=== PATIENT | male | born 1985 | race Caucasian/White ===

== ENCOUNTER → 2022-08-27 09:37 | Outpatient (BNVA) | payer MEDICARE, SELFPAY | PROVIDERS: PCP Emergency Medicine; Visit Provider Nurse Practitioner Family | DX: G90.529 Complex regional pain syndrome I of unspecified lower limb (principal); M62.830 Muscle spasm of back; M47.816 Spondylosis without myelopathy or radiculopathy, lumbar region; M79.2 Neuralgia and neuritis, unspecified | CPT/HCPCS: 99202 ==

== ENCOUNTER 2022-09-20 09:56 | Outpatient (REF) | payer MEDICARE, SELFPAY ==
--- NOTE | ~2022-09-20 | MR_ITS ---
EXAMINATION: MR LIMITED INCOMPLETE MR LUMBAR SPINE WITHOUT CONTRAST CLINICAL INFORMATION: Right leg pain. COMPARISON: X-ray dated 05/11/2011. TECHNIQUE: Only a localizer acquisition and a sagittal T2-weighted sequence were obtained. Patient refused further imaging due to anxiety. MR/MR lumbar spine wo con LIMITED FINDINGS AND IMPRESSION: The marrow signal is homogeneous. There is a very mild leftward curvature of the midlumbar spine. The lower thoracic discs are well-hydrated and normal in appearance. The L1-L2, L2-L3, and L3-L4 disc spaces are normal. At the L4-L5 level, there is mild disc degeneration and a generalized disc bulge with a small central disc protrusion and underlying annular tear. No central canal stenosis evident. Facet arthropathy and bulging disc result in [id number] foraminal narrowing at this level. At the L5-S1 level, there is a retrosubluxation and disc degeneration with mild disc space narrowing. Broad-based posterior disc bulge evident with a small central disc protrusion. Bilateral facet arthrosis also evident with [id number] foraminal narrowing, more so on the left side. The distal cord, conus tip, and cauda equina nerve roots appear normal. There are no compression fractures.
== END 2022-09-20 09:57 | disposition home or self-care (01) ==
LOC: HO.MRI 09:56
PROVIDERS: Visit Provider Nurse Practitioner Family
DX: G90.529 Complex regional pain syndrome I of unspecified lower limb (principal); M62.830 Muscle spasm of back; M47.816 Spondylosis without myelopathy or radiculopathy, lumbar region
CPT/HCPCS: 72148

== ENCOUNTER 2023-03-28 11:10 | Outpatient (REF) | payer MEDICARE, SELFPAY ==
--- NOTE | ~2023-03-28 | MR_ITS ---
EXAMINATION: MR LUMBAR SPINE WITHOUT CONTRAST CLINICAL INFORMATION: Lower back pain. Radiculopathy. COMPARISON: Lumbar spine MRI from 09/20/2022. TECHNIQUE: MRI of the lumbar spine was obtained using routine sequences without contrast. FINDINGS: Mild left convex curvature of the lumbar spine. Mild degenerative retrolisthesis of L5 on S1. Otherwise, normal anatomic alignment. Moderate degenerative disc disease at L4-L5 and L5-S1. T2 hyperintense annular fissure at L4-L5. Mild degenerative disc disease at L1-L2 and L2-L3. Associated mixed Modic type discogenic endplate changes including mild Modic type I discogenic edema at L4-L5. No additional suspicious marrow edema. The vertebral body heights are well-maintained. The conus medullaris terminates at the level of L1. The distal spinal cord is normal in appearance. Moderate subcutaneous edema within the soft tissues of the back from L3-S1. No additional significant abnormalities of the paraspinal musculature. Limited evaluation of the intra-abdominal structures without significant abnormalities. The abdominal aorta is of normal contour and caliber. AXIAL SPINAL LEVELS: T12-L1: Normal annular contour. There is no facet joint arthropathy. There is no neural foraminal stenosis. There is no spinal canal stenosis. L1-L2: Normal annular contour. There is no facet joint arthropathy. There is no neural foraminal stenosis. There is no spinal canal stenosis. L2-L3: Normal annular contour. There is no facet joint arthropathy. There is no neural foraminal stenosis. There is no spinal canal stenosis. L3-L4: Shallow diffuse disc bulge. There is mild left and no right facet joint arthropathy. There is no neural foraminal stenosis. There is no spinal canal stenosis. L4-L5: Mild diffuse disc bulge with superimposed shallow central/left subarticular disc protrusion. There is mild bilateral facet joint arthropathy. There is a 0.4 cm T2 hyperintense cyst posterior to the right facet joint. There is moderate right worse than left neural foraminal stenosis. There is no spinal canal stenosis. L5-S1: Mild diffuse disc bulge with posterior osseous ridging. There is mild bilateral facet joint arthropathy. There is moderate bilateral neural foraminal stenosis. There is no spinal canal stenosis. 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 Most notably, there are moderate neural foraminal stenoses at L4-L5 and L5-S1. No overt spinal canal stenosis. Overall, degenerative changes appears similar to exam from 2021.
== END 2023-03-28 11:11 | disposition home or self-care (01) ==
LOC: HO.MRI 11:10
PROVIDERS: PCP Registered Nurse; Visit Provider Registered Nurse
DX: M54.16 Radiculopathy, lumbar region (principal)
CPT/HCPCS: 72148

== ENCOUNTER 2024-01-24 10:13 | Outpatient (REF) | payer MEDICARE, SELFPAY ==
--- NOTE | ~2024-01-24 | XR_ITS ---
EXAMINATION: XR CHEST CLINICAL INFORMATION: Cough. COPD. Patient reports cough for 2 months. COMPARISON: None available. TECHNIQUE: 2 views of the chest were obtained. FINDINGS: There is opacity from airspace disease process and/or atelectasis in the left lower lobe. The left lateral costophrenic sulcus is blunted from a small pleural effusion. Also, a few linear opacities of mild atelectasis are present at the left lateral base. Cardiac silhouette is normal in size. There is a slight convex mediastinal contour in the region of the aortopulmonary window -- possible lymphadenopathy. However, no radiographic evidence of hilar or paratracheal lymphadenopathy. Questionable presence of callus formation at lateral aspect of left sixth and ninth ribs. Recommend attention to these ribs on chest CT evaluation. XR/XR chest 2V IMPRESSION: Left lower lobe opacity from airspace disease, atelectasis and/or possible underlying mass. Small left pleural effusion is present. Further workup is recommended given the history of 2 months of cough. Recommend obtaining chest CT with IV contrast.
== END 2024-01-24 10:14 | disposition home or self-care (01) ==
LOC: HO.HHCX 10:13
PROVIDERS: Visit Provider Nurse Practitioner Family
DX: R93.89 Abnormal findings on diagnostic imaging of other specified body structures (principal); R05.9 Cough, unspecified; J44.9 Chronic obstructive pulmonary disease, unspecified
CPT/HCPCS: 71046

== ENCOUNTER 2024-02-05 08:55 | Emergency (ER) | payer OTHER, MEDICARE, SELFPAY ==
[2024-02-05 09:10] VITALS: BP 137/76; PULSE 89; RESP 18; TEMP 36.6; O2SAT 98; BMI 39.2
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
[2024-02-05 10:11] VITALS: BP 112/78; PULSE 91; RESP 16; TEMP 36.6; O2SAT 98
== END 2024-02-05 10:12 | disposition home or self-care (01) ==
PROVIDERS: Emergency Provider Emergency Medicine; PCP Registered Nurse
DX: S16.1XXA Strain of muscle, fascia and tendon at neck level, initial encounter (principal); V49.60XA Unspecified car occupant injured in collision with unspecified motor vehicles in traffic accident, initial encounter; Y93.9 Activity, unspecified; Y92.410 Unspecified street and highway as the place of occurrence of the external cause; Y99.9 Unspecified external cause status
CPT/HCPCS: 99283; 99284

== ENCOUNTER 2024-03-21 09:27 | Outpatient (REF) | payer MEDICARE, SELFPAY ==
--- NOTE | ~2024-03-21 | CT_ITS ---
EXAMINATION: CT CHEST WITH CONTRAST CLINICAL INFORMATION: Cough. COPD. Patient reports cough for 2 months. COMPARISON: None available. TECHNIQUE: Multidetector volumetric CT imaging of the chest was obtained after the administration of 65 mL of Omnipaque 350 intravenous contrast without immediate adverse reactions. Axial MIP volume rendering provided. Sagittal and coronal reformatted images were obtained. This CT examination was performed using dose optimization techniques as appropriate, variously including the following: *Automated exposure control *Adjustment of mA and/or kV according to patient size (this includes techniques or standardized protocols for targeted exams where dose is matched to indication/reason for exam; i.e. extremities or head) *Use of iterative reconstruction technique DLP: 190 mGy-cm FINDINGS: LUNGS: There is focal dense consolidation at the posterior left lower lobe. This extends to the left inferior hilum where there is a heterogeneous density. This could be due to consolidation versus post obstructive pneumonitis due to a left hilar lung mass/lymphadenopathy at the lower lobe perihilar lung. The bronchus to the posterior left lower lobe posteriorly is compressed and slightly displaced, axial image 100/200 series 6. Bronchoscopy may be helpful for follow-up. MEDIASTINUM: At the AP window there is a lymph node with a short axis diameter measuring 1 cm, borderline enlarged. There are a few subcentimeter right paratracheal lymph nodes. In the subcarina there is a 0.8 cm lymph node. Heart size is normal. There is no pericardial effusion. PLEURA: There is no pleural effusion. No pleural mass or thickening. AXILLA: No lymphadenopathy. UPPER ABDOMEN: Unremarkable OSSEOUS STRUCTURES: No acute osseous abnormality. Old healed fracture of the left lateral sixth, seventh and ninth ribs. Sclerotic focus at the posterior left seventh rib without bone destruction or soft tissue mass. This measures 1 cm. Likely a bone island. CT/CT chest w IV con IMPRESSION: Focal dense consolidation at the posterior left lower lobe extending to the left inferior hilum. This could be due to consolidation versus post obstructive pneumonitis due to a left hilar lung mass/lymphadenopathy. Bronchoscopy may be helpful for follow-up. Fleischner guidelines were followed.
[2024-03-21] MEDS: iohexoL 350 MG/ML 100 ML INFUS..BTL IV (09:59)
== END 2024-03-21 09:28 | disposition home or self-care (01) ==
LOC: HO.CT 09:27
PROVIDERS: PCP Nurse Practitioner Family; Visit Provider Nurse Practitioner Family
DX: R93.89 Abnormal findings on diagnostic imaging of other specified body structures (principal)
CPT/HCPCS: 71260; Q9967

== ENCOUNTER 2024-04-12 13:31 | Outpatient (AMB) | payer MEDICARE, SELFPAY ==
[2024-04-12 13:36] VITALS: PULSE 89; O2SAT 97; BMI 39.1
--- NOTE | 2024-04-12 13:36 | MHC.OFFVIS ---
Vital Signs 04/12/24 13:36 Height 5 ft 8 in Weight 257 lb BMI 39.1 Pulse 89 Pulse Source Pulse Oximeter Pulse Oximetry (%) 97 Oxygen Delivery Method Room Air Intake Visit Reasons: Abnormal CT scan [employer] Required: No Allergies No Known Allergies Allergy (Verified 04/12/24 13:38) HPI Comments Details: The patient is here for pulmonary evaluation. The patient is a 39-year-old gentleman the cough tends to be moderate severity. Typically nonproductive although he feels like he has something to clear and just can not clear. During the workup the patient had a chest x-ray followed by CT scan of the chest. I personally reviewed the CT scan with the patient. Appears to have a masslike consolidation in the left lower lobe area in the infrahilar area as well. Seems to be some mucus plugging of some type question endobronchial lesion the patient denies choking on any particular foods. Denies any weight loss or night sweats. He denies any hemoptysis. the patient also has been trying to quit smoking. He has had a hard time. We talked about performing a bronchoscopy. The patient is agreeable this time. I did describe the procedure and the benefits of the procedure. The patient would like to pursue the procedure soon as possible. [facility] Medical History (Updated 04/12/24 @ 22:05 by Kai Gibbons MD) Tobacco dependence Consolidation of left lower lobe of lung Lung mass Osteoarthritis of ankle COPD, mild Neuropathic pain of right lower extremity Lumbar radiculopathy Complex regional pain syndrome of lower extremity Obstructive sleep apnea Obesity Bipolar disorder Hypothyroidism Nondependent alcohol abuse Severe episode of recurrent major depressive disorder Low back pain Surgical History Joint arthrodesis status Social History Patient Tobacco Use Status: Current everyday Tobacco user Tobacco use type: Cigarette Cigarette Packs Per Day: 1 Substance Use Type: Marijuana Review of Systems Const Denies fever(s) and Denies weight loss Eyes Reports no additional complaints ENT Denies dysphagia Card Denies chest pain and Denies palpitations Resp Reports cough, Denies hemoptysis and Denies wheezing GI Denies dysphagia Musc Reports back pain and Reports myalgias Skin/Breast Denies rash Endo Denies palpitations Zenon/Lymph Denies lymphadenopathy Aller/Immun Denies wheezing Physical Exam Vital Signs: Last Vital Signs Pulse 89 04/12/24 13:36 Pulse Ox 97 04/12/24 13:36 Oxygen Delivery Method Room Air 04/12/24 13:36 BMI result Body Mass Index 39.1 Const General: comfortable HEENT Head: Yes normocephalic Neck Neck: Yes supple Chest Chest palpation & inspection: normal inspection of the chest Resp Effort & Inspection: normal respiratory effort Auscultation: diminished lung sounds on the left Cardio Heart sounds: S1 normal heart sound present and S2 normal heart sound present GI Palpation (GI): Soft to palpation Extrem General: Yes no clubbing, cyanosis or edema Results Reviewed Results Reviewed: [address] [address] [address] Scan Report Signed Patient: Ji Her MR#: [id number] : 1985 Acct:[id number] Age/Sex: 39 / M ADM Date: 03/21/24 Loc: HO.CT Attending Dr: Margie Singh PATIENT ACCOUNT REPRESENTATIVE Ordering Physician: Margie Singh NP Date of Service: 03/21/24 Procedure(s): CT chest w IV con Accession Number(s): [id number] cc: Margie Singh PATIENT ACCOUNT REPRESENTATIVE~ EXAMINATION: CT CHEST WITH CONTRAST CLINICAL INFORMATION: Cough. COPD. Patient reports cough for 2 months. COMPARISON: None available. TECHNIQUE: Multidetector volumetric CT imaging of the chest was obtained after the administration of 65 mL of Omnipaque 350 intravenous contrast without immediate adverse reactions. Axial MIP volume rendering provided. Sagittal and coronal reformatted images were obtained. This CT examination was performed using dose optimization techniques as appropriate, variously including the following: *Automated exposure control *Adjustment of mA and/or kV according to patient size (this includes techniques or standardized protocols for targeted exams where dose is matched to indication/reason for exam; i.e. extremities or head) *Use of iterative reconstruction technique DLP: 190 mGy-cm FINDINGS: LUNGS: There is focal dense consolidation at the posterior left lower lobe. This extends to the left inferior hilum where there is a heterogeneous density. This could be due to consolidation versus post obstructive pneumonitis due to a left hilar lung mass/lymphadenopathy at the lower lobe perihilar lung. The bronchus to the posterior left lower lobe posteriorly is compressed and slightly displaced, axial image 100/200 series 6. Bronchoscopy may be helpful for follow-up. MEDIASTINUM: At the AP window there is a lymph node with a short axis diameter measuring 1 cm, borderline enlarged. There are a few subcentimeter right paratracheal lymph nodes. In the subcarina there is a 0.8 cm lymph node. Heart size is normal. There is no pericardial effusion. PLEURA: There is no pleural effusion. No pleural mass or thickening. AXILLA: No lymphadenopathy. UPPER ABDOMEN: Unremarkable OSSEOUS STRUCTURES: No acute osseous abnormality. Old healed fracture of the left lateral sixth, seventh and ninth ribs. Sclerotic focus at the posterior left seventh rib without bone destruction or soft tissue mass. This measures 1 cm. Likely a bone island. CT/CT chest w IV con IMPRESSION: Focal dense consolidation at the posterior left lower lobe extending to the left inferior hilum. This could be due to consolidation versus post obstructive pneumonitis due to a left hilar lung mass/lymphadenopathy. Bronchoscopy may be helpful for follow-up. Fleischner guidelines were followed. Dictated By: Estuardo Jennings MD Signed By: <Electronically signed by Estuardo Jennings MD in OV> 04/04/24 1504 DD/ 0957 TD/TT: Scanning Coordinator: LEIDA Assessment & Plan Assessment & Plan (1) Lung mass: Code(s): R91.8 - Other nonspecific abnormal finding of lung field Category: Medical (2) Consolidation of left lower lobe of lung: Code(s): J18.1 - Lobar pneumonia, unspecified organism Category: Medical (3) COPD, mild: Code(s): J44.9 - Chronic obstructive pulmonary disease, unspecified Category: Medical (4) Tobacco dependence: Code(s): F17.200 - Nicotine dependence, unspecified, uncomplicated Category: Medical Plan Plan for an urgent bronchoscopy tobacco cessation EUGENE as needed F/U after the bronchoscopy Coding Level of Care Code New Pt Level 5 (74217) Diagnoses Lung mass R91.8 Consolidation of left lower lobe of lung J18.1 COPD, mild J44.9 Tobacco dependence F17.200 Time Spent (min) 60
== END 2024-04-12 14:08 | disposition home or self-care (01) ==
PROVIDERS: PCP Nurse Practitioner Family; Referring Provider Family Medicine; Visit Provider Hospitalist
DX: R91.8 Other nonspecific abnormal finding of lung field (principal); J18.1 Lobar pneumonia, unspecified organism; J44.9 Chronic obstructive pulmonary disease, unspecified; F17.210 Nicotine dependence, cigarettes, uncomplicated
CPT/HCPCS: 99205

== ENCOUNTER → 2024-04-12 13:31 | Outpatient (BNVA) | payer MEDICARE, SELFPAY | PROVIDERS: PCP Nurse Practitioner Family; Referring Provider Family Medicine; Visit Provider Hospitalist | DX: J44.9 Chronic obstructive pulmonary disease, unspecified (principal); J18.1 Lobar pneumonia, unspecified organism; R91.8 Other nonspecific abnormal finding of lung field; F17.210 Nicotine dependence, cigarettes, uncomplicated | CPT/HCPCS: 99202 ==

== ENCOUNTER 2024-04-23 07:27 | Day surgery (SDC) | payer MEDICARE, SELFPAY ==
--- NOTE | 2024-04-19 15:18 | HO.ANESPROP2 ---
Documented by User: Vanna Reddy NP 04/19/24 15:20 HPI - Anesthesia Eval Consult details Narrative: 39yo M for Bronchoscopy Fiberoptic Smoker: 1 ppd PMFSH Active Problems Active Problems: All Active Problems Tobacco dependence (Acute) Consolidation of left lower lobe of lung (Acute) Lung mass (Acute) COPD, mild (Acute) Lumbar spondylosis (Acute) Muscle spasm of back (Acute) Neuropathic pain of right lower extremity (Acute) Lumbar radiculopathy (Acute) Complex regional pain syndrome of lower extremity (Acute) Past Medical History Medical History Tobacco dependence Consolidation of left lower lobe of lung Lung mass Osteoarthritis of ankle COPD, mild Neuropathic pain of right lower extremity Lumbar radiculopathy Complex regional pain syndrome of lower extremity Obstructive sleep apnea Obesity Bipolar disorder Hypothyroidism Nondependent alcohol abuse Severe episode of recurrent major depressive disorder Low back pain Surgical History Surgical History Joint arthrodesis status Social History Social History Patient Tobacco Use Status: Current everyday Tobacco user Tobacco use type: Cigarette Cigarette Packs Per Day: 1 Smoked in Last 30 Days: Yes Patient Interested in Nicotine Replacement: No Substance Use Type: Marijuana Substance Use Frequency: Daily Are you DNR?: No Advance Directives: No Advance Directives Information Provided: Yes Nutrition Risks: No Nutritional Risk Meds Allergies Allergy/AdvReac Type Severity Reaction Status Date / Time No Known Allergies Allergy Verified 04/23/24 08:20 Home Medications ?Medication ?Instructions ?Recorded ?Confirmed ?Last Taken ?Type albuterol sulfate 90 mcg/actuation 0 mcg inhalation 08/27/22 Unknown History aerosol inhaler bupropion HCl 300 mg 24 hr tablet, 300 mg PO DAILY PRN other 08/27/22 04/23/24 Unknown History extended release cholecalciferol (vitamin D3) 50 50 mcg PO DAILY 08/27/22 04/23/24 Unknown History mcg (2,000 unit) tablet levothyroxine 75 mcg tablet 75 mcg PO DAILY 08/27/22 04/23/24 04/23/24 History naloxone 4 mg/actuation nasal 1 spray intranasal DAILY 08/27/22 04/23/24 Unknown History spray (Narcan) nicotine 21 mg/24 hr daily 1 patch topical DAILY 08/27/22 04/23/24 Unknown History transdermal patch oxycodone-acetaminophen 10 mg-325 0 tab PO 08/27/22 04/23/24 History mg tablet sertraline 25 mg tablet 25 mg PO DAILY 08/27/22 04/23/24 Unknown History zolpidem 10 mg tablet 10 mg PO BEDTIME 08/27/22 04/23/24 Unknown History Exam Narrative Narrative: CT chest w IV con 03/2024 IMPRESSION: Focal dense consolidation at the posterior left lower lobe extending to the left inferior hilum. This could be due to consolidation versus post obstructive pneumonitis due to a left hilar lung mass/lymphadenopathy. Bronchoscopy may be helpful for follow-up. Assessment and Plan Assessment Anesthesia Assessment: Chart Reviewed Documented by User: Cristian Paige MD 04/23/24 08:49 [facility] Past Medical History Medical History Tobacco dependence Consolidation of left lower lobe of lung Lung mass Osteoarthritis of ankle COPD, mild Neuropathic pain of right lower extremity Lumbar radiculopathy Complex regional pain syndrome of lower extremity Obstructive sleep apnea Obesity Bipolar disorder Hypothyroidism Nondependent alcohol abuse Severe episode of recurrent major depressive disorder Low back pain Family History Family history of problems with anesthesia: No Surgical History Surgical History Joint arthrodesis status History of Problems with Anesthesia: No Social History Social History Patient Tobacco Use Status: Current everyday Tobacco user Tobacco use type: Cigarette Cigarette Packs Per Day: 1 Smoked in Last 30 Days: Yes Patient Interested in Nicotine Replacement: No Substance Use Type: Marijuana Substance Use Frequency: Daily Are you DNR?: No Advance Directives: No Advance Directives Information Provided: Yes Nutrition Risks: No Nutritional Risk Meds Allergies Allergy/AdvReac Type Severity Reaction Status Date / Time No Known Allergies Allergy Verified 04/23/24 08:20 Home Medications ?Medication ?Instructions ?Recorded ?Confirmed ?Last Taken ?Type albuterol sulfate 90 mcg/actuation 0 mcg inhalation 08/27/22 Unknown History aerosol inhaler bupropion HCl 300 mg 24 hr tablet, 300 mg PO DAILY PRN other 08/27/22 04/23/24 Unknown History extended release cholecalciferol (vitamin D3) 50 50 mcg PO DAILY 08/27/22 04/23/24 Unknown History mcg (2,000 unit) tablet levothyroxine 75 mcg tablet 75 mcg PO DAILY 08/27/22 04/23/24 04/23/24 History naloxone 4 mg/actuation nasal 1 spray intranasal DAILY 08/27/22 04/23/24 Unknown History spray (Narcan) nicotine 21 mg/24 hr daily 1 patch topical DAILY 08/27/22 04/23/24 Unknown History transdermal patch oxycodone-acetaminophen 10 mg-325 0 tab PO 08/27/22 04/23/24 History mg tablet sertraline 25 mg tablet 25 mg PO DAILY 08/27/22 04/23/24 Unknown History zolpidem 10 mg tablet 10 mg PO BEDTIME 08/27/22 04/23/24 Unknown History Exam Airway Mallampati Class: III TM Dist: >3cm Neck ROM: Full Assessment and Plan Assessment Anesthesia Assessment: Anesthesia Plan Discussed Final Anesthetic Review Family History of Problems with Anesthesia: No History of Problems with Anesthesia: No NPO: Yes ASA Class: III Final Preanesthetic Review: No Changes in Pt Med Stat, Meds/Allgs Chart Reviewed, Consent Obtained/Reviewed and Anes Risks/Benef Reviewed Patient Risk: Intermediate Procedure Risk: Intermediate Anesthetic Plan Anesthetic Plan: GA Disposition: Standard PACU
[2024-04-23] MEDS: Lactated Ringers 1,000 ML 100 ML IVCONT (08:16)
[2024-04-23 08:18] VITALS: BMI 39.0
[2024-04-23 08:34] VITALS: BP 113/68; PULSE 94; RESP 18; TEMP 37; O2SAT 94
--- NOTE | 2024-04-23 09:29 | MHC.SHP ---
Pre-Procedural Eval Section A - 24 Hr Update-Section A only Date of Service: 04/23/24 The patient is an INPATIENT: No Changes since office visit: No Cold of Flu in the past 2 weeks, No New Medical Problems, No Changes in Medication and No Patient answered all questions The patient has been examined within 24 hours of the surgical procedure. The History & Physical has been completed within 30 days and I have reviewed it.: Yes Section B - Complete if H&P > 30 days Chief Complaint: Lobar pneumonia, unspecified organism Allergies: Allergies Allergy/AdvReac Type Severity Reaction Status Date / Time No Known Allergies Allergy Verified 04/23/24 08:20 Plan I have reviewed the history and physical and performed a pertinent physical examination on my patient. No changes have occurred unless specified. Time Spent With Patient Time: Total time managing care of this patient today ____ minutes.
[2024-04-23 10:36] VITALS: BP 148/84; PULSE 117; RESP 16; TEMP 36.7; O2SAT 99
[2024-04-23 10:41] VITALS: BP 130/94; PULSE 113; RESP 22; O2SAT 97
[2024-04-23 10:46] VITALS: BP 143/78; PULSE 114; RESP 22; O2SAT 99
[2024-04-23 10:51] VITALS: BP 114/81; PULSE 109; RESP 20; O2SAT 97
[2024-04-23 11:06] VITALS: BP 139/66; PULSE 104; RESP 20; TEMP 36.7; O2SAT 96
--- NOTE | 2024-04-23 11:24 | HO.INF ---
PATIENT WAS SEEN BY DR. BULLOCK PRIOR TO DC.
--- NOTE | 2024-04-23 11:32 | PM.OP ---
Brief Operative Note Date of Service: 04/23/24 Pre-op diagnosis: lung mass Post-op diagnosis: other (lung cancer, post obstructive pneumonia) Procedure: Bronchosopy with biopsies, brushings, washings Implants: Surgeon: Kai Gibbons MD Anesthesia: GETA Was an Black Oxide Coating Equipment Tender used for this Procedure?: No Estimated blood loss (mL): 3 Pathology: other (LLL biopsies, brushings) Condition: stable Disposition: same day
--- NOTE | 2024-04-24 22:35 | OP_ITS ---
DATE OF SERVICE: 04/23/2024 SURGEON: Kai Gibbons MD PREOPERATIVE DIAGNOSIS: Lung mass. POSTOPERATIVE DIAGNOSIS: PROCEDURE PERFORMED: ESTIMATED BLOOD LOSS: COMPLICATIONS: ANESTHESIA: Patient received general endotracheal anesthesia. ASSISTANTS: SPECIMENS: ASA: 2. POSTOPERATIVE DIAGNOSES: Lung cancer and postobstructive pneumonia. PROCEDURES PERFORMED: Bronchoscopy with biopsies, brushings, and washings. PATTERN CHECKER: None. DESCRIPTION OF PROCEDURE: After the patient was intubated, the flexible digital bronchoscope was inserted to the ET tube to the level of the main kendra. The tracheal mucosa appeared normal. After instilling lidocaine, the bronchoscope was navigated through the entire tracheobronchial tree. That was examined up to the subsegmental level. The patient did have endobronchial lesion at the proximal left lower lobe bronchus. The area appeared to be vascular in nature with some neovascularization, purplish hue, and also surrounding, it was evidence of purulent secretions consistent with postobstructive pneumonic process. No other endobronchial lesions noted. Using a cytologic brush, that was introduced into the left lower lobe. Specimens were sent to cytology. The patient did have some bleeding, oozing after the brushing was done. Ice saline was used with good hemostasis. Afterwards using forces, endobronchial biopsies were collected of the left lower lobe mass. Epinephrine was used preemptively to minimize bleeding. Some biopsies were collected and sent to the appropriate location in formalin for Pathology to review. After the biopsies were collected, the patient still had some bleeding. So therefore, another ampule of epinephrine was introduced into the site, and once the patient reached good hemostasis without any evidence of any bleeding, the bronchoscope was the removed. The total endoscopic time approximately 20 minutes. The patient tolerated the procedure well. Vital signs were stable throughout the procedure. INTERPRETATION: 1. Endobronchial biopsies of the left lower lobe sent to pathology. 2. Cytology brush to the left lower lobe. 3. Bilateral washings sent both for microbiology and cytology. No apparent complications. Kai Gibbons MD MR/MODL / [id number]
== END 2024-04-23 11:25 | disposition home or self-care (01) ==
PROVIDERS: PCP Nurse Practitioner Family; Visit Provider Hospitalist
PROC: 0BJ08ZZ Inspection of Tracheobronchial Tree, Via Natural or Artificial Opening Endoscopic (ICD-10-PCS; CPT 31622; principal; 2024-04-23 09:30)
DX: C7A.090 Malignant carcinoid tumor of the bronchus and lung (principal); J44.0 Chronic obstructive pulmonary disease with (acute) lower respiratory infection; J18.8 Other pneumonia, unspecified organism; G47.33 Obstructive sleep apnea (adult) (pediatric); F17.210 Nicotine dependence, cigarettes, uncomplicated
CPT/HCPCS: 31625; 31623; 87071; 87077; 87185; 87205; 88112; 88305; 88341; 88342; 88360; J0171; J1100; J2250; J2405; J2704; J3010

== ENCOUNTER → 2024-04-23 07:27 | Outpatient (BNV) | payer MEDICARE, SELFPAY | PROVIDERS: PCP Nurse Practitioner Family; Visit Provider Hospitalist | DX: C34.32 Malignant neoplasm of lower lobe, left bronchus or lung (principal); J18.1 Lobar pneumonia, unspecified organism | CPT/HCPCS: 31623; 31625 ==

== ENCOUNTER 2024-05-03 09:10 | Outpatient (AMB) | payer MEDICARE, SELFPAY ==
--- NOTE | 2024-05-03 09:12 | MHC.OFFVIS ---
Vital Signs 05/03/24 09:14 Height 5 ft 8 in Weight 257 lb BMI 39.1 Pulse 83 Pulse Source Pulse Oximeter Pulse Oximetry (%) 97 Oxygen Delivery Method Room Air Intake Visit Reasons: S/p bronch Oncology Social Worker Required: No Allergies No Known Allergies Allergy (Verified 05/03/24 09:15) HPI Comments Details: The patient is a 39-year-old gentleman the cough tends to be moderate severity. Typically nonproductive although he feels like he has something to clear and just can not clear. During the workup the patient had a chest x-ray followed by CT scan of the chest. I personally reviewed the CT scan with the patient. Appears to have a masslike consolidation in the left lower lobe area in the infrahilar area as well. Seems to be some mucus plugging of some type question endobronchial lesion the patient denies choking on any particular foods. Denies any weight loss or night sweats. He denies any hemoptysis. the patient also has been trying to quit smoking. He has had a hard time. We talked about performing a bronchoscopy. The patient is agreeable this time. I did describe the procedure and the benefits of the procedure. The patient would like to pursue the procedure soon as possible. 05/03/2024 The patient is here for a follow up bronchsocopy. He did have a mass obstructing his LLL bronchus with pus suggesting a post obstructive pneumonia. Pathology consistent with carcinoid. He completed the Augmentin and starting to cough again. He will have PFTs and awaiting referral with Thoracic surgery. 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, mild Obstructive sleep apnea Tobacco dependence Nondependent alcohol abuse Bipolar disorder Neuropathic pain of right lower extremity Complex regional pain syndrome of lower extremity Osteoarthritis of ankle Lumbar radiculopathy Hypothyroidism Severe episode of recurrent major depressive disorder Low back pain Obesity Surgical History (Updated 04/26/24 @ 14:13 by Anay Shepard PA-C) History of bronchoscopy History of foot surgery History of circumcision Social History Patient Tobacco Use Status: Current everyday Tobacco user Tobacco use type: Cigarette Cigarette Packs Per Day: 1 Substance Use Type: Marijuana Review of Systems Const Denies fever(s) and Denies weight loss Eyes Reports no additional complaints ENT Denies dysphagia Card Denies chest pain and Denies palpitations Resp Reports cough, Denies hemoptysis and Denies wheezing GI Denies dysphagia Musc Reports back pain and Reports myalgias Skin/Breast Denies rash Endo Denies palpitations Zenon/Lymph Denies lymphadenopathy Aller/Immun Denies wheezing Physical Exam Vital Signs: Last Vital Signs Pulse 83 05/03/24 09:14 Pulse Ox 97 05/03/24 09:14 Oxygen Delivery Method Room Air 05/03/24 09:14 BMI result Body Mass Index 39.1 Const General: comfortable HEENT Head: Yes normocephalic Neck Neck: Yes supple Chest Chest palpation & inspection: normal inspection of the chest Resp Effort & Inspection: normal respiratory effort Auscultation: diminished lung sounds on the left Cardio Heart sounds: S1 normal heart sound present and S2 normal heart sound present GI Palpation (GI): Soft to palpation Extrem General: Yes no clubbing, cyanosis or edema Assessment & Plan Assessment & Plan (1) Carcinoid tumor: Onset Date: ~04/2024 Comment: (Carcinoid Tumor of Left Lowe Lobe - dx 04/2024) Code(s): D3A.00 - Benign carcinoid tumor of unspecified site Category: Medical Qualifiers: Carcinoid tumor malignancy status: unspecified whether malignant Carcinoid tumor location: lung Qualified Code(s): D3A.090 - Benign carcinoid tumor of the bronchus and lung (2) Consolidation of left lower lobe of lung: Code(s): J18.1 - Lobar pneumonia, unspecified organism Category: Medical (3) COPD, mild: Code(s): J44.9 - Chronic obstructive pulmonary disease, unspecified Category: Medical (4) Tobacco dependence: Code(s): F17.200 - Nicotine dependence, unspecified, uncomplicated Category: Medical Plan Tobacco cessation: Nicotine patch PFTs start Doxycycline for H influenza Referral to thoracic surgery for resection EUGENE as needed F/U 3-4 months Orders: Orders PFT pulmonary function test 05/04/24 D3A.00 - Benign carcinoid tumor of unspecified site Medications: New doxycycline monohydrate 100 mg PO BID 14 days 28 tabs 0RF nicotine 1 patch transdermal Q24H 28 ea 3RF Coding Level of Care Code Est Pt Level 4 (07249) Diagnoses Carcinoid tumor of lung, unspecified whether malignant D3A.090 Carcinoid tumor malignancy status: unspecified whether malignant Carcinoid tumor location: lung Consolidation of left lower lobe of lung J18.1 COPD, mild J44.9 Tobacco dependence F17.200 Time Spent (min) 17
[2024-05-03 09:14] VITALS: PULSE 83; O2SAT 97; BMI 39.1
== END 2024-05-03 09:40 | disposition home or self-care (01) ==
PROVIDERS: PCP Nurse Practitioner Family; Visit Provider Hospitalist
DX: D3A.090 Benign carcinoid tumor of the bronchus and lung (principal); J18.1 Lobar pneumonia, unspecified organism; J44.9 Chronic obstructive pulmonary disease, unspecified; F17.200 Nicotine dependence, unspecified, uncomplicated
CPT/HCPCS: 99214

== ENCOUNTER → 2024-05-03 09:10 | Outpatient (BNVA) | payer MEDICARE, SELFPAY | PROVIDERS: PCP Nurse Practitioner Family; Visit Provider Hospitalist | DX: D3A.090 Benign carcinoid tumor of the bronchus and lung (principal); J18.1 Lobar pneumonia, unspecified organism; J44.9 Chronic obstructive pulmonary disease, unspecified; F17.210 Nicotine dependence, cigarettes, uncomplicated | CPT/HCPCS: 99212 ==

== ENCOUNTER 2024-05-04 10:51 | Outpatient (REF) | payer OTHER, SELFPAY ==
[2024-05-04 10:04] VITALS: PULSE 86; RESP 16; O2SAT 98
--- NOTE | 2024-05-04 13:31 | PFT_ITS ---
Flows: FEV1: 83 % of predicted at 3.26 L FVC: 86 % of predicted at 4.18 L FEV1/FVC: 78 % Bronchodilator response: Absent Volumes: Total lung capacity: 79 % of predicted at 5.31 L Residual volume: 74 % of predicted at 1.13 L Slow vital capacity: 80 % of predicted at 4.18 L Expiratory reserve volume: 97 % of predicted at 1.38 L Diffusion capacity: Normal Impression: Mild restrictive ventilatory defect with no bronchodilator response. MTDD
== END 2024-05-04 10:52 | disposition home or self-care (01) ==
LOC: HO.RESP 10:51
PROVIDERS: PCP Nurse Practitioner Family; Visit Provider Hospitalist
DX: D3A.00 Benign carcinoid tumor of unspecified site (principal)
CPT/HCPCS: 94010; 94640; 94727; 94729

== ENCOUNTER → 2024-05-04 13:31 | Outpatient (BNV) | payer OTHER, SELFPAY | PROVIDERS: PCP Nurse Practitioner Family; Visit Provider Internal Medicine Pulmonary Disease | DX: R06.02 Shortness of breath (principal) | CPT/HCPCS: 94060; 94727; 94729 ==

== ENCOUNTER 2024-05-09 09:29 | Outpatient (AMB) | payer MEDICARE, SELFPAY ==
--- NOTE | 2024-05-09 09:33 | A.OFFVIS_ITS ---
Vital Signs 05/09/24 09:44 Height 5 ft 8 in Weight 251 lb BMI 38.2 BP 123/71 Blood Pressure Location Rt brachial Position Sitting Pulse 76 Intake Visit Reasons: Lt lower lobe mass Intake Note: Patient referred by Dr. Gibbons for Lt lower lobe mass. Patient referred by Dr. Gibbons for Lt lower lobe mass. Patient c/o: fatigue, Denies SOB. Father passed from lung CA. Reports smoking 2 packs per day. Chest CT: 03-21-2024. Learning Design Specialist Required: No Accompanied by: Bo personal SOFTWARE PROJECT MANAGER Allergies No Known Allergies Allergy (Verified 05/09/24 09:39) HPI Comments Details: Patient presents with his mouthpiece maker for evaluation of recently diagnosed right lower lobe carcinoid tumor. Patient had a chronic cough and pneumonia which on workup including CT scan followed by bronchoscopy demonstrated findings demonstrating a carcinoid tumor obstructing the right lower lobe bronchus. Patient has a very significant smoking history of almost 2 packs per day for 20 years. He is tried smoking cessation with a variety of adjuvants but with limited success.. Patient denies any other new respiratory symptoms. He denies hemoptysis, chest pain, wheezing. Weight, energy, appetite within normal limits Chart was reviewed and patient evaluated. His case was also presented at the weekly multidisciplinary lung cancer screening conference. 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, mild Obstructive sleep apnea Tobacco dependence Nondependent alcohol abuse Bipolar disorder Neuropathic pain of right lower extremity Complex regional pain syndrome of lower extremity Osteoarthritis of ankle Lumbar radiculopathy Hypothyroidism Severe episode of recurrent major depressive disorder Low back pain Obesity Surgical History History of bronchoscopy History of foot surgery History of circumcision Social History Patient Tobacco Use Status: Current everyday Tobacco user Tobacco use type: Cigarette Cigarette Packs Per Day: 2 Substance Use Type: Marijuana Physical Exam Vital Signs: Last Vital Signs Pulse 76 05/09/24 09:44 BP 123/71 05/09/24 09:44 BMI result Body Mass Index 38.2 Neck Other: No cervical, periclavicular, or axillary adenopathy bilaterally Chest Other: Chest breath sounds bilaterally, diminished right base. HS 1 in 2 GI Other: Abdomen corpulent, soft, benign Assessment & Plan Assessment & Plan (1) Carcinoid tumor: Onset Date: ~04/2024 Comment: (Carcinoid Tumor of Left Lowe Lobe - dx 04/2024) Code(s): D3A.00 - Benign carcinoid tumor of unspecified site Category: Surgical Qualifiers: Carcinoid tumor location: lung Carcinoid tumor malignancy status: unspecified whether malignant Qualified Code(s): D3A.090 - Benign carcinoid tumor of the bronchus and lung (2) Lung mass: Code(s): R91.8 - Other nonspecific abnormal finding of lung field Category: Surgical Plan I discussed with the patient at length the therapeutic options which are observation or resection. VATS possible open right lower lobectomy, possible bilobectomy were extensively reviewed based on the operative findings and the ability to obtain clear surgical margins. Risks, benefits, alternatives of procedure which include bleeding, infection, recurrence, numbness, pain, scarring were extensively reviewed with the patient and he wishes to proceed. All questions answered. Arrangements were made for this. Coding Level of Care Code New Pt Level 5 (66233) Diagnoses Carcinoid tumor of lung, unspecified whether malignant D3A.090 Carcinoid tumor location: lung Carcinoid tumor malignancy status: unspecified whether malignant Lung mass R91.8
[2024-05-09 09:44] VITALS: BP 123/71; PULSE 76; BMI 38.2
== END 2024-05-09 09:51 | disposition home or self-care (01) ==
PROVIDERS: PCP Nurse Practitioner Family; Referring Provider Hospitalist; Visit Provider Surgery
DX: D3A.090 Benign carcinoid tumor of the bronchus and lung (principal); R91.8 Other nonspecific abnormal finding of lung field
CPT/HCPCS: 99204

== ENCOUNTER → 2024-05-09 09:29 | Outpatient (BNVA) | payer MEDICARE, SELFPAY | PROVIDERS: PCP Nurse Practitioner Family; Referring Provider Hospitalist; Visit Provider Surgery | DX: D3A.090 Benign carcinoid tumor of the bronchus and lung (principal); R91.8 Other nonspecific abnormal finding of lung field | CPT/HCPCS: 99202 ==

== ENCOUNTER → 2024-05-24 11:21 | Outpatient (BNV) | payer OTHER, SELFPAY | PROVIDERS: Admitting Provider Surgery; PCP Nurse Practitioner Family; Visit Provider Internal Medicine Cardiovascular Disease | DX: R91.8 Other nonspecific abnormal finding of lung field (principal); D3A.090 Benign carcinoid tumor of the bronchus and lung; Z01.810 Encounter for preprocedural cardiovascular examination | CPT/HCPCS: 93010 ==

== ENCOUNTER 2024-05-30 09:25 | Outpatient (AMB) | payer OTHER, SELFPAY ==
--- NOTE | 2024-05-30 09:30 | A.OFFVIS_ITS ---
Intake Visit Reasons: Discuss lung procedure Intake Note: Patient here to discuss lobectomy/ possible bi-lobectomy procedure scheduled tomorrow 05-31-24. Fur Designer Required: No Accompanied by: Self / Same As Patient Allergies No Known Allergies Allergy (Verified 05/30/24 09:30) HPI Comments Details: Patient presents for discussion regarding his surgical procedure for tomorrow. Once again we view that the patient has a carcinoid tumor at the orifice of the left lower lobe bronchus right nerve the split with the upper lobe. The ideal situation would be to perform a left lower lobectomy with clear margins. I discussed with the patient and also bright a diagram for him demonstrating the anatomic situation of the carcinoid tumor. I reviewed the case with Dr. Monterroso pathology, and he understands that we will undergo a frozen section to document surgically clear margin. If this is unable to be obtained, patient may need a complete pneumonectomy. We discussed the risks, benefits, alternatives of this at length and the patient understands and all questions answered. Once again risks, benefits alternatives of procedure were reviewed and included bleeding, infection, recurrence of tumor, numbness, pain, scarring, respiratory issues and the patient wishes to proceed. All questions answered. [facility] Medical History (Updated 05/24/24 @ 10:22 by Emma Art RN) Thyroid disease Arthritis Back pain Foot pain, right Anxiety Depression Emphysema of lung Asthma Tobacco dependence Osteoarthritis of ankle COPD, mild Neuropathic pain of right lower extremity Lumbar radiculopathy Complex regional pain syndrome of lower extremity Obstructive sleep apnea Obesity Bipolar disorder Hypothyroidism Nondependent alcohol abuse Severe episode of recurrent major depressive disorder Low back pain Surgical History (Updated 05/30/24 @ 09:37 by Jordan Davis MD) History of foot surgery History of bronchoscopy History of circumcision Carcinoid tumor (~04/2024) Social History Are you a primary wound care technician to a significant other at home: No Do you presently have visiting nurse or other home services: Yes ([employer]) Patient Tobacco Use Status: Current everyday Tobacco user Tobacco use type: Cigarette Cigarette Packs Per Day: 1 Cigarettes Per Day: 20.0 Substance Use Type: Marijuana Assessment & Plan Assessment & Plan (1) Lung mass: Code(s): R91.8 - Other nonspecific abnormal finding of lung field Category: Surgical (2) Carcinoid tumor determined by biopsy of lung: Code(s): D3A.090 - Benign carcinoid tumor of the bronchus and lung Category: Surgical Plan See above Coding Level of Care Code Est Pt Level 5 (86713) Diagnoses Lung mass R91.8 Carcinoid tumor determined by biopsy of lung D3A.090
== END 2024-05-30 09:36 | disposition home or self-care (01) ==
PROVIDERS: PCP Nurse Practitioner Family; Visit Provider Surgery
DX: R91.8 Other nonspecific abnormal finding of lung field (principal); D3A.090 Benign carcinoid tumor of the bronchus and lung
CPT/HCPCS: 99024

== ENCOUNTER → 2024-05-30 09:25 | Outpatient (BNVA) | payer OTHER, SELFPAY | PROVIDERS: PCP Nurse Practitioner Family; Visit Provider Surgery | DX: D3A.090 Benign carcinoid tumor of the bronchus and lung (principal) | CPT/HCPCS: 99212 ==

== ENCOUNTER 2024-05-31 07:51 | Outpatient (BNV) | payer OTHER, SELFPAY | END 2024-06-01 15:32 | PROVIDERS: Admitting Provider Surgery; PCP Nurse Practitioner Family; Visit Provider Internal Medicine Cardiovascular Disease | DX: R00.0 Tachycardia, unspecified (principal) | CPT/HCPCS: 93010 ==

== ENCOUNTER 2024-05-31 07:51 | Inpatient (IN) | payer OTHER, SELFPAY ==
--- NOTE | 2024-05-24 | ECG_ITS ---
Test Reason : pre op Blood Pressure : / mmHG Vent. Rate : 065 BPM Atrial Rate : 065 BPM P-R Int : 162 ms QRS Dur : 094 ms QT Int : 376 ms P-R-T Axes : 060 064 053 degrees QTc Int : 391 ms Normal sinus rhythm Normal ECG No previous ECGs available Referred By: Vanna Reddy Electronically Signed By:Sam Dickens
[2024-05-24 10:32] VITALS: BP 121/69; PULSE 89; RESP 16; O2SAT 98; BMI 38.8
--- NOTE | 2024-05-24 10:57 | P.CONAN_ITS ---
Documented by User: Vanna Reddy NP 05/30/24 09:16 HPI - Anesthesia Eval Consult details Narrative: 39yo M for Right Thoracoscopy w/Video Assist,possible open,Right lower Lobectomy, possible bi-lobectomy, Bronchoscopy Fiberoptic, 05/31/24 s/p bronch 04/2024 with GA-ETT 8 (Comment: Provue 3, induction on stretcher, small mouth opening, poor global dentition, loose/missing teeth) Pathology = carcinoid No recent illness, cough with pathology No CP with walking. Mild YOUNGBLOOD with stairs Smoker: decreased to 1 ppd from 2 ppd, nicotine vape as well COPD: Stable, rare albuterol use SHEFALI: Does not surgery PMFSH Active Problems Active Problems: All Active Problems Consolidation of left lower lobe of lung (Acute) Lung mass (Acute) Lumbar spondylosis (Acute) Muscle spasm of back (Acute) Carcinoid tumor (Acute ~04/2024) COPD, mild (Acute) Tobacco dependence (Acute) Complex regional pain syndrome of lower extremity (Acute) Neuropathic pain of right lower extremity (Acute) Lumbar radiculopathy (Acute) Past Medical History Medical History Thyroid disease Arthritis Back pain Foot pain, right Anxiety Depression Emphysema of lung Asthma Tobacco dependence Osteoarthritis of ankle COPD, mild Neuropathic pain of right lower extremity Lumbar radiculopathy Complex regional pain syndrome of lower extremity Obstructive sleep apnea Obesity Bipolar disorder Hypothyroidism Nondependent alcohol abuse Severe episode of recurrent major depressive disorder Low back pain Family History Family history of problems with anesthesia: No Surgical History Surgical History History of foot surgery History of bronchoscopy History of circumcision Carcinoid tumor (~04/2024) History of Problems with Anesthesia: No Social History Social History Are you a primary health care facility administrator to a significant other at home: No Do you presently have visiting nurse or other home services: Yes ([employer]) Patient Tobacco Use Status: Current everyday Tobacco user Tobacco use type: Cigarette Cigarette Packs Per Day: 1 Cigarettes Per Day: 20.0 Use of substances other than those prescribed or required for medical reasons: No Substance Use Type: Marijuana Substance Use Frequency: Occasionally Have you been hit, kicked, punched, or otherwise hurt by someone within the past year? If so, by whom?: No Are you DNR?: No Advance Directives: No Advance Directives Information Provided: No Advance Directives on File: No Recently lost weight without trying: No Eating poorly because of decreased appetite: No Nutrition Risks: No Nutritional Risk Poor oral hygiene: Yes (missing teeth on the top) Meds Allergies Allergy/AdvReac Type Severity Reaction Status Date / Time No Known Allergies Allergy Verified 05/30/24 09:30 Home Medications ?Medication ?Instructions ?Recorded ?Confirmed ?Last Taken ?Type albuterol sulfate 90 mcg/actuation 1 puff inhalation QID PRN 08/27/22 05/24/24 Unknown History aerosol inhaler Shortness Of Breath Or Wheezing bupropion HCl 300 mg 24 hr tablet, 300 mg PO DAILY other 08/27/22 05/24/24 05/31/24 05:00 History extended release cholecalciferol (vitamin D3) 50 50 mcg PO DAILY 08/27/22 05/24/24 05/30/24 History mcg (2,000 unit) tablet levothyroxine 75 mcg tablet 75 mcg PO DAILY 08/27/22 05/24/24 05/31/24 05:00 History naloxone 4 mg/actuation nasal 1 spray intranasal DAILY 08/27/22 05/24/24 Unknown History spray (Narcan) oxycodone-acetaminophen 10 mg-325 2 tab PO Q6-8H PRN Pain 08/27/22 05/24/24 05/31/24 05:00 History mg tablet sertraline 25 mg tablet 25 mg PO DAILY 08/27/22 05/24/24 05/31/24 05:00 History zolpidem 10 mg tablet 10 mg PO BEDTIME 08/27/22 05/24/24 05/29/24 History nicotine 21 mg/24 hr daily 1 patch transdermal DAILY 05/31/24 05/31/24 05/31/24 History transdermal patch 0500 Exam Height,Weight and Vital Signs: Height 5 ft 8 in Weight 115.666 kg Last Vital Signs Pulse 89 05/24/24 10:32 Resp 16 05/24/24 10:32 BP 121/69 05/24/24 10:32 Pulse Ox 98 05/24/24 10:32 O2 Del Method Room Air 05/24/24 10:32 Pertinent Lab Results Pertinent Lab Results: Lab Results 05/24/24 05/24/24 Range/Units 11:30 11:33 WBC 8.6 (4.8-10.8) X10*3/uL RBC 5.06 (4.60-5.80) X10*6/uL Hgb 14.3 (14.0-18.0) g/dl Hct 43.3 (42.0-52.0) % MCV 85.6 (80.0-98.0) fL MCH 28.3 (27.0-33.0) pg MCHC 33.0 (31.0-36.0) g/dl RDW 14.6 (11.0-16.0) % Plt Count 229 (160-400) X10*3/uL MPV 11.8 (9.4-12.4) fL Absolute Nucleated RBC 0.000 (0.0-0.012) X10*3/uL Nucleated RBC % (auto) 0.0 (0.0-0.2) /100WBC PT 11.1 (11.1-13.3) SEC INR 0.9 (0.9-1.1) APTT 34.9 (26.0-36.8) SEC Sodium 138 (135-145) mmol/L Potassium 4.2 (3.3-5.1) mmol/L Chloride 108 (96-108) mmol/L Carbon Dioxide 25 (22-29) mmol/L Anion Gap 9 L (12-20) BUN 18 H (9-16) mg/dL Creatinine 1.03 (0.5-1.4) mg/dL Estim Creat Clear Calc 116.5 Estimated GFR > 60 Random Glucose 84 (60-115) mg/dL Calcium 9.8 (8.4-10.2) mg/dL Total Bilirubin 0.3 (0.0-1.0) mg/dL AST 17 (5-37) U/L ALT 26 (0-40) U/L Alkaline Phosphatase 90 (39-117) U/L Total Protein 7.7 (6.5-8.0) g/dL Albumin 4.4 (3.5-5.0) g/dL Blood Type O Positive Antibody Screen NEGATIVE Narrative Narrative: EKG 05/2024 Vent. Rate : 065 BPM Atrial Rate : 065 BPM P-R Int : 162 ms QRS Dur : 094 ms QT Int : 376 ms P-R-T Axes : 060 064 053 degrees QTc Int : 391 ms Normal sinus rhythm Normal ECG No previous ECGs available CT chest w IV con 03/2024 IMPRESSION: Focal dense consolidation at the posterior left lower lobe extending to the left inferior hilum. This could be due to consolidation versus post obstructive pneumonitis due to a left hilar lung mass/lymphadenopathy. Bronchoscopy may be helpful for follow-up. Airway Mallampati Class: III TM Dist: >3cm Neck ROM: Full Loose/Missing/Broken Teeth: Yes (Upper: only 2 teeth remain Lower: Molars missing (pt denies any loose) Heart: RRR Lungs: CTAB (dim upper bilat) Assessment and Plan Assessment Anesthesia Assessment: Anesthesia Plan Discussed, Smoking Cess. Discussed and PAT Visit Final Anesthetic Review Family History of Problems with Anesthesia: No History of Problems with Anesthesia: No Documented by User: Aniya Tate MD 05/31/24 12:18 HPI - Anesthesia Eval Consult details Narrative: 39yo M for Fiberoptic Bronchoscopy, Right Thoracoscopy w/Video Assist, possible open, Left lower Lobectomy, possible bi-lobectomy 05/31/24 s/p bronch 04/2024 with GA-ETT 8 (Comment: Provue 3, induction on stretcher, small mouth opening, poor global dentition, loose/missing teeth) Pathology = carcinoid No recent illness, cough with pathology No CP with walking. Mild YOUNGBLOOD with stairs Smoker: decreased to 1 ppd from 2 ppd, nicotine vape as well COPD: Stable, rare albuterol use SHEFALI: Does not use CPAP. Cannot tolerate 05/31/24: History reviewed with patient morning of surgery. No symptoms to suggest carcinoid syndrome. 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 BMI 38.2 SHEFALI - not using CPAP Hypothyroidism Anxiety/ Depression Past Medical History Medical History Thyroid disease Arthritis Back pain Foot pain, right Anxiety Depression Emphysema of lung Asthma Tobacco dependence Osteoarthritis of ankle COPD, mild Neuropathic pain of right lower extremity Lumbar radiculopathy Complex regional pain syndrome of lower extremity Obstructive sleep apnea Obesity Bipolar disorder Hypothyroidism Nondependent alcohol abuse Severe episode of recurrent major depressive disorder Low back pain Family History Family history of problems with anesthesia: No Surgical History Surgical History History of foot surgery History of bronchoscopy History of circumcision Carcinoid tumor (~04/2024) History of Problems with Anesthesia: No Social History Social History Are you a primary health care facility administrator to a significant other at home: No Do you presently have visiting nurse or other home services: Yes ([employer]) Patient Tobacco Use Status: Current everyday Tobacco user Tobacco use type: Cigarette Cigarette Packs Per Day: 1 Cigarettes Per Day: 20.0 Use of substances other than those prescribed or required for medical reasons: No Substance Use Type: Marijuana Substance Use Frequency: Occasionally Have you been hit, kicked, punched, or otherwise hurt by someone within the past year? If so, by whom?: No Are you DNR?: No Advance Directives: No Advance Directives Information Provided: No Advance Directives on File: No Recently lost weight without trying: No Eating poorly because of decreased appetite: No Nutrition Risks: No Nutritional Risk Poor oral hygiene: Yes (missing teeth on the top) Meds Allergies Allergy/AdvReac Type Severity Reaction Status Date / Time No Known Allergies Allergy Verified 05/30/24 09:30 Home Medications ?Medication ?Instructions ?Recorded ?Confirmed ?Last Taken ?Type albuterol sulfate 90 mcg/actuation 1 puff inhalation QID PRN 08/27/22 05/24/24 Unknown History aerosol inhaler Shortness Of Breath Or Wheezing bupropion HCl 300 mg 24 hr tablet, 300 mg PO DAILY other 08/27/22 05/24/24 05/31/24 05:00 History extended release cholecalciferol (vitamin D3) 50 50 mcg PO DAILY 08/27/22 05/24/24 05/30/24 History mcg (2,000 unit) tablet levothyroxine 75 mcg tablet 75 mcg PO DAILY 08/27/22 05/24/24 05/31/24 05:00 History naloxone 4 mg/actuation nasal 1 spray intranasal DAILY 08/27/22 05/24/24 Unknown History spray (Narcan) oxycodone-acetaminophen 10 mg-325 2 tab PO Q6-8H PRN Pain 08/27/22 05/24/24 05/31/24 05:00 History mg tablet sertraline 25 mg tablet 25 mg PO DAILY 08/27/22 05/24/24 05/31/24 05:00 History zolpidem 10 mg tablet 10 mg PO BEDTIME 08/27/22 05/24/24 05/29/24 History nicotine 21 mg/24 hr daily 1 patch transdermal DAILY 05/31/24 05/31/24 05/31/24 History transdermal patch 0500 Exam Airway Mallampati Class: III TM Dist: >3cm Neck ROM: Full Other: Only 2 teeth in front. States broken teeth Assessment and Plan Assessment Anesthesia Assessment: Anesthesia Plan Discussed and Chart Reviewed Final Anesthetic Review Family History of Problems with Anesthesia: No History of Problems with Anesthesia: No NPO: Yes ASA Class: III Final Preanesthetic Review: No Changes in Pt Med Stat, Meds/Allgs Chart Reviewed, Consent Obtained/Reviewed and Anes Risks/Benef Reviewed Patient Risk: Intermediate Procedure Risk: High Assessment/Block/Sedation in SS: Assess/Block/Sedation-SS Anesthetic Plan Anesthetic Plan: GA Disposition: Standard PACU and Inp. Admit - ICU
[2024-05-24 12:15] LABS: Hematocrit 43.3 % (42.0-52.0); Hemoglobin 14.3 g/dl (14.0-18.0); Mean Corpuscular Hemoglobin 28.3 pg (27.0-33.0); Mean Corpuscular Volume 85.6 fL (80.0-98.0); Mean Platelet Volume 11.8 fL (9.4-12.4); Platelet Count 229 X10*3/uL (160-400); Red Blood Count 5.06 X10*6/uL (4.60-5.80); Red Cell Distribution Width 14.6 % (11.0-16.0); White Blood Count 8.6 X10*3/uL (4.8-10.8)
[2024-05-24 12:24] LABS: INTERNATIONAL NORM RATIO 0.9 (0.9-1.1); Prothrombin Time 11.1 SEC (11.1-13.3)
[2024-05-24 12:27] LABS: Partial Thromboplastin Time 34.9 SEC (26.0-36.8)
[2024-05-24 12:39] LABS: Alanine Aminotransferase 26 U/L (0-40); Albumin Level 4.4 g/dL (3.5-5.0); Alkaline Phosphatase 90 U/L (39-117); Anion Gap 9 (12-20); Aspartate Amino Transferase 17 U/L (5-37); Bilirubin Total 0.3 mg/dL (0.0-1.0); Blood Urea Nitrogen 18 mg/dL (9-16); Calcium 9.8 mg/dL (8.4-10.2); Carbon Dioxide 25 mmol/L (22-29); Chloride 108 mmol/L (96-108); Creatinine Clr Calc Pharmacy 116.5; Estimated Glomerular Filt Rate > 60; Glucose Random 84 mg/dL (60-115); Potassium 4.2 mmol/L (3.3-5.1); Sodium 138 mmol/L (135-145); Total Protein 7.7 g/dL (6.5-8.0)
--- NOTE | 2024-05-30 07:51 | MHC.SHP ---
Pre-Procedural Eval Section A - 24 Hr Update-Section A only Date of Service: 05/31/24 The patient is an INPATIENT: Yes Changes since office visit: No Cold of Flu in the past 2 weeks, No New Medical Problems, No Changes in Medication and No Patient answered all questions The patient has been examined within 24 hours of the surgical procedure. The History & Physical has been completed within 30 days and I have reviewed it.: Yes Section B - Complete if H&P > 30 days Chief Complaint: Benign carcinoid tumor of the bronchus and lung Allergies: Allergies Allergy/AdvReac Type Severity Reaction Status Date / Time No Known Allergies Allergy Verified 05/09/24 09:39 Plan I have reviewed the history and physical and performed a pertinent physical examination on my patient. No changes have occurred unless specified. Time Spent With Patient Time: Total time managing care of this patient today ____ minutes.
[2024-05-31] VITALS (13 sets, daily range): BP systolic 106–153; BP diastolic 64–80; PULSE 75–128; RESP 16–22; TEMP 35.8–37; O2SAT 94–97; BMI 38.2
--- NOTE | ~2024-05-31 | XR_ITS ---
EXAMINATION: XR chest 1V CLINICAL INFORMATION: Reason for Exam s/p left lower lobectomy COMPARISON: None TECHNIQUE: Single portable frontal view. Tubes and lines: Left chest tube remain in place unchanged. Lungs and pleura: Mild diffuse left parahilar interstitial opacification concerning for mild interstitial infiltrates. Exaggerated by expiration view. No pneumothorax. Heart and mediastinum: Heart and mediastinum unchanged.. Bones/soft tissue: Subcutaneous emphysema chest chest wall. XR/XR chest 1V IMPRESSION: * Left chest tube remain in place. No pneumothorax. * Mild left parahilar interstitial opacification concerning for possible mild interstitial infiltrates. * Subcutaneous emphysema.
--- NOTE | ~2024-05-31 | XR_ITS ---
EXAMINATION: XR CHEST CLINICAL INFORMATION: Left chest tube discontinued status post left lower lobectomy, left chest tube removal. COMPARISON: 06/02/2024. TECHNIQUE: Frontal view of the chest was obtained. FINDINGS: There is no gross pneumothorax. Redemonstration of postoperative changes status post left lower lobectomy. Status post interval removal of left medially oriented chest catheter. Similar left etc-zq-nqhar lung airspace opacity and moderate left pleural effusion. Imaged portion of the cardiomediastinal silhouette is stable, although left heart border is obscured by the left basilar consolidation and lafjy-cm-rpnammac left pleural effusion. XR/XR chest 1V IMPRESSION: 1. Redemonstration of postoperative changes status post left lower lobectomy. Status post interval removal of left medially oriented chest catheter. 2. Similar left ffd-ja-swlas lung airspace opacity and moderate left pleural effusion. This study was presented today June 04, 2024 for interpretation. Stat results provided at this time as requested by referring provider.
--- NOTE | ~2024-05-31 | XR_ITS ---
EXAMINATION: XR CHEST CLINICAL INFORMATION: Status post left lower lobectomy COMPARISON: 01/24/2024 TECHNIQUE: Frontal view of the chest was obtained. FINDINGS: Status post left lower lobectomy with left thoracostomy tube in place and soft tissue emphysema along the left chest wall. Linear opacity of atelectasis in the left lower lung. No airspace disease. Trace apical pneumothorax is noted. There is mild linear, hazy opacity of atelectasis at the right lung base. Cardiomediastinal silhouette has normal size and contour. Pulmonary vascular pattern is normal. Skeletal findings include fractures with callus formation at left lateral sixth and seventh ribs. XR/XR chest 1V IMPRESSION: Status post left lower lobectomy with presence of trace left apical pneumothorax and left thoracostomy tube in place. Mild bibasilar atelectasis.
--- NOTE | ~2024-05-31 | XR_ITS ---
EXAMINATION: XR CHEST CLINICAL INFORMATION: Follow-up left lower lobectomy. COMPARISON: Chest radiograph 06/01/2024. TECHNIQUE: Frontal view of the chest was obtained. FINDINGS: Postoperative changes following left lower lobectomy with stable positioning of a left medially oriented chest catheter, unchanged small left pleural effusion and similar airspace opacities overlying the left lower lung field. Clear right lung. No significant pneumothorax. No acute osseous abnormalities. XR/XR chest 1V IMPRESSION: 1. Stable postoperative changes following left lower lobectomy. 2. Stable small left pleural effusion and airspace opacities overlying the left lower lung field.
--- NOTE | 2024-05-31 06:21 | PC.NURSE ---
patient is wearing a nicotine patch right upper deltoid.
[2024-05-31] MEDS: Lactated Ringers 1,000 ML 100 ML IVCONT (06:58)
--- OUTSIDE RECORDS SUMMARY | 2024-05-31 07:54 | XMS_ITS | Continuity of Care Document ---
Author Organization [facility] Address [address] [place] [id number]- Care Team Providers Care Observer Electrical Prospecting Name Role Phone Radha Childress MD Primary Care Physician [facility] [id number] Date(s): 07/06/22 - 08/05/22 [facility] [address] [place] [id number]- Attending Physician: Peter Archibald Admitting Physician: Peter Archibald Referring Physician: Peter Archibald Allergies, Adverse Reactions, Alerts No Known Allergies Medications Advair Diskus 100 mcg-50 mcg inhalation powder 1 puffs, Inhalation, 2 times a day, 0 Refills, Maintenance Start Date: 01/09/13 Status: Ordered Advil 200 mg oral tablet 1 tablet = 200 mg, By Mouth, Every 6 hours, 0 Refills, Maintenance, 12/13/17 9:17:43 Start Date: 12/13/17 Status: Ordered Ambien 5 mg oral tablet 1 tablet = 5 mg, By Mouth, Daily at bedtime, 0 Refills, Maintenance, 11/22/17 7:50:52 Start Date: 11/22/17 Status: Ordered Cannabis (Schedule I Substance) has state certificate, 0 Refills, Maintenance, 04/26/17 9:54:33 Start Date: 04/26/17 Status: Ordered Controlled Substance Agreement Controlled Substance Agreement, See Instructions, # 1 units, Refills 0, Tot. Refills 0, Maintenance, Signed On: 07/28/16 Pharmacy I: [facility] DX: neuropathic pain right lower extremity (G57.91), 07/28/16 9:13:37, Compound Start Date: 07/28/16 Status: Ordered CPAP Machine See Instructions, # 1 each, Maintenance, [facility], 03/23/20 15:27:00 EDT, Supply Start Date: 03/23/20 Status: Ordered diclofenac 3% topical gel 0 Refills, Maintenance, 03/21/18 7:37:10 EDT Start Date: 03/21/18 Status: Ordered Levothyroxine = 75 mcg, By Mouth, Daily, 0 Refills, Maintenance, 02/13/14 15:43:37 Start Date: 02/13/14 Status: Ordered Percocet-10/325 oral tablet 1 to 2 tablet, By Mouth, Every 4 hours, PRN pain;max 8 tabs/day. partial fill allowed on request, #112 tablet, 0 Refills, Maintenance, 06/01/18 8:05:24 EDT, Tablet Start Date: 06/01/18 Status: Ordered ProAir HFA 90 mcg/inh inhalation aerosol with adapter 2 puffs, Inhalation, 4 times a day, PRN Wheezing/Shortness of Breath, 0 Refills, Maintenance Start Date: 01/09/13 Status: Ordered Valium 5 mg oral tablet See Instructions, 1 tab PO 1 hr. prior to procedure. May Repeat x 1 if needed., # 2 tablet, Refills0, Tot. Refills 0, Maintenance, 03/09/21 16:58:00 EDT, Instructions Replace Required Details, [facility], [facility]/pharmacy #[id number], Par... Start Date: 03/09/21 Status: Ordered Wellbutrin XL 300 mg/24 hours oral tablet, extended release 1 tablet = 300 mg, By Mouth, Every 24 hours, 0 Refills, Maintenance, 03/16/16 9:18:28 Start Date: 03/16/16 Status: Ordered zonisamide 100 mg oral capsule See Instructions, 2 capsule by mouth in am, 3 capsule at night, # 140 capsule, 2 Refills, Maintenance, 06/01/18 8:08:28 EDT, please label in mongolian Start Date: 06/01/18 Status: Ordered Problem List Condition Effective Dates Status Health Status Inform ant Adverse effects of medication(Confirmed) 1 Active Chronic bipolar disorder(Confirmed) Active CRPS 1, lower extremity(Confirmed) Active Depression(Confirmed) Active Medication management(Confirmed) 2 Active Limitation of activities due to disability(Confirmed) 3, 4, 5 Active Drug or alcohol risk assessm ent or counseling(Confirmed) 6 Active Pain in right foot(Confirmed) Active History of suicide attempt(Confirmed) Active Use of opiates for therapeut ic purposes(Confirmed) Active Hypothyroidism(Confirmed) Active Low back pain(Confirmed) Active COPD, mild(Confirmed) Active Obesity(Confirmed) Active Obstructive sleep apnea(Confirmed) Active Neuropathic pain of right lo wer extremity(Confirmed) Active 1lamotrigine: negative mood effects 2topiramate ineffective during trial at dose of 500mg/day 3updated Oswestry Disability Index: 68% ( crippled ) on 12/24/16 4Epworth 02/13/2015: 2 5Oswestry Disability Questionnaire 02/13/2015 Score: 64% Crippled S-LanSS Pain Score 02/13/2015: 30 6SOAPP-R 02/13/2015: 24 Social History Social History Type Response Smoking Status Former smoker; Other : Quit three years ago 2011; entered on: 02/13/15 Sex Care Team Personnel Name: Radha Childress MD Address: [address] [place] [address]
--- OUTSIDE RECORDS SUMMARY | 2024-05-31 07:54 | XMS_ITS | Continuity of Care Document ---
Author Organization [facility] Address [address] [place] [address]- Care Team Providers Care Hander In Name Role Phone Radha Childress MD Primary Care Physician [id number] Date(s): 03/11/21 - 04/10/[facility] [address] [place] [id number] Attending Physician: Peter Archibald Admitting Physician: Peter Archibald Referring Physician: trPeter Allergies, Adverse Reactions, Alerts Substance Reaction Severity Status NKA Active Medications Advair Diskus 100 mcg-50 mcg inhalation [...] 0, Maintenance, Signed On: 07/28/16 Pharmacy I: [facility] DX: neuropathic pain right lower extremity [...] Instructions Replace Required Details, [facility], [facility]/pharmacy #[id number], Par... Start Date: 03/09/21 Status: Ordered Wellbutrin [...] Maintenance, 06/01/18 8:08:28 EDT, please label in south sudanese Start Date: 06/01/18 Status: Ordered Problem List [...]
--- OUTSIDE RECORDS SUMMARY | 2024-05-31 07:54 | XMS_ITS | Continuity of Care Document ---
Author Organization [facility] Address [address] [place] [address]- Care Team Providers Care Protocol Manager Name Role Phone Yolanda Petty Primary Care Physician [phone] Encounter [facility] Date(s): 09/25/20 - 10/25/20 [facility] [address] [place] [id number] Attending Physician: Peter Archibald Admitting Physician: AdmtrPeter Referring Physician: Admtr, Ar8 Allergies, Adverse Reactions, Alerts Substance Reaction Severity [...] 0, Maintenance, Signed On: 07/28/16 Pharmacy I: [facility] DX: neuropathic pain right lower extremity (G57.91), 07/28/16 9:13:37, Compound Start Date: 07/28/16 Status: Ordered CPAP Machine See Instructions, # 1 each, Maintenance, [facility], 03/23/20 15:27:00 EDT, Supply Start Date: 03/23/20 Status: Ordered diclofenac 3% topical gel 0 Refills, Maintenance, 03/21/18 7:37:10 EDT Start Date: 03/21/18 Status: Ordered FLUoxetine 20 mg oral tablet 2 tablet = 40 mg, By Mouth, Daily, 0 Refills, Maintenance, 03/16/16 9:18:13 Start Date: 03/16/16 Status: Ordered Levothyroxine = 75 mcg, By Mouth, Daily, 0 Refills, Maintenance, 02/13/14 15:43:37 Start Date: 02/13/14 Status: Ordered Oxycodone See Instructions, 10 mg tabs - taking 2 tabs every 4 hours, 0 Refills, Maintenance, 09/27/19 14:52:30 EST, Partial fill upon patient request Start Date: 09/27/19 Status: Ordered Percocet-10/325 oral tablet 1 to [...] Refills, Maintenance Start Date: 01/09/13 Status: Ordered Spiriva HandiHaler 18 mcg Inhalation Capsule 1 capsule = 18 mcg, Inhalation, Daily, # 90 capsule, 0 Refills, Maintenance, Capsule Start Date: 01/09/13 Status: Ordered Wellbutrin XL 300 mg/24 hours oral tablet, extended release 1 tablet = 300 mg, By Mouth, Every 24 hours, 0 Refills, Maintenance, 03/16/16 9:18:28 Start Date: 03/16/16 Status: Ordered zonisamide 100 mg oral capsule See Instructions, 2 capsule by mouth in am, 3 capsule at night, # 140 capsule, 2 Refills, Maintenance, 06/01/18 8:08:28 EDT, please label in norwegian Start Date: 06/01/18 Status: Ordered Problem List [...]
--- OUTSIDE RECORDS SUMMARY | 2024-05-31 07:54 | XMS_ITS | Continuity of Care Document ---
Author Organization [facility] Address [address] [place] [id number]- Care Team Providers Care Rn Provider Relations Name Role Phone Radha Childress MD Primary Care Physician [phone] [id number] Date(s): 03/04/21 - 04/03/[facility] [address] [place], [place] [address] Allergies, Adverse Reactions, Alerts Substance Reaction Severity [...] 0, Maintenance, Signed On: 07/28/16 Pharmacy I: [facility] DX: neuropathic pain right lower extremity (G57.91), [...] Instructions Replace Required Details, [facility], [facility]/pharmacy #[id number], Par... Start Date: 03/09/21 Status: Ordered [...] Maintenance, 06/01/18 8:08:28 EDT, please label in congolese Start Date: 06/01/18 Status: Ordered Problem List [...]
--- OUTSIDE RECORDS SUMMARY | 2024-05-31 07:55 | XMS_ITS | Continuity of Care Document ---
Author Organization [facility] Address [address] [place] [address]- Care Team Providers Care Brazer Electronic Name Role Phone Yolanda Petty Primary Care Physician Encounter [facility] [place] Date(s): 07/29/20 - 08/28/20 [facility] [address] [place] [address]- [facility] Attending Physician: Peter Archibald Admitting Physician: AdmtrPeter [...] 0, Maintenance, Signed On: 07/28/16 Pharmacy I: [facility] DX: neuropathic pain right lower extremity [...] Maintenance, 06/01/18 8:08:28 EDT, please label in malawian Start Date: 06/01/18 Status: Ordered Problem List [...]
--- OUTSIDE RECORDS SUMMARY | 2024-05-31 07:55 | XMS_ITS | Continuity of Care Document ---
Author Organization [facility] Address [address] [place] [address]- Care Team Providers Care Catering Server Name Role Phone Stnaley ZHONG, Diogenes Pradhan Primary Care Physician [phone] Encounter [facility] [place] Date(s): 12/25/19 - 01/04/[address] [address]- [facility] Attending Physician: AdmPeter hedrick Admitting Physician: Admtr, Ar8 Referring Physician: Admtr, Ar8 Allergies, Adverse Reactions, [...] 0, Maintenance, Signed On: 07/28/16 Pharmacy I: [facility] DX: neuropathic pain right lower extremity (G57.91), 07/28/16 9:13:37, Compound Start Date: 07/28/16 Status: Ordered diclofenac 3% topical gel 0 [...] EDT, Tablet Start Date: 06/01/18 Status: Ordered Percocet-10/325 oral tablet See Instructions, 1-2 tabs po q4hrs max 8 tabs/day. partial fill allowed on request, # 112 tablet, 0 Refills, Maintenance, 06/01/18 8:11:01 EDT Start Date: 06/01/18 Status: Ordered ProAir HFA [...] Maintenance, 06/01/18 8:08:28 EDT, please label in portuguese Start Date: 06/01/18 Status: Ordered Problem List Condition Effective Dates Status Health Status Inform ant Adverse effects of medication(Confirmed) 1 Active Chronic bipolar disorder(Confirmed) Active CRPS 1, lower extremity(Confirmed) Active Medication management(Confirmed) 2 Active Limitation of activities due to disability(Confirmed) 3, 4, 5 Active Drug or alcohol risk assessm ent or counseling(Confirmed) 6 Active Pain in right foot(Confirmed) Active History of suicide attempt(Confirmed) Active Use of opiates for therapeut ic purposes(Confirmed) Active Low back pain(Confirmed) Active Obstructive sleep apnea(Confirmed) Active Neuropathic pain [...]
--- OUTSIDE RECORDS SUMMARY | 2024-05-31 07:55 | XMS_ITS | Continuity of Care Document ---
Author Organization [facility] Address [address] [place] [address]- Care Team Providers Care Internal Controls Manager Name Role Phone Yolanda Petty Primary Care Physician [phone] [place] [facility] [place]/17[place]20 - 03/24/20 [facility] [address] [address]- [facility] Attending Physician: Eloisa Fallon Admitting Physician: Eloisa Fallon Referring Physician: Yolanda Petty Allergies, Adverse Reactions, Alerts Substance Reaction Severity [...] 0, Maintenance, Signed On: 07/28/16 Pharmacy I: [facility] DX: neuropathic pain right lower extremity (G57.91), 07/28/16 9:13:37, Compound Start Date: 9/14/16 Status: Ordered CPAP Machine See Instructions, # [...] Maintenance, 06/01/18 8:08:28 EDT, please label in amharic Start Date: 06/01/18 Status: Ordered Problem List [...]
--- OUTSIDE RECORDS SUMMARY | 2024-05-31 07:55 | XMS_ITS | Continuity of Care Document ---
Author Organization [facility] Address [address] [place] [address]- Care Team Providers Care Filler Machine Operator Name Role Phone Monroe ZHONG, Radha Primary Care Physician Encounter [facility] [place] Date(s): 12/22/20 - 01/28/21 [facility] [address] [place], [place] [address] Attending Physician: Cisco Bustos MD Admitting Physician: Cisco Bustos MD Referring Physician: Radha Childress MD Allergies, Adverse Reactions, Alerts Substance Reaction Severity [...] 0, Maintenance, Signed On: 07/28/16 Pharmacy I: [facility] DX: neuropathic pain right lower extremity [...] Maintenance, Capsule Start Date: 01/09/13 Status: Ordered Valium 5 mg oral tablet 10 mg, 2, tablet, By Mouth, call center rn to Procedure, # 2 tablet, Refills 0, Tot. Refills 0, Maintenance, 01/15/21 10:23:00 EST, Route to Pharmacy Electronically, [facility]/pharmacy #[id number], Partial fill upon patient request if the prescription is for a schedule... Start Date: 01/15/21 Status: Ordered Wellbutrin XL 300 mg/24 hours oral tablet, extended release 1 tablet = 300 mg, By Mouth, Every 24 hours, 0 Refills, Maintenance, 03/16/16 9:18:28 Start Date: 03/16/16 Status: Ordered zonisamide 100 mg oral capsule See Instructions, 2 capsule by mouth in am, 3 capsule at night, # 140 capsule, 2 Refills, Maintenance, 06/01/18 8:08:28 EDT, please label in surinamese Start Date: 06/01/18 Status: Ordered Problem List [...]
--- OUTSIDE RECORDS SUMMARY | 2024-05-31 07:55 | XMS_ITS | Continuity of Care Document ---
Author Organization [facility] Address [address] [place] [address]- Care Team Providers Care Auto Body Builder Apprentice Name Role Phone Radha Childress MD Primary Care Physician [facility] [id number] Date(s): 06/25/22 - 08/05/22 [facility] [address] [place] [address]- Attending Physician: Shadia Costa MD Admitting Physician: Shadia Costa MD Referring Physician: Radha Childress MD Allergies, Adverse Reactions, Alerts No Known Allergies [...] 0, Maintenance, Signed On: 07/28/16 Pharmacy I: [facility] DX: neuropathic pain right lower extremity [...] Instructions Replace Required Details, Routeto Pharmacy Electronically, [facility]/pharmacy #[id number], Par... Start Date: 03/09/21 Status: Ordered Wellbutrin [...] Maintenance, 06/01/18 8:08:28 EDT, please label in nicaraguan Start Date: 06/01/18 Status: Ordered Problem List [...] on: 02/13/15 Sex Care Team Personnel Name: Monroe ZHONG, Radha Address: [address] [place] [address]
--- OUTSIDE RECORDS SUMMARY | 2024-05-31 07:55 | XMS_ITS | Continuity of Care Document ---
Author Organization [facility] Address [address] [place] [address]- Care Team Providers Care Superintendent Fish Hatchery Name Role Phone Yolanda Petty Primary Care Physician Encounter [facility] Date(s): 06/16/20 - 07/16/20 [facility] [address] [place] [address]- [facility] Attending Physician: AdmPeter hedrick Admitting Physician: Admtr, Peter Referring Physician: Admtr, Ar8 Allergies, Adverse Reactions, [...] 0, Maintenance, Signed On: 07/28/16 [facility] DX: neuropathic pain right lower extremity (G57.91), [...] Maintenance, 06/01/18 8:08:28 EDT, please label in icelandic Start Date: 06/01/18 Status: Ordered Problem List [...]
--- NOTE | 2024-05-31 13:30 | W.PM.OPN ---
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 Concern was that lobectomy may not give a clear surgical margins. To further define this, conversion to open procedure was undertaken with tangential stapler excision of the junction of the left upper lobe and lower lobe. Frozen section demonstrated microscopically clear margins of lobectomy specimen. No other gross intrathoracic pathology was demonstrated. Pneumonectomy was not required. Mediastinal lymph node sampling of note 7L, 9L, 10L were sampled. Bronchoscopy was used to assist anesthesia and placement of double-lumen tube and also demonstrated the tumor at the orifice of the left upper lobe. This was again used used prior to bronchial stapling to confirm position. Procedure was performed for curative intent Findings: Patient brought to the operating room, placed on operative table supine position, after an adequate level of double-lumen anesthesia was induced, patient underwent bronchoscopy with findings noted above. Patient was then placed in the right lateral decubitus position where in the left chest was prepped and draped in usual sterile fashion. Commencing thoroscopically, anterior and posterior 6th intercostal space axillary line ports were placed and a 4 cm axillary working port with wound protector were placed with findings as noted above. Thorascopic exploration was initially performed. No other gross intrathoracic pathology demonstrated. The inferior pulmonary ligament was taken down using Bovie and uneventful skeletonization isolation of the left inferior pulmonary vein was performed, encircled with 2-0 silk tie, and uneventfully transect using endoscopic vascular stapler. Next fissures were identified and using SIDNEY staplers used to transect and partially complete the anterior posterior fissures. Next hilum was approached where there was significant cicatrization and scarring which made identification of the pulmonary arterial supply to the upper and lower lobes very difficult. It was then decided to convert to an open procedure which involved extension of the axillary working port posteriorly. Packs and retractors were placed to enhance exposure. Hilum was then explored where the arterial supply to the left lower lobe was identified including basilar and superior segmental branches to the lower lobe which were encircled, skeletonized, and transected using vascular staplers. Fissures were completed using staplers and Bovie. The junction of the left upper lobe and right lower lobe bronchi was identified. Left lower lobe bronchus was skeletonized. A heavy wire stapler was placed as close to the upper lobe bronchus but without compromising it using both visual identification and bronchoscopy. Specimen was transected from TA stapler and a tagging suture placed on bronchial stump. Endoluminal tumor was seen protruding through the lower lobe bronchus. This lower lobe specimen was sent for frozen section , which demonstrated a clear margin. Chest was filled with saline and remaining lung re-expanded with no evidence of leak from the bronchial stump or left upper lobe. Chest cavity was again irrigated and secured hemostasis. Through the anterior working port, 24 Pashto chest tube was placed and directed toward the apex and secured to the skin using 0 silk suture. Chest wound was closed in the following manner; over and over 1. Dexon sutures x 4 were used to reapproximate the ribs. Chest wall musculature was closed inappropriate layers using running 1. Dexon suture respectively. Running subcutaneous 2-0 Vicryl suture followed by running subcuticular 4-0 Vicryl sutures were placed. Steri-Strips and sterile dressings were applied. Port sites were closed using deep followed by dermal interrupted 2-0 and 3-0 Vicryl sutures respectively. Intercostal nerve block using Exparel was uneventfully performed. Chest tube was connected to Pleur-evac and lung re-expanded with no obvious air leak demonstrated. Sponge, needle, and instrument counts reported correct. Patient tolerated the procedure well and emerged from anesthesia stable condition. EBL minimal Postprocedure chest x-ray pending. Pulmonary Resection Hilar Station: 7 L Mediastinal Station #1: Nine L Mediastinal Station #2: 10 L General Surg. - Synoptic Notes Pulmonary Resection Hilar Station: 7 L Mediastinal Station #1: Nine L Mediastinal Station #2: 10 L
--- NOTE | 2024-05-31 14:14 | PC.NURSE ---
Xray contacted for post op CXR
--- NOTE | 2024-05-31 15:46 | P.CONHOSP_ITS ---
History of Present Illness Data of Consult Service Date: 05/31/24 Requesting physician: Abbey Casillas Primary Care Provider: Margie Singh NP [facility] Reason for consult: medical management 39 year old male with 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 The patient just arrived to med/tele from [facility] after ungoing LL lobectomy. Attempted VATS but underwent open left lower lobectomy with bronchoscopy and intercostal nerve block without complication. Currently has chest tube with pleur-evac in place. He is drowsy but reports no complaints except dry mouth. He reports 7/10 in the middle back which he states is his baseline at home which he typically manages with muscle relaxers. No fevers chills, abd pain, n/v, dizziness, lightheadedness, sob, chest pain. He remains on 3L supplemental O2 post operatively and is not oxygen dependent at home. Vitals are otherwise stable. Family is also at bedside during exam. At this time, there does not appear to be any acute medical issues. Review of Systems 2 Review of Systems: Yes all other systems are reviewed and are negative [facility] Medical History Thyroid disease Arthritis Back pain Foot pain, right Anxiety Depression Emphysema of lung Asthma Tobacco dependence Osteoarthritis of ankle COPD, mild Neuropathic pain of right lower extremity Lumbar radiculopathy Complex regional pain syndrome of lower extremity Obstructive sleep apnea Obesity Bipolar disorder Hypothyroidism Nondependent alcohol abuse Severe episode of recurrent major depressive disorder Low back pain Surgical History History of foot surgery History of bronchoscopy History of circumcision Carcinoid tumor (~04/2024) Social History Are you a primary spiritual care coordinator to a significant other at home: No Do you presently have visiting nurse or other home services: Yes ([employer]) Patient Tobacco Use Status: Current everyday Tobacco user Tobacco use type: Cigarette Cigarette Packs Per Day: 1 Cigarettes Per Day: 20.0 Use of substances other than those prescribed or required for medical reasons: No Substance Use Type: Marijuana Substance Use Frequency: Occasionally Have you been hit, kicked, punched, or otherwise hurt by someone within the past year? If so, by whom?: No Are you DNR?: No Advance Directives: No Advance Directives Information Provided: No Advance Directives on File: No Recently lost weight without trying: No Eating poorly because of decreased appetite: No Nutrition Risks: No Nutritional Risk Poor oral hygiene: Yes (missing teeth on the top) Meds Allergies Allergy/AdvReac Type Severity Reaction Status Date / Time No Known Allergies Allergy Verified 05/30/24 09:30 Active Medications: Current Medications Albuterol Sulfate (Albuterol Sulfate (0.083%) 2.5 Mg/3 Ml Vial.Neb) 2.5 mg INHALE ONCE PRN PRN Reason: Shortness of Breath/Wheezing Fentanyl (Fentanyl Citrate/Pf 100 Mcg/2 Ml Vial) 25 mcg IVPUSH Q5M PRN PRN Reason: Pain, Moderate(Pain Scale 4-6) Stop: 05/31/24 18:20 Haloperidol Lactate (Haloperidol Lactate 5 Mg/Ml Vial) 1 mg IVPUSH ONCE PRN PRN Reason: intractable nausea Stop: 05/31/24 18:20 Hydromorphone HCl (Hydromorphone Hcl 0.5 Mg/0.5 Ml Syringe) 0.25 mg IVPUSH Q5M PRN PRN Reason: Pain, Severe (Pain Scale 7-10) Stop: 05/31/24 18:20 Lactated Ringer's (Lr) 1,000 mls @ 100 mls/hr IVCONT .Q10H [facility] Last Admin: 05/31/24 06:58 Dose: 100 mls/hr Ketorolac Tromethamine (Ketorolac Tromethamine 30 Mg/Ml Vial) 30 mg IVPUSH Q6H [facility] Home Medications ?Medication ?Instructions ?Recorded ?Confirmed ?Last Taken ?Type albuterol sulfate 90 mcg/actuation 1 puff inhalation QID PRN 08/27/22 05/24/24 Unknown History aerosol inhaler Shortness Of Breath Or Wheezing bupropion HCl 300 mg 24 hr tablet, 300 mg PO DAILY other 08/27/22 05/24/24 05/31/24 05:00 History extended release cholecalciferol (vitamin D3) 50 50 mcg PO DAILY 08/27/22 05/24/24 05/30/24 History mcg (2,000 unit) tablet levothyroxine 75 mcg tablet 75 mcg PO DAILY 08/27/22 05/24/24 05/31/24 05:00 History naloxone 4 mg/actuation nasal 1 spray intranasal DAILY 08/27/22 05/24/24 Unknown History spray (Narcan) oxycodone-acetaminophen 10 mg-325 2 tab PO Q6-8H PRN Pain 08/27/22 05/24/24 05/31/24 05:00 History mg tablet sertraline 25 mg tablet 25 mg PO DAILY 08/27/22 05/24/24 05/31/24 05:00 History zolpidem 10 mg tablet 10 mg PO BEDTIME 08/27/22 05/24/24 05/29/24 History nicotine 21 mg/24 hr daily 1 patch transdermal DAILY 05/31/24 05/31/24 05/31/24 History transdermal patch 0500 varenicline 1 mg tablet 1 mg DAILY 05/31/24 Unknown History Physical Exam 2 Vital Signs and Narrative: Vital Signs: Last Vital Signs Temp 97.2 F 05/31/24 14:10 Pulse 75 05/31/24 15:25 Resp 20 05/31/24 15:25 BP 118/67 05/31/24 15:25 Pulse Ox 95 05/31/24 15:25 O2 Del Method Nasal Cannula wit h Capnography 05/31/24 15:25 O2 Flow Rate 3 05/31/24 15:25 BMI result Body Mass Index 38.2 Constitutional - Awake and Alert, No apparent distress Eyes - PERRLA, EOMI Cardiovascular - S1S2, RRR, No edema Respiratory - Normal lung expansion, Normal respiratory effort, No respiratory distress, CTA bilaterally Chest- postoperative bandages in place lateral and posterior left chest with chest tube in place connected to pleur-evac Gastrointestinal - NT / ND; +BS; No rebound or guarding Extremities - no calf tenderness bilaterally, no swelling Skin - Warm/Dry Neurological - Alert & oriented x3 Results Labs 05/24/24 11:33 05/24/24 11:33 Labs: Laboratory Results - last 24 hr 05/24/24 11:30 Blood Type O Positive Antibody Screen NEGATIVE Crossmatch See Detail Assessment and Plan (1) 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 #Carcinoid tumor s/p open left lower lobectomy -plan per thoracic surgery -pain management per surgery #COPD -no exacebation -wean O2 as tolearted per protocol -albuterol prn #CRPS -hold oxycodone, on dilaudid drip per surgery #Hypothyroidism -continue levothyroxine #Cigarette smoking -patch for nrt, cessation counseling #Severe (class II) obesity -weight loss efforts Thank you for this consult. Will continue following.
[2024-05-31] MEDS: Acetaminophen 1,000 MG/100 ML PIGGYBACK 400 MG IV ×2 (16:46→23:00)
--- NOTE | 2024-05-31 17:57 | PHA.MEDREC ---
Pharmacy Consult ? Medication Reconciliation Pharmacy has completed the medication reconciliation. Spoke to patient to confirm med list. Patient states he is no longer taking Albuterol Sulfate 90 mcg 1 puff qid prn.
[2024-05-31] MEDS: HYDROmorphone HCl 0.5 MG/0.5 ML SYRINGE IVPUSH (19:49)
[2024-05-31] MEDS: HYDROmorphone HCl/NS 10 MG/50 ML PIGGYBACK IV (20:29)
[2024-05-31] MEDS: Zolpidem Tartrate 5 MG TABLET 10 MG PO (20:43)
[2024-05-31] MEDS: Benzonatate 100 MG CAPSULE 200 MG PO (22:42)
[2024-05-31] MEDS: Cyclobenzaprine HCl 5 MG TABLET PO (22:43)
[2024-06-01] VITALS: BP 133/80; PULSE 129; RESP 20; TEMP 36.9; O2SAT 96
--- NOTE | 2024-06-01 | ECG_ITS ---
Test Reason : tacycardia Blood Pressure : / mmHG Vent. Rate : 126 BPM Atrial Rate : 126 BPM P-R Int : 148 ms QRS Dur : 092 ms QT Int : 302 ms P-R-T Axes : 056 063 019 degrees QTc Int : 437 ms Sinus tachycardia Otherwise normal ECG When compared with ECG of 24-MAY-2024 11:21, Vent. rate has increased BY 61 BPM Nonspecific T wave abnormality now evident in Inferior leads Referred By: Sandhya Kim Electronically Signed By:ANIRUDH RUELAS MD
[2024-06-01] MEDS: Acetaminophen 1,000 MG/100 ML PIGGYBACK 400 MG IV ×4 (05:00→22:21)
[2024-06-01] MEDS: Levothyroxine Sodium 75 MCG TABLET PO (06:38)
[2024-06-01 07:12] LABS: Basophils Percent Auto 0.1 % (0-2); Hemoglobin 12.9 g/dl (14.0-18.0); Imm Gran Abs Auto 0.06 X10*3/uL (0.00-0.03); Imm Gran Pct Auto 0.5 % (0.0-0.4); Lymphocytes Absolute Auto 1.8 X10*3/uL (1.2-4.9); Lymphocytes Percent Auto 14.6 % (20-40); MANUAL DIFF FLAG SCAN; Mean Corpuscular HGB Conc 33.9 g/dl (31.0-36.0); Mean Corpuscular Hemoglobin 29.2 pg (27.0-33.0); Mean Platelet Volume 12.1 fL (9.4-12.4); Monocytes Absolute Auto 1.7 X10*3/uL (0.1-1.2); Monocytes Percent Auto 13.5 % (2-11); Neutrophils Percent Auto 71.3 % (45-73); Platelet Count 222 X10*3/uL (160-400); Red Blood Count 4.42 X10*6/uL (4.60-5.80); Red Cell Distribution Width 14.6 % (11.0-16.0); SCAN SMEAR FLAG 1; White Blood Count 12.6 X10*3/uL (4.8-10.8)
[2024-06-01 07:41] LABS: Anion Gap 15 (12-20); Blood Urea Nitrogen 16 mg/dL (9-16); Calcium 9.1 mg/dL (8.4-10.2); Carbon Dioxide 20 mmol/L (22-29); Chloride 104 mmol/L (96-108); Creatinine Clr Calc Pharmacy 132.3; Estimated Glomerular Filt Rate > 60; Glucose Fasting 123 mg/dL (60-99); Sodium 135 mmol/L (135-145)
--- NOTE | 2024-06-01 07:42 | PM.PNGS ---
Subjective Subjective Date of Service: 06/01/24 <Rob Salas - Last Filed: 06/01/24 08:03> 06/01/24 <Abbey Casillas PA-C - Last Filed: 06/01/24 08:26> 06/01/24 <Jordan Davis MD - Last Filed: 06/01/24 09:55> Interval history: There were no acute overnight events. Patient has been having relief of pain with LOCAL DRIVER, receiving 0.3mg hydromorphone q10 and ice packs. He states his pain is a 6/10 when using the button. Has been eating solids through the night. Patient has not experienced any nausea or vomiting. Has not yet passed flatus or had a BM. Patient has not been OOB. Catheter in place with collection of some light yellow urine, nurses report changing bag. Has used IS twice, reaching a volume of ~500mL. Dressing is dry and intact, dressing was removed and steri-strips underneath with some bloody discharge. Appropriate post-op incisional tenderness. <Rob Salas - Last Filed: 06/01/24 08:03> Physical Exam Vital Signs: Vital Signs: Last Vital Signs Temp 98.5 F 06/01/24 00:00 Pulse 129 H 06/01/24 00:00 Resp 20 06/01/24 00:00 BP 133/80 06/01/24 00:00 Pulse Ox 96 06/01/24 00:00 O2 Del Method Nasal Cannula 06/01/24 00:00 O2 Flow Rate 2 06/01/24 00:00 BMI result Body Mass Index 38.2 <Rob Salas - Last Filed: 06/01/24 08:03> Const: General: tired appearing <Rob Salas - Last Filed: 06/01/24 08:03> Nutritional Appearance: obese <Rob Salas - Last Filed: 06/01/24 08:03> Orientation/consciousness: patient oriented x3 <Rob Zapata Last Filed: 06/01/24 08:03> Chest: Other: left thoracotomy incisions clean chest tube dressing intact pleurvac with serosanguineous drainage, no air leak on exam <Abbey Casillas PA-C - Last Filed: 06/01/24 08:26> Resp: Effort & Inspection: able to speak in complete sentences, Actively coughing and labored <Rob Maritza Zapata Last Filed: 06/01/24 08:03> Effort & Inspection: normal respiratory effort <Abbey Casillas PA-C - Last Filed: 06/01/24 08:26> Cardio: Rate: regular rate <Rob Maritza Last Filed: 06/01/24 08:03> Rhythm: regular rhythm <Rob Maritza Last Filed: 06/01/24 08:03> Heart sounds: S1 normal heart sound present, S2 normal heart sound present, no gallops, no murmurs and no rubs <Frankjosep Maritza Last Filed: 06/01/24 08:03> Skin: Other: Dressing is dry and intact, dressing was removed and steri-strips underneath with some bloody discharge. Appropriate post-op incisional tenderness. <Rob Maritza Last Filed: 06/01/24 08:03> Lesions: lesion noted <Rob Maritza Last Filed: 06/01/24 08:03> Neuro: General: patient oriented x3 <Josephjennifer Maritza Last Filed: 06/01/24 08:03> Objective Data Active Medications Albuterol Sulfate (Albuterol Sulfate 90 Mcg 8 Gm Inhaler) 1 puff INHALE QID PRN PRN Reason: Shortness Of Breath Or Wheezing Benzonatate (Benzonatate 100 Mg Capsule) 200 mg PO TID PRN PRN Reason: Cough Last Admin: 05/31/24 22:42 Dose: 200 mg Documented By: INESSA Bupropion HCl (Bupropion Hcl Xl 300 Mg Tab.Er.24h) 300 mg PO DAILY [facility] Calcium Carbonate (Calcium Carbonate 750 Mg Tab.Chew) 750 mg PO Q4H PRN PRN Reason: heartburn Cyclobenzaprine HCl (Cyclobenzaprine Hcl 5 Mg Tablet) 5 mg PO TID PRN PRN Reason: muscle spasm Last Admin: 05/31/24 22:43 Dose: 5 mg Documented By: INESSA Hydromorphone HCl (Dilaudid) 10 mg in 50 mls @ 0 mls/hr IV .Q0M [facility]; Protocol Last Infusion: 05/31/24 20:30 Dose: 0.3 mg/hr, 1.5 mls/hr Documented By: INESSA Acetaminophen (Ofirmev) 1,000 mg in 100 mls @ 400 mls/hr IV Q6H [facility] Last Infusion: 06/01/24 05:15 Dose: Infused Documented By: INESSA Levothyroxine Sodium (Levothyroxine Sodium 75 Mcg Tablet) 75 mcg PO DAILY@0600 [facility] Last Admin: 06/01/24 06:38 Dose: 75 mcg Documented By: INESSA Naloxone HCl (Naloxone Hcl 0.4 Mg/Ml Vial) 0.2 mg IVPUSH Q2M PRN PRN Reason: Excessive sedation or RR < 8 Nicotine (Nicotine 21 Mg Patch.Td24) 21 mg TRANSDERMA DAILY [facility] Ondansetron HCl (Ondansetron Hcl 4 Mg/2 Ml Vial) 4 mg IVPUSH Q6H PRN PRN Reason: Nausea and Vomiting Sertraline HCl (Sertraline Hcl 25 Mg Tablet) 25 mg PO DAILY [facility] Vitamin D (Cholecalciferol (Vitamin D3) 25 Mcg Tablet) 50 mcg PO DAILY [facility] Zolpidem Tartrate (Zolpidem Tartrate 5 Mg Tablet) 10 mg PO BEDTIME [facility] Last Admin: 05/31/24 20:43 Dose: 10 mg Documented By: INESSA <Rob Salas - Last Filed: 06/01/24 08:03> Labs CBC & Chem 7: 06/01/24 06:07 06/01/24 06:07 <Rob Salas - Last Filed: 06/01/24 08:03> Labs: Laboratory Results - last 24 hr 05/24/24 06/01/24 11:30 06:07 Anion Gap 15 Estim Creat Clear Calc 132.3 Estimated GFR > 60 Fasting Glucose 123 H Calcium 9.1 D Crossmatch See Detail <Rob Salas - Last Filed: 06/01/24 08:03> Procedures Date of Service Date of Service: 06/01/24 <Rob Salas - Last Filed: 06/01/24 08:03> 06/01/24 <Abbey Casillas PA-C - Last Filed: 06/01/24 08:26> 06/01/24 <Jordan Davis MD - Last Filed: 06/01/24 09:55> Progress Note: A&P Assessment and plan (1) 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 Pulse elevated. H/H stable. On 3L supplemental O2 post operatively, no SOB and cannula removed on visit. Dressing removed this morning and now only steri-strips with some bloody discharge. Encouraged IS usage and OOB/ambulation. Keep chest tube in place and monitor output. <Rob Salas - Last Filed: 06/01/24 08:03> POD1 s/p open left inferior lobectomy. Pulse elevated. H/H stable. On 3L supplemental O2 post operatively, no SOB and cannula removed on visit. Dressing removed this morning and now only steri-strips with some bloody discharge. Encouraged IS usage and OOB/ambulation. Keep chest tube in place and monitor output. Agree with above assessment and plan. Patient is POD #1 s/p vats converted open left lower lobectomy, mediastinal lymph node sampling, bronchoscopy, intercostal nerve block. Doing fairly well post op. VS- Tachycardic. Thoracotomy incision clean. Chest tube in place with serosanguineous output no air leak. AM labs reviewed. CXR report given via tigerconnect - left chest tube in place, small pneumothorax and atelectasis. Pain control will be difficult in view of chronic opioid use. Increased dilaudid LOCAL DRIVER bolus. Cont ofirmev. Discussed the importance of getting out of bed and using incentive spirometer in recovery. Repeat CXR in am, if PNA resolved and no air leak, possible removal in AM. Patient comfortable with plan. Hospitalists following. Tachycardia ?secondary to pain. <Abbey Casillas PA-C - Last Filed: 06/01/24 08:26> Time Spent With Patient Time: Total time managing care of this patient today ____ minutes. <Rob Salas - Last Filed: 06/01/24 08:03> Quality Stroke Does the patient have a stroke diagnosis?: No <BHAVANI Edwards Last Filed: 06/01/24 08:26> VTE Prior VTE?: No <BHAVANI Edwards Last Filed: 06/01/24 08:26> VTE Risk Level:: Surgical - high <Abbey Casillas PA-C - Last Filed: 06/01/24 08:26> VTE Device Contraindication: N/A - Device Ordered <Abbey Casillas PA-C - Last Filed: 06/01/24 08:26> VTE Drug Contraindication: N/A - Med Ordered <Abbey Casillas PA-C - Last Filed: 06/01/24 08:26>
[2024-06-01 08:00] VITALS: BP 134/75; PULSE 123; RESP 16; TEMP 36.2; O2SAT 95
[2024-06-01 08:05] LABS: SLIDE REVIEW VERIFIED
[2024-06-01] MEDS: buPROPion HCl XL 300 MG TAB.ER.24H PO (08:30)
[2024-06-01] MEDS: Cholecalciferol (Vitamin D3) 25 MCG TABLET 50 MCG PO (08:30)
[2024-06-01] MEDS: Nicotine 21 MG PATCH.TD24 TRANSDERMA (08:30)
[2024-06-01] MEDS: Sertraline HCL 25 MG TABLET PO (08:30)
[2024-06-01] MEDS: HYDROmorphone HCl/NS 10 MG/50 ML PIGGYBACK 1.5 MG IV (08:44)
--- NOTE | 2024-06-01 09:20 | MHC.CM.PN ---
IMM 06/01 Pt lives at home with his partner/POLITICAL AIDE who will transport him home at discharge. Pt states he has 36 POLITICAL AIDE/hrs per week. Pt uses a cane and a walker. Pt educated on a HCP, would like to complete one when his partner is here. PCP: Margie MORALES
[2024-06-01 10:41] VITALS: BP 114/70; PULSE 140; RESP 20; TEMP 36.1; O2SAT 96
--- NOTE | 2024-06-01 10:48 | HO.POSTANES ---
Post Anesthesia Evaluation Post Anesthesia Evaluation Date of Service: 06/01/24 Vital Signs: Vital Signs Temp Pulse Resp BP Pulse Ox O2 Del Method O2 Flow Rate 06/01/24 10:41 97.0 F 140 H 20 114/70 96 Room Air 06/01/24 00:00 98.5 F 129 H 20 133/80 96 Nasal Cannula 2 Anesthesia: General Endotracheal-GETA Mental Status: Awake Nausea/Vomiting: None Hydration: Adequate Anesthesia-Related Issues: No Anes. Related Issues Comments: Patient is having pain after surgery - on an IV [employer] TE[employer]ER with moderate effectiveness. Care per primary team. Anesthesia team to follow-up as necessary.
[2024-06-01] MEDS: Cyclobenzaprine HCl 5 MG TABLET PO (11:00)
[2024-06-01] MEDS: hydrOXYzine HCL 25 MG TABLET PO ×2 (11:30→16:15)
[2024-06-01 12:33] LABS: TSH reflex Free T4 0.83 uIU/mL (0.32-4.0)
[2024-06-01] MEDS: Benzonatate 100 MG CAPSULE 200 MG PO (14:07)
--- NOTE | 2024-06-01 14:17 | P.PNIM_ITS ---
Subjective Subjective Date of Service: 06/01/24 Interval History: Seen and examined this morning Follow-up for medical consultation reporting discomfort at incision site/chest tube site Review of Systems Review of Systems: Yes all other systems are reviewed and are negative Constitutional Constitutional: Denies chills and Denies fever(s) Cardiovascular Cardiovascular: Denies chest pain and Denies dyspnea Respiratory Respiratory: Denies dyspnea Gastrointestinal Gastrointestinal: Denies abdominal pain Physical Exam 2 Vital Signs: Vital Signs: Last Vital Signs Temp 97.0 F 06/01/24 10:41 Pulse 140 H 06/01/24 10:41 Resp 20 06/01/24 10:41 BP 114/70 06/01/24 10:41 Pulse Ox 96 06/01/24 10:41 O2 Del Method Room Air 06/01/24 10:41 O2 Flow Rate 2 06/01/24 00:00 BMI result Body Mass Index 38.2 Const: General: alert and awake Nutritional Appearance: obese O rientation/consciousness: patient oriented x3 Chest: Other: left chest tube/incision with dry dressings Resp: Effort & Inspection: normal respiratory effort, able to speak in complete sentences, no respiratory distress and no use of accessory muscles Cardio: Rate: tachycardic GI: Inspection: No distended Palpation (GI): Soft to palpation and nontender Neuro: General: patient oriented x3, moves all extremities and CN's II-XI intact bilaterally Objective Data Active Medications Albuterol Sulfate (Albuterol Sulfate 90 Mcg 8 Gm Inhaler) 1 puff INHALE QID PRN PRN Reason: Shortness Of Breath Or Wheezing Benzonatate (Benzonatate 100 Mg Capsule) 200 mg PO TID PRN PRN Reason: Cough Last Admin: 06/01/24 14:07 Dose: 200 mg Documented By: SP Bupropion HCl (Bupropion Hcl Xl 300 Mg Tab.Er.24h) 300 mg PO DAILY [facility] Last Admin: 06/01/24 08:30 Dose: 300 mg Documented By: SP Calcium Carbonate (Calcium Carbonate 750 Mg Tab.Chew) 750 mg PO Q4H PRN PRN Reason: heartburn Cyclobenzaprine HCl (Cyclobenzaprine Hcl 5 Mg Tablet) 5 mg PO TID PRN PRN Reason: muscle spasm Last Admin: 06/01/24 11:00 Dose: 5 mg Documented By: SP Hydroxyzine HCl (Hydroxyzine Hcl 25 Mg Tablet) 25 mg PO Q6H PRN PRN Reason: anxiety Last Admin: 06/01/24 11:30 Dose: 25 mg Documented By: SP Hydromorphone HCl (Dilaudid) 10 mg in 50 mls @ 0 mls/hr IV .Q0M [facility]; Protocol Last Admin: 06/01/24 08:44 Dose: 0.3 mg/hr, 1.5 mls/hr Documented By: SP Acetaminophen (Ofirmev) 1,000 mg in 100 mls @ 400 mls/hr IV Q6H [facility] Last Infusion: 06/01/24 11:18 Dose: Infused Documented By: SP Levothyroxine Sodium (Levothyroxine Sodium 75 Mcg Tablet) 75 mcg PO DAILY@0600 [facility] Last Admin: 06/01/24 06:38 Dose: 75 mcg Documented By: INESSA Naloxone HCl (Naloxone Hcl 0.4 Mg/Ml Vial) 0.2 mg IVPUSH Q2M PRN PRN Reason: Excessive sedation or RR < 8 Nicotine (Nicotine 21 Mg Patch.Td24) 21 mg TRANSDERMA DAILY [facility] Last Admin: 06/01/24 08:30 Dose: 21 mg Documented By: SP Ondansetron HCl (Ondansetron Hcl 4 Mg/2 Ml Vial) 4 mg IVPUSH Q6H PRN PRN Reason: Nausea and Vomiting Sertraline HCl (Sertraline Hcl 25 Mg Tablet) 25 mg PO DAILY [facility] Last Admin: 06/01/24 08:30 Dose: 25 mg Documented By: SP Vitamin D (Cholecalciferol (Vitamin D3) 25 Mcg Tablet) 50 mcg PO DAILY [facility] Last Admin: 06/01/24 08:30 Dose: 50 mcg Documented By: SP Zolpidem Tartrate (Zolpidem Tartrate 5 Mg Tablet) 10 mg PO BEDTIME [facility] Last Admin: 05/31/24 20:43 Dose: 10 mg Documented By: INESSA Labs 06/01/24 06:07 06/01/24 06:07 Labs: Laboratory Results - last 24 hr 06/01/24 06:07 MCV 86.0 MCH 29.2 MCHC 33.9 RDW 14.6 Plt Count 222 MPV 12.1 Immature Gran % (Auto) 0.5 H Neut % (Auto) 71.3 Lymph % (Auto) 14.6 L [place] % (Auto) 13.5 H Eos % (Auto) 0.0 Baso % (Auto) 0.1 Lymph # (Auto) 1.8 [place] # (Auto) 1.7 H Eos # (Auto) 0.0 Baso # (Auto) 0.0 Abs Immat Gran (auto) 0.06 H Absolute Neuts (auto) 9.0 H Absolute Nucleated RBC 0.000 Nucleated RBC % (auto) 0.0 Smear Tech's Comments VERIFIED Anion Gap 15 Estim Creat Clear Calc 132.3 Estimated GFR > 60 Fasting Glucose 123 H Calcium 9.1 D TSH 0.83 Assessment and Plan (1) Lung mass: Status: Acute (2) Sinus tachycardia: Status: Acute Plan 39 year old male with 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 #Carcinoid tumor POD#1 s/p open left lower lobectomy chest tube in place -plan per thoracic surgery -pain management per surgery We will add bowel regimen due to high-dose narcotics. Monitor for constipation # sinus tachycardia Possibly due to uncontrolled pain - on chronic narcotics, dose of Dilaudid drip increased by surgical team TSH within normal limits, H/H with slight drop but not significant change, afebrile less likely PE as no hypoxia and started directly following procedure EKG to confirm sinus will start IVF follow closely #COPD -no exacebation -wean O2 as tolearted per protocol -albuterol prn #CRPS -hold oxycodone, on dilaudid drip per surgery #Hypothyroidism -continue levothyroxine #Cigarette smoking -patch for nrt, cessation counseling #Severe (class II) obesity -weight loss efforts #mood Continue home Zoloft, bupropion Thank you for this consult. Will continue following. Quality Stroke Does the patient have a stroke diagnosis?: No VTE Prior VTE?: No VTE Risk Level:: Surgical - high VTE Device Contraindication: N/A - Device Ordered VTE Drug Contraindication: N/A - Med Ordered
[2024-06-01] MEDS: Lactated Ringers 1,000 ML 100 ML IVCONT (15:18)
[2024-06-01 19:54] VITALS: BP 127/85; PULSE 133; RESP 18; TEMP 36.8; O2SAT 94
[2024-06-01] MEDS: Docusate Sodium 100 MG CAPSULE PO (20:54)
[2024-06-01] MEDS: Zolpidem Tartrate 5 MG TABLET 10 MG PO (20:54)
[2024-06-01 22:24] VITALS: BP 139/85; PULSE 113; RESP 18; O2SAT 95
[2024-06-01] MEDS: HYDROmorphone HCl/NS 10 MG/50 ML PIGGYBACK 2 MG IV (22:24)
[2024-06-02] VITALS (10 sets, daily range): BP systolic 121–147; BP diastolic 75–80; PULSE 101–142; RESP 16–20; TEMP 35.2–36.8; O2SAT 95–98
[2024-06-02] MEDS: Acetaminophen 1,000 MG/100 ML PIGGYBACK 400 MG IV ×4 (04:08→22:00)
[2024-06-02] MEDS: Levothyroxine Sodium 75 MCG TABLET PO (05:39)
[2024-06-02] MEDS: Sennosides 8.6 MG TABLET PO (08:25)
[2024-06-02] MEDS: Docusate Sodium 100 MG CAPSULE PO ×2 (08:25→21:08)
[2024-06-02] MEDS: Cholecalciferol (Vitamin D3) 25 MCG TABLET 50 MCG PO (08:25)
[2024-06-02] MEDS: buPROPion HCl XL 300 MG TAB.ER.24H PO (08:25)
[2024-06-02] MEDS: Nicotine 21 MG PATCH.TD24 TRANSDERMA (08:25)
[2024-06-02] MEDS: Sertraline HCL 25 MG TABLET PO (08:25)
[2024-06-02] MEDS: hydrOXYzine HCL 25 MG TABLET PO (08:28)
--- NOTE | 2024-06-02 09:04 | P.PNGS_ITS ---
Subjective Subjective Date of Service: 06/02/24 Interval history: Asking about chest tube removal. Reports being reasonably comfortable with MASH FILTER CLOTH CHANGER but did have increased pain when getting back into bed yesterday. Physical Exam 2 Vital Signs: Vital Signs: Last Vital Signs Temp 98.2 F 06/02/24 08:00 Pulse 109 H 06/02/24 08:00 Resp 20 06/02/24 08:00 BP 138/77 06/02/24 08:00 Pulse Ox 98 06/02/24 08:00 O2 Del Method Room Air 06/02/24 08:00 O2 Flow Rate 2 06/01/24 00:00 BMI result Body Mass Index 38.2 Const: General: tired appearing Nutritional Appearance: obese O rientation/consciousness: patient oriented x3 Chest: Other: Left chest wounds are clean, dry, and intact Chest tube with serosanguineous discharge and no air leak. Resp: Effort & Inspection: normal respiratory effort, able to speak in complete sentences and Actively coughing Cardio: Rate: regular rate Rhythm: regular rhythm Heart sounds: S1 normal heart sound present, S2 normal heart sound present, no gallops, no murmurs and no rubs Skin: Other: Warm and dry Lesions: lesion noted Neuro: General: patient oriented x3 Objective Data Active Medications Albuterol Sulfate (Albuterol Sulfate 90 Mcg 8 Gm Inhaler) 1 puff INHALE QID PRN PRN Reason: Shortness Of Breath Or Wheezing Benzonatate (Benzonatate 100 Mg Capsule) 200 mg PO TID PRN PRN Reason: Cough Last Admin: 06/01/24 14:07 Dose: 200 mg Documented By: SP Bupropion HCl (Bupropion Hcl Xl 300 Mg Tab.Er.24h) 300 mg PO DAILY [facility] Last Admin: 06/02/24 08:25 Dose: 300 mg Documented By: VERNON Calcium Carbonate (Calcium Carbonate 750 Mg Tab.Chew) 750 mg PO Q4H PRN PRN Reason: heartburn Cyclobenzaprine HCl (Cyclobenzaprine Hcl 5 Mg Tablet) 5 mg PO TID PRN PRN Reason: muscle spasm Last Admin: 06/01/24 11:00 Dose: 5 mg Documented By: SP Docusate Sodium (Docusate Sodium 100 Mg Capsule) 100 mg PO BID [facility] Last Admin: 06/02/24 08:25 Dose: 100 mg Documented By: VERNON Hydroxyzine HCl (Hydroxyzine Hcl 25 Mg Tablet) 25 mg PO Q6H PRN PRN Reason: anxiety Last Admin: 06/02/24 08:28 Dose: 25 mg Documented By: VERNON Hydromorphone HCl (Dilaudid) 10 mg in 50 mls @ 0 mls/hr IV .Q0M [facility]; Protocol Last Admin: 06/01/24 22:24 Dose: 0.4 mg/hr, 2 mls/hr Documented By: TISHA Acetaminophen (Ofirmev) 1,000 mg in 100 mls @ 400 mls/hr IV Q6H [facility] Last Infusion: 06/02/24 04:23 Dose: Infused Documented By: TISHA Levothyroxine Sodium (Levothyroxine Sodium 75 Mcg Tablet) 75 mcg PO DAILY@0600 [facility] Last Admin: 06/02/24 05:39 Dose: 75 mcg Documented By: TISHA Naloxone HCl (Naloxone Hcl 0.4 Mg/Ml Vial) 0.2 mg IVPUSH Q2M PRN PRN Reason: Excessive sedation or RR < 8 Nicotine (Nicotine 21 Mg Patch.Td24) 21 mg TRANSDERMA DAILY [facility] Last Admin: 06/02/24 08:25 Dose: 21 mg Documented By: VERNON Ondansetron HCl (Ondansetron Hcl 4 Mg/2 Ml Vial) 4 mg IVPUSH Q6H PRN PRN Reason: Nausea and Vomiting Polyethylene Glycol (Polyethylene Glycol 3350 17 Gm Powd.Pack) 17 gm PO DAILY PRN PRN Reason: constipation Senna (Sennosides 8.6 Mg Tablet) 8.6 mg PO DAILY [facility] Last Admin: 06/02/24 08:25 Dose: 8.6 mg Documented By: VERNON Sertraline HCl (Sertraline Hcl 25 Mg Tablet) 25 mg PO DAILY [facility] Last Admin: 06/02/24 08:25 Dose: 25 mg Documented By: VERNON Vitamin D (Cholecalciferol (Vitamin D3) 25 Mcg Tablet) 50 mcg PO DAILY [facility] Last Admin: 06/02/24 08:25 Dose: 50 mcg Documented By: VERNON Zolpidem Tartrate (Zolpidem Tartrate 5 Mg Tablet) 10 mg PO BEDTIME [facility] Last Admin: 06/01/24 20:54 Dose: 10 mg Documented By: TISHA Labs 06/01/24 06:07 06/01/24 06:07 Labs: Laboratory Results - last 24 hr 06/01/24 06:07 TSH 0.83 Procedures Date of Service Date of Service: 06/02/24 Progress Note: A&P Assessment and plan (1) 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 Pulse remains elevated. H/H stable. Breathing comfortably without shortness of breath. Incision clean, dry and intact. Chest tube with serosanguineous discharge and no air leak. Continue out of bed, incentive spirometry, MASH FILTER CLOTH CHANGER and Ofirmev. Chest xray: XR/XR chest 1V IMPRESSION: 1. Stable postoperative changes following left lower lobectomy. 2. Stable small left pleural effusion and airspace opacities overlying the left lower lung field. Hospitalists following. Time Spent With Patient Time: Total time managing care of this patient today ____ minutes. Quality Stroke Does the patient have a stroke diagnosis?: No VTE Prior VTE?: No VTE Risk Level:: Surgical - high VTE Device Contraindication: N/A - Device Ordered VTE Drug Contraindication: N/A - Med Ordered
[2024-06-02] MEDS: HYDROmorphone HCl/NS 10 MG/50 ML PIGGYBACK 2 MG IV ×2 (10:39→22:53)
--- NOTE | 2024-06-02 11:33 | P.PNIM_ITS ---
Subjective Subjective Date of Service: 06/02/24 Interval History: Seen and examined this morning Follow-up for medical consultation reporting discomfort at incision site/chest tube site Review of Systems Review of Systems: Yes all other systems are reviewed and are negative Constitutional Constitutional: Denies chills and Denies fever(s) Cardiovascular Cardiovascular: Denies chest pain and Denies dyspnea Respiratory Respiratory: Denies dyspnea Gastrointestinal Gastrointestinal: Denies abdominal pain Physical Exam 2 Vital Signs: Vital Signs: Last Vital Signs Temp 98.2 F 06/02/24 08:00 Pulse 109 H 06/02/24 08:00 Resp 20 06/02/24 08:00 BP 138/77 06/02/24 08:00 Pulse Ox 98 06/02/24 08:00 O2 Del Method Room Air 06/02/24 08:00 O2 Flow Rate 2 06/01/24 00:00 BMI result Body Mass Index 38.2 Appearing in no acute distress lung sounds are clear to auscultation heart regular rate rhythm, clear S1, S2 positive bowel sounds, abdomen is soft, nontender neuro patient is alert x3, no focal deficits Chest tube left side Objective Data Active Medications Albuterol Sulfate (Albuterol Sulfate 90 Mcg 8 Gm Inhaler) 1 puff INHALE QID PRN PRN Reason: Shortness Of Breath Or Wheezing Benzonatate (Benzonatate 100 Mg Capsule) 200 mg PO TID PRN PRN Reason: Cough Last Admin: 06/01/24 14:07 Dose: 200 mg Documented By: SP Bupropion HCl (Bupropion Hcl Xl 300 Mg Tab.Er.24h) 300 mg PO DAILY [facility] Last Admin: 06/02/24 08:25 Dose: 300 mg Documented By: VERNON Calcium Carbonate (Calcium Carbonate 750 Mg Tab.Chew) 750 mg PO Q4H PRN PRN Reason: heartburn Cyclobenzaprine HCl (Cyclobenzaprine Hcl 5 Mg Tablet) 5 mg PO TID PRN PRN Reason: muscle spasm Last Admin: 06/01/24 11:00 Dose: 5 mg Documented By: SP Docusate Sodium (Docusate Sodium 100 Mg Capsule) 100 mg PO BID [facility] Last Admin: 06/02/24 08:25 Dose: 100 mg Documented By: VERNON Hydroxyzine HCl (Hydroxyzine Hcl 25 Mg Tablet) 25 mg PO Q6H PRN PRN Reason: anxiety Last Admin: 06/02/24 08:28 Dose: 25 mg Documented By: VERNON Hydromorphone HCl (Dilaudid) 10 mg in 50 mls @ 0 mls/hr IV .Q0M [facility]; Protocol Last Admin: 06/02/24 10:39 Dose: 0.4 mg/hr, 2 mls/hr Documented By: VERNON Acetaminophen (Ofirmev) 1,000 mg in 100 mls @ 400 mls/hr IV Q6H [facility] Last Infusion: 06/02/24 10:55 Dose: Infused Documented By: VERNON Levothyroxine Sodium (Levothyroxine Sodium 75 Mcg Tablet) 75 mcg PO DAILY@0600 [facility] Last Admin: 06/02/24 05:39 Dose: 75 mcg Documented By: TISHA Naloxone HCl (Naloxone Hcl 0.4 Mg/Ml Vial) 0.2 mg IVPUSH Q2M PRN PRN Reason: Excessive sedation or RR < 8 Nicotine (Nicotine 21 Mg Patch.Td24) 21 mg TRANSDERMA DAILY [facility] Last Admin: 06/02/24 08:25 Dose: 21 mg Documented By: VERNON Ondansetron HCl (Ondansetron Hcl 4 Mg/2 Ml Vial) 4 mg IVPUSH Q6H PRN PRN Reason: Nausea and Vomiting Polyethylene Glycol (Polyethylene Glycol 3350 17 Gm Powd.Pack) 17 gm PO DAILY PRN PRN Reason: constipation Senna (Sennosides 8.6 Mg Tablet) 8.6 mg PO DAILY [facility] Last Admin: 06/02/24 08:25 Dose: 8.6 mg Documented By: VERNON Sertraline HCl (Sertraline Hcl 25 Mg Tablet) 25 mg PO DAILY [facility] Last Admin: 06/02/24 08:25 Dose: 25 mg Documented By: VERNON Vitamin D (Cholecalciferol (Vitamin D3) 25 Mcg Tablet) 50 mcg PO DAILY [facility] Last Admin: 06/02/24 08:25 Dose: 50 mcg Documented By: VERNON Zolpidem Tartrate (Zolpidem Tartrate 5 Mg Tablet) 10 mg PO BEDTIME [facility] Last Admin: 06/01/24 20:54 Dose: 10 mg Documented By: TISHA Labs 06/01/24 06:07 06/01/24 06:07 Labs: Laboratory Results - last 24 hr 06/01/24 06:07 TSH 0.83 Assessment and Plan (1) Lung mass: Status: Acute (2) Sinus tachycardia: Status: Acute Plan 39 year old male with 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 Carcinoid tumor POD#2 s/p open left lower lobectomy chest tube in place plan per thoracic surgery pain management per surgery We will add bowel regimen due to high-dose narcotics. Monitor for constipation sinus tachycardia Possibly due to uncontrolled pain - on chronic narcotics, dose of Dilaudid drip increased by surgical team TSH within normal limits, H/H with slight drop but not significant change, afebrile less likely PE as no hypoxia and started directly following procedure IVF follow closely COPD no exacebation wean O2 as tolearted per protocol albuterol prn CRPS hold oxycodone, on dilaudid drip per surgery Hypothyroidis continue levothyroxine Cigarette smoking patch for nrt, cessation counseling Severe (class II) obesity weight loss efforts mood Continue home Zoloft, bupropion Thank you for this consult. Will continue following. Quality Stroke Does the patient have a stroke diagnosis?: No VTE Prior VTE?: No VTE Risk Level:: Surgical - high VTE Device Contraindication: N/A - Device Ordered VTE Drug Contraindication: N/A - Med Ordered
[2024-06-02] MEDS: 0.9 % Sodium Chloride 1,000 ML 125 ML IVCONT (12:04)
[2024-06-02] MEDS: Zolpidem Tartrate 5 MG TABLET 10 MG PO (21:07)
[2024-06-03] VITALS (9 sets, daily range): BP systolic 115–132; BP diastolic 57–88; PULSE 98–113; RESP 17–20; TEMP 36.1–36.8; O2SAT 97–100
[2024-06-03] MEDS: hydrOXYzine HCL 25 MG TABLET PO (02:12)
[2024-06-03] MEDS: Acetaminophen 1,000 MG/100 ML PIGGYBACK 400 MG IV ×4 (03:35→21:39)
[2024-06-03] MEDS: Levothyroxine Sodium 75 MCG TABLET PO (05:33)
--- NOTE | 2024-06-03 07:38 | PC.NURSE ---
0230 pt O2 sat mid 80's on RA @0130. pt sleeping, difficulty arousing to name, responded to light touch. delayed response initially. O2 2L via NC applied at this time, pt does have history of SHEFALI with non compliance. O2 sats mid to high 90's.
--- NOTE | 2024-06-03 07:44 | PM.PNGS ---
Subjective Subjective Date of Service: 06/03/24 Interval history: Patient resting comfortably with no new complaints, tolerating WILL CALL CLERK. Physical Exam Vital Signs: Vital Signs: Last Vital Signs Temp 97.5 F 06/03/24 03:47 Pulse 104 H 06/03/24 03:47 Resp 18 06/03/24 03:47 BP 132/75 06/03/24 03:47 Pulse Ox 98 06/03/24 03:47 O2 Del Method Room Air 06/03/24 03:47 O2 Flow Rate 1 06/03/24 02:17 BMI result Body Mass Index 38.2 Const: General: comfortable Nutritional Appearance: obese Orientation/consciousness: patient oriented x3 Chest: Other: Left chest wounds are clean, dry, and intact Chest tube with serosanguineous discharge and no air leak. Resp: Effort & Inspection: normal respiratory effort, able to speak in complete sentences and no cough Cardio: Rate: regular rate Rhythm: regular rhythm Heart sounds: S1 normal heart sound present, S2 normal heart sound present, no gallops, no murmurs and no rubs Skin: Other: Warm and dry Lesions: lesion noted Neuro: General: patient oriented x3 Objective Data Active Medications Albuterol Sulfate (Albuterol Sulfate 90 Mcg 8 Gm Inhaler) 1 puff INHALE QID PRN PRN Reason: Shortness Of Breath Or Wheezing Benzonatate (Benzonatate 100 Mg Capsule) 200 mg PO TID PRN PRN Reason: Cough Last Admin: 06/01/24 14:07 Dose: 200 mg Documented By: SP Bupropion HCl (Bupropion Hcl Xl 300 Mg Tab.Er.24h) 300 mg PO DAILY [facility] Last Admin: 06/02/24 08:25 Dose: 300 mg Documented By: VERNON Calcium Carbonate (Calcium Carbonate 750 Mg Tab.Chew) 750 mg PO Q4H PRN PRN Reason: heartburn Cyclobenzaprine HCl (Cyclobenzaprine Hcl 5 Mg Tablet) 5 mg PO TID PRN PRN Reason: muscle spasm Last Admin: 06/01/24 11:00 Dose: 5 mg Documented By: SP Docusate Sodium (Docusate Sodium 100 Mg Capsule) 100 mg PO BID [facility] Last Admin: 06/02/24 21:08 Dose: 100 mg Documented By: TISHA Hydroxyzine HCl (Hydroxyzine Hcl 25 Mg Tablet) 25 mg PO Q6H PRN PRN Reason: anxiety Last Admin: 06/03/24 02:12 Dose: 25 mg Documented By: TISHA Hydromorphone HCl (Dilaudid) 10 mg in 50 mls @ 0 mls/hr IV .Q0M [facility]; Protocol Last Admin: 06/02/24 22:53 Dose: 0.4 mg/hr, 2 mls/hr Documented By: TISHA Acetaminophen (Ofirmev) 1,000 mg in 100 mls @ 400 mls/hr IV Q6H [facility] Last Infusion: 06/03/24 03:50 Dose: Infused Documented By: TISHA Levothyroxine Sodium (Levothyroxine Sodium 75 Mcg Tablet) 75 mcg PO DAILY@0600 [facility] Last Admin: 06/03/24 05:33 Dose: 75 mcg Documented By: TISHA Naloxone HCl (Naloxone Hcl 0.4 Mg/Ml Vial) 0.2 mg IVPUSH Q2M PRN PRN Reason: Excessive sedation or RR < 8 Nicotine (Nicotine 21 Mg Patch.Td24) 21 mg TRANSDERMA DAILY [facility] Last Admin: 06/02/24 08:25 Dose: 21 mg Documented By: VERNON Ondansetron HCl (Ondansetron Hcl 4 Mg/2 Ml Vial) 4 mg IVPUSH Q6H PRN PRN Reason: Nausea and Vomiting Polyethylene Glycol (Polyethylene Glycol 3350 17 Gm Powd.Pack) 17 gm PO DAILY PRN PRN Reason: constipation Senna (Sennosides 8.6 Mg Tablet) 8.6 mg PO DAILY [facility] Last Admin: 06/02/24 08:25 Dose: 8.6 mg Documented By: VERNON Sertraline HCl (Sertraline Hcl 25 Mg Tablet) 25 mg PO DAILY [facility] Last Admin: 06/02/24 08:25 Dose: 25 mg Documented By: VERNON Vitamin D (Cholecalciferol (Vitamin D3) 25 Mcg Tablet) 50 mcg PO DAILY [facility] Last Admin: 06/02/24 08:25 Dose: 50 mcg Documented By: VERNON Zolpidem Tartrate (Zolpidem Tartrate 5 Mg Tablet) 10 mg PO BEDTIME [facility] Last Admin: 06/02/24 21:07 Dose: 10 mg Documented By: TISHA Labs 06/01/24 06:07 06/01/24 06:07 Procedures Date of Service Date of Service: 06/03/24 Progress Note: A&P Assessment and plan (1) 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 Pulse remains elevated. H/H stable. Breathing comfortably without shortness of breath. Incision clean, dry and intact. Chest tube with serosanguineous discharge and no air leak. Continue out of bed, incentive spirometry, WILL CALL CLERK and Ofirmev. Hospitalists following. Time Spent With Patient Time: Total time managing care of this patient today ____ minutes. Quality Stroke Does the patient have a stroke diagnosis?: No VTE Prior VTE?: No VTE Risk Level:: Surgical - high VTE Device Contraindication: N/A - Device Ordered VTE Drug Contraindication: N/A - Med Ordered
[2024-06-03 08:23] LABS: Hematocrit 33.9 % (42.0-52.0); Mean Corpuscular HGB Conc 32.4 g/dl (31.0-36.0); Mean Corpuscular Volume 86.3 fL (80.0-98.0); Mean Platelet Volume 11.7 fL (9.4-12.4); Platelet Count 197 X10*3/uL (160-400); Red Blood Count 3.93 X10*6/uL (4.60-5.80); Red Cell Distribution Width 14.4 % (11.0-16.0); White Blood Count 9.4 X10*3/uL (4.8-10.8)
[2024-06-03 08:46] LABS: Anion Gap 12 (12-20); Blood Urea Nitrogen 12 mg/dL (9-16); Calcium 9.3 mg/dL (8.4-10.2); Carbon Dioxide 23 mmol/L (22-29); Chloride 105 mmol/L (96-108); Creatinine Clr Calc Pharmacy 156.7; Estimated Glomerular Filt Rate > 60; Glucose Random 97 mg/dL (60-115); Potassium 3.6 mmol/L (3.3-5.1); Sodium 136 mmol/L (135-145)
[2024-06-03] MEDS: Cholecalciferol (Vitamin D3) 25 MCG TABLET 50 MCG PO (09:14)
[2024-06-03] MEDS: Docusate Sodium 100 MG CAPSULE PO ×2 (09:14→21:22)
[2024-06-03] MEDS: Sennosides 8.6 MG TABLET PO (09:14)
[2024-06-03] MEDS: Sertraline HCL 25 MG TABLET PO (09:14)
[2024-06-03] MEDS: buPROPion HCl XL 300 MG TAB.ER.24H PO (09:14)
[2024-06-03] MEDS: Nicotine 21 MG PATCH.TD24 TRANSDERMA (09:14)
--- NOTE | 2024-06-03 10:52 | P.PNIM_ITS ---
Subjective Subjective Date of Service: 06/03/24 Interval History: Seen and examined this morning Follow-up for medical consultation reporting discomfort at incision site/chest tube site Review of Systems Review of Systems: Yes all other systems are reviewed and are negative Constitutional Constitutional: Denies chills and Denies fever(s) Cardiovascular Cardiovascular: Denies chest pain and Denies dyspnea Respiratory Respiratory: Denies dyspnea Gastrointestinal Gastrointestinal: Denies abdominal pain Physical Exam 2 Vital Signs: Vital Signs: Last Vital Signs Temp 97.0 F 06/03/24 10:46 Pulse 107 H 06/03/24 10:46 Resp 20 06/03/24 10:46 BP 130/83 06/03/24 10:46 Pulse Ox 99 06/03/24 10:46 O2 Del Method Nasal Cannula 06/03/24 10:46 O2 Flow Rate 2 06/03/24 10:46 BMI result Body Mass Index 38.2 Appearing in no acute distress lung sounds are clear to auscultation, CT left chest heart regular rate rhythm, clear S1, S2 positive bowel sounds, abdomen is soft, nontender neuro patient is alert x3, no focal deficits Objective Data Active Medications Albuterol Sulfate (Albuterol Sulfate 90 Mcg 8 Gm Inhaler) 1 puff INHALE QID PRN PRN Reason: Shortness Of Breath Or Wheezing Benzonatate (Benzonatate 100 Mg Capsule) 200 mg PO TID PRN PRN Reason: Cough Last Admin: 06/01/24 14:07 Dose: 200 mg Documented By: SP Bupropion HCl (Bupropion Hcl Xl 300 Mg Tab.Er.24h) 300 mg PO DAILY [facility] Last Admin: 06/03/24 09:14 Dose: 300 mg Documented By: VERNON Calcium Carbonate (Calcium Carbonate 750 Mg Tab.Chew) 750 mg PO Q4H PRN PRN Reason: heartburn Cyclobenzaprine HCl (Cyclobenzaprine Hcl 5 Mg Tablet) 5 mg PO TID PRN PRN Reason: muscle spasm Last Admin: 06/01/24 11:00 Dose: 5 mg Documented By: SP Docusate Sodium (Docusate Sodium 100 Mg Capsule) 100 mg PO BID [facility] Last Admin: 06/03/24 09:14 Dose: 100 mg Documented By: VERNON Hydroxyzine HCl (Hydroxyzine Hcl 25 Mg Tablet) 25 mg PO Q6H PRN PRN Reason: anxiety Last Admin: 06/03/24 02:12 Dose: 25 mg Documented By: TISHA Hydromorphone HCl (Dilaudid) 10 mg in 50 mls @ 0 mls/hr IV .Q0M [facility]; Protocol Last Admin: 06/02/24 22:53 Dose: 0.4 mg/hr, 2 mls/hr Documented By: TISHA Acetaminophen (Ofirmev) 1,000 mg in 100 mls @ 400 mls/hr IV Q6H [facility] Last Infusion: 06/03/24 09:52 Dose: Infused Documented By: VERNON Levothyroxine Sodium (Levothyroxine Sodium 75 Mcg Tablet) 75 mcg PO DAILY@0600 [facility] Last Admin: 06/03/24 05:33 Dose: 75 mcg Documented By: TISHA Naloxone HCl (Naloxone Hcl 0.4 Mg/Ml Vial) 0.2 mg IVPUSH Q2M PRN PRN Reason: Excessive sedation or RR < 8 Nicotine (Nicotine 21 Mg Patch.Td24) 21 mg TRANSDERMA DAILY [facility] Last Admin: 06/03/24 09:14 Dose: 21 mg Documented By: VERNON Ondansetron HCl (Ondansetron Hcl 4 Mg/2 Ml Vial) 4 mg IVPUSH Q6H PRN PRN Reason: Nausea and Vomiting Polyethylene Glycol (Polyethylene Glycol 3350 17 Gm Powd.Pack) 17 gm PO DAILY PRN PRN Reason: constipation Senna (Sennosides 8.6 Mg Tablet) 8.6 mg PO DAILY [facility] Last Admin: 06/03/24 09:14 Dose: 8.6 mg Documented By: VERNON Sertraline HCl (Sertraline Hcl 25 Mg Tablet) 25 mg PO DAILY [facility] Last Admin: 06/03/24 09:14 Dose: 25 mg Documented By: VERNON Vitamin D (Cholecalciferol (Vitamin D3) 25 Mcg Tablet) 50 mcg PO DAILY [facility] Last Admin: 06/03/24 09:14 Dose: 50 mcg Documented By: VERNON Zolpidem Tartrate (Zolpidem Tartrate 5 Mg Tablet) 10 mg PO BEDTIME [facility] Last Admin: 06/02/24 21:07 Dose: 10 mg Documented By: TISHA Labs 06/03/24 07:58 06/03/24 07:58 Labs: Laboratory Results - last 24 hr 06/03/24 07:58 MCV 86.3 MCH 28.0 MCHC 32.4 RDW 14.4 Plt Count 197 MPV 11.7 Absolute Nucleated RBC 0.000 Nucleated RBC % (auto) 0.0 Anion Gap 12 Estim Creat Clear Calc 156.7 Estimated GFR > 60 Random Glucose 97 Calcium 9.3 Assessment and Plan (1) Lung mass: Status: Acute (2) Sinus tachycardia: Status: Acute Plan 39 year old male with 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 Carcinoid tumor POD#2 s/p open left lower lobectomy chest tube in place plan per thoracic surgery pain management per surgery We will add bowel regimen due to high-dose narcotics. Monitor for constipation sinus tachycardia Possibly due to uncontrolled pain - on chronic narcotics, dose of Dilaudid drip increased by surgical team TSH within normal limits, H/H with slight drop but not significant change, afebrile less likely PE as no hypoxia and started directly following procedure IVF follow closely COPD no exacebation wean O2 as tolearted per protocol albuterol prn CRPS hold oxycodone, on dilaudid drip per surgery Hypothyroidis continue levothyroxine Cigarette smoking patch for nrt, cessation counseling Severe (class II) obesity weight loss efforts mood Continue home Zoloft, bupropion Thank you for this consult. We will sign off. Consult hospitalist team for further assistance if needed Quality Stroke Does the patient have a stroke diagnosis?: No VTE Prior VTE?: No VTE Risk Level:: Surgical - high VTE Device Contraindication: N/A - Device Ordered VTE Drug Contraindication: N/A - Med Ordered
[2024-06-03] MEDS: HYDROmorphone HCl/NS 10 MG/50 ML PIGGYBACK 2 MG IV (15:15)
[2024-06-03] MEDS: Zolpidem Tartrate 5 MG TABLET 10 MG PO (21:22)
--- NOTE | 2024-06-04 | ECG_ITS ---
Test Reason : DELISLJ Blood Pressure : / mmHG Vent. Rate : 118 BPM Atrial Rate : 118 BPM P-R Int : 158 ms QRS Dur : 090 ms QT Int : 312 ms P-R-T Axes : 048 049 019 degrees QTc Int : 437 ms Sinus tachycardia Otherwise normal ECG When compared with ECG of 01-JUN-2024 15:32, No significant change was found Referred By: Anay Taylor Electronically Signed By:RENE DAVIES
[2024-06-04] MEDS: hydrOXYzine HCL 25 MG TABLET PO ×2 (02:04→10:34)
[2024-06-04 02:09] VITALS: BP 129/74; PULSE 104
[2024-06-04 02:35] VITALS: PULSE 96; O2SAT 99
[2024-06-04 03:08] VITALS: PULSE 96; RESP 16; TEMP 37; O2SAT 99
[2024-06-04] MEDS: Acetaminophen 1,000 MG/100 ML PIGGYBACK 400 MG IV ×2 (04:52→09:17)
[2024-06-04] MEDS: Levothyroxine Sodium 75 MCG TABLET PO (04:52)
--- NOTE | 2024-06-04 06:48 | P.PNGS_ITS ---
Subjective Subjective Date of Service: 06/04/24 <Rob Salas - Last Filed: 06/04/24 07:39> 06/05/24 <Abbey Casillas PA-C - Last Filed: 06/05/24 09:52> 06/05/24 <Jordan Davis MD - Last Filed: 06/05/24 15:17> Interval history: Overnight nurse reports desats and admin of 2L nasal cannula, no other overnight events. Pain is currently well-controlled and maintained at 6/10 with HOUSEKEEPING STAFF and Ofirmev. Patient reports less pain around incision with most of the pain localized to around the chest tube. Chest tube with ~50mL of serosanguinous fluid collection in last 24 hours, and none reported over the last 12 hours. IS reaching ~1500mL on observation, patient reports reaching 1750mL. Has been OOB to chair w/o dizziness, but movement is limited by tubing. No reported nausea. He has passed gas, no BM. Mccann still in place, urine is hermilo in color, about 100mL in bag. <Rob Salas - Last Filed: 06/04/24 07:39> Physical Exam 2 Vital Signs: Vital Signs: Last Vital Signs Temp 98.6 F 06/04/24 03:08 Pulse 96 06/04/24 03:08 Resp 16 06/04/24 03:08 BP 129/74 06/04/24 02:09 Pulse Ox 99 06/04/24 03:08 O2 Del Method Nasal Cannula 06/04/24 03:08 O2 Flow Rate 2 06/04/24 03:08 BMI result Body Mass Index 38.2 <Rob Salas - Last Filed: 06/04/24 07:39> Const: General: cooperative, healthy appearing and comfortable < Rob Salas - Last Filed: 06/04/24 07:39> Nutritional Appearance: obese <Rob Salas - Last Filed: 06/04/24 07:39> Orientation/consciousness: patient oriented x3 <Rob Salas - Last Filed: 06/04/24 07:39> Chest: Other: left thoracotomy incisions covered by steri-strips w/ some dry blood. chest tube dressing intact, area surrounding tube tender to palpation. pleurvac with serosanguineous drainage, no air leak on exam. <Rob Salas - Last Filed: 06/04/24 07:39> Resp: Effort & Inspection: normal respiratory effort and able to speak in complete sentences <josep Salas Last Filed: 06/04/24 07:39> Cardio: Heart sounds: S1 normal heart sound present, S2 normal heart sound present, no gallops, no murmurs and no rubs <josep Salas Last Filed: 06/04/24 07:39> Neuro: General: patient oriented x3 <josep Salas Last Filed: 06/04/24 07:39> Objective Data Active Medications Albuterol Sulfate (Albuterol Sulfate 90 Mcg 8 Gm Inhaler) 1 puff INHALE QID PRN PRN Reason: Shortness Of Breath Or Wheezing Benzonatate (Benzonatate 100 Mg Capsule) 200 mg PO TID PRN PRN Reason: Cough Last Admin: 06/01/24 14:07 Dose: 200 mg Documented By: SP Bupropion HCl (Bupropion Hcl Xl 300 Mg Tab.Er.24h) 300 mg PO DAILY [facility] Last Admin: 06/03/24 09:14 Dose: 300 mg Documented By: VERNON Calcium Carbonate (Calcium Carbonate 750 Mg Tab.Chew) 750 mg PO Q4H PRN PRN Reason: heartburn Cyclobenzaprine HCl (Cyclobenzaprine Hcl 5 Mg Tablet) 5 mg PO TID PRN PRN Reason: muscle spasm Last Admin: 06/01/24 11:00 Dose: 5 mg Documented By: SP Docusate Sodium (Docusate Sodium 100 Mg Capsule) 100 mg PO BID [facility] Last Admin: 06/03/24 21:22 Dose: 100 mg Documented By: TISHA Hydroxyzine HCl (Hydroxyzine Hcl 25 Mg Tablet) 25 mg PO Q6H PRN PRN Reason: anxiety Last Admin: 06/04/24 02:04 Dose: 25 mg Documented By: TISHA Hydromorphone HCl (Dilaudid) 10 mg in 50 mls @ 0 mls/hr IV .Q0M [facility]; Protocol Last Admin: 06/03/24 15:15 Dose: 0.4 mg/hr, 2 mls/hr Documented By: VERNON Acetaminophen (Ofirmev) 1,000 mg in 100 mls @ 400 mls/hr IV Q6H [facility] Last Admin: 06/04/24 04:52 Dose: 400 mls/hr Documented By: TISHA Levothyroxine Sodium (Levothyroxine Sodium 75 Mcg Tablet) 75 mcg PO DAILY@0600 [facility] Last Admin: 06/04/24 04:52 Dose: 75 mcg Documented By: TISHA Naloxone HCl (Naloxone Hcl 0.4 Mg/Ml Vial) 0.2 mg IVPUSH Q2M PRN PRN Reason: Excessive sedation or RR < 8 Nicotine (Nicotine 21 Mg Patch.Td24) 21 mg TRANSDERMA DAILY [facility] Last Admin: 06/03/24 09:14 Dose: 21 mg Documented By: VERNON Ondansetron HCl (Ondansetron Hcl 4 Mg/2 Ml Vial) 4 mg IVPUSH Q6H PRN PRN Reason: Nausea and Vomiting Polyethylene Glycol (Polyethylene Glycol 3350 17 Gm Powd.Pack) 17 gm PO DAILY PRN PRN Reason: constipation Senna (Sennosides 8.6 Mg Tablet) 8.6 mg PO DAILY [facility] Last Admin: 06/03/24 09:14 Dose: 8.6 mg Documented By: VERNON Sertraline HCl (Sertraline Hcl 25 Mg Tablet) 25 mg PO DAILY [facility] Last Admin: 06/03/24 09:14 Dose: 25 mg Documented By: VERNON Vitamin D (Cholecalciferol (Vitamin D3) 25 Mcg Tablet) 50 mcg PO DAILY [facility] Last Admin: 06/03/24 09:14 Dose: 50 mcg Documented By: VERNON Zolpidem Tartrate (Zolpidem Tartrate 5 Mg Tablet) 10 mg PO BEDTIME [facility] Last Admin: 06/03/24 21:22 Dose: 10 mg Documented By: TISHA <Rob Salas - Last Filed: 06/04/24 07:39> Labs CBC & Chem 7: 06/03/24 07:58 06/03/24 07:58 <Rob Salas - Last Filed: 06/04/24 07:39> Labs: Laboratory Results - last 24 hr 06/03/24 07:58 MCV 86.3 MCH 28.0 MCHC 32.4 RDW 14.4 Plt Count 197 MPV 11.7 Absolute Nucleated RBC 0.000 Nucleated RBC % (auto) 0.0 Anion Gap 12 Estim Creat Clear Calc 156.7 Estimated GFR > 60 Random Glucose 97 Calcium 9.3 <Rob Salas - Last Filed: 06/04/24 07:39> Procedures Date of Service Date of Service: 06/04/24 <Rob Salas - Last Filed: 06/04/24 07:39> 06/05/24 <Abbey Casillas PA-C - Last Filed: 06/05/24 09:52> 06/05/24 <Jordan Davis MD - Last Filed: 06/05/24 15:17> Progress Note: A&P Assessment and plan (1) Status post lobectomy of lung: Status: Acute <Rob Salas - Last Filed: 06/04/24 07:39> (2) 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 Overnight desats. possibly related to hx of sleep apnea. H/H slight decline since 06/01, continue to monitor. VSS, pulse no longer elevated. Breathing comfortably without shortness of breath. Chest tube with serosanguineous discharge and no air leak, no significant drainage in past 24 hours. Removed chest tube. Nurses to remove mccann. Pain is well managed, continue HOUSEKEEPING STAFF and Ofirmev for now, will switch back to prescribed oral pain meds on discharge. Incisions clean, dry and intact. Continue out of bed, incentive spirometry. Chest x-ray later today, and possible discharge. < Rob Salas - Last Filed: 06/04/24 07:39> Time Spent With Patient Time: Total time managing care of this patient today ____ minutes. <Rob Salas - Last Filed: 06/04/24 07:39> Quality Stroke Does the patient have a stroke diagnosis?: No <Rob Salas - Last Filed: 06/04/24 07:39> VTE Prior VTE?: No <Rob Salas - Last Filed: 06/04/24 07:39> VTE Risk Level:: Surgical - high <Rob Salas - Last Filed: 06/04/24 07:39> VTE Device Contraindication: N/A - Device Ordered <Rob Salas - Last Filed: 06/04/24 07:39> VTE Drug Contraindication: N/A - Med Ordered <Rob Salas - Last Filed: 06/04/24 07:39>
[2024-06-04 07:46] VITALS: BP 119/73; PULSE 94; RESP 20; TEMP 36.1; O2SAT 98
--- NOTE | 2024-06-04 08:45 | PM.PNTS ---
Subjective Subjective Date of Service: 06/04/24 Interval history: Aside from incisional pain which is improving, patient was doing well. No respiratory issues. Tolerating diet. Chest tube output minimal, serosanguineous. No air leak. Physical Exam Vital Signs: Vital Signs: Last Vital Signs Temp 96.9 F 06/04/24 07:46 Pulse 94 06/04/24 07:46 Resp 20 06/04/24 07:46 BP 119/73 06/04/24 07:46 Pulse Ox 98 06/04/24 07:46 O2 Del Method Room Air 06/04/24 07:46 O2 Flow Rate 2 06/04/24 03:08 BMI result Body Mass Index 38.2 Chest: Other: Incision clean dry and intact. Chest tube uneventfully removed with occlusive dressing placed. Well tolerated. Procedures Date of Service Date of Service: 06/04/24 Progress Note: A&P Assessment and plan (1) Status post lobectomy of lung: Status: Acute Plan Post chest tube removal chest x-ray, conversion oral analgesics. Considered DC home soon if continued improvement. Time Spent With Patient Time: Total time managing care of this patient today ____ minutes. Quality Stroke Does the patient have a stroke diagnosis?: No VTE Prior VTE?: No VTE Risk Level:: Surgical - high VTE Device Contraindication: N/A - Device Ordered VTE Drug Contraindication: N/A - Med Ordered
[2024-06-04] MEDS: Sertraline HCL 25 MG TABLET PO (09:06)
[2024-06-04] MEDS: Cholecalciferol (Vitamin D3) 25 MCG TABLET 50 MCG PO (09:06)
[2024-06-04] MEDS: Docusate Sodium 100 MG CAPSULE PO (09:06)
[2024-06-04] MEDS: buPROPion HCl XL 300 MG TAB.ER.24H PO (09:06)
[2024-06-04] MEDS: Sennosides 8.6 MG TABLET PO (09:06)
--- NOTE | 2024-06-04 11:26 | PM.DS ---
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 Once again we view that the patient has a carcinoid tumor at the orifice of the left lower lobe bronchus right nerve the split with the upper lobe. The ideal situation would be to perform a left lower lobectomy with clear margins. I discussed with the patient and also bright a diagram for him demonstrating the anatomic situation of the carcinoid tumor. I reviewed the case with Dr. Monterroso pathology, and he understands that we will undergo a frozen section to document surgically clear margin. If this is unable to be obtained, patient may need a complete pneumonectomy. We discussed the risks, benefits, alternatives of this at length and the patient understands and all questions answered. Once again risks, benefits alternatives of procedure were reviewed and included bleeding, infection, recurrence of tumor, numbness, pain, scarring, respiratory issues and the patient wishes to proceed. All questions answered. HOSPITAL COURSE: On 05/31/24, vats converted open left lower lobectomy, mediastinal lymph node sampling, bronchoscopy, intercostal nerve block was performed by Dr. Davis without complication. The patient tolerated the procedure well and was admitted to the medical telemetry floor for observation. Hospitalist consult was obtained for his medical comorbidities. He had an uncomplicated but slow recovery course. He was started on dilaudid WASTE PAPER HAMMERMILL OPERATOR post operatively given the thoractomy and his chronic opioid use. This had to be adjusted for post op pain control. His chest tube had serosanguineous output and had small pneumothorax on day 1 but this resolved following. He was tachycardic post op and hospitalists felt this was sinus and secondary to uncontrolled pain. This improved. His labs remained stable. He was ambulated and his activity increased. Incentive spirometer use was encouraged. His mccann was removed. His lung remained up with minimal chest tube output and his chest tube was removed uneventfully on POD #4. His WASTE PAPER HAMMERMILL OPERATOR was discontinued. On the day of discharge, his incisions were clean and he had good pain control on oral analgesics. His respiratory status was stable. He was discharged to home on 06/04/24 in stable condition. He is to follow up in the office in 1 week. He was discharged to home with VNA services for chest tube site dressing changes every other day with xeroform, 4x4 and tape. Status at Discharge Functional status at discharge: independent ambulation Overall status at discharge: patient is progressing back to baseline Time Attestation Discharge Coordination Time (in mins): 45 Quality: Safe Use of Opioids Does Pt have an Active Cancer Diagnosis on the Problem List?: Yes Opioid Measure Date for [facility] Report: 05/06/24 Opioid Measure Time for [facility] Report: 12:20 Quality: Stroke Does the patient have a stroke diagnosis?: No Physical Exam Vital Signs: Vital Signs: Last Vital Signs Temp 97.9 F 06/04/24 11:28 Pulse 104 H 06/04/24 11:28 Resp 20 06/04/24 11:28 BP 121/73 06/04/24 11:28 Pulse Ox 96 06/04/24 11:28 O2 Del Method Room Air 06/04/24 11:28 O2 Flow Rate 2 06/04/24 03:08 BMI result Body Mass Index 38.2 Const: General: comfortable, no acute distress and alert Orientation/consciousness: patient oriented x3 Chest: Other: left thoracotomy incision clean appearing, steris intact, chest tube site dressing in place and dry Resp: Effort & Inspection: normal respiratory effort Skin: General skin exam: no rashes or lesions noted Neuro: General: patient oriented x3 and moves all extremities DS: Data Data Completed and Pending Pending studies at discharge: Pending at discharge 05/31/24 11:53 Surgical [PTH] Stat Discharge Plan Discharge Anticipated Discharge Date/Time: 06/05/24 11:27 Patient Disposition: Home Health Service Discharge Diagnosis: Carcinoid tumor left lower lobe lung Referrals: [facility] [Outside] - 1 Week Margie Singh NP [Primary Care Provider] - 1 Week Jordan Davis MD [Physician] - 1 Week Discharge Medications: New oxycodone 10 mg tablet 10 mg PO Q6H PRN (Reason: pain) Qty: 40 0RF Rx Instructions: Partial Fill upon patient request. Continued cyclobenzaprine 5 mg tablet 5 mg PO TID PRN (Reason: muscle spasm) Qty: 14 0RF nicotine 21 mg/24 hr patch 24 hour 1 patch transdermal DAILY ibuprofen 200 mg Tablet 600 mg PO Q6H PRN (Reason: Pain) oxycodone-acetaminophen 10-325 mg tablet 2 tab PO Q6-8H PRN (Reason: Pain) zolpidem 10 mg tablet 10 mg PO BEDTIME bupropion HCl 300 mg tablet extended release 24 hr 300 mg PO DAILY sertraline 25 mg tablet 25 mg PO DAILY cholecalciferol (vitamin D3) 50 mcg (2,000 unit) tablet 50 mcg PO DAILY levothyroxine 75 mcg tablet 75 mcg PO DAILY@0600 naloxone [Narcan] 4 mg/actuation spray,non-aerosol 1 spray intranasal DAILY PRN (Reason: Opioid Overdose) Discharge Orders: Discharge Order (Routine); Ordered 06/04/24 Ordered By: Abbey Casillas Diet: Advance to usual diet Activity on Discharge: No heavy lifting Stand Alone Forms: Patient Portal Discharge page Print Language: American Activity Restrictions/Additional Instructions: Ice to wound 20 minutes several times today and tomorrow. May shower. Leave Steri-Strips intact. No strenuous activities. Change chest tube site dressing every other day with xeroform and 4x4 followed by tape. Care Plan Goals: Convalescence Health Concerns: No new issues Plan of Treatment: Returned to baseline Assessment: Stable Discharge Date/Time: 06/04/24 15:19
[2024-06-04 11:28] VITALS: BP 121/73; PULSE 104; RESP 20; TEMP 36.6; O2SAT 96
[2024-06-04] MEDS: oxyCODONE HCl Immed Release 5 MG TABLET 10 MG PO (11:49)
--- NOTE | 2024-06-04 12:53 | PC.NURSE ---
Paz removed at 0930 without any difficulties, pt due to void at 1530. Pt voided 400mls at 1120am.
--- NOTE | 2024-06-04 14:48 | W.MHC.F2F ---
Service Date Service Date: 06/04/24 Encounter Date of encounter: 06/04/24 Reasons for Services Signs and symptoms assessed: thoractomy pain, chest tube output, chest tube removal Reason for intermediate: wound care Homebound: Leaving the home is medically contraindicated at this time without the asist of a device and/or another person due th the listed conditions above and below. Reason homebound: weakness related to hospital stay and unable to drive Homebound supporting statement: Mr. Her is s/p thoractomy, left lower lobectomy. His chest tube was removed 06/04/24. He will need VNA for dressing changes to chest tube site with xeroform and 4x4 with tape. Certification: Based on the above findings, I certify that this patient is confined to the home and needs intermittent intermediate care, physical therapy and/or speech therapy, or continues to need occupational therapy. The patient is under my care, and I have initiated the establishment of the plan of care. The patient will be followed by a physician who will periodically review the plan of care. Time Spent With Patient Time: Total time managing care of this patient today ____ minutes.
--- NOTE | 2024-06-04 15:27 | MHC.CM.PN ---
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 Pt discharged prior to second IMM being given.
== END 2024-06-04 15:19 | disposition home health service (06) | DRG 164 ==
LOC: HO.SSSA 07:52 → HO.IMC 14:27
PROVIDERS: Nurse Practitioner; Nurse Practitioner Acute Care; Physician Assistant Medical; Physician Assistant Surgical; Admitting Provider Surgery; PCP Nurse Practitioner Family; Visit Provider Surgery
PROC: 0BTJ0ZZ Resection of Left Lower Lung Lobe, Open Approach (ICD-10-PCS; principal; 2024-05-31 07:30)
PROC: 0BJ08ZZ Inspection of Tracheobronchial Tree, Via Natural or Artificial Opening Endoscopic (ICD-10-PCS; CPT 31622; 2024-05-31 07:30)
DX: D3A.090 Benign carcinoid tumor of the bronchus and lung (principal); G90.521 Complex regional pain syndrome I of right lower limb; F31.9 Bipolar disorder, unspecified; E03.9 Hypothyroidism, unspecified; J43.9 Emphysema, unspecified; R00.0 Tachycardia, unspecified; E66.01 Morbid (severe) obesity due to excess calories; Z68.38 Body mass index [BMI] 38.0-38.9, adult; Z87.891 Personal history of nicotine dependence; Z79.891 Long term (current) use of opiate analgesic; Z79.899 Other long term (current) drug therapy
CPT/HCPCS: 36415; 71045; 80048; 80053; 84443; 85025; 85027; 85610; 85730; 86850; 86900; 86901; 86923; 88305; 88309; 88313; 88331; 88332; 93005; A7041; C9290; J0131; J0690; J1100; J1170; J1596; J1720; J2250; J2305; J2354; J2371; J2405; J2704; J2795; J3010; J7120

== ENCOUNTER 2024-05-31 07:51 | Outpatient (BNV) | payer OTHER, SELFPAY | END 2024-06-04 | PROVIDERS: Admitting Provider Surgery; PCP Nurse Practitioner Family; Visit Provider Internal Medicine | DX: R00.0 Tachycardia, unspecified (principal) | CPT/HCPCS: 93010 ==

== ENCOUNTER → 2024-05-31 07:51 | Outpatient (BNV) | payer OTHER, SELFPAY | PROVIDERS: Admitting Provider Surgery; PCP Nurse Practitioner Family; Visit Provider Surgery | DX: C7A.090 Malignant carcinoid tumor of the bronchus and lung (principal) | CPT/HCPCS: 99024; G0180 ==

== ENCOUNTER → 2024-05-31 07:51 | Outpatient (BNV) | payer OTHER, SELFPAY | PROVIDERS: Admitting Provider Surgery; PCP Nurse Practitioner Family; Visit Provider Physician Assistant | DX: R91.8 Other nonspecific abnormal finding of lung field (principal); R00.0 Tachycardia, unspecified | CPT/HCPCS: 99222; 99232 ==

== ENCOUNTER → 2024-05-31 07:51 | Outpatient (BNV) | payer OTHER, SELFPAY | PROVIDERS: Admitting Provider Surgery; PCP Nurse Practitioner Family; Visit Provider Surgery | DX: Z90.2 Acquired absence of lung [part of] (principal) | CPT/HCPCS: 32480; 32674; 99024 ==

== ENCOUNTER 2024-06-11 10:41 | Outpatient (AMB) | payer MEDICARE, SELFPAY ==
--- NOTE | 2024-06-11 10:50 | A.OFFVIS_ITS ---
Vital Signs 06/11/24 10:56 Height 5 ft 8 in Weight 253 lb 15.56 oz BMI 38.6 BP 120/72 Blood Pressure Location Lt brachial Position Sitting Intake Visit Reasons: S/P VATS, pos.RLL lobectomy, pos. bilat. lobectomy Intake Note: Patient is seen in office for post op assessment post vats converted open left lower lobectomy, mediastinal lymph node sampling, bronchoscopy, intercostal nerve block. 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 He has no respiratory issues or complaints. All things considered, he has incisional discomfort is not to extreme. He has tolerating a diet. Having regular bowel habits. Pathology was reviewed. REPLACED BY [facility] Medical History Thyroid disease Arthritis Back pain Foot pain, right Anxiety Depression Emphysema of lung Asthma Tobacco dependence Osteoarthritis of ankle COPD, mild Neuropathic pain of right lower extremity Lumbar radiculopathy Complex regional pain syndrome of lower extremity Obstructive sleep apnea Obesity Bipolar disorder Hypothyroidism Nondependent alcohol abuse Severe episode of recurrent major depressive disorder Low back pain Surgical History History of foot surgery History of bronchoscopy History of circumcision Carcinoid tumor (~04/2024) Social History Household Members: Spouse Housing: Apartment Are you a primary acute care certified nursing assistant to a significant other at home: No Do you presently have visiting nurse or other home services: Yes Patient Tobacco Use Status: Former Tobacco user Tobacco use type: Cigarette Cigarette Packs Per Day: 1 Cigarettes Per Day: 20.0 Substance Use Type: Marijuana service: No Physical Exam Vital Signs: Last Vital Signs BP 120/72 06/11/24 10:56 BMI result Body Mass Index 38.6 Chest Other: Chest breath sounds bilaterally. Incisions all clean dry and intact healing very well Assessment & Plan Assessment & Plan (1) Status post lobectomy of lung: Code(s): Z90.2 - Acquired absence of lung [part of] Category: Medical Plan Patient has been given local instructions including avoiding strenuous activities axillary weeks time, ambulate as much as tolerated, use his incentive spirometry and will see me in few weeks time for follow-up or p.r.n.. All questions answered. Coding Level of Care Code Global (35358) Diagnoses Status post lobectomy of lung Z90.2
[2024-06-11 10:56] VITALS: BP 120/72; BMI 38.6
== END 2024-06-11 11:06 | disposition home or self-care (01) ==
PROVIDERS: PCP Nurse Practitioner Family; Visit Provider Surgery
DX: Z90.2 Acquired absence of lung [part of] (principal)
CPT/HCPCS: 99024

== ENCOUNTER → 2024-06-11 10:41 | Outpatient (BNVA) | payer MEDICARE, SELFPAY | PROVIDERS: PCP Nurse Practitioner Family; Visit Provider Surgery | DX: Z90.2 Acquired absence of lung [part of] (principal) | CPT/HCPCS: 99212 ==

== ENCOUNTER 2024-06-25 11:26 | Outpatient (AMB) | payer MEDICARE, SELFPAY ==
--- NOTE | 2024-06-25 11:28 | A.OFFVIS_ITS ---
Vital Signs 06/25/24 11:35 Height 5 ft 8 in Weight 253 lb 15.56 oz BMI 38.6 BP 132/71 Blood Pressure Location Lt brachial Position Sitting Pulse 96 Pulse Oximetry (%) 98 Intake Visit Reasons: check incision/pain Intake Note: Patient is seen in office for wound check, post left lung lobectomy on 05/31/24. Pt c/o: admits to pain in the left chest, worse when laying down or sleeping, pain comes and goes Higher Education Administrator Required: No Accompanied by: Family/Other Allergies No Known Allergies Allergy (Verified 06/25/24 11:35) HPI Comments Details: Patient presents with family for follow-up. He is doing relatively well. Incisional discomfort is slowly but steadily improving. He states that when he is lying in bed he becomes short of breath a bit. [facility] Medical History Thyroid disease Arthritis Back pain Foot pain, right Anxiety Depression Emphysema of lung Asthma Tobacco dependence Osteoarthritis of ankle COPD, mild Neuropathic pain of right lower extremity Lumbar radiculopathy Complex regional pain syndrome of lower extremity Obstructive sleep apnea Obesity Bipolar disorder Hypothyroidism Nondependent alcohol abuse Severe episode of recurrent major depressive disorder Low back pain Surgical History History of foot surgery History of bronchoscopy History of circumcision Carcinoid tumor (~04/2024) Social History Household Members: Spouse Housing: Apartment Are you a primary direct support professional caregiver to a significant other at home: No Do you presently have visiting nurse or other home services: Yes Patient Tobacco Use Status: Former Tobacco user Tobacco use type: Cigarette Cigarette Packs Per Day: 1 Cigarettes Per Day: 20.0 Substance Use Type: Marijuana service: No Physical Exam Vital Signs: Last Vital Signs Pulse 96 06/25/24 11:35 BP 132/71 06/25/24 11:35 Pulse Ox 98 06/25/24 11:35 BMI result Body Mass Index 38.6 Chest Other: Excellent breath sounds bilaterally. Clear. Incisions all healing well. Assessment & Plan Assessment & Plan (1) Status post lobectomy of lung: Code(s): Z90.2 - Acquired absence of lung [part of] Category: Surgical Plan: Current plan is to arrange for six-month surveillance CT scan follow-up. Patient has not seen his pulmonology and since preoperatively and we will arrange for follow-up with him with Dr. Gibbons. All questions answered. Patient will see me as noted above or p.r.n.. (2) History of malignant carcinoid tumor of bronchus: Code(s): Z85.110 - Personal history of malignant carcinoid tumor of bronchus and lung Category: Surgical Plan: See above Orders: Orders CT lung screen follow up 6 Months Z85.110 - Personal history of malignant carc inoid tumor of bronchus and lung, Z90.2 - Acquired absence of lung [part of] Coding Level of Care Code Global (58910) Diagnoses Status post lobectomy of lung Z90.2 History of malignant carcinoid tumor of bronchus Z85.110
[2024-06-25 11:35] VITALS: BP 132/71; PULSE 96; O2SAT 98; BMI 38.6
== END 2024-06-25 11:38 | disposition home or self-care (01) ==
PROVIDERS: PCP Nurse Practitioner Family; Visit Provider Surgery
DX: Z90.2 Acquired absence of lung [part of] (principal); Z85.110 Personal history of malignant carcinoid tumor of bronchus and lung
CPT/HCPCS: 99024

== ENCOUNTER → 2024-06-25 11:26 | Outpatient (BNVA) | payer MEDICARE, SELFPAY | PROVIDERS: PCP Nurse Practitioner Family; Visit Provider Surgery | DX: Z08 Encounter for follow-up examination after completed treatment for malignant neoplasm (principal); Z90.2 Acquired absence of lung [part of]; Z85.110 Personal history of malignant carcinoid tumor of bronchus and lung | CPT/HCPCS: 99212 ==

== ENCOUNTER → 2024-07-23 09:30 | Outpatient (BNVA) | payer MEDICARE, SELFPAY | PROVIDERS: PCP Nurse Practitioner Family; Visit Provider Surgery ==

== ENCOUNTER 2024-07-24 10:37 | Outpatient (AMB) | payer MEDICARE, SELFPAY ==
--- NOTE | 2024-07-24 10:39 | MHC.OFFVIS ---
Intake Visit Reasons: 6 wks sp b/l lobectomy Intake Note: Patient follow up for sp b/l lobectomy. Grouter Helper Required: No Accompanied by: Self / Same As Patient Allergies No Known Allergies Allergy (Verified 07/24/24 10:39) Medication List - Last Reconciled 07/24/24 by Jordan Davis MD bupropion HCl XL 300 mg PO DAILY cholecalciferol (vitamin D3) 50 mcg PO DAILY cyclobenzaprine 5 mg PO TID PRN ibuprofen 600 mg PO Q6H PRN levothyroxine 75 mcg PO DAILY@0600 naloxone 4 mg/actuation (Narcan) 1 spray intranasal DAILY PRN nicotine 1 patch transdermal DAILY oxycodone 10 mg PO Q6H PRN oxycodone-acetaminophen 10-325 mg 2 tabs PO Q6-8H PRN sertraline 25 mg PO DAILY zolpidem 10 mg PO BEDTIME HPI Comments Details: Patient presents for follow-up. He is doing quite well. He has no incisional discomfort. He has no respiratory issues. He has returned to his baseline he states. Unfortunately, patient has recommenced smoking despite being strongly encouraged to discontinue this. [facility] Medical History Thyroid disease Arthritis Back pain Foot pain, right Anxiety Depression Emphysema of lung Asthma Tobacco dependence Osteoarthritis of ankle COPD, mild Neuropathic pain of right lower extremity Lumbar radiculopathy Complex regional pain syndrome of lower extremity Obstructive sleep apnea Obesity Bipolar disorder Hypothyroidism Nondependent alcohol abuse Severe episode of recurrent major depressive disorder Low back pain Surgical History History of foot surgery History of bronchoscopy History of circumcision Carcinoid tumor (~04/2024) Social History Household Members: Spouse Housing: Apartment Are you a primary career services director to a significant other at home: No Do you presently have visiting nurse or other home services: Yes Patient Tobacco Use Status: Former Tobacco user Tobacco use type: Cigarette Cigarette Packs Per Day: 1 Cigarettes Per Day: 20.0 Substance Use Type: Marijuana service: No Physical Exam Chest Other: Excellent breath sounds bilaterally. Incisions clean dry and intact healing well GI Other: Abdomen Ruffin, soft, benign Assessment & Plan Assessment & Plan (1) History of malignant carcinoid tumor of bronchus: Code(s): Z85.110 - Personal history of malignant carcinoid tumor of bronchus and lung Category: Surgical Plan: Plan is to see the patient's six-month time status post CT scan chest surveillance. He once again has been encouraged to discontinue smoking. All questions answered. Patient will see me as noted above or p.r.n.. Orders: Orders CT lung screen follow up 6 Months Z85.110 - Personal history of malignant carcinoid tumor of bronchus and lung Coding Level of Care Code Global (77865) Diagnoses History of malignant carcinoid tumor of bronchus Z85.110
== END 2024-07-24 10:43 | disposition home or self-care (01) ==
PROVIDERS: PCP Nurse Practitioner Family; Visit Provider Surgery
DX: Z85.110 Personal history of malignant carcinoid tumor of bronchus and lung (principal)
CPT/HCPCS: 99024

== ENCOUNTER → 2024-07-24 10:37 | Outpatient (BNVA) | payer MEDICARE, SELFPAY | PROVIDERS: PCP Nurse Practitioner Family; Visit Provider Surgery | DX: Z85.110 Personal history of malignant carcinoid tumor of bronchus and lung (principal) | CPT/HCPCS: 99212 ==

== ENCOUNTER 2024-08-06 08:54 | Outpatient (AMB) | payer OTHER, SELFPAY ==
[2024-08-06 08:59] VITALS: BP 118/70; PULSE 85; O2SAT 98; BMI 40.2
--- NOTE | 2024-08-06 08:59 | A.OFFVIS_ITS ---
Vital Signs 08/06/24 08:59 Height 5 ft 8 in Weight 264 lb 8.875 oz BMI 40.2 BP 118/70 Blood Pressure Location Rt brachial Position Sitting Pulse 85 Pulse Source Pulse Oximeter Pulse Oximetry (%) 98 Oxygen Delivery Method Room Air Intake Visit Reasons: Lung CA Electrical Instrument Technician Required: No Allergies No Known Allergies Allergy (Verified 08/06/24 09:02) HPI Comments Details: The patient is a 39-year-old gentleman the cough tends to be moderate severity. Typically nonproductive although he feels like he has something to clear and just can not clear. During the workup the patient had a chest x-ray followed by CT scan of the chest. I personally reviewed the CT scan with the patient. Appears to have a masslike consolidation in the left lower lobe area in the infrahilar area as well. Seems to be some mucus plugging of some type question endobronchial lesion the patient denies choking on any particular foods. Denies any weight loss or night sweats. He denies any hemoptysis. the patient also has been trying to quit smoking. He has had a hard time. We talked about performing a bronchoscopy. The patient is agreeable this time. I did describe the procedure and the benefits of the procedure. The patient would like to pursue the procedure soon as possible. 05/03/2024 The patient is here for a follow up bronchsocopy. He did have a mass obstructing his LLL bronchus with pus suggesting a post obstructive pneumonia. Pathology consistent with carcinoid. He completed the Augmentin and starting to cough again. He will have PFTs and awaiting referral with Thoracic surgery. 08/06/2024 the patient is here for a pulmonary follow-up visit. The patient is status post a left lower lobe lobectomy for his cancer. He was able to avoid a full pneumonectomy which is reassuring. He did need an open procedure her. There is still painful and numb. He understands that will be the like this for a long time maybe years. He can try [id number] medications for it. In the meantime the patient went back to smoking. We did talk about the importance of him quitting. He had a reaction to the patch. I will send him the echo read gum at this time. We did look at the pathology after his surgery. 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 Two of the lymph nodes were negative and the borders were also negative. However, due to the concerning nature in aggressive nature of atypical carcinoid I believe that a referral to Oncology be important in order to monitor for any metastatic disease. [facility] Medical History Thyroid disease Arthritis Back pain Foot pain, right Anxiety Depression Emphysema of lung Asthma Tobacco dependence Osteoarthritis of ankle COPD, mild Neuropathic pain of right lower extremity Lumbar radiculopathy Complex regional pain syndrome of lower extremity Obstructive sleep apnea Obesity Bipolar disorder Hypothyroidism Nondependent alcohol abuse Severe episode of recurrent major depressive disorder Low back pain Surgical History History of foot surgery History of bronchoscopy History of circumcision Carcinoid tumor (~04/2024) Social History Household Members: Spouse Housing: Apartment Are you a primary care program director to a significant other at home: No Do you presently have visiting nurse or other home services: Yes Patient Tobacco Use Status: Former Tobacco user Tobacco use type: Cigarette Cigarette Packs Per Day: 1 Cigarettes Per Day: 20.0 Substance Use Type: Marijuana service: No Review of Systems Const Denies fever(s) and Denies weight loss Eyes Reports no additional complaints ENT Denies dysphagia Card Denies palpitations Resp Reports cough, Denies hemoptysis and Denies wheezing GI Denies dysphagia Musc Reports back pain, Reports myalgias and Reports numbness Skin/Breast Denies rash Neuro Reports numbness, Reports radicular pain and Reports paresthesias Endo Denies palpitations Zenon/Lymph Denies lymphadenopathy Aller/Immun Denies wheezing Physical Exam Vital Signs: Last Vital Signs Pulse 85 08/06/24 08:59 BP 118/70 08/06/24 08:59 Pulse Ox 98 08/06/24 08:59 Oxygen Delivery Method Room Air 08/06/24 08:59 BMI result Body Mass Index 40.2 Const General: comfortable HEENT Head: Yes normocephalic Neck Neck: Yes supple Chest Chest palpation & inspection: normal inspection of the chest Resp Effort & Inspection: normal respiratory effort Auscultation: diminished lung sounds on the left Cardio Heart sounds: S1 normal heart sound present and S2 normal heart sound present GI Palpation (GI): Soft to palpation Extrem General: Yes no clubbing, cyanosis or edema Assessment & Plan Assessment & Plan (1) Atypical carcinoid lung tumor: Code(s): 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 Category: Medical (2) Consolidation of left lower lobe of lung: Code(s): J18.1 - Lobar pneumonia, unspecified organism Category: Medical (3) COPD, mild: Code(s): J44.9 - Chronic obstructive pulmonary disease, unspecified Category: Medical (4) Tobacco dependence: Code(s): F17.200 - Nicotine dependence, unspecified, uncomplicated Category: Medical Plan Tobacco cessation: Nicorette gum EUGENE as needed serial CT chest as per Thoracic surgery referral to Oncology re: Atypical Carconoid F/U 6 months Orders: Referrals Hematology & Oncology Referral 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 Medications: New nicotine (polacrilex) (Nicorette) 4 mg buccal Q2H 30 days 100 ea 2RF Coding Level of Care Code Est Pt Level 4 (22354) Diagnoses Atypical carcinoid lung tumor C7A.090 Consolidation of left lower lobe of lung J18.1 COPD, mild J44.9 Tobacco dependence F17.200 Time Spent (min) 17
== END 2024-08-06 09:18 | disposition home or self-care (01) ==
PROVIDERS: PCP Nurse Practitioner Family; Visit Provider Hospitalist
DX: C7A.090 Malignant carcinoid tumor of the bronchus and lung (principal); J18.1 Lobar pneumonia, unspecified organism; J44.9 Chronic obstructive pulmonary disease, unspecified; F17.200 Nicotine dependence, unspecified, uncomplicated
CPT/HCPCS: 99214

== ENCOUNTER → 2024-08-06 08:54 | Outpatient (BNVA) | payer OTHER, SELFPAY | PROVIDERS: PCP Nurse Practitioner Family; Visit Provider Hospitalist | DX: C7A.090 Malignant carcinoid tumor of the bronchus and lung (principal); J18.1 Lobar pneumonia, unspecified organism; J44.9 Chronic obstructive pulmonary disease, unspecified; F17.210 Nicotine dependence, cigarettes, uncomplicated; Z90.2 Acquired absence of lung [part of] | CPT/HCPCS: 99212 ==

== ENCOUNTER → 2024-08-17 09:46 | Outpatient (BNV) | payer OTHER, SELFPAY | PROVIDERS: Referring Provider Hospitalist; Visit Provider Internal Medicine Medical Oncology | DX: C7A.090 Malignant carcinoid tumor of the bronchus and lung (principal) | CPT/HCPCS: 99204 ==

== ENCOUNTER 2024-09-22 10:33 | Outpatient (REF) | payer OTHER, SELFPAY | END 2024-09-22 10:34 | disposition home or self-care (01) | LOC: HO.MRI 10:33 | PROVIDERS: PCP Registered Nurse; Visit Provider Registered Nurse | DX: Z13.89 Encounter for screening for other disorder (principal) ==

== ENCOUNTER 2024-10-15 12:34 | Outpatient (REF) | payer OTHER, SELFPAY ==
--- NOTE | ~2024-10-15 | MR_ITS ---
EXAMINATION: MR FOOT WITHOUT CONTRAST, RIGHT CLINICAL INFORMATION: Chronic right foot and ankle pain. Pain and swelling. Surgery for club foot. COMPARISON: None. TECHNIQUE: Multisequence MR imaging of the right foot was obtained without contrast on a high-field strength scanner. FINDINGS: BONE: No metatarsal stress reaction or fracture. No evidence of acute osseous injury. Partially visualized diffuse full-thickness articular cartilage loss with subchondral cystic change, marrow edema, and marginal osteophytes at the middle and lateral cuneonavicular joints. Within the base of the second metatarsal, there is a heterogeneously low T1 and high T2 signal focus measuring up to 1.5 cm in greatest dimension with areas of internal normal marrow signal. No cortical erosion or expansion. No edema. Findings are consistent with an enchondroma. No concerning lytic or blastic osseous lesion. MUSCLES/TENDONS: The visualized flexor and extensor tendons are intact. No transverse tendon tear or tendon retraction. LIGAMENTS: Intact Lisfranc ligament. The plantar plates are intact. SOFT TISSUES: No soft tissue mass. No forefoot neuroma. Trace fluid interposed between the third and fourth metatarsal heads consistent with minimal adventitial bursitis. MR/MR foot RT wo con IMPRESSION: 1. Severe osteoarthritis at the middle and lateral cuneiform navicular joints. 2. Minimal adventitial bursitis interposed between the third and fourth metatarsal heads. 3. No metatarsal stress reaction or fracture. 4. Enchondroma within the base of the second metatarsal. No concerning lytic or blastic osseous lesion. Electronically signed by: Chandana Reynolds MD 10/25/2024 02:57 [facility]
== END 2024-10-15 12:35 | disposition home or self-care (01) ==
LOC: HO.MRI 12:34
PROVIDERS: PCP Registered Nurse; Visit Provider Registered Nurse
DX: M79.2 Neuralgia and neuritis, unspecified (principal); M79.671 Pain in right foot
CPT/HCPCS: 73718

== ENCOUNTER 2024-10-22 15:17 | Outpatient (AMB) | payer OTHER, SELFPAY ==
[2024-10-22 15:24] VITALS: BP 110/78; PULSE 90; O2SAT 97; BMI 39.7
--- NOTE | 2024-10-22 15:24 | MHC.OFFVIS ---
Vital Signs 10/22/24 15:24 Height 5 ft 8 in Weight 261 lb 3.964 oz BMI 39.7 BP 110/78 Pulse 90 Pulse Source Doppler Pulse Oximetry (%) 97 Oxygen Delivery Method Room Air Intake Visit Reasons: Lung CA/Cough Allergies No Known Allergies Allergy (Verified 10/22/24 15:32) HPI Comments Details: The patient is a 39-year-old gentleman the cough tends to be moderate severity. Typically nonproductive although he feels like he has something to clear and just can not clear. During the workup the patient had a chest x-ray followed by CT scan of the chest. I personally reviewed the CT scan with the patient. Appears to have a masslike consolidation in the left lower lobe area in the infrahilar area as well. Seems to be some mucus plugging of some type question endobronchial lesion the patient denies choking on any particular foods. Denies any weight loss or night sweats. He denies any hemoptysis. the patient also has been trying to quit smoking. He has had a hard time. We talked about performing a bronchoscopy. The patient is agreeable this time. I did describe the procedure and the benefits of the procedure. The patient would like to pursue the procedure soon as possible. 05/03/2024 The patient is here for a follow up bronchsocopy. He did have a mass obstructing his LLL bronchus with pus suggesting a post obstructive pneumonia. Pathology consistent with carcinoid. He completed the Augmentin and starting to cough again. He will have PFTs and awaiting referral with Thoracic surgery. 08/06/2024 the patient is here for a pulmonary follow-up visit. The patient is status post a left lower lobe lobectomy for his cancer. He was able to avoid a full pneumonectomy which is reassuring. He did need an open procedure her. There is still painful and numb. He understands that will be the like this for a long time maybe years. He can try glda-yjo-zrzybgo medications for it. In the meantime the patient went back to smoking. We did talk about the importance of him quitting. He had a reaction to the patch. I will send him the echo read gum at this time. We did look at the pathology after his surgery. 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 Two of the lymph nodes were negative and the borders were also negative. However, due to the concerning nature in aggressive nature of atypical carcinoid I believe that a referral to Oncology be important in order to monitor for any metastatic disease. 10/22/2024 the patient is here for a pulmonary follow-up visit. Overall he is doing okay. Although he started developing worsening cough with chest tightness and wheezing. He does have a rescue inhaler that he uses once in a while. The patient has had positive contacts were sick contacts. Therefore will go ahead and treat him for bronchitis. In the meantime concerned about his carcinoid history. His respiratory exam is reassuring. He can always undergo a chest x-ray. I did order 1 for him. In the meantime will plan to do a repeat CT scan in 5-6 months. The patient is still smoking. She needs to quit smoking. Although he does enjoy smoking. He is willing to try Chantix. Prior to starting the Chantix he will let his partner no to monitor him for any depressive symptoms. If the patient is not better after the medications provided he will call for further recommendations. 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 Low back pain Surgical History (Updated 08/17/24 @ 10:43 by Merritt Mccoy MD) History of foot surgery History of bronchoscopy History of circumcision Carcinoid tumor (~04/2024) Family History (Updated 08/17/24 @ 10:11 by Pelon De La Rosa) Father Lung cancer Mother Ovarian cancer Social History (Updated 08/17/24 @ 09:55 by Pelon De La Rosa) Household Members: Spouse Housing: Apartment Are you a primary pet care assistant to a significant other at home: No Do you presently have visiting nurse or other home services: Yes Patient Tobacco Use Status: Former Tobacco user Tobacco use type: Cigarette Cigarette Packs Per Day: 1 Substance Use Type: Marijuana service: No Current occupational status: disabled Review of Systems Const Denies fever(s) and Denies weight loss Eyes Reports no additional complaints ENT Denies dysphagia Card Denies palpitations Resp Reports chest congestion, Reports cough, Denies hemoptysis and Reports wheezing GI Denies dysphagia Musc Reports back pain, Reports myalgias and Reports numbness Skin/Breast Denies rash Neuro Reports numbness, Reports radicular pain and Reports paresthesias Endo Denies palpitations Zenon/Lymph Denies lymphadenopathy Aller/Immun Reports wheezing Physical Exam Vital Signs: Last Vital Signs Pulse 90 10/22/24 15:24 BP 110/78 10/22/24 15:24 Pulse Ox 97 10/22/24 15:24 Oxygen Delivery Method Room Air 10/22/24 15:24 BMI result Body Mass Index 39.7 Const General: comfortable HEENT Head: Yes normocephalic Neck Neck: Yes supple Chest Chest palpation & inspection: normal inspection of the chest Resp Effort & Inspection: normal respiratory effort Auscultation: wheezes and diminished lung sounds on the left Cardio Heart sounds: S1 normal heart sound present and S2 normal heart sound present GI Palpation (GI): Soft to palpation Extrem General: Yes no clubbing, cyanosis or edema Assessment & Plan Assessment & Plan (1) Atypical carcinoid lung tumor: Code(s): 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 Category: Medical (2) Consolidation of left lower lobe of lung: Code(s): J18.1 - Lobar pneumonia, unspecified organism Category: Medical (3) Tobacco dependence: Code(s): F17.200 - Nicotine dependence, unspecified, uncomplicated Category: Medical (4) COPD (chronic obstructive pulmonary disease): Code(s): J44.9 - Chronic obstructive pulmonary disease, unspecified Category: Medical Qualifiers: COPD type: COPD with acute exacerbation Qualified Code(s): J44.1 - Chronic obstructive pulmonary disease with (acute) exacerbation Plan Tobacco cessation: chantix EUGENE as needed serial CT chest Spring 2024 start Zpack start Medrol start Wixela CXR if no better F/U 6 months Orders: Orders CT chest wo IV con 03/19/25 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 XR chest 2V Today 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 Medications: New fluticasone propion-salmeterol 250-50 mcg/dose (Wixela Inhub) 1 inh inhalation Q12H 60 ea 11RF 30 days methylprednisolone (Medrol (Kenji)) PO PER PKG DIR 21 ea 0RF 6 days albuterol sulfate 90 mcg/actuation 2 inhalations inhalation Q6H PRN 18 grams 12RF shortness of breath or wheezing 30 days J44.9 - Chronic obstructive pulmonary disease, unspecified varenicline (Chantix Starting Month Box) PO PER PKG DIR 42 ea 0RF azithromycin 500 mg PO DAILY 5 tabs 0RF 5 days Coding Level of Care Code Est Pt Level 4 (14782) Diagnoses Atypical carcinoid lung tumor C7A.090 Consolidation of left lower lobe of lung J18.1 Tobacco dependence F17.200 Chronic obstructive pulmonary disease with acute exacerbation J44.1 COPD type: COPD with acute exacerbation Time Spent (min) 17
== END 2024-10-22 15:53 | disposition home or self-care (01) ==
PROVIDERS: PCP Registered Nurse; Visit Provider Hospitalist
DX: C7A.090 Malignant carcinoid tumor of the bronchus and lung (principal); J18.1 Lobar pneumonia, unspecified organism; F17.200 Nicotine dependence, unspecified, uncomplicated; J44.1 Chronic obstructive pulmonary disease with (acute) exacerbation
CPT/HCPCS: 99214

== ENCOUNTER → 2024-10-22 15:17 | Outpatient (BNVA) | payer OTHER, SELFPAY | PROVIDERS: PCP Registered Nurse; Visit Provider Hospitalist | DX: C7A.090 Malignant carcinoid tumor of the bronchus and lung (principal); J18.1 Lobar pneumonia, unspecified organism; J44.1 Chronic obstructive pulmonary disease with (acute) exacerbation; F17.210 Nicotine dependence, cigarettes, uncomplicated | CPT/HCPCS: 99212 ==

== ENCOUNTER 2024-10-25 16:37 | Outpatient (REF) | payer OTHER, SELFPAY | END 2024-10-25 16:38 | disposition home or self-care (01) | LOC: HO.MRI 16:37 | PROVIDERS: PCP Registered Nurse; Visit Provider Registered Nurse | DX: M79.2 Neuralgia and neuritis, unspecified (principal); M79.671 Pain in right foot | CPT/HCPCS: 73721 ==

== ENCOUNTER 2025-01-15 10:19 | Outpatient (REF) | payer OTHER, SELFPAY ==
--- NOTE | ~2025-01-15 | CT_ITS ---
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 CT chest without contrast Comparison: 03/21/2024 Findings: Probable left lower lobe linear scar. Posterior left base pleural thickening. Previous left lower lobe consolidation has resolved. No significant parenchymal abnormalities identified. Indeterminate mediastinal nodes are unchanged. No new adenopathy is identified. No significant mediastinal adenopathy. No significant free pleural fluid. Old left rib fracture deformities. No significant focal bony abnormalities. Impression: Probable chronic findings in left lower lobe No acute processes This document has been electronically signed by: Mikhail Thibodeaux MD on 01/15/2025 18:37:15
--- OUTSIDE RECORDS SUMMARY | 2025-01-15 12:29 | XMS_ITS | Encounter Summary ---
Author Organization [employer] Address [address] [facility] 7t [place] [address] Care Team Providers Care Cork Compounder Name Role Phone Margie Singh [facility] Primary Care Provider [phone] [facility] Primary Care Provider [phone] Reason for Visit * Reason Comments Med Refill Encounter Details Date Type Department Care Team ([facility] st Contact Info) Description 01/25/2024 Refill [facility] MEDICINE [address] [place] [address] Margie Singh FNP [address] [place] [address] Social History Tobacco Use Types Packs/Day Years Used Date Smoking Tobacco: Every Day Cigarettes Passive Smoke Exposure: Current Smokeless Tobacco: Never Depression Answer Date Recorded Patient Health Questionnaire-9 Score 10 12/22/2023 Patient Health Questionnaire-9 Score 10 12/22/2023 Last PHQ-9: Questionnaire Data Not on file 0 12/22/2023 Housing Stability Answer Date Recorded What is your housing situation today? I have carina bruce 09/04/[address] you li ve. Do you have problems with any of the following? None of the above 09/04/2023 Food Insecurity Answer Date Recorded Within the past 12 months, y ou worried that your food would run out before you got money to buy more: Never True 09/04/2023 Within the past 12 months,th e food you bought just didn't last and you didn't have enough money to get more: Never True Transportation Answer Date Recorded In the past 12 months, has l ack of transportation kept you from medical appts, meetings, work or from getting things needed for daily living? No 09/04/2023 Utilities Answer Date Recorded In the past 12 months, has t he electric, gas, oil or water company threatened to shut off services in your home? No 09/04/2023 Depression Answer Date Recorded Patient Health Questionnaire-2 Score 3 12/22/2023 Sex and Gender Information Value Date Recorded Sex Assigned at Male 09/13/2022 10:15 AM EDT Legal Sex Male 10:15 AM EDT Gender Identity Male 09/13/2022 10:15 AM EDT Sexual Orientation Straight 09/13/2022 10 :15 AM EDT documented as of this encounter Plan of Treatment Upcoming Encounters Date Type Department Care Team (Late st Contact Info) Description 01/25/2025 2:00 PM EDT Office Visit [facility] MEDICINE [address] [place] [phone] [address] F[address] [place] [address] 01/30/2025 10:30 AM EDT Clinical Support [address] [address] Eloisa Santiago, VANESA documented as of this encounter Visit Diagnoses Not on filedocumented in this encounter Additional Health Concerns Assessment Noted Time PHQ-9 Depression Total Score: 10 024 2:27 PM EST documented as of this encounter Care Teams Cork Compounder Relationship Specialty Start Date End Date Margie Singh FNP [address] [place] [address] PCP - General Family Medicine 07/04/23 07/16/[address] [place] [address] PCP - General Family Medicine 07/17/24 documented as of this encounter
--- OUTSIDE RECORDS SUMMARY | 2025-01-15 12:29 | XMS_ITS | Encounter Summary ---
Author Organization [employer] Address [address] [facility] 7t [place] [address] Care Team Providers Care Hogshead Hooper Name Role Phone Margie Singh [facility] Primary Care Provider [phone] Michael [facility] Primary Care Provider [phone] Reason for Referral * Consultation (Urgent) - Closed Specialty Diagnoses / Procedures Referred By Contac t Referred To Contact Pulmonary Disease Diagnoses Abnormal chest CT Alexandria Workman MD [address] [place] [address] Phone: tel: fax: [facility] Referral ID Status Reason Start Date Expiration Date V isits Requested Visits Authorized [id number] Closed Specialty Services Required 04/10/2024 04/10/2025 1 1 Encounter Details Date Type Department Care Team (Late st Contact Info) Description 04/10/2024 Orders Only [facility] MEDICINE [address] [place], [place] [phone] Alexandria Workman MD [address] [place] [address] (Primary Dx) Social History Tobacco Use Types Packs/Day Years [...] Description 01/25/2025 2:00 PM EDT Office Visit [facility] MEDICINE [address] [place] [phone] [address] 01/30/2025 10:30 AM EDT Clinical Support [facility] MEDICINE [address] [place] [phone] Eloisa Santiago RN Scheduled Referrals Name Type Priority Associated Diagnoses Order Schedule Referral to Pulmonology Outpatient Referral Urgent Abnormal chest CT Expected: 04/10/2024 (Approximate), Expires: 04/10/2025 documented as of this encounter Visit Diagnoses Diagnosis Abnormal chest CT- Primary Nonspecific (abnormal) findings on radiological and other examination of other intrathoracic organs documented in this encounter Additional Health Concerns Assessment Noted Time PHQ-9 Depression Total Score: 10 024 2:27 PM EST documented as of this encounter Care Teams Hogshead Hooper Relationship Specialty Start Date End Date Margie Singh FNP [address] [place] [address] PCP - General Family Medicine 07/04/23 07/16/24 Emma Rodriguez FNP [address] [place] [address] PCP - General Family Medicine 07/17/24 documented as of this encounter
--- OUTSIDE RECORDS SUMMARY | 2025-01-15 12:29 | XMS_ITS | Encounter Summary ---
Author Organization [employer] Address [address] [facility] 7t [place] [address] Care Team Providers Care Dance Entertainer Name Role Phone [facility] Primary Care Provider [phone] Reason for Visit * Reason Onset Date Comments Med Refill 01/02/2025 Encounter Details Date Type Department Care Team (Late st Contact Info) Description 01/02/2025 Refill [facility] MEDICINE [address] [place], [place] [phone] [facility] [address] [place] [address] Complex regional pain syndrome type 1 of right lower extremity Social History Tobacco Use Types Packs/Day Years Used Date Smoking Tobacco: Every Day Cigarettes Passive Smoke Exposure: Current Smokeless Tobacco: Never Alcohol Use Standard Drinks/Week Comments Never 0 (1 standard drink = 0.6 oz pur e alcohol) Alcohol Answer Date Recorded Frequency of Alcohol Consumption Not on file 07/30/2024 Average Number of Drinks Not on file 024 Frequency of Binge Drinking Not on file 07/15 Score 0 07/30/2024 Depression Answer Date Recorded Patient Health Questionnaire-9 Score 16 07/30/2024 Patient Health Questionnaire-9 Score 16 07/30/2024 Last PHQ-9: Questionnaire Data Not on file 0 07/30/2024 Housing Stability Answer Date Recorded What is your housing situation today? I have carina bruce 07/30/[address] you li ve. Do you have problems with any of the following? None of the above 07/30/2024 Food Insecurity Answer Date Recorded Within the past 12 months, y ou worried that your food would run out before you got money to buy more: Never True 07/30/2024 Within the past 12 months,th e food you bought just didn't last and you didn't have enough money to get more: Never True Transportation Answer Date Recorded In the past 12 months, has l ack of transportation kept you from medical appts, meetings, work or from getting things needed for daily living? No 07/30/2024 Utilities Answer Date Recorded In the past 12 months, has t he electric, gas, oil or water company threatened to shut off services in your home? No 07/30/2024 Depression Answer Date Recorded Patient Health Questionnaire-2 Score 5 07/30/2024 Internet Access Answer Date Recorded Internet Access Q1 No 07/30/2024 Internet Access Q2 I do not want or need it 07/15 Sex and Gender Information Value Date Recorded Sex Assigned at Male 09/13/2022 10:15 AM EDT Legal Sex Male 10:15 AM EDT Gender Identity Male 09/13/2022 10:15 AM EDT Sexual Orientation Straight 09/13/2022 10 :15 AM EDT documented as of this encounter Miscellaneous Notes * Telephone Encounter - Rocio Victor MA - 01/03/2025 10:04 AM EST Pt scheduled with pcp on 01/11 @2pm, pt agreed. * Telephone Encounter - Shu Hale - 01/02/2025 8:02 AM EST TC from pt requesting medication refill. Medications needing refill : oxyCODONE-acetaminophen (Percocet) 10-325 MG tablet To be sent to: [facility]/pharmacy #[id number] [facility] [phone] [facility] documented in this encounter Plan of Treatment Upcoming Encounters Date Type Department Care Team ([facility] st Contact Info) Description 01/25/2025 2:00 PM EDT Office Visit [facility] MEDICINE [address] [place] [address] Emma Rodriguez FNP [address] [place] [address] 01/30/2025 10:30 AM EDT Clinical Support [facility] MEDICINE [address] [place] [address] Eloisa Santiago RN documented as of this encounter Visit Diagnoses Diagnosis Complex regional pain syndrome type 1 of right lower extremity documented in this encounter Additional Health Concerns Assessment Noted Time PHQ-9 Depression Total Score: 16 024 11:48 AM EDT documented as of this encounter Care Teams Dance Entertainer Relationship Specialty Start Date End Date Emma Rodriguez FNP [address] [place] [address] PCP - General Family Medicine 07/17/24 documented as of this encounter
--- OUTSIDE RECORDS SUMMARY | 2025-01-15 12:29 | XMS_ITS | Encounter Summary ---
Author Organization [employer] Address [address] [facility] 7t [place] [address] Care Team Providers Care Roofing Machine Operator Name Role Phone Margie Singh [facility] Primary Care Provider [phone] [facility] Primary Care Provider [phone] Reason for Visit * Reason Comments Med Change Request Encounter Details Date Type Department Care Team ([facility] Contact Info) Description 12/11/2023 Refill [facility] MEDICINE [address] [place] [address] Margie Singh FNP [address] [place] [address] Social History Tobacco Use Types Packs/Day Years Used Date Smoking Tobacco: Every Day Cigarettes Passive Smoke Exposure: Current Smokeless Tobacco: Never Depression Answer Date Recorded Patient Health Questionnaire-9 Score 17 11/16/2023 Patient Health Questionnaire-9 Score 17 11/16/2023 Last PHQ-9: Questionnaire Data Not on file 0 11/16/2023 Housing Stability Answer Date Recorded What is [...] Date Recorded Patient Health Questionnaire-2 Score 5 11/16/2023 Sex and Gender Information Value Date Recorded Sex Assigned at Male 09/13/2022 10:15 AM EDT Legal Sex Male 10:15 AM EDT Gender Identity Male 09/13/2022 10:15 AM EDT Sexual Orientation Straight 09/13/2022 10 :15 AM EDT documented as of this encounter Plan of Treatment Upcoming Encounters Date Type Department Care Team (Late st Contact Info) Description 01/25/2025 2:00 PM EDT Office Visit [facility] MEDICINE [address] [place] [address] MichaelEmma hassan [address] [address] 01/30/2025 10:30 AM EDT Clinical Support [address] [address] Eloisa Santiago, VANESA documented as of this encounter Visit Diagnoses Not on filedocumented in this encounter Additional Health Concerns Assessment Noted Time PHQ-9 Depression Total Score: 17 024 3:47 PM EST documented as of this encounter Care Teams Roofing Machine Operator Relationship Specialty Start Date End Date Margie Singh FNP [address] [place] [address] PCP - General Family Medicine 07/04/23 07/16/24 [place] F[place] [address] [place] [address] PCP - General Family Medicine 07/17/24 documented as of this encounter
--- OUTSIDE RECORDS SUMMARY | 2025-01-15 12:29 | XMS_ITS | Encounter Summary ---
Author Organization [email or web address] Address [address] [facility] 7t [place] [address] Care Team Providers Care Auto Former Machine Operator Name Role Phone [facility] Primary Care Provider [phone] Reason for Visit * Reason Onset Date Comments No Show 01/11/2025 Encounter Details Date Type Department Care Team ([facility] st Contact Info) Description 01/11/2025 Telephone [facility] MEDICINE [address] [place], [place] [phone] [facility] [address] [place], [place] [phone] No Show Social History Tobacco Use Types Packs/Day Years [...] encounter Miscellaneous Notes * Telephone Encounter - Martina Schneider - 01/11/2025 3:01 PM EST Pt no showed to appt on 01/11/25 documented in this encounter Plan of Treatment Upcoming Encounters Date Type Department Care Team (Late st Contact Info) Description 01/25/2025 2:00 PM EDT Office Visit [address] [address] Emma Rodriguez [address] [address] 01/30/2025 10:30 AM EDT Clinical Support [address] [address] Eloisa Santiago RN documented as of this encounter Visit Diagnoses Not on filedocumented in this encounter Additional Health Concerns Assessment Noted Time PHQ-9 Depression Total Score: 16 024 11:48 AM EDT documented as of this encounter Care Teams Auto Former Machine Operator Relationship Specialty Start Date End Date Emma Rodriguez FNP [address] [place] [address] PCP - General Family Medicine 07/17/24 documented as of this encounter
--- OUTSIDE RECORDS SUMMARY | 2025-01-15 12:29 | XMS_ITS | Encounter Summary ---
Author Organization [employer] Address [address] [facility] 7t [place] [address] Care Team Providers Care Extension Work Instructor Name Role Phone [facility] Primary Care Provider [phone] Encounter Details Date Type Department Care Team ([facility] st Contact Info) Description 08/09/2024 Telephone [facility] MEDICINE [address] [place], [place] [phone] [facility] [address] [place], [place] [phone] Social History Tobacco Use Types Packs/Day Years [...] encounter Miscellaneous Notes * Telephone Encounter - Linda Tucker - 08/09/2024 1:26 PM EDT Tc from Tayla with [facility] calling to inform they received referral for occupational therapy but instead should be physical therapy due to pt DX . Any question please contact phone #[phone] documented in this encounter Plan of Treatment Upcoming Encounters Date Type Department Care Team (Late st Contact Info) Description 01/25/2025 2:00 PM EDT Office Visit [facility] MEDICINE [address] [place] [address] OthelloEmma FNP [address] [place] [address] 01/30/2025 10:30 AM EDT Clinical Support [address] [address] Eloisa Santiago RN documented as of this encounter Visit Diagnoses Not on filedocumented in this encounter Additional Health Concerns Assessment Noted Time PHQ-9 Depression Total Score: 16 024 11:48 AM EDT documented as of this encounter Care Teams Extension Work Instructor Relationship Specialty Start Date End Date Michael LUIS ALFREDO Carter [address] [place] [address] PCP - General Family Medicine 07/17/24 documented as of this encounter
--- OUTSIDE RECORDS SUMMARY | 2025-01-15 12:29 | XMS_ITS | Encounter Summary ---
Author Organization [employer] Address [address] [facility] [address] [place] [address] Care Team Providers Care Aquaculture Farmer Name Role Phone [place] [facility] Primary Care Provider [phone] Reason for Visit * Reason Onset Date Comments Med Refill 01/02/2025 Encounter Details Date Type Department Care Team (Late st Contact Info) Description 01/02/2025 Refill [facility] [address], [place] [phone] [facility] [address] [place] [address] Insomnia, unspecified type Social History Tobacco Use Types Packs/Day Years [...] encounter Miscellaneous Notes * Telephone Encounter - Shu Hale - 01/02/2025 8:04 AM EST TC from pt requesting medication refill. Medications needing refill : zolpidem (Ambien) 10 MG tablet To be sent to: [facility]/pharmacy #[id number] [facility] [phone] [place] [address] documented in this encounter Plan of Treatment Upcoming Encounters Date Type Department Care Team (Late st Contact Info) Description 01/25/2025 2:00 PM EDT Office Visit [facility] [address] [place] [phone] Emma Rodriguez FNP [address] [place] [address] 01/30/2025 10:30 AM EDT Clinical Support [address] [address] Eloisa Santiago RN documented as of this encounter Visit Diagnoses Diagnosis Insomnia, unspecified type documented in this encounter Additional Health Concerns Assessment Noted Time PHQ-9 Depression Total Score: 16 024 11:48 AM EDT documented as of this encounter Care Teams Aquaculture Farmer Relationship Specialty Start Date End Date Emma Rodriguez FNP [address] [place] [id number] PCP - General Family Medicine 07/17/24 documented as of this encounter
--- OUTSIDE RECORDS SUMMARY | 2025-01-15 12:29 | XMS_ITS | Clinical Summary ---
Author Organization [employer] Address [address] [facility] [address] [place] [address] Care Team Providers Care Marketing Business Analyst Name Role Phone Emma Rodriguez [facility] Primary Care Provider [phone] Allergies No known active allergies Medications * This document contains information received from the source organization and may not represent a complete record from that organization. nicotine (Nicoderm, Step 1) 21 MG/24HR patchIndicatio ns:Cigarette smoker apply 1 patch by transdermal route every day and remove at bedtime 30 patch 3 12/01/19 23 Active albuterol (Ventolin HFA) 108 (90 Base) MCG/ACT inhalerIndicat ions:Mild chronic obstructive pulmonary disease (CMS/HCC) INHALE 2 PUFFS BY MOUTH EVERY FOUR HOURS NEEDED. 18 g 1 05/03/20 23 Active docusate sodium (Colace) 100 MG capsule TAKE 1 CAPSULE BY MOUTH TWICE A DAY 180 capsule 06/07/20 23 Active QUEtiapine (SEROquel) 200 MG tabletIndicati ons:Depressed mood TAKE 1 TABLET BY MOUTH EVERYDAY AT BEDTIME 90 tablet 1 08/10/20 23 Active acetaminophen (Tylenol 8 Hour) 650 MG ER tablet Take 650 mg by mouth. Pt reports taking 2 pills 2-4 times daily when he doesn't use Ibuprofen. Do not crush, chew, or split. Active naloxone (Narcan) 4 mg/0.1 mL nasal spray Administer 1 spray (4 mg) into affected nostril(s) if needed for opioid reversal. 2 each 1 08/15/20 23 Active levothyroxine (Synthroid, Levoxyl) 75 MCG tablet TAKE 1 TABLET BY MOUTH EVERY DAY IN THE MORNING 90 tablet 1 08/19/20 23 Active gabapentin (Neurontin) 300 MG capsule Take 300 mg by mouth in the morning and 300 mg at noon and 300 mg in the evening. 10/05/20 22 Active buPROPion XL (Wellbutrin XL) 300 MG 24 hr tablet TAKE 1 TABLET BY MOUTH EVERY DAY IN THE MORNING 90 tablet 3 12/02/19 24 Active doxycycline (Adoxa) 100 MG tablet TAKE 1 CAPSULE ORALLY 2 TIMES A DAY FOR 14 DAYS 05/06/20 24 Active naloxone (Narcan) 4 mg/0.1 mL nasal sprayIndicatio ns:Lumbar back pain Administer 1 spray (4 mg) into affected nostril(s) if needed for opioid reversal. May repeat every 2-3 minutes if needed, alternating nostrils, until medical assistance becomes available. 2 each 3 05/21/20 24 025 Active zonisamide (Zonegran) 100 MG capsule TAKE 2 CAPSULE BY ORAL ROUTE EVERY MORNING AND 3 CAP EVERY EVENING 12 HOURS APART FOR PAIN MANAGEMENT 150 capsule 1 07/03/20 24 Active sertraline (Zoloft) 25 MG tablet TAKE 1 TABLET BY MOUTH EVERY DAY 90 tablet 07/03/20 24 Active amoxicillin-cl avulanate (Augmentin) 875-125 MG tablet Take 1 tablet by mouth 2 times daily. 04/23/20 24 Active oxyCODONE (Roxicodone) 10 MG immediate release tablet 06/01/20 24 Active ibuprofen 600 MG tablet Take 1 tablet by mouth every 6 (six) hours if needed. 02/05/20 24 Active varenicline (Chantix) 1 MG tablet TAKE 1 TABLET (1 MG) BY MOUTH 2 TIMES DAILY. 180 tablet 09/19/20 24 Active cyclobenzaprin e (Flexeril) 10 MG tablet TAKE 1 TABLET (10 MG) BY MOUTH 3 TIMES DAILY FOR 10 DAYS. 30 tablet 09/19/20 24 Active zolpidem (Ambien) 10 MG tabletIndicati ons:Insomnia, unspecified type TAKE 1 TABLET BY MOUTH EVERYDAY AT BEDTIME 30 tablet 01/02/20 25 Active oxyCODONE-acet aminophen (Percocet) 10-325 MG tabletIndicati ons:Complex regional pain syndrome type 1 of right lower extremity Take 2 tablets by mouth every 6 (six) hours if needed for severe pain for up to 15 days. Do not start before January 18, 2025. 120 tablet 01/19/20 25 025 Active zolpidem (Ambien) 10 MG tabletIndicati ons:Insomnia, unspecified type TAKE 1 TABLET BY MOUTH EVERYDAY AT BEDTIME 30 tablet 11/28/19 25 025 Discontinued(R eorder (will not trigger notification to Pharmacy)) oxyCODONE-acet aminophen (Percocet) 10-325 MG tabletIndicati ons:Complex regional pain syndrome type 1 of right lower extremity Take 2 tablets by mouth every 6 (six) hours if needed for severe pain for up to 15 days. Do not start before December 03, 2024. 120 tablet 12/03/19 25 025 Discontinued(R eorder (will not trigger notification to Pharmacy)) oxyCODONE-acet aminophen (Percocet) 10-325 MG tabletIndicati ons:Complex regional pain syndrome type 1 of right lower extremity Take 2 tablets by mouth every 6 (six) hours if needed for severe pain for up to 15 days. 120 tablet 12/17/19 25 025 Discontinued(R eorder (will not trigger notification to Pharmacy)) oxyCODONE-acet aminophen (Percocet) 10-325 MG tabletIndicati ons:Complex regional pain syndrome type 1 of right lower extremity Take 2 tablets by mouth every 6 (six) hours if needed for severe pain for up to 15 days. 120 tablet 01/02/20 25 025 Discontinued(R eorder (will not trigger notification to Pharmacy)) Active Problems Problem Noted Date Diagnosed Date Moderate anxiety 12/22/2023 Cigarette smoker 12/22/2023 Insomnia 03/30/2023 Assessment & Plan (03/30/2023 1:22 PM EDT): Patient complains of inability to fall asleep even taking the ambien. Once he does fall asleep he says he cant stay asleep very long. I am starting him on Seroquel which will hopefully help his insomnia. If so I will taper him off of Ambien. If not I will increase the Seroquel dose. If I cannot control his insomnia with the Seroquel I will possibly change his wellbutrin over to 12 hr instead of 24 hr. Depressed mood 02/18/2023 Assessment & Plan (03/30/2023 1:22 PM EDT): If I cannot control his insomnia with the Seroquel I will possibly change his wellbutrin over to 12 hr instead of 24 hr. Assessment & Plan (02/18/2023 4:26 PM EDT): Gautamies SI/HI Ji says he feels down sometimes. I asked him if her would like to come back and see me in a month or so because we didn't have the time to deal with that today. He agreed. F/up: one month for depressed mood. Allergic contact dermatitis 06/27/2018 Assessment & Plan (02/18/2023 4:25 PM EDT): He states that he breaks out in these rashes in the same areas (groin, back of wrist and axillary) for two weeks approximately every 2 months. We discussed allergic contact dermatitis and changing items (soap, detergent ect) to try and figure out if it is something in his daily life. He and his MEDIA MARKETING COORDINATOR reported that they have not tried that. I instructed them to remove/add one item at a time. Lumbar radiculopathy 06/27/2018 Assessment & Plan (02/18/2023 4:29 PM EDT): He reported that this visit was primarily to obtain a new Lumbar MRI and request medication to help him with his anxiety during the MRI. I gave him two 1 mg ativan, I instructed him to take one a day or two before hand as a trial dose and to take the other dose 30 to 60 minute prior to the MRI. I instructed him not to drive when taking ativan. He is aware that someone with have to drive him. His MEDIA MARKETING COORDINATOR is also aware. Mild chronic obstructive pulmonary disease 06/27 Peripheral neuropathic pain 06/27/2018 Reflex sympathetic dystrophy of lower extremity 09/08/2015 Obstructive sleep apnea syndrome 07/28/2015 Subclinical hypothyroidism 08/01/2013 Obesity 05/30/2013 Alcohol use disorder in remission 10/19/2012 Moderate episode of recurrent major depressive d isorder 10/19/2012 Assessment & Plan (12/22/2023 2:57 PM EST): PROGRESS NOTE: ID: Ji is a 38 y.o. straight-identified cis-male with previous documented hx of Depression and Bipolar Disorder services including OP Psychotherapy psychopharmacology who presents for Anxiety and Depression. Reported after foot surgery on 2010 he has been experiencing a lot of chronic and nerve pain. Lives alone, has MEDIA MARKETING COORDINATOR that support him and listen to him and also mother provide support. Hx of single SI attempt more than 10 years ago,Hx of alcohol use, sober since 2010. During IBH Consult Ji presenting with depressed mood, loss of interests/pleasure , changes in sleep difficulty falling asleep and difficulty staying asleep , psychomotor agitation, trouble concentrating and excessive worry/anxiety, difficulty controlling worry, restless/keyed up/On edge, easily fatigued, difficulty concentrating/Mind going blank , irritability, muscle tension, and sleep disturbance difficulty falling asleep and difficulty staying asleep ; for a period of 18+ mo, for all symptoms in the context of nerve pain and chronic pain after foot surgery on 2010, patient reported pain as his bigger stressor. PLAN: New/Additional Services needed Off-site services for Behavioral Health Integration Plan External OP therapy referral and OP psychiatry Referral Patient Self Plan Patient to utilize skills provided in intervention and Patient to reach out to [facility] team as needed Bipolar disorder 05/18/2012 Assessment & Plan (03/30/2023 1:15 PM EDT): Due to patient bipolar disorder I instructed Ji to start taking his sertraline every other day for two weeks and then to discontinue the medication all together. We will start him on Seroquel 200 mg at night for two days. Then 200 mg at night and 100 mg in the morning for two days. Then 200 mg BID. He will then follow up in one month and we will titrate as needed. Lumbar back pain 05/18/2012 Encounters Date Type Department Care Team Description 01/14/2025 Refill [facility] [address] [place] [address] Ona, [place], CLINICAL TEAM LEAD Complex regional pain syndrome type 1 of right lower extremity 01/11/2025 Telephone [facility] MED[facility]INE [address] [place] [address] Emma Rodriguez, CLINICAL TEAM LEAD No Show 01/02/2025 Refill [facility] MED[facility]INE [address] [place] [address] Emma Rodriguez, CLINICAL TEAM LEAD Insomnia, unspecified type 01/02/2025 Refill [facility] [address] [place] [address] Emma Rodriguez, CLINICAL TEAM LEAD Complex regional pain syndrome type 1 of right lower extremity 12/17/2024 Refill [facility] MED[facility]INE [address] [place], [place] [address] Emma Rodriguez, CLINICAL TEAM LEAD Complex regional pain syndrome type 1 of right lower extremity 11/28/2024 Telephone [facility] MED[facility]INE [address] [place] [address] Emma Rodriguez, CLINICAL TEAM LEAD Nurse Triage 11/28/2024 Refill [facility] [address] [place] [address] Emma Rodriguez, CLINICAL TEAM LEAD Insomnia, unspecified type 11/28/2024 Refill [facility] MED[facility]INE [address] [place] [address] Emma Rodriguez, CLINICAL TEAM LEAD Complex regional pain syndrome type 1 of right lower extremity 11/15/2024 Refill [facility] [address] [place] [address] Emma Rodriguez, CLINICAL TEAM LEAD Complex regional pain syndrome type 1 of right lower extremity 11/06/2024 10:00 AM EST Clinical Support [facility] [address] [place] [address] Eloisa Santiago RN Pain, foot, chronic, right (Primary Dx) 11/06/2024 Telephone [facility] [address] [place] [address] Eloisa Santiago RN BPI Scoring 11/06/2024 Travel 11/06/2024 Telephone [facility] MED[facility]INE [address] [place] [address] Eloisa Santiago RN Recommend MANUFACTURING RECRUITER Tier 2 10/30/2024 Refill [facility] [address] [place] [address] Emma Rodriguez, CLINICAL TEAM LEAD Insomnia, unspecified type 10/30/2024 Refill [facility] [address] [place] [address] Emma Rodriguez, CLINICAL TEAM LEAD Complex regional pain syndrome type 1 of right lower extremity 10/19/2024 Refill [facility] [address] [place] [address] Emma Rodriguez, CLINICAL TEAM LEAD Complex regional pain syndrome type 1 of right lower extremity from Last 3 Months Immunizations Name Administration Dates Next Due Influenza injectable quadriv alent IIV4 with preservative 07/28/2015 Influenza injectable quadrivalent preservative f ree 10/31/2018 Influenza, IIV3, injectable 09/07/2011 Influenza, Split (incl. purified surface antigen ) 08/01/2013,08/04/2012 Moderna Covid-19 Vaccine 12+ 04/04/2021,03/07/20 Moderna Covid-19 Vaccine 6+ Bivalent 12/22/2022 Pneumococcal Polysaccharide PPSV23 09/07/2011 Tdap 09/07/2011 Social History Tobacco Use Types Packs/Day Years Used Date Smoking Tobacco: Every Day Cigarettes Passive Smoke Exposure: Current Smokeless Tobacco: Never Tobacco Cessation:Ready to Q uit: Not Asked; Counseling Given: Not Answered Alcohol Use Standard Drinks/Week Comments Never 0 [...] Orientation Straight 09/13/2022 10 :15 AM EDT Last Filed Vital Signs Vital Sign Reading Time Taken Comments Blood Pressure 116/78 07/30/2024 11:46 AM EDT Pulse 91 07/30/2024 11:46 AM EDT Temperature 36.4 ??C (97.5 ??F) 07/30/2024 11:46 AM E DT Respiratory Rate 16 07/30/2024 11:46 AM EDT Oxygen Saturation 97% 01/24/2024 9:25 AM EDT Inhaled Oxygen Concentration - - Weight 122 kg (269 lb) 07/30/2024 11:46 AM EDT Height 172.7 cm (5' 8 ) 07/30/2024 11:46 AM EDT Body Mass Index 40.9 07/30/2024 11:46 AM EDT Plan of Treatment Upcoming Encounters Date Type Department Care Team (Late st Contact Info) Description 01/25/2025 2:00 PM EDT Office Visit [facility] MEDICINE [address] [place] [phone] Emma Rodriguez FNP [address] [place] [address] 01/30/2025 10:30 AM EDT Clinical Support [facility] MED[facility]INE [address] [place] [phone] Eloisa Santiago, VANESA Health Maintenance Due Date Last Done Comments Family Planning (PISQ) 1998 Hepatitis A Vaccines (1 of 2 - Risk 2-dose series) 2002 Hepatitis B Vaccines (1 of 3 - 19+ 3-dose series) 2002 Pneumococcal Vaccine: Pediatrics (0 to 5 Years) and At-Risk Patients (6 to 49) Years) (2 of 2 - PCV) 09/07/2012 09/07/2011 DTaP/Tdap/Td Vaccines (2 - Td or Tdap) 09/07/2021 09/07/2011 COVID-19 Vaccine ( - season) 2024 12/22/2022, 04/04/2021, 03/07/2021 Influenza Vaccine (#1) 2024 8, 07/28/2015, 08/01/2013, Additional history exists Depression Monitoring (PHQ-9) 01/27/2025 07/30/2024, 07/30/2024 Alcohol/Substance Use Screening 07/30/2025 07/30/2024 Depression Screening 07/30/2025 07/30/2024, 07/30/20 24 SDOH Screening 07/30/2025 07/30/2024 Tobacco Screening 08/15/2025 08/15/2024, 03/07/2024 Lipid Panel 07/20/2027 07/20/2022 Zoster Vaccines (1 of 2) 2033 RSV Patients and Patients Aged 60 years or older (1 - 1-dose 75+ series) 2058 HIV Screening Completed 01/10/2020 Hepatitis C Screening Completed 01/10/2020 HIB Vaccines Aged Out No longer eligi ble based on patient's age to complete this topic HPV Vaccines Aged Out No longer eligi ble based on patient's age to complete this topic IPV Vaccines Aged Out No longer eligi ble based on patient's age to complete this topic Meningococcal Vaccine Aged Out No evangelista marycarmen eligible based on patient's age to complete this topic RSV under 20 months Aged Out No longe r eligible based on patient's age to complete this topic Rotavirus Vaccines Aged Out No longer eligible based on patient's age to complete this topic Procedures Procedure Name Priority Date/Time Associated Diagnosis Comments POCT NATALIA-14 URINE DRUG SCREEN Routine 11/06/2024 10:09 AM EST Pain, foot, chronic, right MR ANKLE WO CONTRAST RIGHT Routine 10/25/2024 5:00 PM EST Peripheral neuropathic pain Pain, foot, chronic, right Right club foot LIPID PANEL, STANDARD Routine 07/20/2022 10:20 AM EDT [facility] HISTORICAL HEPATITIS C ANTIBODY RFLX Routine 01/10/2020 11:40 AM EST [facility] HISTORICAL HIV AB/AG Routine 01/10/2020 11:40 AM EST from Last 3 Months or Most Recently Relevant to Health Maintenance Results * POCT NATALIA-14 Urine Drug Screen (11/06/2024 10:09 AM EST) Oxycodone Screen, Urine Positive Urine Urine specimen obtained by clean catch procedure / Unknown 11/06/2024 10:09 AM EST Eloisa Soria, VANESA - 11/06/2024 10:09 AM EST UTOX cup Lot#[id number] Exp. 08/08/26 Internal Pass Control [facility] CLINICAL TEAM LEAD POINT OF CARE TEST ENTER/EDIT ORDERABLES Final Result * Mr Ankle w/o Contrast Right (10/25/2024 5:00 PM EST) Anatomical Region Laterality Modality Lower Extremities, Ankle Right Magneti c Resonance 10/25/2024 5:00 PM EST Narrative 10/30/2024 4:15 PM EST ? [facility] ?[address] ?[place] [address] ? Magnetic Resonance Report ? Signed ? Patient: Her,Ji ?MR#: [id number] ?? 005 ? : 1985 ?Acct:[id number] ? Age/Sex: 39 / M ?ADM Date: 12/12/24 ? Loc: HO.MRI ? Attending Dr: Emma LOBATO ? Ordering Physician: Emma Rodriguez ?? Date of Service: 10/25/24 ?? Procedure(s): MR ankle RT wo con ?? Accession Number(s): [id number] ? cc: Emma Rodriguez ? EXAMINATION: ?? MR ANKLE WITHOUT CONTRAST, RIGHT ? CLINICAL INFORMATION: ?? Nerve pain. No fall, no injury. Loss of function. ? COMPARISON: ?? MRI of the right foot 10/15/2024. ? TECHNIQUE: ?? MRI of the ankle was performed using routine sequences on a high-field ?? scanner. ? FINDINGS: ?? Subcutaneous soft tissues: Mild generalized edema. ? Muscles/tendons: Findings compatible with postsurgical changes ?? posteriorly likely involving at least the flexor pollicis longus tendon ?? and possibly the flexor digitorum longus. The tendons are not well ?? visualized and attenuated. There is atrophy and fatty infiltration of ?? the respective muscles. The Achilles tendon appears intact. ?? Plantar fascia: Intact. ? Neurovascular structures/tarsal tunnel: Intact. ? Ligaments: Unremarkable. ? Osseous structures: Postsurgical changes related to old arthrodesis ?? involving the subtalar joint and talonavicular joint and calcaneocuboid ?? joint. The hardware is noted extending from the calcaneus into the ?? cuboid. Both tracts extend between the calcaneus and talus and between ?? the talus and navicular compatible with hardware removal related to the ?? arthrodesis surgery. ? Talocrural joint: There is cartilage heterogeneity and nonuniform up to ?? high-grade cartilage loss along the medial aspect of the joint ?? indicative of mild-moderate osteoarthritis. There is associated ?? subchondral cystic change. ? Talonavicular joint: There is subchondral cystic change and edema ?? indicative of moderate osteoarthritis. ? MR/MR ankle RT wo con ?? IMPRESSION: ?? 1. Postsurgical changes related to old arthrodesis involving the ?? subtalar joint, talonavicular joint and calcaneal cuboid joint. ? 2. Mild-moderate osteoarthritis of the talocrural joint. ? 3. Moderate osteoarthritis of the talonavicular joint. ? 4. Mild generalized edema in the subcutaneous soft tissues. ? 5. Probable postsurgical changes involving the flexor hallucis longus ?? and flexor digitorum longus tendons and possibly the Achilles. ? Electronically signed by: ??Toby Love MD ??10/30/2024 04:12 PM ?? EST RP ? Dictated By: ?Toby Love MD ? Signed By: ?<Electronically signed by Toby Love MD in OV> ?10/30/24 1612 ? DD/ 1700 ? TD/TT: 10/25/24 1738 ? Clinical Care Manager: CYNTHIA ? Procedure Note Donotuseinterpreter, Image - 10/30/2024 [place] [id number] Magnetic Resonance Report Signed Patient: Jacqueline Her#: [id number] 005 : 1985Acct:[id number] Age/Sex: 39 / MADM Date: 10/25/24 Loc: HO.MRI Attending Dr: Emma LOBATO Ordering Physician: Emma Rodriguez Date of Service: 10/25/24 Procedure(s): MR ankle RT wo con Accession Number(s): [id number] cc: Emma Rodriguez EXAMINATION: MR ANKLE WITHOUT CONTRAST, RIGHT CLINICAL INFORMATION: Nerve pain. No fall, no injury. Loss of function. COMPARISON: MRI of the right foot 10/15/2024. TECHNIQUE: MRI of the ankle was performed using routine sequences on a high-field scanner. FINDINGS: Subcutaneous soft tissues: Mild generalized edema. Muscles/tendons: Findings compatible with postsurgical changes posteriorly likely involving at least the flexor pollicis longus tendon and possibly the flexor digitorum longus. The tendons are not well visualized and attenuated. There is atrophy and fatty infiltration of the respective muscles. The Achilles tendon appears intact. Plantar fascia: Intact. Neurovascular structures/tarsal tunnel: Intact. Ligaments: Unremarkable. Osseous structures: Postsurgical changes related to old arthrodesis involving the subtalar joint and talonavicular joint and calcaneocuboid joint. The hardware is noted extending from the calcaneus into the cuboid. Both tracts extend between the calcaneus and talus and between the talus and navicular compatible with hardware removal related to the arthrodesis surgery. Talocrural joint: There is cartilage heterogeneity and nonuniform up to high-grade cartilage loss along the medial aspect of the joint indicative of mild-moderate osteoarthritis. There is associated subchondral cystic change. Talonavicular joint: There is subchondral cystic change and edema indicative of moderate osteoarthritis. MR/MR ankle RT wo con IMPRESSION: 1. Postsurgical changes related to old arthrodesis involving the subtalar joint, talonavicular joint and calcaneal cuboid joint. 2. Mild-moderate osteoarthritis of the talocrural joint. 3. Moderate osteoarthritis of the talonavicular joint. 4. Mild generalized edema in the subcutaneous soft tissues. 5. Probable postsurgical changes involving the flexor hallucis longus and flexor digitorum longus tendons and possibly the Achilles. Electronically signed by: Toby Love MD 10/30/2024 04:12 PM EST Dictated By: Toby Love MD Signed By: <Electronically signed by Toby Love MD inOV> 10/30/24 1612 DD/ 1700 TD/TT: 10/25/24 1738 Clinical Care Manager: CYNTHIA [facility] IMG MRI PROCEDURES Final Resu lt * (ABNORMAL) LIPID PANEL, STANDARD (07/20/2022 10:20 AM EDT) Chol/HDLC Ratio 5.2(H) <5.0 (calc) [facility] Cholesterol, Total 197 <200 mg/dL [facility] HDL Cholesterol 38(L) > OR = 40 mg/dL [facility] LDL Cholesterol 123(H) mg/dL (calc) [facility] Comment: Reference range: <100 ?? Desirable range <100 mg/dL for primary prevention; ?? <70 mg/dL for patients with CHD or diabetic patients ?? with > or = 2 CHD risk factors. ?? LDL-C is now calculated using the Baljinder ?? calculation, which is a validated novel method providing ?? better accuracy than the Friedewald equation in the ?? estimation of LDL-C. ?? Sunny PRIETO et al. CHAD. 2013;310(19): 9122-2676 ?? (http://education.[employer]fleet.[employer]/faq/NVL328) Non-HDL Cholesterol 159(H) <130 mg/dL (calc) [facility] Comment: For patients with diabetes plus 1 major ASCVD risk ?? factor, treating to a non-HDL-C goal of <100 mg/dL ?? (LDL-C of <70 mg/dL) is considered a therapeutic ?? option. Triglycerides 254(H) <150 mg/dL [facility] Comment: ?? If a non-fasting specimen was collected, consider repeat triglyceride testing on a fasting specimen if clinically indicated. ?? Brenda et al. J. of Clin. Lipidol. 2015;9:129-169. ?? 07/20/2022 10:2 0 AM EDT Radha Childress MD LAB BLOOD ORDERABLES Final R esult Performing Organization Address [facility] Phone Number [facility] [address] * HEPATITIS C ANTIBODY RFLX (01/10/2020 11:40 AM EST) HEPATITIS C ANTIBODY NONREACTIVE NONREACTIVE [facility] Comment: Antibodies to HCV not detected; does not exclude early acute HCV infection. 01/10/2020 11:4 0 AM EST Yolanda Rodgers CLINICAL TEAM LEAD HISTORICAL/NON ORDERABLE LABS Final Result Performing Organization Address [facility] [address] * HIV AB/AG (01/10/2020 11:40 AM EST) HIV AG/AB NONREACTIVE [facility] Comment: HIV-1 p24 Ag and/or HIV-1/HIV-2 Ab not detected. ?? A test result that is nonreactive does not exclude the possibility of exposure to or infection with HIV-1 and/or HIV-2. Nonreactive results in this assay for individuals with prior exposure to HIV-1 and/or HIV-2 may be due to antigen and antibody levels that are below the limit of detection of this assay. ?? The [employer] HIV Ag/Ab Combo assay result and supplemental assay results should be interpreted in conjunction with the patient's clinical presentation, history and other laboratory results. ??If the results are inconsistent with clinical evidence, additional testing is suggested to confirm the result. 01/10/2020 11:4 0 AM EST Yolanda REYP HISTORICAL/NON ORDERABLE LABS Final Result [facility] [address] [place] [address], from Last 3 Months or Most Recently Relevant to Health Maintenance Insurance [facility] * Guarantor: Ji eH[employer] Account Type Relation to Patient Date of Phone Billing Address Dental Self Care Teams Marketing Business Analyst Relationship Specialty Start Date End Date Emma Rodriguez FNP [address] [place] [address] PCP - General Family Medicine 07/17/24
--- OUTSIDE RECORDS SUMMARY | 2025-01-15 12:29 | XMS_ITS | Encounter Summary ---
Author Organization [employer] Address 75 [facility] 7t [place] [address] Care Team Providers Care Belt Conveyor Drier Name Role Phone Margie Singh [facility] Primary Care Provider [phone] [facility] Primary Care Provider [phone] Reason for Referral * Consultation (STAT) - Canceled Specialty Diagnoses / Procedures Referred By Josephine garsia Referred To Contact Thoracic Surgery Diagnoses Abnormal chest CT Alexandria Workman MD [address] [place] [address] Phone: tel: fax: [facility] Pulmonary [address] 1st Floor [place], [place] Phone: tel: fax: Referral ID Status Reason Start Date Expiration Date Visits Requested Visits Authorized [id number] Canceled Specialty Services Required 04/06/2024 04/06/2025 1 1 Encounter Details Date Type Department Care Team (Late st Contact Info) Description 04/06/2024 Orders Only [facility] [address] [place] [address] Alexandria Workman MD [address] [place], [place] [phone] Abnormal chest CT (Primary Dx) Social History [...] Description 01/25/2025 2:00 PM EDT Office Visit [facility] [address] [place] [address] [address] 01/30/2025 10:30 AM EDT Clinical Support [facility] [address] [place] [address] Eloisa Santiago, RN Scheduled Referrals Name Type Priority Associated Diagnoses Order Schedule Referral to Cardiothoracic Surgery Outpatient Referral STAT Abnormal chest CT Expected: 04/06/2024 (Approximate), Expires: 04/06/2025 documented as of this encounter Visit Diagnoses Diagnosis Abnormal chest CT- Primary Nonspecific (abnormal) findings on radiological and other examination of other intrathoracic organs documented in this encounter Additional Health Concerns Assessment Noted Time PHQ-9 Depression Total Score: 10 024 2:27 PM EST documented as of this encounter Care Teams Belt Conveyor Drier Relationship Specialty Start Date End Date Margie Singh FNP [address] [place] [address] PCP - General Family Medicine 07/04/23 07/16/24 OthelloEmma hassan FNP [address] [place] [address] PCP - General Family Medicine 07/17/24 documented as of this encounter
--- OUTSIDE RECORDS SUMMARY | 2025-01-15 12:29 | XMS_ITS | Encounter Summary ---
Author Organization [employer] Address 75 [facility] 7t [place] [address] Care Team Providers Care Glue Mounter Operator Name Role Phone Emma Rodriguez [facility] Primary Care Provider [phone] Reason for Visit * Reason Comments Med Refill Encounter Details Date Type Department Care Team ([facility] st Contact Info) Description 07/19/2024 Refill [facility] [address] [place], [place] [phone] Margie Singh FNP [address] [place], [place] [phone] Social History Tobacco Use Types Packs/Day Years [...] Description 01/25/2025 2:00 PM EDT Office Visit [address] [address] Emma Rodriguez FNP [address] [place] [address] 01/30/2025 10:30 AM EDT Clinical Support [address] [address] Eloisa Santiago, VANESA documented as of this encounter Visit Diagnoses Not on filedocumented in this encounter Additional Health Concerns Assessment Noted Time PHQ-9 Depression Total Score: 10 024 2:27 PM EST documented as of this encounter Care Teams Glue Mounter Operator Relationship Specialty Start Date End Date Emma Rodriguez FNP [address] [place] [address] PCP - General Family Medicine 07/17/24 documented as of this encounter
--- OUTSIDE RECORDS SUMMARY | 2025-01-15 12:29 | XMS_ITS | Encounter Summary ---
Author Organization [employer] Address 75 [facility] 7t [place] [address] Care Team Providers Care Manager Clinical Pharmacy Name Role Phone Margie Singh [facility] Primary Care Provider [phone] Rochelle ParkEmma [facility] Primary Care Provider [phone] Encounter Details Date Type Department Care Team (Late st Contact Info) Description 08/15/2023 Orders Only [address] [address] Margie Singh FNP [address] [place] [address] Social History Tobacco Use Types Packs/Day Years Used Date Smoking Tobacco: Every Day Cigarettes Passive Smoke Exposure: Current Smokeless Tobacco: Never Depression Answer Date Recorded Patient Health Questionnaire-9 Score 13 03/30/2023 Depression Answer Date Recorded Patient Health Questionnaire-2 Score 4 03/30/2023 Sex and Gender Information Value Date Recorded Sex Assigned at Male 09/13/2022 10:15 AM EDT Legal Sex Male 10:15 AM EDT Gender Identity Male 09/13/2022 10:15 AM EDT Sexual Orientation Straight 09/13/2022 10 :15 AM EDT documented as of this encounter Plan of Treatment Upcoming Encounters Date Type Department Care Team (Late st Contact Info) Description 01/25/2025 2:00 PM EDT Office Visit [address] [address] [place] Emma [address] [address] 01/30/2025 10:30 AM EDT Clinical Support [address] [place] [address] Eloisa Santiago, RN documented as of this encounter Visit Diagnoses Not on filedocumented in this encounter Additional Health Concerns Assessment Noted Time PHQ-9 Depression Total Score: 13 023 11:05 AM EDT documented as of this encounter Care Teams Manager Clinical Pharmacy Relationship Specialty Start Date End Date Margie Singh FNP [address] [place] [address] PCP - General Family Medicine 07/04/23 07/16/24 Emma Rodriguez FNP [address] [place] [address] PCP - General Family Medicine 07/17/24 documented as of this encounter
--- OUTSIDE RECORDS SUMMARY | 2025-01-15 12:29 | XMS_ITS | Encounter Summary ---
Author Organization [employer] Address 75 [facility] 7t [place] [address] Care Team Providers Care Insulation Mechanic Name Role Phone Radha Childress MD Primary Care Provider Estuardo Greenwood AGNP Primary Care Provider Margie Dominguez STEAM SHOVEL OILER Primary Care Provider [phone] [facility] Primary Care Provider [phone] Encounter Details Date Type Department Care Team (Latest Contact Info) Description 12/30/2020 Abstract [facility] Dental, Provider, DDS Social History Tobacco Use Types Packs/Day Years Used Date Smoking Tobacco: Never Assessed Sex and Gender Information Value Date Recorded Sex Assigned at Male 09/13/2022 10:15 AM EDT Legal Sex Male 10:15 AM EDT Gender Identity Male 09/13/2022 10:15 AM EDT Sexual Orientation Straight 09/13/2022 10 :15 AM EDT documented as of this encounter Plan of Treatment Upcoming Encounters Date Type Department Care Team ( st Contact Info) Description 01/25/2025 2:00 PM EDT Office Visit [address] [address] 01/30/2025 10:30 AM EDT Clinical Support [address] [address] Eloisa Santiago RN documented as of this encounter Visit Diagnoses Not on filedocumented in this encounter Care Teams Insulation Mechanic Relationship Specialty Start Date End Date Radha Childress MD PCP - General Family Medicine 11/04/20 10/04/22 Estuardo Damon AGNP PCP - General Family Medicine 10/05/22 07/03/23 Margie Singh FNP 230 [place] [address] PCP - General Family Medicine 07/04/23 07/16/24 Emma Rodriguez FNP 230 [place] [address] PCP - General Family Medicine 07/17/24 documented as of this encounter
--- OUTSIDE RECORDS SUMMARY | 2025-01-15 12:29 | XMS_ITS | Encounter Summary ---
Author Organization [employer] Address 75 [facility] 7t [place] [address] Care Team Providers Care Dice Manager Name Role Phone Michael [place] BACK END DEVELOPER Primary Care Provider [phone] Reason for Referral * Consultation (Routine) - Closed Specialty Diagnoses / Procedures Referred By Josephine garsia Referred To Contact Physical Therapy Diagnoses Complex regional pain syndrome type 1 of right lower extremity Khadra Fernandes MD [address] [place] [address] Phone: tel: fax: [facility]. PT/OT/Speech [address] [place] [phone] Phone: tel: fax: Referral ID Status Reason Start Date Expiration Date V isits Requested Visits Authorized [id number] Closed Specialty Services Required 08/15/2024 08/15/2025 1 1 Encounter Details Date Type Department Care Team (Late st Contact Info) Description 08/15/2024 Orders Only [facility] [address] [place], [place] [phone] Khadra Fernandes MD [address] [place], [place] [phone] Complex regional pain syndrome type 1 of right lower extremity (Primary Dx); Complex regional pain syndrome type 1 of lower extremity, unspecified laterality Social History Tobacco Use Types Packs/Day Years [...] Description 01/25/2025 2:00 PM EDT Office Visit [facility] [address] [place] [address] [facility] [address] [place] [address] 01/30/2025 10:30 AM EDT Clinical Support [facility] [address] Eloisa Santiago, VANESA Scheduled Referrals Name Type Priority Associated Diagnoses Orde r Schedule Referral to Physical Therapy Outpatient Referral Routine Complex regional pain syndrome type 1 of right lower extremity Expected: 08/15/2024 (Approximate), Expires: 08/15/2025 documented as of this encounter Visit Diagnoses Diagnosis Complex regional pain syndrome type 1 of right lower extremity- Primary Complex regional pain syndrome type 1 of lower extremity, unspecified laterality documented in this encounter Additional Health Concerns Assessment Noted Time PHQ-9 Depression Total Score: 16 024 11:48 AM EDT documented as of this encounter Care Teams Dice Manager Relationship Specialty Start Date End Date Emma [place] [address] PCP - General Family Medicine 07/17/24 documented as of this encounter
--- OUTSIDE RECORDS SUMMARY | 2025-01-15 12:29 | XMS_ITS | Encounter Summary ---
Author Organization [email or web address] Address 75 [facility] 7t [place] [address] Care Team Providers Care Dentist Private Practice Name Role Phone Estuardo Damon AGNPablo Primary Care Provider Unavail Margie Huitron REGISTERED PHARMACY TECHNICIAN Primary Care Provider [phone] [place] REGISTERED PHARMACY TECHNICIAN Primary Care Provider [phone] Reason for Visit * Reason Onset Date Comments Med Refill 04/08/2023 Encounter Details Date Type Department Care Team (Late st Contact Info) Description 04/08/2023 Refill [facility] 230 [place] [address] Estuardo Damon AGNP Complex regional pain syndrome type 1 of [...] Orientation Straight 09/13/2022 10 :15 AM EDT COVID-19 Exposure Response Date Recorded In the last 10 days, have yo u been in contact with someone who was confirmed or suspected to have Coronavirus/COVID-19? No / Unsure 03/29/2023 9:49 AM EDT documented as of this encounter Miscellaneous Notes * Telephone Encounter - Eloisa Santiago RN - 04/08/2023 10:26 AM EDT TC to [facility], spoke with Lisa, percocet Rx unable to be filled d/t insufficient stock. Pharmacy tocancel Rx. Per pt request Rx be sent to [facility], will forward to PCP. * Telephone Encounter - Octavio Cota - 04/08/2023 8:37 AM EDT Tc from pt requesting for medication oxyCODONE-acetaminophen (Percocet) 10-325 MG tablet to be sentto [facility] at [address] [place] [address]. Please contact pt at [phone] documented in this encounter Plan of Treatment Upcoming Encounters Date Type Department Care Team (Late st Contact Info) Description 01/25/2025 2:00 PM EDT Office Visit [address] [address] Emma Rodriguez FNP [address] [place] [address] 01/30/2025 10:30 AM EDT Clinical Support [address] [address] Eloisa Santiago, VANESA documented as of this encounter Visit Diagnoses Diagnosis Complex regional pain syndrome type 1 of right lower extremity documented in this encounter Additional Health Concerns Assessment Noted Time PHQ-9 Depression Total Score: 13 023 11:05 AM EDT documented as of this encounter Care Teams Dentist Private Practice Relationship Specialty Start Date End Date Estuardo Damon AGNP PCP - General Family Medicine 10/05/22 07/03/23 Margie Singh FNP [address] [place] [address] PCP - General Family Medicine 07/04/23 07/16/24 Emma Rodriguez FNP [address] [place] [address] PCP - General Family Medicine 07/17/24 documented as of this encounter
--- OUTSIDE RECORDS SUMMARY | 2025-01-15 12:29 | XMS_ITS | Encounter Summary ---
Author Organization [employer] Address 75 [facility] 7t [place] [address] Care Team Providers Care Medical Accounting Clerk Name Role Phone Margie Singh [facility] Primary Care Provider [phone] [facility] Primary Care Provider Reason for Visit * Reason Onset Date Comments Appointment Request 06/21/2024 Encounter Details Date Type Department Care Team ([facility] st Contact Info) Description 06/21/2024 Telephone [facility] 230 [place], [place] [phone] Margie Singh FNP [address] [place] [address] Appointment Request Social History Tobacco Use Types Packs/Day Years [...] encounter Miscellaneous Notes * Telephone Encounter - Alba Figueroa RN - 06/21/2024 4:27 PM EDT FYI T/C to pt. For below message, and explain that in last office notes, surgeon office advised to givethem call if any questions or concerns after surgery. Pt. Verbally agreed and understood to give call to surgeon office. * Telephone Encounter - Hung Mendoza - 06/21/2024 3:48 PM EDT Tc from patients HAND POLISHER requesting appt for patient states the patient under went a surgical procedureon the chest and is still experiencing pain poem writer did ask if the patient had a follow up with surgeon HAND POLISHER stated yes and next appt is not until July documented in this encounter Plan of Treatment Upcoming Encounters Date Type Department Care Team (Late st Contact Info) Description 01/25/2025 2:00 PM EDT Office Visit [facility] [address] [place] [address] Emma Rodriguez FNP [address] [place] [address] 01/30/2025 10:30 AM EDT Clinical Support [facility] [address] [place] [address] Pamela, Eloisa, RN documented as of this encounter Visit Diagnoses Not on filedocumented in this encounter Additional Health Concerns Assessment Noted Time PHQ-9 Depression Total Score: 10 024 2:27 PM EST documented as of this encounter Care Teams Medical Accounting Clerk Relationship Specialty Start Date End Date Margie Singh FNP [address] [place] [address] PCP - General Family Medicine 07/04/23 07/16/24 HollywoodEmma hassan FNP [address] [place] [address] PCP - General Family Medicine 07/17/24 documented as of this encounter
--- OUTSIDE RECORDS SUMMARY | 2025-01-15 12:29 | XMS_ITS | Encounter Summary ---
Author Organization [employer] Address 75 [facility] 7t [place] [address] Care Team Providers Care Elementary Summer School Teacher Name Role Phone [facility] Primary Care Provider [phone] Reason for Visit * Reason Onset Date Comments Med Refill 01/14/2025 Encounter Details Date Type Department Care Team (Late st Contact Info) Description 01/14/2025 Refill [facility] 230 [place], [place] [phone] [facility] 230 [place] [address] Complex regional pain syndrome type 1 of [...] encounter Miscellaneous Notes * Telephone Encounter - Abram Galvez - 01/14/2025 9:59 AM EST TC from pt requesting medication refill. Medications needing refill : oxyCODONE-acetaminophen (Percocet) 10-325 MG tablet To be sent to: [facility]/pharmacy #[id number] [place] [phone] [place] [address] documented in this encounter Plan of Treatment Upcoming Encounters Date Type Department Care Team (Late st Contact Info) Description 01/25/2025 2:00 PM EDT Office Visit [facility] [address] [place] [address] Emma Rodriguez FNP [address] [place] [address] 01/30/2025 10:30 AM EDT Clinical Support [facility] [address] [place] [address] Eloisa Santiago RN documented as of this encounter Visit Diagnoses Diagnosis Complex regional pain syndrome type 1 of right lower extremity documented in this encounter Additional Health Concerns Assessment Noted Time PHQ-9 Depression Total Score: 16 024 11:48 AM EDT documented as of this encounter Care Teams Elementary [employer] Teacher Relationship Specialty Start Date End Date Emma Rodriguez FNP [address] [place] [address] PCP - General Family Medicine 07/17/24 documented as of this encounter
--- OUTSIDE RECORDS SUMMARY | 2025-01-15 12:29 | XMS_ITS | Encounter Summary ---
Author Organization [employer] Address 75 [facility] 7t [place] [address] Care Team Providers Care Cafeteria Counter Attendant Name Role Phone Margie Singh [facility] Primary Care Provider [phone] [facility] Primary Care Provider [phone] Reason for Visit * Reason Onset Date Comments Med Refill 07/08/2023 Encounter Details Date Type Department Care Team (Late st Contact Info) Description 07/08/2023 Telephone [facility] [address] [place], [place] [phone] Margie Singh FNP [address] [place] [address] Med Refill Social History Tobacco Use Types Packs/Day Years [...] encounter Miscellaneous Notes * Telephone Encounter - Tram Huston - 07/08/2023 9:17 AM EDT Tc from patient requesting a med refill on medication oxycodone 10 mg. Please send to [facility]/pharmacy #[id number] - [place], [place] - [address] P[address] Singh documented in this encounter Plan of Treatment Upcoming Encounters Date Type Department Care Team (Late st Contact Info) Description 01/25/2025 2:00 PM EDT Office Visit [address] [address] Emma Rodriguez FNP [address] [place] [address] 01/30/2025 10:30 AM EDT Clinical Support [address] [address] Eloisa Santiago RN documented as of this encounter Visit Diagnoses Not on filedocumented in this encounter Additional Health Concerns Assessment Noted Time PHQ-9 Depression Total Score: 13 023 11:05 AM EDT documented as of this encounter Care Teams Cafeteria Counter Attendant Relationship Specialty Start Date End Date Margie Singh FNP [address] [place] [address] PCP - General Family Medicine 07/04/23 07/16/24 Emma Rodriguez FNP [address] [place] [address] PCP - General Family Medicine 07/17/24 documented as of this encounter
--- OUTSIDE RECORDS SUMMARY | 2025-01-15 12:29 | XMS_ITS | Encounter Summary ---
Author Organization [employer] Address 75 [facility] 7t [place] [address] Care Team Providers Care Umbrella Tipper Name Role Phone Estuardo Damon Primary Care Provider Margie Dominguez RN CORRECTIONAL Primary Care Provider [phone] MichaelEmma hassan RN CORRECTIONAL Primary Care Provider [phone] Reason for Visit * Reason Onset Date Comments Med Refill 05/13/2023 Encounter Details Date Type Department Care Team (Late st Contact Info) Description 05/13/2023 Telephone [facility]ICINE [address] [place] [address] Estuardo Damon AGNP Med Refill Social History Tobacco Use Types [...] suspected to have Coronavirus/COVID-19? No / Unsure 05/04/2023 10:53 AM EDT documented as of this encounter Miscellaneous Notes * Telephone Encounter - Siria Jack - 05/13/2023 9:42 AM EDT Tc from pt requesting a call in regards to oxyCODONE-acetaminophen (Percocet) 10-325 MG tablet thatwas sent to [facility] pharmacy. Please contact pt at [phone] documented in this encounter Plan of Treatment Upcoming Encounters Date Type Department Care Team (Late st Contact Info) Description 01/25/2025 2:00 PM EDT Office Visit [address] [address] Emma Rodriguez FNP [address] [place] [address] 01/30/2025 10:30 AM EDT Clinical Support [address] [address] Eloisa Santiago RN documented as of this encounter Visit Diagnoses Not on filedocumented in this encounter Additional Health Concerns Assessment Noted Time PHQ-9 Depression Total Score: 13 023 11:05 AM EDT documented as of this encounter Care Teams Umbrella Tipper Relationship Specialty Start Date End Date Estuardo Damon AGNP PCP - General Family Medicine 10/05/22 07/03/23 Margie Singh FNP [address] [place] [address] PCP - General Family Medicine 07/04/23 07/16/24 Emma Rodriguez FNP [address] [place] [address] PCP - General Family Medicine 07/17/24 documented as of this encounter
--- OUTSIDE RECORDS SUMMARY | 2025-01-15 12:29 | XMS_ITS | Encounter Summary ---
Author Organization [employer] Address 75 [facility] 7t [place] [address] Care Team Providers Care Build Automation Engineer Name Role Phone Estuardo Damon AGNPablo Primary Care Provider Unavail Margie Huitron HAND II TUBE BENDER Primary Care Provider [phone] [place]parkEmma HAND II TUBE BENDER Primary Care Provider [phone] Reason for Visit * Reason Onset Date Comments Med Refill 02/18/2023 Encounter Details Date Type Department Care Team (Late st Contact Info) Description 02/18/2023 Refill [facility] [address] [place] [address] Estuardo Damon AGNP Complex regional pain syndrome type 1 of right lower extremity Social History Tobacco Use Types Packs/Day Years Used Date Smoking Tobacco: Every Day Cigarettes Passive Smoke Exposure: Current Smokeless Tobacco: Never Sex and Gender Information Value Date Recorded [...] suspected to have Coronavirus/COVID-19? No / Unsure 02/18/2023 3:15 PM EDT documented as of this encounter Miscellaneous Notes * Telephone Encounter - Octavio Cota - 02/22/2023 9:37 AM EDT Tc from pt requesting a call back regarding medication oxycodone 5 mg Please contact pt at [phone] * Telephone Encounter - LUIS ALFREDO Clayton - 2023 7:47 PM EDT Patient is not due for refill at this time PCP final decision if he wants to fill [facility] checked, last fill 02/08/23 #120 for 30 days. Not due until 02/07/23 * Telephone Encounter - Eloisa Santiago RN - 2023 9:51 AM EDT Already forwarded to covering Provider this morning. Awaiting response. * Telephone Encounter - Tram Huston - 2023 9:03 AM EDT Patient is re calling in regards to message below (oxycodone 10 mg). * Telephone Encounter - Eloisa Santiago RN - 02/18/2023 9:44 AM EDT His last Rx for Oxycodone was sent #120 for 30 days, so wouldbnt be due forr refill until 03/10/23. Looking at his Oxycodone Hx, he was getting #120 for 15 days. I dont see any documentation stating reason for the change in his duration from 15 to 30. ASSISTANT PROPERTY MANAGER note to you on 02/02/23 said this: He attends the pain management clinic in [place]. He states that on 02/14/23 he's supposed to have a'pump placed in his back.' Pt also stated he was unable to complete an MRI recently d/t anxiety. Ptcurrently prescribed Percocet 10mg/325mg 2 tablets Q6hr PRN. Pt has 50 pills at this time, 79 at least expected. When asked about the pill count discrepancy, pt stated that sometimes he wakes up in the middle of the night and will take 2 more Percocet. Reviewed pts Percocet order with him. Explained that he must take the medication as prescribed or speak with his provider for advice. Explained topatient that he cant get early refills. Pt stated he understood. He's scheduled to see you 02/09/23. He cancelled his appt with you 02/09/23. * Telephone Encounter - Linda Tucker - 02/18/2023 8:35 AM EDT Tc from pt requesting med refill for medicating oxyCODONE-acetaminophen (Percocet) 10-325 MG tablet documented in this encounter Plan of Treatment Upcoming Encounters Date Type Department Care Team (Late st Contact Info) Description 01/25/2025 2:00 PM EDT Office Visit [address] [address] Emma Rodriguez FNP [address] [place] [address] 01/30/2025 10:30 AM EDT Clinical Support [address] [address] Eloisa Santiago RN documented as of this encounter Visit Diagnoses Diagnosis Complex regional pain syndrome type 1 of right lower extremity documented in this encounter Additional Health Concerns Assessment Noted Time PHQ-9 Depression Total Score: 11 023 3:30 PM EDT documented as of this encounter Care Teams Build Automation Engineer Relationship Specialty Start Date End Date Estuardo Damon AGNP PCP - General Family Medicine 10/05/22 07/03/23 Margie Singh FNP [address] [place] [address] PCP - General Family Medicine 07/04/23 07/16/24 Emma Rodriguez FNP [address] [place] [address] PCP - General Family Medicine 07/17/24 documented as of this encounter
--- OUTSIDE RECORDS SUMMARY | 2025-01-15 12:29 | XMS_ITS | Encounter Summary ---
Author Organization [employer] Address 75 [facility] 7t [place] [address] Care Team Providers Care Senior Court Office Assistant Name Role Phone Margie Singh [facility] Primary Care Provider [phone] [facility] Primary Care Provider [phone] Reason for Visit * Reason Comments Med Refill Encounter Details Date Type Department Care Team ([facility] st Contact Info) Description 02/02/2024 Refill [facility] [address] [place], [place] [phone] Margie Singh FNP [address] [place] [address] Social History Tobacco Use Types Packs/Day Years [...] Description 01/25/2025 2:00 PM EDT Office Visit [address] [address] [place] hassan [address] [address] 01/30/2025 10:30 AM EDT Clinical Support [address] [address] Eloisa Santiago RN documented as of this encounter Visit Diagnoses Not on filedocumented in this encounter Additional Health Concerns Assessment Noted Time PHQ-9 Depression Total Score: 10 024 2:27 PM EST documented as of this encounter Care Teams Senior Court Office Assistant Relationship Specialty Start Date End Date Margie Singh FNP [address] [place] [address] PCP - General Family Medicine 07/04/23 07/16/24 [place] FNP [address] [place] [address] PCP - General Family Medicine 07/17/24 documented as of this encounter
--- OUTSIDE RECORDS SUMMARY | 2025-01-15 12:29 | XMS_ITS | Encounter Summary ---
Author Organization [employer] Address 75 [facility] 7t [place] [address] Care Team Providers Care Recycling Worker Name Role Phone Margie Singh [facility] Primary Care Provider [phone] [facility] Primary Care Provider [phone] Reason for Visit * Reason Comments Med Refill Encounter Details Date Type Department Care Team ([facility] st Contact Info) Description 07/03/2024 Refill [facility] [address] [place], [place] [phone] Margie Singh FNP [address] [place] [address] Social History Tobacco Use Types Packs/Day Years [...] Description 01/25/2025 2:00 PM EDT Office Visit [address] [address] [place] hassan [address] [address] 01/30/2025 10:30 AM EDT Clinical Support [address] [address] Eloisa Santiago RN documented as of this encounter Visit Diagnoses Not on filedocumented in this encounter Additional Health Concerns Assessment Noted Time PHQ-9 Depression Total Score: 10 024 2:27 PM EST documented as of this encounter Care Teams Recycling Worker Relationship Specialty Start Date End Date Margie Singh FNP [address] [place] [address] PCP - General Family Medicine 07/04/23 07/16/24 [place] FNP [address] [place] [address] PCP - General Family Medicine 07/17/24 documented as of this encounter
--- OUTSIDE RECORDS SUMMARY | 2025-01-15 12:29 | XMS_ITS | Encounter Summary ---
Author Organization [employer] Address 75 [facility] 7t [place] [address] Care Team Providers Care Wood Tool Maker Name Role Phone Margie Singh [facility] Primary Care Provider [phone] [facility] Primary Care Provider [phone] Reason for Visit * Reason Onset Date Comments Call Back Request 01/30/2024 Encounter Details Date Type Department Care Team ([facility] st Contact Info) Description 01/30/2024 Telephone [facility] [address] [place], [place] [phone] Margie Singh FNP [address] [place] [address] Call Back Request Social History Tobacco Use Types Packs/Day [...] Telephone Encounter - Alba Figueroa RN - 01/30/2024 1:52 PM EDT T/C to pt. To inform that [facility] still waiting for his insurance for approval. Pt. Verbally greed and understood. * Telephone Encounter - Hung Mendoza - 01/30/2024 8:07 AM EDT Tc from patient calling to request a call back in regards to a MRI of the chest would like to know what are the steps moving forward documented in this encounter Plan of Treatment Upcoming Encounters Date Type Department Care Team (Late st Contact Info) Description 01/25/2025 2:00 PM EDT Office Visit [facility] [address] [place] [address] [place], SCRAP METAL COLLECTOR [address] [place] [address] 01/30/2025 10:30 AM EDT Clinical Support [facility] [address] [place] [address] Eloisa Santiago RN documented as of this encounter Visit Diagnoses Not on filedocumented in this encounter Additional Health Concerns Assessment Noted Time PHQ-9 Depression Total Score: 10 024 2:27 PM EST documented as of this encounter Care Teams Wood Tool Maker Relationship Specialty Start Date End Date Margie Singh FNP [address] [place] [address] PCP - General Family Medicine 07/04/23 07/16/24 Emma Rodriguez FNP 230 [place] [address] PCP - General Family Medicine 07/17/24 documented as of this encounter
--- OUTSIDE RECORDS SUMMARY | 2025-01-15 12:29 | XMS_ITS | Encounter Summary ---
Author Organization [employer] Address 75 [facility] 7t [place] [address] Care Team Providers Care Shoe Coverer Name Role Phone [facility] Primary Care Provider [phone] Reason for Visit * Reason Onset Date Comments Med Refill 12/17/2024 Encounter Details Date Type Department Care Team (Late st Contact Info) Description 12/17/2024 Refill [facility] [address] [place], [place] [phone] [facility] [address] [place] [address] Complex regional pain syndrome type 1 of [...] encounter Miscellaneous Notes * Telephone Encounter - Freddie Christy - 12/17/2024 8:01 AM EST TC from pt requesting medication refill. Medications needing refill : oxyCODONE-acetaminophen (Percocet) 10-325 MG tablet To be sent to: [facility]/pharmacy #[id number] [place], [place] [id number] [place] [address] documented in this encounter Plan of Treatment Upcoming Encounters Date Type Department Care Team (Late st Contact Info) Description 01/25/2025 2:00 PM EDT Office Visit [facility] [address] [place] [address] Emma Rodriguez FNP [address] [place] [address] 01/30/2025 10:30 AM EDT Clinical Support [facility] [address] [place] [address] Eloisa Santiago RN documented as of this encounter Visit Diagnoses Diagnosis Complex regional pain syndrome type 1 of right lower extremity documented in this encounter Additional Health Concerns Assessment Noted Time PHQ-9 Depression Total Score: 16 024 11:48 AM EDT documented as of this encounter Care Teams Shoe Coverer Relationship Specialty Start Date End Date Emma Rodriguez FNP [address] [place] [address] PCP - General Family Medicine 07/17/24 documented as of this encounter
--- OUTSIDE RECORDS SUMMARY | 2025-01-15 12:29 | XMS_ITS | Encounter Summary ---
Author Organization [employer] Address 75 [facility] 7t [place] [address] Care Team Providers Care Computer Systems Technology Instructor Name Role Phone Estuardo Damon AGNPablo Primary Care Provider Unavail Margie Huitron RESPIRATORY CLINICIAN Primary Care Provider [phone] [place]ittenEmma RESPIRATORY CLINICIAN Primary Care Provider [phone] Reason for Visit * Reason Onset Date Comments Medication 05/12/2023 Encounter Details Date Type Department Care Team (Late st Contact Info) Description 05/12/2023 Telephone [facility] [address] [place] [address] Estuardo Damon AGNP Medication Social History Tobacco Use Types Packs/Day Years [...] Miscellaneous Notes * Telephone Encounter - Tram Rowlandnez - 05/12/2023 9:26 AM EDT Tc from patient calling in regards to medication oxyCODONE-acetaminophen (Percocet) 10-325 MG tablet. States medication is on back order and no other [facility] has it. Member Of [employer] called [facility] pharmacy andthey do have medication in stock. documented in this encounter Plan of Treatment Upcoming Encounters Date Type Department Care Team (Late st Contact Info) Description 01/25/2025 2:00 PM EDT Office Visit [address] [address] Emma Rodriguez FNP [address] [place] [address] 01/30/2025 10:30 AM EDT Clinical Support [address] [phone] Eloisa Santiago RN documented as of this encounter Visit Diagnoses Not on filedocumented in this encounter Additional Health Concerns Assessment Noted Time PHQ-9 Depression Total Score: 13 023 11:05 AM EDT documented as of this encounter Care Teams Computer Systems Technology Instructor Relationship Specialty Start Date End Date Estuardo Damon AGNP PCP - General Family Medicine 10/05/22 07/03/23 Margie Singh FNP [address] [place] [address] PCP - General Family Medicine 07/04/23 07/16/24 Emma Rodriguez FNP [address] [place] [address] PCP - General Family Medicine 07/17/24 documented as of this encounter
--- OUTSIDE RECORDS SUMMARY | 2025-01-15 12:29 | XMS_ITS | Encounter Summary ---
Author Organization [employer] Address 75 [facility] 7t [place] [address] Care Team Providers Care Log Grader Name Role Phone Margie Singh [facility] Primary Care Provider [phone] [facility] Primary Care Provider [phone] Reason for Visit * Reason Comments Med Refill Encounter Details Date Type Department Care Team ([facility] st Contact Info) Description 03/14/2024 Refill [facility] [address] [place], [place] [phone] Margie Singh FNP [address] [place] [address] Social History Tobacco Use Types Packs/Day Years [...] 01/25/2025 2:00 PM EDT Office Visit [address] [address] [place] hassan [address] [address] 01/30/2025 10:30 AM EDT Clinical Support [address] [address] Eloisa Santiago RN documented as of this encounter Visit Diagnoses Not on filedocumented in this encounter Additional Health Concerns Assessment Noted Time PHQ-9 Depression Total Score: 10 024 2:27 PM EST documented as of this encounter Care Teams Log Grader Relationship Specialty Start Date End Date Margie Singh FNP [address] [place] [address] PCP - General Family Medicine 07/04/23 07/16/24 [place]nealEmma FNP [address] [place] [address] PCP - General Family Medicine 07/17/24 documented as of this encounter
--- OUTSIDE RECORDS SUMMARY | 2025-01-15 12:29 | XMS_ITS | Encounter Summary ---
Author Organization [employer] Address 75 [facility] 7t [place] [address] Care Team Providers Care Archivist Nonprofit Foundation Name Role Phone Estuardo Damon Primary Care Provider Unavail Margie Huitron Primary Care Provider [phone] Emma Rodriguez Primary Care Provider [phone] Reason for Visit * Reason Comments Med Refill Encounter Details Date Type Department Care Team (Late st Contact Info) Description 04/26/2023 Refill [facility] [address] [place], [place] [phone] Estuardo Damon AGNP Depressed mood Social History Tobacco Use Types Packs/Day Years [...] Encounters Date Type Department Care Team (Late Contact Info) Description 01/25/2025 2:00 PM EDT Office Visit [facility] [address] [place], [place] [phone] Emma Rodriguez FNP [address] [place] [address] 01/30/2025 10:30 AM EDT Clinical Support [facility] [address] [place] [address] Eloisa Santiago, RN documented as of this encounter Visit Diagnoses Diagnosis Depressed mood documented in this encounter Additional Health Concerns Assessment Noted Time PHQ-9 Depression Total Score: 13 023 11:05 AM EDT documented as of this encounter Care Teams Archivist Nonprofit Foundation Relationship Specialty Start Date End Date Estuardo Damon AGNP PCP - General Family Medicine 10/05/22 07/03/23 Margie Singh FNP [address] [place] [address] PCP - General Family Medicine 07/04/23 07/16/24 [place] hassan FNP 230 [place] [address] PCP - General Family Medicine 07/17/24 documented as of this encounter
--- OUTSIDE RECORDS SUMMARY | 2025-01-15 12:29 | XMS_ITS | Encounter Summary ---
Author Organization [employer] Address 75 [facility] 7t [place] [address] Care Team Providers Care Lining Caser Name Role Phone Margie Singh [facility] Primary Care Provider [phone] [place] [facility] Primary Care Provider [phone] Reason for Visit * Reason Comments Med Refill Encounter Details Date Type Department Care Team (Late st Contact Info) Description 08/18/2023 Refill [facility] [address] [place] [address] Estuardo Damon AGNP Social History Tobacco Use Types Packs/Day Years [...] Description 01/25/2025 2:00 PM EDT Office Visit [facility] [address] [place] [address] [place] [facility] [address] [place] [address] 01/30/2025 10:30 AM EDT Clinical Support [facility] [address] [place] [address] Eloisa Santiago RN documented as of this encounter Visit Diagnoses Not on filedocumented in this encounter Additional Health Concerns Assessment Noted Time PHQ-9 Depression Total Score: 13 023 11:05 AM EDT documented as of this encounter Care Teams Lining Caser Relationship Specialty Start Date End Date Margie Singh FNP 230 [place] [address] PCP - General Family Medicine 07/04/23 07/16/24 Emma Rodriguez FNP [address] [place] [address] PCP - General Family Medicine 07/17/24 documented as of this encounter
--- OUTSIDE RECORDS SUMMARY | 2025-01-15 12:29 | XMS_ITS | Encounter Summary ---
Author Organization [employer] Address 75 [facility] 7t [place] [address] Care Team Providers Care Tower Helper Name Role Phone Margie Singh [facility] Primary Care Provider [phone] [facility] Primary Care Provider [phone] Reason for Visit * Reason Comments Med Refill Encounter Details Date Type Department Care Team ([facility] st Contact Info) Description 01/28/2024 Refill [facility] 230 [place], [place] [phone] Margie Singh FNP [address] [place] [address] Social History Tobacco Use Types Packs/Day Years [...] Description 01/25/2025 2:00 PM EDT Office Visit [address] [address] [place] hassan [address] [address] 01/30/2025 10:30 AM EDT Clinical Support [address] [address] Eloisa Santiago RN documented as of this encounter Visit Diagnoses Not on filedocumented in this encounter Additional Health Concerns Assessment Noted Time PHQ-9 Depression Total Score: 10 024 2:27 PM EST documented as of this encounter Care Teams Tower Helper Relationship Specialty Start Date End Date Margie Singh FNP [address] [place] [address] PCP - General Family Medicine 07/04/23 07/16/24 [place] FNP [address] [place] [address] PCP - General Family Medicine 07/17/24 documented as of this encounter
== END 2025-01-15 10:20 | disposition home or self-care (01) ==
LOC: HO.CT 10:19
PROVIDERS: PCP Registered Nurse; Visit Provider Surgery
DX: Z85.110 Personal history of malignant carcinoid tumor of bronchus and lung (principal); Z90.2 Acquired absence of lung [part of]
CPT/HCPCS: 71250

== ENCOUNTER → 2025-01-15 10:21 | Outpatient (BNV) | payer OTHER, SELFPAY | PROVIDERS: PCP Registered Nurse; Visit Provider Radiology Diagnostic Radiology | DX: Z85.110 Personal history of malignant carcinoid tumor of bronchus and lung (principal) | CPT/HCPCS: 71250 ==

== ENCOUNTER 2025-01-21 11:07 | Outpatient (AMB) | payer OTHER, SELFPAY ==
--- NOTE | 2025-01-21 11:15 | MHC.OFFVIS ---
Intake Visit Reasons: Discuss CT Chest Intake Note: Patient here to discuss Chest Ct dated 01-15-2025. Outreach And Education Social Worker Required: No Accompanied by: Self / Same As Patient Allergies No Known Allergies Allergy (Verified 01/21/25 11:15) HPI Comments Details: Patient was status post left lower lobectomy for carcinoid tumor. He has no new respiratory issues or complaints. He has recommenced his smoking which was very disappointing. CT scan follow-up surveillance was within normal limits. 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 Low back pain Surgical History History of foot surgery History of bronchoscopy History of circumcision Carcinoid tumor (~04/2024) Family History Father Lung cancer Mother Ovarian cancer Social History Household Members: Spouse Housing: Apartment Are you a primary farm or ranch animal caretaker to a significant other at home: No Do you presently have visiting nurse or other home services: Yes Patient Tobacco Use Status: Former Tobacco user Tobacco use type: Cigarette Cigarette Packs Per Day: 1 Substance Use Type: Marijuana service: No Current occupational status: disabled Physical Exam Chest Other: Incisions clean dry and intact, all well healed. Good breath sounds bilaterally. Assessment & Plan Assessment & Plan (1) History of malignant carcinoid tumor of bronchus: Code(s): Z85.110 - Personal history of malignant carcinoid tumor of bronchus and lung Category: Surgical Plan Current plan is to see the patient 1 year's time with follow-up surveillance CT scan or p.r.n.. All questions answered. Patient has once again been strongly encouraged/urged to discontinue smoking. He will contact his video network engineer regarding this. Coding Level of Care Code Est Pt Level 4 (12952) Diagnoses History of malignant carcinoid tumor of bronchus Z85.110
--- OUTSIDE RECORDS SUMMARY | 2025-01-21 12:38 | XMS_ITS | Clinical Summary ---
Author Organization [employer] Address [address] [facility] 7t [place] [address] Care Team Providers Care Plow Holder Name Role Phone Emma Rodriguez [facility] Primary Care Provider [phone] Allergies No known active allergies Medications * [...] Assessment & Plan (02/18/2023 4:26 PM EDT): Denies SI/HI Ji says he feels down sometimes. [...] in his daily life. He and his SUPERIOR COURT JUSTICE reported that they have not tried that. [...] someone with have to drive him. His SUPERIOR COURT JUSTICE is also aware. Mild chronic obstructive pulmonary [...] chronic and nerve pain. Lives alone, has SUPERIOR COURT JUSTICE that support him and listen to him [...] intervention and Patient to reach out to [facility] team as needed Bipolar disorder 05/18/2012 Assessment [...] Encounters Date Type Department Care Team Description 01/15/2025 Orders Only [facility] External Provider, [facility] 01/14/2025 Refill [facility] [address] [place], [place] [phone] [place] FNP Complex regional pain syndrome type 1 of right lower extremity 01/11/2025 Telephone [facility] [address], [place] [phone] Emma Rodriguez FNP No Show 01/02/2025 Refill [facility] [address], [place] [phone] Emma Rodriguez FNP Insomnia, unspecified type 01/02/2025 Refill [facility] [address] [place] [address] Emma Rodriguez, DATA SCIENCE AND IOT MANAGER Complex regional pain syndrome type 1 of right lower extremity 12/17/2024 Refill [facility] [address] [place] [address] Emma Rodriguez, DATA SCIENCE AND IOT MANAGER Complex regional pain syndrome type 1 of right lower extremity 11/28/2024 Telephone [facility] [address] [place] [address] Emma Rodriguez, DATA SCIENCE AND IOT MANAGER Nurse Triage 11/28/2024 Refill [facility] [address] [place] [address] Emma Rodriguez, DATA SCIENCE AND IOT MANAGER Insomnia, unspecified type 11/28/2024 Refill [facility] [address] [place] [address] Emma Rodriguez, DATA SCIENCE AND IOT MANAGER Complex regional pain syndrome type 1 of right lower extremity 11/15/2024 Refill [facility] [address] [place] [address] Emma Rodriguez, DATA SCIENCE AND IOT MANAGER Complex regional pain syndrome type 1 of right lower extremity 11/06/2024 10:00 AM EST Clinical Support [facility] [address] [place] [address] Eloisa Santiago RN Pain, foot, chronic, right (Primary Dx) 11/06/2024 Telephone [facility] [address] [place] [address] Eloisa Santiago RN BPI Scoring 11/06/2024 Travel 11/06/2024 Telephone [facility] [address] [place] [address] Eloisa Santiago RN Recommend RN DOCUMENT IMPROVEMENT SPECIALIST Tier 2 10/30/2024 Refill [facility] [address] [place] [address] Emma Rodriguez, DATA SCIENCE AND IOT MANAGER Insomnia, unspecified type 10/30/2024 Refill [facility] [address] [place] [address] Emma Rodriguez, DATA SCIENCE AND IOT MANAGER Complex regional pain syndrome type 1 of right lower extremity from Last 3 Months Immunizations Name Administration Dates Next Due Influenza injectable quadriv alent IIV4 with preservative 07/28/2015 Influenza injectable quadrivalent preservative f ree 10/31/2018 Influenza, IIV3, injectable 09/07/2011 Influenza, Split (incl. purified surface antigen ) 08/01/2013,08/04/2012 Moderna Covid-19 Vaccine 12+ 04/04/2021,03/07/20 21 Moderna Covid-19 Vaccine 6+ Bivalent 12/22/2022 Pneumococcal [...] Description 01/25/2025 2:00 PM EDT Office Visit [facility] [address] [place] [address] [place] FNP [address] [place] [address] 01/30/2025 10:30 AM EDT Clinical Support [facility] [address] [place] [address] Eloisa Santiago, RN Health Maintenance Due Date Last Done Comments [...] or Tdap) 09/07/2021 09/07/2011 COVID-19 Vaccine ( season) 2024 12/22/2022, 04/04/2021, 03/07/2021 Influenza Vaccine (#1) 2024 8, 07/28/2015, 08/01/2013, Additional history exists Depression Monitoring (PHQ-9) 01/27/2025 07/30/2024, 07/30/2024 Alcohol/Substance Use Screening 07/30/2025 07/30/2024 Depression Screening 07/30/2025 07/30/2024, 07/30/20 SDOH Screening 07/30/2025 07/30/2024 Tobacco Screening 08/15/2025 [...] Procedure Name Priority Date/Time Associated Diagnosis Comments CT CHEST WO CONTRAST Routine 01/15/2025 6:37 PM EST POCT NATALIA-14 URINE DRUG SCREEN Routine 11/06/2024 10:09 AM EST Pain, foot, chronic, right MR ANKLE WO CONTRAST RIGHT Routine 10/25/2024 5:00 PM EST Peripheral neuropathic pain Pain, foot, chronic, right Right club foot LIPID PANEL, STANDARD Routine 07/20/2022 10:20 AM EDT [employer] HISTORICAL HEPATITIS C ANTIBODY RFLX Routine 01/10/2020 11:40 AM EST [employer]HE[facility] HISTORICAL HIV AB/AG Routine 01/10/2020 11:40 AM EST from Last 3 Months or Most Recently Relevant to Health Maintenance Results * CT Chest w/o Contrast (01/15/2025 6:37 PM EST) Anatomical Region Laterality Modality Body, Chest Computed Tomogra phy 01/15/2025 6:37 PM EST Narrative 01/15/2025 6:38 PM EST ? [facility] ?[address] ?[place] [address] ? CT Scan Report ? Signed ? Patient: Her,Ji ?MR#: [id number] ?? 005 ? : 1985 ?Acct:[id number] ? Age/Sex: 39 / M ?ADM Date: 01/15/25 ? Loc: HO.CT ? Attending Dr: Jordan Davis MD ? Ordering Physician: Jordan Davis MD ?? Date of Service: 01/15/25 ?? Procedure(s): CT chest wo IV con ?? Accession Number(s): [id number] ? cc: Jordan Davis MD; Emma Rodriguez DATA SCIENCE AND IOT MANAGER ? Report Number: ?? [id number]: Total DLP = ??388.00 mGy-cm ? 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 ? CT chest without contrast ? Comparison: 03/21/2024 ? Findings: ? Probable left lower lobe linear scar. ?? Posterior left base pleural thickening. ?? Previous left lower lobe consolidation has resolved. ?? No significant parenchymal abnormalities identified. ?? Indeterminate mediastinal nodes are unchanged. ?? No new adenopathy is identified. ?? No significant mediastinal adenopathy. ?? No significant free pleural fluid. ?? Old left rib fracture deformities. ?? No significant focal bony abnormalities. ? Impression: ? Probable chronic findings in left lower lobe ? No acute processes ? This document has been electronically signed by: Mikhail Thibodeaux MD on ?? 01/15/2025 18:37:15 ? Dictated By: ?Mikhail Thibodeaux MD ? Signed By: ?<Electronically signed by Mikhail Thibodeaux MD in OV> ? 01/15/25 1838 ? DD/ 36 ? TD/TT: 01/15/251836 ? Healthcare Management Consultant: ? Procedure Note Josias, Image - 01/15/[address] [address] [address] Scan Report Signed Patient: Jacqueline Her#: [id number] 005 : 1985Acct:[id number] Age/Sex: 39 / MADM Date: 01/15/25 Loc: HO.CT Attending Dr: Jordan Davis MD Ordering Physician: Jordan Davis MD Date of Service: 01/15/25 Procedure(s): CT chest wo IV con Accession Number(s): [id number] cc: Jordan Davis MD; [facility] Report Number: [id number]: Total DLP = 388.00 mGy-cm 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 CT chest without contrast Comparison: 03/21/2024 Findings: Probable left lower lobe linear scar. Posterior left base pleural thickening. Previous left lower lobe consolidation has resolved. No significant parenchymal abnormalities identified. Indeterminate mediastinal nodes are unchanged. No new adenopathy is identified. No significant mediastinal adenopathy. No significant free pleural fluid. Old left rib fracture deformities. No significant focal bony abnormalities. Impression: Probable chronic findings in left lower lobe No acute processes This document has been electronically signed by: Mikhail Thibodeaux MD on 01/15/2025 18:37:15 Dictated By: Mikhail Thibodeaux MD Signed By: <Electronically signed by Mikhail Thibodeaux MD in OV> 01/15/251837 DD/ 36 TD/TT: 01/15/251836 Healthcare Management Consultant: [facility] External Provider IMG CT PROCEDURES Final Result * POCT NATALIA-14 Urine Drug Screen (11/06/2024 10:09 AM EST) Oxycodone Screen, Urine Positive Urine Urine specimen obtained by clean catch procedure / Unknown 11/06/2024 10:09 AM EST Narrative Eloisa Santiago RN - 11/06/2024 10:09 AM EST UTOX cup Lot#[id number] Exp. 08/08/26 Internal Pass Control [facility] DATA SCIENCE AND IOT MANAGER POINT OF CARE TEST ENTER/EDIT ORDERABLES Final Result * Mr Ankle w/o Contrast Right (10/25/2024 5:00 PM EST) Anatomical Region Laterality Modality Lower Extremities, Ankle Right Magneti c Resonance 10/25/2024 5:00 PM EST Narrative 10/30/2024 4:15 PM EST ? [facility] ?[address] ?[place] [address] ? Magnetic Resonance Report ? Signed ? Patient: Her,Ji ?MR#: [id number] ?? 005 ? : 1985 ?Acct:[id number] ? Age/Sex: 39 / M ?ADM Date: 10/25/24 ? Loc: HO.MRI ? Attending Dr: Emma Rodriguez DATA SCIENCE AND IOT MANAGER ? Ordering Physician: Emma Rodriguez ?? Date of Service: 10/25/24 ?? Procedure(s): MR ankle RT wo con ?? Accession Number(s): [id number] ? cc: Emma Rodriguez DATA SCIENCE AND IOT MANAGER ? EXAMINATION: ?? MR ANKLE WITHOUT CONTRAST, [...] DD/ 1700 ? TD/TT: 10/25/24 1738 ? Healthcare Management Consultant: WG ? Procedure Note Nydia Ferrara - 10/30/[address] [address] Magnetic Resonance Report Signed Patient: Jacqueline Her#: [id number] 005 : 1985Acct:[id number] Age/Sex: 39 / MADM Date: 10/25/24 Loc: HO.MRI Attending Dr: Emma Rodriguez DATA SCIENCE AND IOT MANAGER Ordering Physician: Emma Rodriguez Date of Service: 10/25/24 Procedure(s): MR ankle RT wo con Accession Number(s): [id number] cc: [facility] EXAMINATION: MR ANKLE WITHOUT CONTRAST, RIGHT CLINICAL [...] by: Toby Love MD 10/30/2024 04:12 PM [facility] Dictated By: Toby Love MD Signed By: <Electronically signed by Toby Love MD inOV> 10/30/24 1612 DD/ 1700 TD/TT: 10/25/24 1738 Healthcare Management Consultant: [facility] DATA SCIENCE AND IOT MANAGER IMG MRI PROCEDURES Final Resu lt * [...] ?? Sunny PRIETO et al. CHAD. 2013;310(19): 1900-5883 ?? ([email or web address]) Non-HDL Cholesterol 159(H) <130 mg/dL (calc) [facility] Comment: For patients with diabetes plus 1 major ASCVD risk ?? factor, treating to a non-HDL-C goal of <100 mg/dL ?? (LDL-C of <70 mg/dL) is considered a therapeutic ?? option. Triglycerides 254(H) <150 mg/dL [facility] Comment: ?? If a non-fasting specimen was collected, consider repeat triglyceride testing on a fasting specimen if clinically indicated. ?? Brenda et al. J. of Clin. Lipidol. 2015;9:129-169. ?? 07/20/2022 10:2 0 AM EDT Radha Childress MD LAB BLOOD ORDERABLES Final R esult [facility] [address] * HEPATITIS C ANTIBODY RFLX (01/10/2020 11:40 AM EST) HEPATITIS C ANTIBODY [facility] Comment: Antibodies to HCV not detected; does not exclude early acute HCV infection. 01/10/2020 11:4 0 AM EST Yolanda REYP HISTORICAL/NON ORDERABLE LABS Final Result Performing Organization Address [facility] Phone Number [facility] [address] * HIV AB/AG (01/10/2020 11:40 AM [...] detection of this assay. ?? The [employer] HIV Ag/Ab Combo assay result and supplemental assay results should be interpreted in conjunction with the patient's clinical presentation, history and other laboratory results. ??If the results are inconsistent with clinical evidence, additional testing is suggested to confirm the result. 01/10/2020 11:4 0 AM EST Yolanda REYP HISTORICAL/NON ORDERABLE LABS Final Result Performing Organization Address [facility] Phone Number [facility] [address] from Last 3 Months or Most Recently Relevant to Health Maintenance Insurance [facility] * Guarantor: Ji Her Account Type Relation to Patient Date of Phone Billing Address Dental Self Care Teams Plow Holder Relationship Specialty Start Date End Date Emma Rodriguez FNP [address] [place] [address] PCP - General Family Medicine 07/17/24
--- OUTSIDE RECORDS SUMMARY | 2025-01-21 12:38 | XMS_ITS | Encounter Summary ---
Author Organization [employer] Address [address] [facility] 7t h Floor [address] Care Team Providers Care Prospecting Driller Helper Name Role Phone Margie Singh [facility] Primary Care Provider [phone] [facility] Primary Care Provider [phone] Reason for Visit * Reason Onset Date Comments Med Refill 07/08/2023 Encounter Details Date Type Department Care Team (Late st Contact Info) Description 07/08/2023 Telephone [facility] [address] [place], [place] [phone] Margie Singh FNP [address] [place] [address] Med Refill Social History Tobacco Use Types [...] medication oxycodone 10 mg. [address] send to [facility]/pharmacy #[id number] - [place], [place] - [address] PCP Dr[address] Singh documented in this encounter Plan of Treatment Upcoming Encounters Date Type Department Care Team (Late st Contact Info) Description 01/25/2025 2:00 PM EDT Office Visit [address] [address] Emma Rodriguez FNP [address] [place] [address] 01/30/2025 10:30 AM EDT Clinical Support [address] [address] Eloisa Santiago RN documented as of this encounter Visit Diagnoses Not on filedocumented in this encounter Additional Health Concerns Assessment Noted Time PHQ-9 Depression Total Score: 13 023 11:05 AM EDT documented as of this encounter Care Teams Prospecting Driller Helper Relationship Specialty Start Date End Date Margie Singh FNP [address] [place] [address] PCP - General Family Medicine 07/04/23 07/16/24 Emma Rodriguez FNP [address] [place] [address] PCP - General Family Medicine 07/17/24 documented as of this encounter
--- OUTSIDE RECORDS SUMMARY | 2025-01-21 12:38 | XMS_ITS | Encounter Summary ---
Author Organization [employer] Address [address] [facility] 7t [place] [address] Care Team Providers Care Specialty Department Supervisor Name Role Phone Margie Singh [facility] Primary Care Provider [phone] [facility] Primary Care Provider [phone] Reason for Visit * Reason Comments Med Change Request Encounter Details Date Type Department Care Team ([facility] Contact Info) Description 12/11/2023 Refill [facility] [address] [place] [address] Margie Singh FNP [address] [place] [address] Social History Tobacco Use Types Packs/Day Years [...] Description 01/25/2025 2:00 PM EDT Office Visit [facility] [address] [place] [address] MichaelEmma hassan [address] [address] 01/30/2025 10:30 AM EDT Clinical Support [address] [address] Eloisa Santiago, AVNESA documented as of this encounter Visit Diagnoses Not on filedocumented in this encounter Additional Health Concerns Assessment Noted Time PHQ-9 Depression Total Score: 17 024 3:47 PM EST documented as of this encounter Care Teams Specialty Department Supervisor Relationship Specialty Start Date End Date Margie Singh FNP [address] [place] [address] PCP - General Family Medicine 07/04/23 07/16/24 [place]Emma FNP [address] [place] [address] PCP - General Family Medicine 07/17/24 documented as of this encounter
--- OUTSIDE RECORDS SUMMARY | 2025-01-21 12:38 | XMS_ITS | Encounter Summary ---
Author Organization [employer] Address [address] [facility] 7t [place] [address] Care Team Providers Care Family Independence Case Manager Name Role Phone Estuardo Damon Primary Care Provider Margie Dominguez FULFILLMENT REPRESENTATIVE Primary Care Provider [phone] MichaelEmma hassan FULFILLMENT REPRESENTATIVE Primary Care Provider [phone] Reason for Visit * Reason Onset Date Comments Med Refill 05/13/2023 Encounter Details Date Type Department Care Team (Late st Contact Info) Description 05/13/2023 Telephone [facility] [address] [place] [address] Estuardo Damon AGNP Med Refill Social History [...] encounter Miscellaneous Notes * Telephone Encounter - Siira Jack - 05/13/2023 9:42 AM EDT Tc from pt requesting a call in regards to oxyCODONE-acetaminophen (Percocet) 10-325 MG tablet thatwas sent to [facility] pharmacy. Please contact pt at [phone] documented in this encounter Plan of Treatment Upcoming Encounters Date Type Department Care Team (Late st Contact Info) Description 01/25/2025 2:00 PM EDT Office Visit [address] [address] Emma Rodriguez FNP [address] [place] [address] 01/30/2025 10:30 AM EDT Clinical Support [address] [address] Eloisa Santiago RN documented as of this encounter Visit Diagnoses Not on filedocumented in this encounter Additional Health Concerns Assessment Noted Time PHQ-9 Depression Total Score: 13 023 11:05 AM EDT documented as of this encounter Care Teams Family Independence Case Manager Relationship Specialty Start Date End Date Estuardo Damon AGNP PCP - General Family Medicine 10/05/22 07/03/23 Margie Singh FNP [address] [place] [address] PCP - General Family Medicine 07/04/23 07/16/24 Emma Rodriguez FNP [address] [place] [address] PCP - General Family Medicine 07/17/24 documented as of this encounter
--- OUTSIDE RECORDS SUMMARY | 2025-01-21 12:38 | XMS_ITS | Encounter Summary ---
Author Organization [employer] Address 75 [facility] 7t [place] [address] Care Team Providers Care Fresh Food Manager Name Role Phone Margie Singh [facility] Primary Care Provider [phone] [place] [facility] Primary Care Provider [phone] Encounter Details Date Type Department Care Team (Late st Contact Info) Description 08/15/2023 Orders Only [address] [address] Margie Singh FNP [address] [place] [address] Social History Tobacco Use Types Packs/Day Years [...] Description 01/25/2025 2:00 PM EDT Office Visit [address] [address] [place] Emma [address] [address] 01/30/2025 10:30 AM EDT Clinical Support [address] [place] [address] Eloisa Santiago, RN documented as of this encounter Visit Diagnoses Not on filedocumented in this encounter Additional Health Concerns Assessment Noted Time PHQ-9 Depression Total Score: 13 023 11:05 AM EDT documented as of this encounter Care Teams Fresh Food Manager Relationship Specialty Start Date End Date Margie Singh FNP [address] [place] [address] PCP - General Family Medicine 07/04/23 07/16/24 Emma Rodriguez FNP [address] [place] [address] PCP - General Family Medicine 07/17/24 documented as of this encounter
--- OUTSIDE RECORDS SUMMARY | 2025-01-21 12:38 | XMS_ITS | Encounter Summary ---
Author Organization [employer] Address 75 [facility] 7t [place] [address] Care Team Providers Care Pipe Or Steam Fitter Furnace Installer Name Role Phone Estuardo Damon AGNPablo Primary Care Provider Unavail Margie Huitron GEOPHYSICAL PROSPECTING SURVEYOR Primary Care Provider [phone] RangerEmma GEOPHYSICAL PROSPECTING SURVEYOR Primary Care Provider [phone] Reason for Visit * Reason Onset Date Comments Medication 05/12/2023 Encounter Details Date Type Department Care Team (Late st Contact Info) Description 05/12/2023 Telephone [facility] [address] [place] [address] Estuardo Damon AGNP Medication Social History Tobacco [...] order and no other [facility] has it. Department Chairperson called [facility] pharmacy andthey do have medication in stock. documented in this encounter Plan of Treatment Upcoming Encounters Date Type Department Care Team (Late st Contact Info) Description 01/25/2025 2:00 PM EDT Office Visit [address] [address] Emma Rodriguez FNP [address] [place] [address] 01/30/2025 10:30 AM EDT Clinical Support [address] [phone] Eloisa Santiago RN documented as of this encounter Visit Diagnoses Not on filedocumented in this encounter Additional Health Concerns Assessment Noted Time PHQ-9 Depression Total Score: 13 023 11:05 AM EDT documented as of this encounter Care Teams Pipe Or Steam Fitter Furnace Installer Relationship Specialty Start Date End Date Estuardo Damon AGNP PCP - General Family Medicine 10/05/22 07/03/23 Margie Singh FNP [address] [place] [address] PCP - General Family Medicine 07/04/23 07/16/24 Emma Rodriguez FNP [address] [place] [address] PCP - General Family Medicine 07/17/24 documented as of this encounter
--- OUTSIDE RECORDS SUMMARY | 2025-01-21 12:38 | XMS_ITS | Encounter Summary ---
Author Organization [employer] Address 75 [facility] 7t [place] [address] Care Team Providers Care Water Main Pipe Layer Name Role Phone Emma Rodriguez [facility] Primary Care Provider [phone] Reason for Visit * Reason Comments Med Refill Encounter Details Date Type Department Care Team ([facility] st Contact Info) Description 07/19/[address] [facility] [address] [place], [place] [phone] Margie Singh FNP [address] [place], [place] [phone] Social History Tobacco Use Types Packs/Day Years [...] Description 01/25/2025 2:00 PM EDT Office Visit [address] [address] Emma Rodriguez FNP [address] [place] [address] 01/30/2025 10:30 AM EDT Clinical Support [address] [address] Eloisa Santiago, VANESA documented as of this encounter Visit Diagnoses Not on filedocumented in this encounter Additional Health Concerns Assessment Noted Time PHQ-9 Depression Total Score: 10 024 2:27 PM EST documented as of this encounter Care Teams Water Main Pipe Layer Relationship Specialty Start Date End Date Emma Rodriguez FNP [address] [place] [address] PCP - General Family Medicine 07/17/24 documented as of this encounter
--- OUTSIDE RECORDS SUMMARY | 2025-01-21 12:38 | XMS_ITS | Encounter Summary ---
Author Organization [employer] Address 75 [facility] 7t [place] [address] Care Team Providers Care Floral Manager Name Role Phone Margie Singh [facility] Primary Care Provider [phone] [facility] Primary Care Provider [phone] Reason for Visit * Reason Comments Med Refill Encounter Details Date Type Department Care Team ([facility] st Contact Info) Description 01/25/2024 Refill [facility] [address] [place] [address] Margie Singh FNP [address] [place] [address] Social History Tobacco Use Types Packs/Day Years [...] 2:00 PM EDT Office Visit [facility] [address] [place] [address] MichaelEmma hassan FNP [address] [place] [address] 01/30/2025 10:30 AM EDT Clinical Support [address] [address] Eloisa Santiago, VANESA documented as of this encounter Visit Diagnoses Not on filedocumented in this encounter Additional Health Concerns Assessment Noted Time PHQ-9 Depression Total Score: 10 024 2:27 PM EST documented as of this encounter Care Teams Floral Manager Relationship Specialty Start Date End Date Margie Singh FNP [address] [place] [address] PCP - General Family Medicine 07/04/23 07/16/24 OjaiEmma FNP [address] [place] [address] PCP - General Family Medicine 07/17/24 documented as of this encounter
--- OUTSIDE RECORDS SUMMARY | 2025-01-21 12:38 | XMS_ITS | Encounter Summary ---
Author Organization [employer] Address 75 [facility] 7t [place] [address] Care Team Providers Care Web Designer Name Role Phone Radha Childress MD Primary Care Provider Estuardo Greenwood AGNP Primary Care Provider Margie Dominguez CULINARY WORKER Primary Care Provider [phone] [facility] Primary Care Provider [phone] Encounter Details Date Type Department Care Team [...] Description 01/25/2025 2:00 PM EDT Office Visit [address] [address] 01/30/2025 10:30 AM EDT Clinical Support [address] [address] Eloisa Santiago RN documented as of this encounter Visit Diagnoses Not on filedocumented in this encounter Care Teams Web Designer Relationship Specialty Start Date End Date Radha Childress MD PCP - General Family Medicine 11/04/20 10/04/22 Estuardo Damon AGNP PCP - General Family Medicine 10/05/22 07/03/23 Margie Singh FNP 230 [place] [address] PCP - General Family Medicine 07/04/23 07/16/24 Emma Rodriguez FNP [address] [place] [address] PCP - General Family Medicine 07/17/24 documented as of this encounter
--- OUTSIDE RECORDS SUMMARY | 2025-01-21 12:38 | XMS_ITS | Encounter Summary ---
Author Organization [employer] Address 75 [facility] 7t [place] [address] Care Team Providers Care Hydraulic Miner Name Role Phone Margie Singh [facility] Primary Care Provider [phone] [facility] Primary Care Provider [phone] Reason for Visit * Reason Comments Med Refill Encounter Details Date Type Department Care Team ([facility] st Contact Info) Description 07/03/2024 Refill [facility] 230 [place], [place] [phone] Margie Singh FNP 230 [place] [address] Social History Tobacco Use Types Packs/Day Years [...] 01/25/2025 2:00 PM EDT Office Visit [address] [address] [address]ma [address] [address] 01/30/2025 10:30 AM EDT Clinical Support [address] [address] Eloisa Santiago RN documented as of this encounter Visit Diagnoses Not on filedocumented in this encounter Additional Health Concerns Assessment Noted Time PHQ-9 Depression Total Score: 10 024 2:27 PM EST documented as of this encounter Care Teams Hydraulic Miner Relationship Specialty Start Date End Date Margie Singh FNP [address] [place] [address] PCP - General Family Medicine 07/04/23 07/16/24 YoakumEmma FNP [address] [place] [address] PCP - General Family Medicine 07/17/24 documented as of this encounter
--- OUTSIDE RECORDS SUMMARY | 2025-01-21 12:38 | XMS_ITS | Encounter Summary ---
Author Organization [employer] Address 75 [facility] 7t [place] [address] Care Team Providers Care Undergraduate Internship Name Role Phone Margie Singh [facility] Primary Care Provider [phone] [facility] Primary Care Provider [phone] Reason for Visit * Reason Comments Med Refill Encounter Details Date Type Department Care Team ([facility] st Contact Info) Description 03/14/2024 Refill [facility] [address] [place], [place] [phone] Margie Singh FNP [address] [place] [address] Social History Tobacco Use Types Packs/Day Years [...] 01/25/2025 2:00 PM EDT Office Visit [address] [address] MichaelEmma hassan [address] [address] 01/30/2025 10:30 AM EDT Clinical Support [address] [address] Eloisa Santiago RN documented as of this encounter Visit Diagnoses Not on filedocumented in this encounter Additional Health Concerns Assessment Noted Time PHQ-9 Depression Total Score: 10 024 2:27 PM EST documented as of this encounter Care Teams Undergraduate Internship Relationship Specialty Start Date End Date Margie Singh FNP [address] [place] [address] PCP - General Family Medicine 07/04/23 07/16/24 RangerEmma FNP [address] [place] [address] PCP - General Family Medicine 07/17/24 documented as of this encounter
--- OUTSIDE RECORDS SUMMARY | 2025-01-21 12:38 | XMS_ITS | Encounter Summary ---
Author Organization [employer] Address 75 [facility] 7t [place] [address] Care Team Providers Care Refrigerator Mover Name Role Phone Emma Rodriguez REGISTERED NURSE Primary Care Provider [phone] Encounter Details Date Type Department Care Team (Late st Contact Info) Description 01/15/2025 Orders Only [facility] External Provider, [facility] Social History Tobacco Use Types Packs/Day Years [...] Description 01/25/2025 2:00 PM EDT Office Visit [facility] [address] [place] [address] Emma Rodriguez FNP 230 [place] [address] 01/30/2025 10:30 AM EDT Clinical Support [address] [address] Eloisa Santiago RN documented as of this encounter Procedures Procedure Name Priority Date/Time Associated Diagnosis Comments CT CHEST WO CONTRAST Routine 01/15/2025 6:37 PM EST documented in this encounter Results * CT Chest w/o Contrast (01/15/2025 6:37 PM EST) Anatomical Region Laterality Modality Body, Chest Computed Tomogra phy 01/15/2025 6:37 PM EST Narrative 01/15/2025 6:38 PM EST ? [facility] ?[address] ?[place] [address] ? CT Scan Report ? Signed ? Patient: Her,Ji ?MR#: [id number] ?? 005 ? : 1985 ?Acct:[id number] ? Age/Sex: 39 / M ?ADM Date: 03/04/25 ? Loc: HO.CT ? Attending Dr: Jordan Davis MD ? Ordering Physician: Jordan Davis MD ?? Date of Service: 01/15/25 ?? Procedure(s): CT chest wo IV con ?? Accession Number(s): [id number] ? cc: Jordan Davis MD; Emma Rodriguez REGISTERED NURSE ? Report Number: ?? [id number]: Total DLP = ??388.00 mGy-cm ? CLINICAL [...] in OV> ? 01/15/25 1838 ? DD/ 183 ? TD/TT: 01/15/251836 ? Enhanced Environmental Operator: ? Procedure Note Josias, Nydia - 01/15/[address] [place] [address] [address] Scan Report Signed Patient: Jacqueline Her#: [id number] 005 : 1985Acct:[id number] Age/Sex: 39 / MADM Date: 01/15/25 Loc: HO.CT Attending Dr: Jordan Davis MD Ordering Physician: Jordan Davis MD Date of Service: 01/15/25 Procedure(s): CT chest wo IV con Accession Number(s): [id number] cc: Jordan Davis MD; UplandEmma REGISTERED NURSE Report Number: [id number]: Total DLP = 388.00 mGy-cm CLINICAL HISTORY: [...] in OV> 01/15/251837 DD/ 36 TD/TT: 01/15/251836 Enhanced Environmental Operator: [facility] External Provider IMG CT PROCEDURES Final Result documented in this encounter Visit Diagnoses Not on filedocumented in this encounter Additional Health Concerns Assessment Noted Time PHQ-9 Depression Total Score: 16 024 11:48 AM EDT documented as of this encounter Care Teams Refrigerator Mover Relationship Specialty Start Date End Date Emma Rodriguez FNP [address] [place] [address] PCP - General Family Medicine 07/17/24 documented as of this encounter
--- OUTSIDE RECORDS SUMMARY | 2025-01-21 12:38 | XMS_ITS | Encounter Summary ---
Author Organization [employer] Address 75 [facility] 7t [place] [address] Care Team Providers Care Professional Volleyball Player Name Role Phone Margie Singh [facility] Primary Care Provider [phone] [facility] Primary Care Provider [phone] Reason for Visit * Reason Comments Med Refill Encounter Details Date Type Department Care Team (Late st Contact Info) Description 08/18/2023 Refill [facility] [address] [place] [address] Estuardo Damon AGNP Social History Tobacco Use [...] 2:00 PM EDT Office Visit [facility] [address] [place] [address] [place] [facility] 230 [place] [address] 01/30/2025 10:30 AM EDT Clinical Support [facility] [address] [place] [address] Eloisa Santiago RN documented as of this encounter Visit Diagnoses Not on filedocumented in this encounter Additional Health Concerns Assessment Noted Time PHQ-9 Depression Total Score: 13 023 11:05 AM EDT documented as of this encounter Care Teams Professional Volleyball Player Relationship Specialty Start Date End Date Margie Singh FNP 230 [place] [address] PCP - General Family Medicine 07/04/23 07/16/24 Emma Rodriguez FNP 230 [place] [address] PCP - General Family Medicine 07/17/24 documented as of this encounter
--- OUTSIDE RECORDS SUMMARY | 2025-01-21 12:39 | XMS_ITS | Encounter Summary ---
Author Organization [employer] Address 75 [facility] 7t [place] [address] Care Team Providers Care Auto Claims Adjuster Name Role Phone Margie Singh [facility] Primary Care Provider [phone] Emma Rodriguez [facility] Primary Care Provider [phone] Reason for Referral * Consultation (Urgent) - Closed Specialty Diagnoses / Procedures Referred By Contac t Referred To Contact Pulmonary Disease Diagnoses Abnormal chest CT Alexandria Workman MD 230 [place] [address] Phone: tel: fax: [facility] Referral ID Status Reason Start Date Expiration Date V isits Requested Visits Authorized [id number] Closed Specialty Services Required 04/10/2024 04/10/2025 1 1 Encounter Details Date Type Department Care Team (Late st Contact Info) Description 04/10/2024 Orders Only [facility] 230 [place], [place] [phone] Alexandria Workman MD 230 [place] [address] (Primary Dx) Social History [...] Description 01/25/2025 2:00 PM EDT Office Visit [facility] [address] [place] [address] [address] 01/30/2025 10:30 AM EDT Clinical Support [facility] [address] [place] [address] Eloisa Santiago RN Scheduled Referrals Name Type [...] as of this encounter Care Teams Auto Claims Adjuster Relationship Specialty Start Date End Date Margie Singh FNP [address] [place] [address] PCP - General Family Medicine 07/04/23 07/16/24 Emma Rodriguez FNP [address] [place] [address] PCP - General Family Medicine 07/17/24 documented as of this encounter
--- OUTSIDE RECORDS SUMMARY | 2025-01-21 12:39 | XMS_ITS | Encounter Summary ---
Author Organization [employer] Address 75 [facility] 7t [place] [address] Care Team Providers Care Compugraph Operator Name Role Phone Margie Singh [facility] Primary Care Provider [phone] [facility] Primary Care Provider [phone] Reason for Visit * Reason Comments Med Refill Encounter Details Date Type Department Care Team ([facility] st Contact Info) Description 01/28/2024 Refill [facility] 230 [place], [place] [phone] Margie Singh FNP [address] [place] [address] Social History Tobacco Use Types Packs/Day Years [...] Description 01/25/2025 2:00 PM EDT Office Visit [address] [address] MichaelEmma hassan [address] [address] 01/30/2025 10:30 AM EDT Clinical Support [address] [address] Eloisa Santiago RN documented as of this encounter Visit Diagnoses Not on filedocumented in this encounter Additional Health Concerns Assessment Noted Time PHQ-9 Depression Total Score: 10 024 2:27 PM EST documented as of this encounter Care Teams Compugraph Operator Relationship Specialty Start Date End Date Margie Singh FNP [address] [place] [address] PCP - General Family Medicine 07/04/23 07/16/24 DecloEmma FNP [address] [place] [address] PCP - General Family Medicine 07/17/24 documented as of this encounter
--- OUTSIDE RECORDS SUMMARY | 2025-01-21 12:39 | XMS_ITS | Encounter Summary ---
Author Organization [employer] Address 75 [facility] 7t [place] [address] Care Team Providers Care Director Database Name Role Phone Margie Singh [facility] Primary Care Provider [phone] [facility] Primary Care Provider [phone] Reason for Visit * Reason Onset Date Comments Appointment Request 06/21/2024 Encounter Details Date Type Department Care Team ([facility] st Contact Info) Description 06/21/2024 Telephone [facility] 230 [place], [place] [phone] Margie Singh FNP [address] [place] [address] Appointment Request Social History Tobacco Use Types [...] surgeon office. * Telephone Encounter - Hung Mendzoa - 06/21/2024 3:48 PM EDT Tc from patients PEDORTHIST requesting appt for patient states the patient under went a surgical procedureon the chest and is still experiencing pain selling underwriter did ask if the patient had a follow up with surgeon PEDORTHIST stated yes and next appt is not until July documented in this encounter Plan of Treatment Upcoming Encounters Date Type Department Care Team (Late st Contact Info) Description 01/25/2025 2:00 PM EDT Office Visit [facility] [address] [place] [address] Emma Rodriguez FNP 230 [place] [address] 01/30/2025 10:30 AM EDT Clinical Support [facility] [address] [place] [address] Pamela, Eloisa, RN documented as of this encounter Visit Diagnoses Not on filedocumented in this encounter Additional Health Concerns Assessment Noted Time PHQ-9 Depression Total Score: 10 024 2:27 PM EST documented as of this encounter Care Teams Director Database Relationship Specialty Start Date End Date Margie Singh FNP [address] [place] [address] PCP - General Family Medicine 07/04/23 07/16/24 SpringfieldEmma hassan FNP 230 [place] [address] PCP - General Family Medicine 07/17/24 documented as of this encounter
--- OUTSIDE RECORDS SUMMARY | 2025-01-21 12:39 | XMS_ITS | Encounter Summary ---
Author Organization [employer] Address 75 [facility] 7t [place] [address] Care Team Providers Care Wool Spotter Name Role Phone Michael Aberdeen TRUST ADVISOR Primary Care Provider [phone] Reason for Referral * Consultation (Routine) - Closed Specialty Diagnoses / Procedures Referred By Josephine garsia Referred To Contact Physical Therapy Diagnoses Complex regional pain syndrome type 1 of right lower extremity Khadra Fernandes MD [address] [place] [address] Phone: tel: fax: [facility] PT/OT/Speech [address] [place] [phone] Phone: tel: fax: Referral ID Status Reason Start Date Expiration Date V isits Requested Visits Authorized [id number] Closed Specialty Services Required 08/15/2024 08/15/2025 1 1 Encounter Details Date Type Department Care Team (Late st Contact Info) Description 08/15/2024 Orders Only [facility] 230 [place], [place] [phone] Khadra Fernandes MD 230 [place], [place] [phone] Complex regional pain syndrome type 1 of [...] 01/25/2025 2:00 PM EDT Office Visit [facility] 230 [place] [address] [facility] 230 [place] [address] 01/30/2025 10:30 AM EDT Clinical Support [facility] [place] [address] Eloisa Santiago, VANESA Scheduled Referrals Name Type [...] documented as of this encounter Care Teams Wool Spotter Relationship Specialty Start Date End Date Emma [place] [address] PCP - General Family Medicine 07/17/24 documented as of this encounter
--- OUTSIDE RECORDS SUMMARY | 2025-01-21 12:39 | XMS_ITS | Encounter Summary ---
Author Organization [employer] Address 75 [facility] 7t [place] [address] Care Team Providers Care Cutter Gas Name Role Phone Estuardo Damon AGNPablo Primary Care Provider Unavail Margie Huitron GIS SPECIALIST Primary Care Provider [phone] SavannahEmma GIS SPECIALIST Primary Care Provider [phone] Reason for Visit * Reason Onset Date Comments Med Refill 02/18/2023 Encounter Details Date Type Department Care Team (Late st Contact Info) Description 02/18/2023 Refill [facility] 230 [place] [address] Estuardo Damon AGNP Complex regional pain syndrome [...] oxycodone 5 mg Please contact pt at [phone] * Telephone Encounter - LUIS ALFREDO Clayton [...] in his duration from 15 to 30. NUCLEAR MEDICAL TECHNOLOGIST note to you on 02/02/23 said this: He attends the pain management clinic in [place]. He states that on 02/14/23 he's supposed [...] Description 01/25/2025 2:00 PM EDT Office Visit [address] [address] Emma Rodriguez FNP [address] [place] [address] 01/30/2025 10:30 AM EDT Clinical Support [address] [address] Eloisa Santiago RN documented as of this encounter Visit Diagnoses Diagnosis Complex regional pain syndrome type 1 of right lower extremity documented in this encounter Additional Health Concerns Assessment Noted Time PHQ-9 Depression Total Score: 11 023 3:30 PM EDT documented as of this encounter Care Teams Cutter Gas Relationship Specialty Start Date End Date Estuardo Damon AGNP PCP - General Family Medicine 10/05/22 07/03/23 Margie Singh FNP [address] [place] [address] PCP - General Family Medicine 07/04/23 07/16/24 Emma Rodriguez FNP [address] [place] [address] PCP - General Family Medicine 07/17/24 documented as of this encounter
--- OUTSIDE RECORDS SUMMARY | 2025-01-21 12:39 | XMS_ITS | Encounter Summary ---
Author Organization [employer] Address 75 [facility] 7t [place] [address] Care Team Providers Care Shoemaking Finisher Name Role Phone Margie Singh [facility] Primary Care Provider [phone] Emma Rodriguez [facility] Primary Care Provider [phone] Reason for Referral * Consultation (STAT) - Canceled Specialty Diagnoses / Procedures Referred By Josephine garsia Referred To Contact Thoracic Surgery Diagnoses Abnormal chest CT Alexandria Workman MD 230 [place] [address] Phone: tel: fax: [facility] Pulmonary [address] Floor [place], [place] Phone: tel: fax: Referral ID Status Reason Start Date Expiration Date Visits Requested Visits Authorized [id number] Canceled Specialty Services Required 04/06/2024 04/06/2025 1 1 Encounter Details Date Type Department Care Team (Late st Contact Info) Description 04/06/2024 Orders Only [facility]INE 230 [place] [address] Alexandria Workman MD [address] [place], [place] [phone] Abnormal chest CT (Primary Dx) Social History [...] Description 01/25/2025 2:00 PM EDT Office Visit [facility] [address] [place] [address] Granite QuarryEmma [address] [address] 01/30/2025 10:30 AM EDT Clinical Support [facility]INE [address] [place] [address] Eloisa Santiago, RN Scheduled Referrals Name Type [...] documented as of this encounter Care Teams Shoemaking Finisher Relationship Specialty Start Date End Date Margie Singh FNP [address] [place] [address] PCP - General Family Medicine 07/04/23 07/16/24 Granite QuarryEmma hassan FNP [address] [place] [address] PCP - General Family Medicine 07/17/24 documented as of this encounter
--- OUTSIDE RECORDS SUMMARY | 2025-01-21 12:39 | XMS_ITS | Encounter Summary ---
Author Organization [employer] Address 75 [facility] 7t [place] [address] Care Team Providers Care It Security Consultant Name Role Phone [place] [facility] Primary Care Provider [phone] Reason for Visit * Reason Onset Date Comments Med Refill 01/02/2025 Encounter Details Date Type Department Care Team (Late st Contact Info) Description 01/02/2025 Refill [facility] [address] [place], [place] [phone] [facility] 230 [place] [address] Insomnia, unspecified type Social History Tobacco Use [...] MG tablet To be sent to: [facility]/pharmacy #[id number] [facility] [phone] [place] [address] documented in this encounter Plan of Treatment Upcoming Encounters Date Type Department Care Team (Late st Contact Info) Description 01/25/2025 2:00 PM EDT Office Visit [facility] [address] [place] [address] Emma Rodriguez FNP [address] [place] [address] 01/30/2025 10:30 AM EDT Clinical Support [address] [address] Eloisa Santiago RN documented as of this encounter Visit Diagnoses Diagnosis Insomnia, unspecified type documented in this encounter Additional Health Concerns Assessment Noted Time PHQ-9 Depression Total Score: 16 024 11:48 AM EDT documented as of this encounter Care Teams It Security Consultant Relationship Specialty Start Date End Date Emma Rodriguez FNP [address] [place] [address] PCP - General Family Medicine 07/17/24 documented as of this encounter
--- OUTSIDE RECORDS SUMMARY | 2025-01-21 12:39 | XMS_ITS | Encounter Summary ---
Author Organization [employer] Address 75 [facility] 7t [place] [address] Care Team Providers Care Manager Pipeline Name Role Phone Estuardo Damon Primary Care Provider Unavail Margie Huitron Primary Care Provider [phone] Emma Rodriguez Primary Care Provider [phone] Reason for Visit * Reason Comments Med Refill Encounter Details Date Type Department Care Team (Late st Contact Info) Description 04/26/2023 Refill [facility] 230 [place], [place] [phone] Estuardo Damon AGNP Depressed mood Social History [...] Description 01/25/2025 2:00 PM EDT Office Visit [facility] 230 [place], [place] [phone] Emma Rodriguez FNP [address] [place] [address] 01/30/2025 10:30 AM EDT Clinical Support [facility] [address] [place] [address] Eloisa Santiago, RN documented as of this encounter Visit Diagnoses Diagnosis Depressed mood documented in this encounter Additional Health Concerns Assessment Noted Time PHQ-9 Depression Total Score: 13 023 11:05 AM EDT documented as of this encounter Care Teams Manager Pipeline Relationship Specialty Start Date End Date Estuardo Damon AGNP PCP - General Family Medicine 10/05/22 07/03/23 Margie Singh FNP 230 [place] [address] PCP - General Family Medicine 07/04/23 07/16/24 CulebraEmma hassan FNP [address] [place] [address] PCP - General Family Medicine 07/17/24 documented as of this encounter
--- OUTSIDE RECORDS SUMMARY | 2025-01-21 12:39 | XMS_ITS | Encounter Summary ---
Author Organization [employer] Address 75 [facility] 7t [place] [address] Care Team Providers Care Director Pharmaceutical Name Role Phone [place] [facility] Primary Care Provider [phone] Reason for Visit * Reason Onset Date Comments No Show 01/11/2025 Encounter Details Date Type Department Care Team ([facility] st Contact Info) Description 01/11/[address] [facility] MED[facility]INE 230 [place], [place] [phone] [facility] 230 [place], [place] [phone] No Show Social History Tobacco Use Types [...] 01/25/2025 2:00 PM EDT Office Visit [address] [address] Emma Rodriguez [address] [address] 01/30/2025 10:30 AM EDT Clinical Support [address] [address] Eloisa Santiago RN documented as of this encounter Visit Diagnoses Not on filedocumented in this encounter Additional Health Concerns Assessment Noted Time PHQ-9 Depression Total Score: 16 024 11:48 AM EDT documented as of this encounter Care Teams Director Pharmaceutical Relationship Specialty Start Date End Date Emma Rodriguez FNP [address] [place] [address] PCP - General Family Medicine 07/17/24 documented as of this encounter
--- OUTSIDE RECORDS SUMMARY | 2025-01-21 12:39 | XMS_ITS | Encounter Summary ---
Author Organization [employer] Address 75 [facility] 7t [place] [address] Care Team Providers Care Manager Regional Sales Name Role Phone [facility] Primary Care Provider [phone] Reason for Visit * Reason Onset Date Comments Med Refill 01/02/2025 Encounter Details Date Type Department Care Team (Late st Contact Info) Description 01/02/[address] [facility] [address] [place], [place] [phone] [facility] [address] [place] [address] Complex regional pain syndrome type 1 of [...] 10-325 MG tablet To be sent to: [facility]/pharmacy #[id number] [facility] [phone] [facility] documented in this encounter Plan of Treatment Upcoming Encounters Date Type Department Care Team ([facility] st Contact Info) Description 01/25/2025 2:00 PM EDT Office Visit [facility] [address] [place] [address] Emma Rodriguez FNP [address] [place] [address] 01/30/2025 10:30 AM EDT Clinical Support [facility] [address] [place] [address] Eloisa Santiago RN documented as of this encounter Visit Diagnoses Diagnosis Complex regional pain syndrome type 1 of right lower extremity documented in this encounter Additional Health Concerns Assessment Noted Time PHQ-9 Depression Total Score: 16 024 11:48 AM EDT documented as of this encounter Care Teams Manager Regional Sales Relationship Specialty Start Date End Date Emma Rodriguez FNP [address] [place] [address] PCP - General Family Medicine 07/17/24 documented as of this encounter
--- OUTSIDE RECORDS SUMMARY | 2025-01-21 12:39 | XMS_ITS | Encounter Summary ---
Author Organization [employer] Address 75 [facility] 7t [place] [address] Care Team Providers Care Assistant Fitness Manager Name Role Phone Margie Singh [facility] Primary Care Provider [phone] [facility] Primary Care Provider [phone] Reason for Visit * Reason Onset Date Comments Call Back Request 01/30/2024 Encounter Details Date Type Department Care Team ([facility] st Contact Info) Description 01/30/2024 Telephone [facility] [address] [place], [place] [phone] Margie Singh FNP [address] [place] [address] Call Back Request Social History Tobacco Use [...] EDT T/C to pt. To inform that [facility] still waiting for his insurance for [...] Description 01/25/2025 2:00 PM EDT Office Visit [facility] [address] [place] [address] Burnt RanchEmma, TOOL MACHINIST [address] [place] [address] 01/30/2025 10:30 AM EDT Clinical Support [facility] [address] [place] [address] Eloisa Santiago RN documented as of this encounter Visit Diagnoses Not on filedocumented in this encounter Additional Health Concerns Assessment Noted Time PHQ-9 Depression Total Score: 10 024 2:27 PM EST documented as of this encounter Care Teams Assistant Fitness Manager Relationship Specialty Start Date End Date Margie Singh FNP [address] [place] [address] PCP - General Family Medicine 07/04/23 07/16/24 Emma Rodriguez FNP [address] [place] [address] PCP - General Family Medicine 07/17/24 documented as of this encounter
--- OUTSIDE RECORDS SUMMARY | 2025-01-21 12:39 | XMS_ITS | Encounter Summary ---
Author Organization [employer] Address 75 [facility] 7t [place] [address] Care Team Providers Care Healthcare Prof Name Role Phone Margie Singh [facility] Primary Care Provider [phone] [facility] Primary Care Provider [phone] Reason for Visit * Reason Comments Med Refill Encounter Details Date Type Department Care Team ([facility] st Contact Info) Description 02/02/2024 Refill [facility] [address] [place], [place] [phone] Margie Singh FNP [address] [place] [address] Social History Tobacco Use Types Packs/Day Years [...] Description 01/25/2025 2:00 PM EDT Office Visit [address] [address] MichaelEmma hassan [address] [address] 01/30/2025 10:30 AM EDT Clinical Support [address] [address] Eloisa Santiago RN documented as of this encounter Visit Diagnoses Not on filedocumented in this encounter Additional Health Concerns Assessment Noted Time PHQ-9 Depression Total Score: 10 024 2:27 PM EST documented as of this encounter Care Teams Healthcare Prof Relationship Specialty Start Date End Date Margie Singh FNP [address] [place] [address] PCP - General Family Medicine 07/04/23 07/16/24 [place] FNP [address] [place] [address] PCP - General Family Medicine 07/17/24 documented as of this encounter
--- OUTSIDE RECORDS SUMMARY | 2025-01-21 12:39 | XMS_ITS | Encounter Summary ---
Author Organization [employer] Address 75 [facility] 7t [place] [address] Care Team Providers Care Content Curator Name Role Phone [place] [facility] Primary Care Provider [phone] Encounter Details Date Type Department Care Team ([facility] st Contact Info) Description 08/09/2024 Telephone [facility] 230 [place], [place] [phone] Monroe [facility] 230 [place], [place] [phone] Social History Tobacco Use Types Packs/Day Years [...] 1:26 PM EDT Tc from Tayla with [facility] calling to inform they received referral for occupational therapy but instead should be physical therapy due to pt DX . Any question please contact phone #[phone] documented in this encounter Plan of Treatment Upcoming Encounters Date Type Department Care Team (Late st Contact Info) Description 01/25/2025 2:00 PM EDT Office Visit [facility] [address] [place] [address] MonroeEmma FNP [address] [place] [address] 01/30/2025 10:30 AM EDT Clinical Support [address] [address] Eloisa Santiago RN documented as of this encounter Visit Diagnoses Not on filedocumented in this encounter Additional Health Concerns Assessment Noted Time PHQ-9 Depression Total Score: 16 024 11:48 AM EDT documented as of this encounter Care Teams Content Curator Relationship Specialty Start Date End Date Monroe LUIS ALFREDO Carter [address] [place] [address] PCP - General Family Medicine 07/17/24 documented as of this encounter
--- OUTSIDE RECORDS SUMMARY | 2025-01-21 12:39 | XMS_ITS | Encounter Summary ---
Author Organization [employer] Address 75 [facility] 7t [place] [address] Care Team Providers Care Supervisor Color Paste Mixing Name Role Phone [facility] Primary Care Provider [phone] Reason for Visit * Reason Onset Date Comments Med Refill 01/14/2025 Encounter Details Date Type Department Care Team (Late st Contact Info) Description 01/14/2025 Refill [facility] 230 [place], [place] [phone] [facility] 230 [place] [address] Complex regional pain syndrome type 1 of [...] 10-325 MG tablet To be sent to: [facility]/pharmacy #[id number] [place] [phone] [place] [address] documented in this encounter Plan of Treatment Upcoming Encounters Date Type Department Care Team (Late st Contact Info) Description 01/25/2025 2:00 PM EDT Office Visit [facility] [address] [place] [address] Emma Rodriguez FNP 230 [place] [address] 01/30/2025 10:30 AM EDT Clinical Support [facility] [address] [place] [address] Eloisa Santiago RN documented as of this encounter Visit Diagnoses Diagnosis Complex regional pain syndrome type 1 of right lower extremity documented in this encounter Additional Health Concerns Assessment Noted Time PHQ-9 Depression Total Score: 16 024 11:48 AM EDT documented as of this encounter Care Teams Supervisor Color Paste Mixing Relationship Specialty Start Date End Date Emma Rodriguez FNP [address] [place] [address] PCP - General Family Medicine 07/17/24 documented as of this encounter
--- OUTSIDE RECORDS SUMMARY | 2025-01-21 12:39 | XMS_ITS | Encounter Summary ---
Author Organization [employer] Address 75 [facility] 7t [place] [address] Care Team Providers Care Supervisor Cloth Winding Name Role Phone Estuardo Damon AGNPablo Primary Care Provider Unavail Margie Huitron [facility] Primary Care Provider [phone] [place] [facility] Primary Care Provider [phone] Reason for Visit * Reason Onset Date Comments Med Refill 04/08/2023 Encounter Details Date Type Department Care Team (Late st Contact Info) Description 04/08/2023 Refill [facility] [address] [place] [address] Estuardo Damon AGNP Complex regional pain syndrome [...] MG tablet to be sentto Rosalino at [address] [place] [address]. Please contact pt at [phone] documented in this encounter Plan of Treatment Upcoming Encounters Date Type Department Care Team (Late st Contact Info) Description 01/25/2025 2:00 PM EDT Office Visit [address] [address] Emma Rodriguez FNP [address] [place] [address] 01/30/2025 10:30 AM EDT Clinical Support [address] [address] Eloisa Santiago, VANESA documented as of this encounter Visit Diagnoses Diagnosis Complex regional pain syndrome type 1 of right lower extremity documented in this encounter Additional Health Concerns Assessment Noted Time PHQ-9 Depression Total Score: 13 023 11:05 AM EDT documented as of this encounter Care Teams Supervisor Cloth Winding Relationship Specialty Start Date End Date Estuardo Damon AGNP PCP - General Family Medicine 10/05/22 07/03/23 Margie Singh FNP [address] [place] [address] PCP - General Family Medicine 07/04/23 07/16/24 Emma Rodriguez FNP [address] [place] [address] PCP - General Family Medicine 07/17/24 documented as of this encounter
== END 2025-01-21 11:23 | disposition home or self-care (01) ==
PROVIDERS: PCP Registered Nurse; Visit Provider Surgery
DX: Z85.110 Personal history of malignant carcinoid tumor of bronchus and lung (principal)
CPT/HCPCS: 99214

== ENCOUNTER → 2025-01-21 11:07 | Outpatient (BNVA) | payer OTHER, SELFPAY | PROVIDERS: PCP Registered Nurse; Visit Provider Surgery | DX: Z85.110 Personal history of malignant carcinoid tumor of bronchus and lung (principal) | CPT/HCPCS: 99212 ==

== ENCOUNTER 2025-01-28 12:14 | Outpatient (REF) | payer OTHER, SELFPAY ==
[2025-01-28 14:02] LABS: Alanine Aminotransferase 34 U/L (0-40); Albumin Level 4.3 g/dL (3.5-5.0); Alkaline Phosphatase 83 U/L (39-117); Anion Gap 10 (12-20); Aspartate Amino Transferase 20 U/L (5-37); Bilirubin Total 0.2 mg/dL (0.0-1.0); Blood Urea Nitrogen 17 mg/dL (9-16); Calcium 9.5 mg/dL (8.4-10.2); Carbon Dioxide 24 mmol/L (22-29); Chloride 109 mmol/L (96-108); Cholesterol 171 mg/dL (<200); Estimated Glomerular Filt Rate > 60; Glucose Random 101 mg/dL (60-115); HDL Cholesterol 32 mg/dL (>40); LDL Cholesterol Calculated 70 mg/dL (<100); Potassium 4.2 mmol/L (3.3-5.1); Sodium 139 mmol/L (135-145); Total Protein 7.9 g/dL (6.5-8.0); Triglycerides 345 mg/dL (<150)
[2025-01-28 14:11] LABS: HBc Num1 0.17 S/CO (0.00-0.79); HBsAGNum1 0.26 S/CO (0.00-0.99); HIV AB/AG Nonreactive (Nonreactive); HIV Num 1 0.06 S/CO (0.00-0.99); Hepatitis A Antibody IgM 0.17 Index (0-0.79); Hepatitis B Core Antibody Nonreactive (Nonreactive); Hepatitis B Surface Antigen Negative (Negative); ~HepC Num1 0.16 S/CO (0.00-0.79); ~Hepatitis A Antibody IgM Nonreactive (Nonreactive); ~Hepatitis B Surface Antibody NONREACTIVE (Nonreactive); ~Hepatitis C Antibody Nonreactive (Nonreactive)
[2025-01-28 14:17] LABS: Syphilis Screen Reactive (Nonreactive)
[2025-01-28 15:09] LABS: CT PCR NOT DETECTED (Not Detect.); NG PCR NOT DETECTED (Not Detect.)
[2025-02-01 13:12] LABS: RPR Quantitative Non-Reactive (Nonreactive); T.Pallidum Particle Agg Test Reactive (Nonreactive)
== END 2025-01-28 12:15 | disposition home or self-care (01) ==
LOC: HO.HHCL 12:14
PROVIDERS: Visit Provider Registered Nurse
DX: E03.9 Hypothyroidism, unspecified (principal); Z11.3 Encounter for screening for infections with a predominantly sexual mode of transmission
CPT/HCPCS: 36415; 80053; 80061; 84443; 86592; 86704; 86706; 86709; 86780; 86803; 87340; 87389; 87491; 87591

== ENCOUNTER 2025-05-01 10:24 | Outpatient (AMB) | payer OTHER, SELFPAY ==
[2025-05-01 10:37] VITALS: BP 120/74; PULSE 99; O2SAT 98; BMI 38.2
--- NOTE | 2025-05-01 10:37 | MHC.OFFVIS ---
Vital Signs 05/01/25 10:37 Height 5 ft 8 in Weight 251 lb 5.231 oz BMI 38.2 BP 120/74 Blood Pressure Location Lt brachial Position Sitting Pulse 99 Pulse Source Pulse Oximeter Pulse Oximetry (%) 98 Oxygen Delivery Method Room Air Intake Visit Reasons: Hx Lung CA/Cough Prescription Benefit Specialist Required: No Accompanied by: Self / Same As Patient Allergies No Known Allergies Allergy (Verified 05/01/25 10:41) HPI Comments Details: The patient is a 40-year-old gentleman the cough tends to be moderate severity. Typically nonproductive although he feels like he has something to clear and just can not clear. During the workup the patient had a chest x-ray followed by CT scan of the chest. I personally reviewed the CT scan with the patient. Appears to have a masslike consolidation in the left lower lobe area in the infrahilar area as well. Seems to be some mucus plugging of some type question endobronchial lesion the patient denies choking on any particular foods. Denies any weight loss or night sweats. He denies any hemoptysis. the patient also has been trying to quit smoking. He has had a hard time. We talked about performing a bronchoscopy. The patient is agreeable this time. I did describe the procedure and the benefits of the procedure. The patient would like to pursue the procedure soon as possible. 05/03/2024 The patient is here for a follow up bronchsocopy. He did have a mass obstructing his LLL bronchus with pus suggesting a post obstructive pneumonia. Pathology consistent with carcinoid. He completed the Augmentin and starting to cough again. He will have PFTs and awaiting referral with Thoracic surgery. 08/06/2024 the patient is here for a pulmonary follow-up visit. The patient is status post a left lower lobe lobectomy for his cancer. He was able to avoid a full pneumonectomy which is reassuring. He did need an open procedure her. There is still painful and numb. He understands that will be the like this for a long time maybe years. He can try [id number] medications for it. In the meantime the patient went back to smoking. We did talk about the importance of him quitting. He had a reaction to the patch. I will send him the echo read gum at this time. We did look at the pathology after his surgery. 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 Two of the lymph nodes were negative and the borders were also negative. However, due to the concerning nature in aggressive nature of atypical carcinoid I believe that a referral to Oncology be important in order to monitor for any metastatic disease. 10/22/2024 the patient is here for a pulmonary follow-up visit. Overall he is doing okay. Although he started developing worsening cough with chest tightness and wheezing. He does have a rescue inhaler that he uses once in a while. The patient has had positive contacts were sick contacts. Therefore will go ahead and treat him for bronchitis. In the meantime concerned about his carcinoid history. His respiratory exam is reassuring. He can always undergo a chest x-ray. I did order 1 for him. In the meantime will plan to do a repeat CT scan in 5-6 months. The patient is still smoking. She needs to quit smoking. Although he does enjoy smoking. He is willing to try Chantix. Prior to starting the Chantix he will let his partner no to monitor him for any depressive symptoms. If the patient is not better after the medications provided he will call for further recommendations. 05/01/2025 the patient is here for a pulmonary follow-up visit. Overall the patient has been doing well. His last CT scan was back in January of 2025 which I personally reviewed. His has postoperative changes. No evidence of any recurrence. Indeed he had atypical carcinoid which is more concerning. He does have some atelectasis and still some discomfort the site of the surgery. He is still smoking. His CAT scan also personally by me demonstrates some areas of ground-glass opacity suggesting some pneumonitis. Will go ahead and plan to repeat the CAT scan around September 2025. If continues to be stable then will make it a year. The patient has been using his inhalers with good effect. He is still has wheezing on examination. Explained to him that he is likely has interstitial lung disease due to the smoking. He needs to quit. He had been on Chantix although he stopped it. He is considering going back on it. He is not ready to quit at this time. 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 Low back pain Surgical History History of foot surgery History of bronchoscopy History of circumcision Carcinoid tumor (~04/2024) Family History Father Lung cancer Mother Ovarian cancer Social History (Updated 05/01/25 @ 10:43 by Vanita Coffey CMA) Household Members: Spouse Housing: Apartment Are you a primary career coordinator to a significant other at home: No Do you presently have visiting nurse or other home services: Yes Patient Tobacco Use Status: Current everyday Tobacco user Tobacco use type: Cigarette Cigarette Packs Per Day: 1 Substance Use Type: Marijuana service: No Current occupational status: disabled Review of Systems Const Denies fever(s) and Denies weight loss Eyes Reports no additional complaints ENT Denies dysphagia Card Denies palpitations Resp Reports chest congestion, Reports cough, Denies hemoptysis and Reports wheezing GI Denies dysphagia Musc Reports back pain, Reports myalgias and Reports numbness Skin/Breast Denies rash Neuro Reports numbness, Reports radicular pain and Reports paresthesias Endo Denies palpitations Zenon/Lymph Denies lymphadenopathy Aller/Immun Reports wheezing Physical Exam Vital Signs: Last Vital Signs Pulse 99 05/01/25 10:37 BP 120/74 05/01/25 10:37 Pulse Ox 98 05/01/25 10:37 Oxygen Delivery Method Room Air 05/01/25 10:37 BMI result Body Mass Index 38.2 Const General: comfortable HEENT Head: Yes normocephalic Neck Neck: Yes supple Chest Chest palpation & inspection: normal inspection of the chest Resp Effort & Inspection: normal respiratory effort Auscultation: wheezes and diminished lung sounds on the left Cardio Heart sounds: S1 normal heart sound present and S2 normal heart sound present GI Palpation (GI): Soft to palpation Extrem General: Yes no clubbing, cyanosis or edema Assessment & Plan Assessment & Plan (1) Atypical carcinoid lung tumor: Code(s): 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 Category: Medical (2) Tobacco dependence: Code(s): F17.200 - Nicotine dependence, unspecified, uncomplicated Category: Medical (3) COPD (chronic obstructive pulmonary disease): Code(s): J44.9 - Chronic obstructive pulmonary disease, unspecified Category: Medical Qualifiers: COPD type: COPD with acute exacerbation Qualified Code(s): J44.1 - Chronic obstructive pulmonary disease with (acute) exacerbation (4) Pneumonitis: Code(s): J98.4 - Other disorders of lung Category: Medical Plan EUGENE as needed serial CT chest September 2025 Wixela BID needs to quit smoking F/U 6 months Orders: Orders CT chest wo IV con 10/14/25 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, J98.4 - Other disorders of lung Coding Level of Care Code Est Pt Level 4 (50813) Complex EM visit Add On G2211 Diagnoses Atypical carcinoid lung tumor C7A.090 Tobacco dependence F17.200 Chronic obstructive pulmonary disease with acute exacerbation J44.1 COPD type: COPD with acute exacerbation Pneumonitis J98.4 Time Spent (min) 17
--- OUTSIDE RECORDS SUMMARY | 2025-05-01 11:48 | XMS_ITS | Encounter Summary ---
Author Organization [employer] Address 75 [facility] 7t [place] [address] Care Team Providers Care Purchase Order Checker Name Role Phone Margie Singh [facility] Primary Care Provider [phone] [facility] Primary Care Provider [phone] Reason for Visit * Reason Onset Date Comments Med Refill 07/08/2023 Encounter Details Date Type Department Care Team (Late st Contact Info) Description 07/08/2023 Telephone [facility]ICINE [address] [place], [place] [phone] Margie Singh FNP [address] [place] [address] Med Refill Social History Tobacco Use Types [...] medication oxycodone 10 mg. Please send to [facility]/pharmacy #[id number] - [place], [place] - [address] PCP [address] Singh documented in this encounter Plan of Treatment Upcoming Encounters Date Type Department Care Team (Late st Contact Info) Description 05/08/2025 10:00 AM EDT Clinical Support [address] [address] Eloisa Santiago, RN 06/10/2025 1:00 PM EDT Office Visit [address] [address] Emma Rodriguez FNP [address] [place] [address] documented as of this encounter Visit Diagnoses Not on filedocumented in this encounter Additional Health Concerns Assessment Noted Time PHQ-9 Depression Total Score: 13 023 11:05 AM EDT documented as of this encounter Care Teams Purchase Order Checker Relationship Specialty Start Date End Date Margie Singh FNP [address] [place] [address] PCP - General Family Medicine 07/04/23 07/16/24 Emma Rodriguez FNP [address] [place] [address] PCP - General Family Medicine 07/17/24 documented as of this encounter
== END 2025-05-01 10:56 | disposition home or self-care (01) ==
LOC: HO.HPS 10:25
PROVIDERS: PCP Registered Nurse; Visit Provider Hospitalist
DX: C7A.090 Malignant carcinoid tumor of the bronchus and lung (principal); F17.200 Nicotine dependence, unspecified, uncomplicated; J44.1 Chronic obstructive pulmonary disease with (acute) exacerbation; J98.4 Other disorders of lung
CPT/HCPCS: 99213; G2211

== ENCOUNTER → 2025-05-01 10:24 | Outpatient (BNVA) | payer OTHER, SELFPAY | PROVIDERS: PCP Registered Nurse; Visit Provider Hospitalist | DX: C7A.090 Malignant carcinoid tumor of the bronchus and lung (principal); J44.1 Chronic obstructive pulmonary disease with (acute) exacerbation; F17.200 Nicotine dependence, unspecified, uncomplicated | CPT/HCPCS: 99212 ==

== ENCOUNTER 2025-06-03 10:55 | Outpatient (AMB) | payer OTHER, SELFPAY ==
--- NOTE | 2025-06-03 11:24 | MHC.OFFVIS ---
Vital Signs 06/03/25 11:28 Height 5 ft 8 in Weight 241 lb 8 oz BMI 36.7 BP 124/75 Blood Pressure Location Lt brachial Position Sitting Pulse 84 Pulse Source Pulse Oximeter Pulse Oximetry (%) 99 Oxygen Delivery Method Room Air Intake Visit Reasons: Right Club Foot Pain SARAVANAN 08/27/22 Intake Note: Pain today 05/23 Centrifugal Extractor Operator Required: No Accompanied by: Self / Same As Patient Allergies No Known Allergies Allergy (Verified 06/03/25 11:29) HPI Comments Details: The patient is a 40-year-old male presenting with chronic pain and neuropathic pain in the right foot and ankle. The pain has been persistent since a previous right ankle surgery, with no recent fall or injury reported. The patient experiences severe arthritis in the joints, specifically the talocrural and talonavicular joints, with mild to moderate osteoarthritis noted. Pain interferes with daily activities, sleep, mood and mobility, requiring assistance for driving. 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 Clay in 2011 and painful hardware removal and talar exostectomy by Dr. Robledo in 2017. He has been in chronic pain since his right ankle and foot surgeries at rest and with activities. He has completed physical therapy, bracing, diagnostic injections, and failed trial spinal cord stimulator in the past through [facility]. He is currently taking oxycontin through his PCP office and was considering possible amputation of his right lower extremity. [facility] neuromodulation with potential peripheral nerve stimulation. The patient reports significant allodynia around the right ankle, with swelling, skin changes, hairloss, stiffness, decreased ROM, squeezing sensations and trophic changes observed. Previous interventions at [facility] included a nerve block, which provided temporary relief for 2 hours, and the patient is considering a [employer] spinal cord stimulator for long-term management for right lower extremity CRPS related pain. Denies any recent cough, cold, infection, fever or any other significant changes in medical history since last office visit. PRIOR 08/27/22: Patient is a pleasant 37 years old male who presents today with right foot and ankle pain related to congenital clubfoot deformity for which he underwent multiple subsequent surgeries and developed CRPS of RLE. Patient is accompanied by his TRANSMISSION AND PROTECTION ENGINEER Bo. He also reports axial back pain that radiates to his right lower extremity laterally with associated numbness and tingling in his right foot. Pain is described as constant throbbing, stabbing, sharp, tingling, sore, hurting, aching, tight, squeezing and cold. He reports swelling of the right foot with associated deformity, decreased ROM, stiffness, hyperalgesia, tingling, cold sensations throughout his right foot and ankle. Patient reports color changes of his right foot during the winter season. Pain is constant throughout day and night and is not dependent on activity in his right foot. He is wearing a larger size than his usual foot size due to accommodate for swelling. Patient reports he usually wears sandals at home as wearing shoes on his right foot provokes his pain. Back pain is worsened with walking or prolonged sitting. Pain affects his daily functioning, activities, mood, sleep and quality of life. Patient denies any fever, weight changes, bowel or bladder incontinence or saddle anesthesia. Ambulates with antalgic gait, limping on the left side with the assistance of cane. Patient has been followed by Dr. Clay at [facility] who was considering amputation but previous provider who retired at [facility] was apprehensive that amputation will not change nerve pain and outcomes. Patient reports his foot surgeries involved fusion and partial hardware removal in 2016. He notes that remaining hardware was attempted to be removed but unsuccessful due to screws losing its rolled materials worker. Patient?s prior medications included duloxetine, gabapentin, and oxycodone-acetaminophen 10-325 2 tabs Q6H prn. Patient reports he used to take oxycodone every 4 hours and that provided him with better pain relief. He is also taking Zonisamide 200 mg every am and 300 mg every pm for pain. Patient reports therapeutic injections, failed SCS trial and compound topical have also been tried but provided no pain relief for him. Patient reports his depression has been getting worse due to low quality of life due to pain. He would like to explore interventional procedures, including ITDD pump trial and implant. Patient reports he used to see psychiatrist Dr. De La Cruz who is no longer seeing him. Patient is in the process of establishing care with a new mental health therapist. He has been having labile mood, low energy and increased frustration due to daily chronic pain. Denies SI/HI or hallucinations. Patient reports if interventional procedures will not alleviate his pain, he will proceed with amputation. [facility] Medical History (Updated 06/03/25 @ 15:42 by LUIS ALFREDO Perez) Pneumonitis COPD (chronic obstructive pulmonary disease) Atypical carcinoid lung tumor Thyroid disease Arthritis Back pain Foot pain, right Anxiety Depression Emphysema of lung Asthma Tobacco dependence Osteoarthritis of ankle COPD, mild Neuropathic pain of right lower extremity Lumbar radiculopathy Complex regional pain syndrome of lower extremity Obstructive sleep apnea Obesity Bipolar disorder Hypothyroidism Nondependent alcohol abuse Severe episode of recurrent major depressive disorder Low back pain Surgical History History of foot surgery History of bronchoscopy History of circumcision Carcinoid tumor (~04/2024) Family History Father Lung cancer Mother Ovarian cancer Social History Household Members: Spouse Housing: Apartment Are you a primary customer care assistant to a significant other at home: No Do you presently have visiting nurse or other home services: Yes Patient Tobacco Use Status: Current everyday Tobacco user Tobacco use type: Cigarette Cigarette Packs Per Day: 1 Substance Use Type: Marijuana service: No Current occupational status: disabled Review of Systems Const Details: - Musculoskeletal: Reports chronic pain and nerve pain in the right foot and ankle - Neurological: Reports allodynia around the right ankle - Psychiatric: Denies suicidal ideation, reports regular contact with psychiatrist All systems reviewed & are unremarkable except as noted in HPI and below Physical Exam General: Appears afebrile. Alert and oriented. Mood and affect appropriate. Follows and participates in conversation appropriately. Respiratory effort is unlabored. No cough. Able to transition from sit to stand unassisted. Ambulates with antalgic gait, mild limping. Uses cane at home. Back/Spine/Pelvis Cervical Spine: normal cervical lordosis, cervical ROM normal, cervical muscular tenderness and No Cervical spine tenderness Thoracic/Lumbar Spine: thoracic and lumbar spine normal to inspection, Lasegue's sign negative, straight leg raise negative bilaterally, pain with thoraco-lumbar ROM, paraspinal muscle tenderness, thoraco-lumbar ROM limited with forward flexion (WNL) and with lateral flexion to the left (limited by pain), No thoracic spinal tenderness and lumbar spinal tenderness at L4 and at L5 Sacroiliac joints: bilaterally tender to palpation Extrem Other: Right foot: Hyperalgesia and TTP throughout distal right leg and right foot, guarded throughout exam. Clubfoot deformity with associated edema, stiffness, decreased ROM with several well healed scars. Decreased sensation in the right lateral and medial foot. +1 pedal pulses with decreased capillary refill on the right. Significant allodynia around the right ankle, with swelling, skin changes, hairloss, stiffness, decreased ROM, squeezing sensations and trophic changes observed. Psych Appearance: grossly normal Mental Status: mental status grossly normal Speech and movement: Normal speech and movement present Affect: normal affect and Sad affect present Attitude: cooperative Thought process: Normal thought process present Thought content: Normal thought content present, suicidality (none), no hallucinations and No Depressive thoughts present Insight: Good insight present (Psych) Judgement: Good judgement present (Psych) Results Reviewed Results Reviewed: MR ANKLE WITHOUT CONTRAST, RIGHT 10/25/24 CLINICAL INFORMATION: Nerve pain. No fall, no injury. Loss of function. COMPARISON: MRI of the right foot 10/15/2024. TECHNIQUE: MRI of the ankle was performed using routine sequences on a high-field scanner. FINDINGS: Subcutaneous soft tissues: Mild generalized edema. Muscles/tendons: Findings compatible with postsurgical changes posteriorly likely involving at least the flexor pollicis longus tendon and possibly the flexor digitorum longus. The tendons are not well visualized and attenuated. There is atrophy and fatty infiltration of the respective muscles. The Achilles tendon appears intact. Plantar fascia: Intact. Neurovascular structures/tarsal tunnel: Intact. Ligaments: Unremarkable. Osseous structures: Postsurgical changes related to old arthrodesis involving the subtalar joint and talonavicular joint and calcaneocuboid joint. The hardware is noted extending from the calcaneus into the cuboid. Both tracts extend between the calcaneus and talus and between the talus and navicular compatible with hardware removal related to the arthrodesis surgery. Talocrural joint: There is cartilage heterogeneity and nonuniform up to high-grade cartilage loss along the medial aspect of the joint indicative of mild-moderate osteoarthritis. There is associated subchondral cystic change. Talonavicular joint: There is subchondral cystic change and edema indicative of moderate osteoarthritis. IMPRESSION: 1. Postsurgical changes related to old arthrodesis involving the subtalar joint, talonavicular joint and calcaneal cuboid joint. 2. Mild-moderate osteoarthritis of the talocrural joint. 3. Moderate osteoarthritis of the talonavicular joint. 4. Mild generalized edema in the subcutaneous soft tissues. 5. Probable postsurgical changes involving the flexor hallucis longus and flexor digitorum longus tendons and possibly the Achilles. MR FOOT WITHOUT CONTRAST, RIGHT 10/15/24 CLINICAL INFORMATION: Chronic right foot and ankle pain. Pain and swelling. Surgery for club foot. COMPARISON: None. TECHNIQUE: Multisequence MR imaging of the right foot was obtained without contrast on a high-field strength scanner. FINDINGS: BONE: No metatarsal stress reaction or fracture. No evidence of acute osseous injury. Partially visualized diffuse full-thickness articular cartilage loss with subchondral cystic change, marrow edema, and marginal osteophytes at the middle and lateral cuneonavicular joints. Within the base of the second metatarsal, there is a heterogeneously low T1 and high T2 signal focus measuring up to 1.5 cm in greatest dimension with areas of internal normal marrow signal. No cortical erosion or expansion. No edema. Findings are consistent with an enchondroma. No concerning lytic or blastic osseous lesion. MUSCLES/TENDONS: The visualized flexor and extensor tendons are intact. No transverse tendon tear or tendon retraction. LIGAMENTS: Intact Lisfranc ligament. The plantar plates are intact. SOFT TISSUES: No soft tissue mass. No forefoot neuroma. Trace fluid interposed between the third and fourth metatarsal heads consistent with minimal adventitial bursitis. IMPRESSION: 1. Severe osteoarthritis at the middle and lateral cuneiform navicular joints. 2. Minimal adventitial bursitis interposed between the third and fourth metatarsal heads. 3. No metatarsal stress reaction or fracture. 4. Enchondroma within the base of the second metatarsal. No concerning lytic or blastic osseous lesion. Assessment & Plan Assessment & Plan (1) Complex regional pain syndrome of lower extremity: Comment: (CRPS of [facility] Rt foot for congenital clubbing) Code(s): G90.529 - Complex regional pain syndrome I of unspecified lower limb Category: Medical (2) Neuropathic pain of right lower extremity: Code(s): M79.2 - Neuralgia and neuritis, unspecified Category: Medical (3) Foot pain, right: Code(s): M79.671 - Pain in right foot Category: Medical (4) Chronic pain of right ankle: Code(s): M25.571 - Pain in right ankle and joints of right foot; G89.29 - Other chronic pain Category: Medical (5) Arthritis of right foot: Code(s): M19.071 - Primary osteoarthritis, right ankle and foot Category: Medical Plan The plan includes booking the patient for a sympathetic nerve block to assess pain relief and determine the suitability for a spinal cord stimulator trial for CRPS related pain of right lower extremity. If the nerve block provides significant relief, a [employer] spinal cord stimulator trial will be considered. Informational pamphlets were provided to patient today. Schedule diagnostic right lumbar sympathetic nerve block with local and fluoroscopy. Expectations, risks and benefits were reviewed. Patient is aware he will be contacted to schedule this procedure. All questions and concerns have been answered and patient agreed with the plan. Follow up after injections and sooner as needed. Patient was informed and verbally consented to the use of an ambient scribe for clinic note documentation during this visit. Coding Level of Care Code Est Pt Level 4 (56295) Complex EM visit Add On G2211 Diagnoses Complex regional pain syndrome of lower extremity G90.529 Neuropathic pain of right lower extremity M79.2 Foot pain, right M79.671 Chronic pain of right ankle M25.571; G89.29 Arthritis of right foot M19.071
[2025-06-03 11:28] VITALS: BP 124/75; PULSE 84; O2SAT 99; BMI 36.7
--- OUTSIDE RECORDS SUMMARY | 2025-06-03 12:02 | XMS_ITS | Encounter Summary ---
Author Organization [employer] Address [address] [place] [address] Care Team Providers Care Computing Machine Operator Name Role Phone [facility] Primary Care Provider [phone] [facility] Primary Care Provider [phone] Reason for Visit * Reason Onset Date Comments Med Refill 07/08/2023 Encounter Details Date Type Department Care Team (Late st Contact Info) Description 07/08/2023 Telephone [facility] [address], [place] [phone] Margie Singh FNP [address] [place] [address] Med Refill Social History Tobacco Use Types [...] medication oxycodone 10 mg. Please send to [facility]/pharmacy #[id number] - [place], [place] - [address] PCP [address] Singh documented in this encounter Plan of Treatment Upcoming Encounters Date Type Department Care Team (Late st Contact Info) Description 06/10/2025 1:00 PM EDT Office Visit [facility] [address] [place] [address] Emma Rodriguez FNP [address] [place] [address] 08/05/2025 10:30 AM EDT Clinical Support [facility] [address] [place] [address] Eloisa Santiago RN documented as of this encounter Visit Diagnoses Not on filedocumented in this encounter Additional Health Concerns Assessment Noted Time PHQ-9 Depression Total Score: 13 023 11:05 AM EDT documented as of this encounter Care Teams Computing Machine Operator Relationship Specialty Start Date End Date Margie Singh FNP [address] [place] [phone] PCP - General Family Medicine 07/04/23 07/16/24 Emma Rodriguez FNP [address] [place] [phone] PCP - General Family Medicine 07/17/24 documented as of this encounter
--- OUTSIDE RECORDS SUMMARY | 2025-06-03 12:02 | XMS_ITS | Clinical Summary ---
Author Organization [facility] Address [address] [place] [phone] Phone Care Team Providers Care Body Wirer Name Role Phone Emma Rodriguez LUIS ALFREDO Primary Care Provider [phone] Allergies No known active allergies Medications zolpidem (AMBIEN) 10 mg tablet Take 10 mg by mouth nightly at bedtime as needed for sleep. Active albuterol 90 mcg/actuation inhaler Inhale 2 puffs into the lungs every 6 (six) hours as needed for wheezing. Active levothyroxine (SYNTHROID, LEVOTHROID) 75 MCG tablet Take 75 mcg by mouth every morning. Active cholecalciferol 10 mcg/drop (400 unit/drop) oral drops Take 50,000 Units by mouth. Active buPROPion (WELLBUTRIN XL) 300 MG ER 24 hr tablet Take 300 mg by mouth daily. Active oxyCODONE-aceta minophen (PERCOCET) 5-325 mg per tablet Take 1 tablet by mouth every 4 (four) hours as needed for pain (specific location in comments). {PARTIAL FILL:22112} Active docusate sodium (COLACE) 100 MG capsule Take 100 mg by mouth 2 (two) times a day. Active gabapentin (NEURONTIN) 300 MG capsule Take 1 capsule (300 mg total) by mouth 3 (three) times a day. 90 capsule 10/05/2022 Active Social History Tobacco Use Types Packs/Day Years Used Date Smoking Tobacco: Never Assessed Education Answer Date Recorded Are you interested in more education? Not on brian e 03/12/2023 Are you concerned about learning? Not on file 03/12/2023 No 03/12/2023 No 03/12/2023 Digital Access Answer Date Recorded No 04/10/2023 No 04/10/2023 Reliable internet access at home? Not on file 04/10/2023 Device with a working camera? Not on file Sex and Gender Information Value Date Recorded Sex Assigned at Male 07/10/2021 11:09 AM EDT Legal Sex Male 11:00 AM EDT Gender Identity Male 07/10/2021 11:09 AM EDT Sexual Orientation Straight 07/10/2021 11 :09 AM EDT Last Filed Vital Signs Vital Sign Reading Time Taken Comments Blood Pressure - - Pulse - - Temperature - - Respiratory Rate - - Oxygen Saturation - - Inhaled Oxygen Concentration - - Weight 99.8 kg (220 lb) 07/23/2021 2:23 PM EDT Height 172.7 cm (5' 8 ) 07/23/2021 2:23 PM EDT Body Mass Index 33.45 07/23/2021 2:23 PM EDT Plan of Treatment Health Maintenance Due Date Last Done Comments LIPID PANEL 1983 TSH LEVEL 1983 DEPRESSION SCREENING 1995 SMOKING Hx and SMOKELESS TOBACCO SCREENING 02/22/1996 HEPATITIS C SCREENING 2001 HIV ONE-TIME SCREENING (18-6 5 YEARS) 2001 Adult Td,Tdap Booster 09/07/2021 09/07/2011 COVID-19 VACCINE (3 - 2023-2 5 season) 2024 04/04/2021, 03/07/2021 PNEUMOCOCCAL VACCINES (0-49 years) Aged Out 09/07/2011 No longer eligible b ased on patient's age to complete this topic HEPATITIS A VACCINES Aged Out No long er eligible based on patient's age to complete this topic HIB VACCINES Aged Out No longer eligi ble based on patient's age to complete this topic MENINGOCOCCAL VACCINES (ACWY) Aged Out No longer eligible based on patient's age to complete this topic MENINGOCOCCAL VACCINES (B) Aged Out N o longer eligible based on patient's age to complete this topic Medical Devices Not on file Insurance MEDICARE PART A & B Member Subscriber Plan / Payer (Ef fective 2012-Present) Name:Ji Her Member ID:[id number] Relation to Subscriber:Self Name:Ji Her Subscriber ID:[id number] Payer ID:[id number] Group ID:Not on file Type:Medicare Address: [employer] [address] ONE CARE MEDICARE REPLACEMENT TONYA POLANCO [facility] MEDICARE PART A & B Member Subscriber Plan / Payer ( fective 2012-Present) Name:Ji Her Member ID:[id number] Relation to Subscriber:Self Name:Ji Her Subscriber ID:[id number] Payer ID:[id number] Group ID:Not on file Type:Medicare Address: [employer] [address] [place] [id number] [facility] CARE MEDICARE REPLACEMENT MEDICARE PART A & B CARE MEDICARE REPLACEMENT [place] [address] MEDICARE PART A & B Member Subscriber Plan / Payer ( fective 2012-Present) Name:Ji Her Member ID:[id number] Relation to Subscriber:Self Name:Ji Her Subscriber ID:[id number] Payer ID:[id number] Group ID:Not on file Type:Medicare Address: [employer] [address] [place] [id number] [place] [address] CARE MEDICARE REPLACEMENT MEDICARE PART A & B [place] [id number] MEDICARE PART A & [place] [place] [address] CARE MEDICARE REPLACEMENT MEDICARE PART A & B [facility] CARE MEDICARE REPLACEMENT MEDICARE PART A & B [facility] ONE CARE MEDICARE REPLACEMENT MEDICARE PART A & B [facility] ONE CARE MEDICARE REPLACEMENT [facility] ONE CARE MEDICARE REPLACEMENT MEDICARE PART A & B Care Teams Body Wirer Relationship Specialty Start Date End Date Emma Rodriguez FNP [address] [place] [phone] PCP - General Nurse Practitioner 08/21/24 Additional Source Comments The information contained in this document represents components of the legal health record. It is not the complete legal health record.[facility]
== END 2025-06-03 11:44 | disposition home or self-care (01) ==
PROVIDERS: PCP Registered Nurse; Referring Provider Orthopaedic Surgery; Visit Provider Nurse Practitioner Family
DX: G90.529 Complex regional pain syndrome I of unspecified lower limb (principal); M79.2 Neuralgia and neuritis, unspecified; M79.671 Pain in right foot; M25.571 Pain in right ankle and joints of right foot; G89.29 Other chronic pain; M19.071 Primary osteoarthritis, right ankle and foot
CPT/HCPCS: 99214; G2211

== ENCOUNTER → 2025-06-03 10:55 | Outpatient (BNVA) | payer OTHER, SELFPAY | PROVIDERS: PCP Registered Nurse; Referring Provider Orthopaedic Surgery; Visit Provider Nurse Practitioner Family | DX: M79.671 Pain in right foot (principal); G90.521 Complex regional pain syndrome I of right lower limb; M79.2 Neuralgia and neuritis, unspecified; M25.571 Pain in right ankle and joints of right foot; M19.071 Primary osteoarthritis, right ankle and foot | CPT/HCPCS: 99212 ==

== ENCOUNTER 2025-07-11 08:17 | Outpatient (REF) | payer OTHER, SELFPAY ==
--- OUTSIDE RECORDS SUMMARY | 2025-07-10 09:30 | XMS_ITS | Encounter Summary ---
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 I have cairna sing 07/30/[address] you li [...] Date Recorded Patient Health Questionnaire-2 Score 4 03/12/2025 Internet Access Answer Date Recorded Internet Access Q1 No 07/30/2024 Internet Access Q2 I do not want or need it 07/15 Sex and Gender Information Value Date Recorded Sex Assigned at Male 09/13/2022 10:15 AM EDT Legal Sex Male 10:15 AM EDT Gender Identity Male 09/13/2022 10:15 AM EDT Sexual Orientation Straight 09/13/2022 10 :15 AM EDT documented as of this encounter Progress Notes * Eloisa Santiago RN - 07/10/2025 9:30 AM EDT SUBJECTIVE: Ji Her is a 40 y.o. 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 The patient last changed Fentanyl patches (Duragesic) on: 07/09/2025 Ji Her does report adherence to Oxycodone 10 mg, take 1 tablet every 6 hours PRN, last refilled 07/05/2025. The patient last took Oxycodone on: 07/10/2025 Medication is: 25% % effective at alleviating pain. Pt stated he took only 3 doses yesterday, but has used 4 doses every other day. Covering Provider increased dose of Oxycodone to 10mg Q6hr PRN as of 07/05/25. Patient received [place]azepam 1mg X1 on 07/09/25 from Cassie [place] [facility] [place] Pt is having a nerve block done 07/11/25 and will be premedicating for his anxiety. OBJECTIVE: NEWS OPERATIONS MANAGER checked: 07/10/2025 Patch count completed for Fentanyl patches (Duragesic), patient reports count today is 1 , anticipated count should be 1, this is as expected. Pill count completed for Oxycodone , patient reports count today is 96 , anticipated count should be 91, this is as expected. Vital Signs Pain Score: 7 Pain Loc: Back Pain Education: Yes Additional pain site: right foot Last PCP visit: 06/10/2025 Controlled substance agreement signed: Controlled Substance Agreement 05/08/2025 MILITARY POLICE OFFICER Tele Tier: 2 Current Medications[1] Smoking status: Yes, 2.5 packs per day, states he chain smokes all day when he's lying down in pain ETOH use: Denies Illicit substances: Denies Marijuana use: No ASSESSMENT: Encounter Diagnosis Name Primary? 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 Ji Her will continue taking medication as prescribed and follow up at the next Tele MILITARY POLICE OFFICER visit or sooner if needed. Ji Her has verbalized understanding of care plan. Future Appointments Date Time Provider Department Center 07/10/2025 9:30 AM Eloisa Santiago RN [facility] 07/18/2025 10:30 AM Eloisa Santiago RN [facility] Eloisa Santiago RN [1] Current Outpatient Medications: fentaNYL (Duragesic) 37.5 MCG/HR, Place 1 patch on the skin every 3rd (third) day. Do not start before June 30, 2025., Disp: 5 patch, Rfl: 0 oxyCODONE (Roxicodone) 10 MG immediate release tablet, Take 1 tablet (10 mg) by mouth every 6 (six)hours if needed for severe pain for up to 28 days., Disp: 112 tablet, Rfl: 0 acetaminophen (Tylenol 8 Hour) 650 MG ER tablet, Take 650 mg by mouth. Pt reports taking 2 pills 2-4 times daily when he doesn't use Ibuprofen. Do not crush, chew, or split., Disp: , Rfl: albuterol (Ventolin HFA) 108 (90 Base) MCG/ACT inhaler, INHALE 2 PUFFS BY MOUTH EVERY FOUR HOURS ASNEEDED., Disp: 18 g, Rfl: 1 cyclobenzaprine (Flexeril) 10 MG tablet, TAKE 1 TABLET BY MOUTH THREE TIMES DAILY FOR 10 DAYS, Disp: 30 tablet, Rfl: 0 docusate sodium (Colace) 100 MG capsule, TAKE 1 CAPSULE BY MOUTH TWICE A DAY, Disp: 180 capsule, Rfl: 0 DULoxetine (Cymbalta) [address] capsule, Take 1 capsule (30 mg) by mouth Once per day. Do not crush or chew., Disp: 30 capsule, Rfl: 11 fentaNYL (DURAGESIC) 25 MCG/HR, Place 1 patch on the skin every 3rd (third) day., Disp: 5 patch, Rfl: 0 gabapentin (Neurontin) 300 MG capsule, Take 1 capsule (300 mg) by mouth at bedtime. Take 2 capsule by oral route every afternoon and 1 capsule in the evening before bed, Disp: 90 capsule, Rfl: 1 ibuprofen 600 MG tablet, Take 1 tablet by mouth every 6 (six) hours if needed., Disp: , Rfl: levothyroxine (Synthroid, Levoxyl) 75 MCG tablet, TAKE 1 TABLET BY MOUTH EVERY DAY IN THE MORNING, Disp: 90 tablet, Rfl: 1 naloxone (Narcan) 4 mg/0.1 mL nasal spray, Administer 1 spray (4 mg) into affected nostril(s) if needed for opioid reversal., Disp: 2 each, Rfl: 1 nicotine (Nicoderm, Step 1) 21 MG/24HR patch, apply 1 patch by transdermal route every day and remove at bedtime, Disp: 30 patch, Rfl: 3 oxyCODONE (Roxicodone) 5 MG immediate release tablet, Take 1 tablet (5 mg) by mouth every 6 (six) hours if needed for severe pain for up to 28 days., Disp: 112 tablet, Rfl: 0 varenicline (Chantix) 1 MG tablet, TAKE 1 TABLET BY MOUTH TWICE A DAY, Disp: 180 tablet, Rfl: 0 zolpidem (Ambien) 10 MG tablet, Take 1 tablet (10 mg) by mouth at bedtime., Disp: 30 tablet, Rfl: 0 documented in this encounter Plan of Treatment Upcoming Encounters Date Type Department Care Team (Late st Contact Info) Description 07/18/2025 10:30 AM EDT Clinical Support [facility] [address] [place] [address] [place] [address] Eloisa Santiago, VANESA documented as of this encounter Visit Diagnoses Diagnosis 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
--- OUTSIDE RECORDS SUMMARY | 2025-07-11 08:49 | XMS_ITS | Encounter Summary ---
Author Organization [employer] Address [address] [facility] [address] [place] [address] Care Team Providers Care Silversmith Apprentice Name Role Phone Michael Emma RAW FINISH MILL OPERATOR Primary Care Provider [phone] Reason for Referral * Consultation (Routine) - Closed Specialty Diagnoses / Procedures Referred By Josephine garsia Referred To Contact Physical Therapy Diagnoses Complex regional pain syndrome type 1 of right lower extremity Khadra Fernandes MD [address] [place] [phone] Phone: tel: fax: [facility] PT/OT/Speech [address] [place] [id number] Phone: tel: fax: Referral ID Status Reason Start Date Expiration Date V isits Requested Visits Authorized [id number] Closed Specialty Services Required 08/15/2024 08/15/2025 1 1 Encounter Details Date Type Department Care Team (Late st Contact Info) Description 08/15/2024 Orders Only [facility] MEDICINE [address] [place], [place] [phone] Khadra Fernandes MD [address] [place], [place] [phone] Complex regional pain syndrome type 1 of [...] Upcoming Encounters Date Type Department Care Team ([facility] st Contact Info) Description 07/18/2025 10:30 AM EDT Clinical Support [address] [address] Eloisa Santiago RN Scheduled Referrals Name Type [...] documented as of this encounter Care Teams Silversmith Apprentice Relationship Specialty Start Date End Date Emma Rodriguez FNP [address] [place] [phone] PCP - General Family Medicine 07/17/24 documented as of this encounter
--- OUTSIDE RECORDS SUMMARY | 2025-07-11 08:49 | XMS_ITS | Encounter Summary ---
Author Organization [employer] Address [address] [facility] [address] [place] [address] Care Team Providers Care Bunch Maker Name Role Phone Estuardo Damon Primary Care Provider Unavail Margie Huitron SALES DRIVER Primary Care Provider [phone] Emma Rodriguez SALES DRIVER Primary Care Provider [phone] Reason for Visit * Reason Comments Med Refill Encounter Details Date Type Department Care Team (Late Contact Info) Description 04/26/2023 Refill [facility] MEDICINE [address] [place] [address] Estuardo Damon AGNP Depressed mood Social History [...] Department Care Team (Late Contact Info) Description 07/18/2025 10:30 AM EDT Clinical Support [facility] MEDICINE [address] [place] [address] Eloisa Santiago RN documented as of this encounter Visit Diagnoses Diagnosis Depressed mood documented in this encounter Additional Health Concerns Assessment Noted Time PHQ-9 Depression Total Score: 13 023 11:05 AM EDT documented as of this encounter Care Teams Bunch Maker Relationship Specialty Start Date End Date Estuardo Damon AGNP PCP - General Family Medicine 10/05/22 07/03/23 Margie Singh FNP [address] [place] [address] PCP - General Family Medicine 07/04/23 07/16/24 MichaelEmma hassan FNP [address] [place] [address] PCP - General Family Medicine 07/17/24 documented as of this encounter
--- OUTSIDE RECORDS SUMMARY | 2025-07-11 08:49 | XMS_ITS | Clinical Summary ---
Author Organization [employer] Address [address] [facility] 7[address] [place] [address] Care Team Providers Care Cargo Mate Name Role Phone Emma Rodriguez FACTORY HELPER Primary Care Provider [phone] Allergies No known active allergies Medications * This document contains information received from the source organization and may not represent a complete record from that organization. nicotine (Nicoderm, Step 1) 21 MG/24HR patchIndications :Cigarette smoker apply 1 patch by transdermal route every day and remove at bedtime 30 patch 3 023 Active albuterol (Ventolin HFA) 108 (90 Base) MCG/ACT inhalerIndicatio ns:Mild chronic obstructive pulmonary disease (CMS/HCC) INHALE 2 PUFFS BY MOUTH EVERY FOUR HOURS NEEDED. 18 g 1 023 Active docusate sodium (Colace) 100 MG capsule TAKE 1 CAPSULE BY MOUTH TWICE A DAY 180 capsule 023 Active acetaminophen (Tylenol 8 Hour) 650 MG ER tablet Take 650 mg by mouth. Pt reports taking 2 pills 2-4 times daily when he doesn't use Ibuprofen. Do not crush, chew, or split. Active levothyroxine (Synthroid, Levoxyl) 75 MCG tablet TAKE 1 TABLET BY MOUTH EVERY DAY IN THE MORNING 90 tablet 1 023 Active ibuprofen 600 MG tablet Take 1 tablet by mouth every 6 (six) hours if needed. 024 Active varenicline (Chantix) 1 MG tablet TAKE 1 TABLET BY MOUTH TWICE A DAY 180 tablet 025 Active gabapentin (Neurontin) 300 MG capsuleIndicatio ns:Lumbar back pain Take 1 capsule (300 mg) by mouth at bedtime. Take 2 capsule by oral route every afternoon and 1 capsule in the evening before bed 90 capsule 1 04/25/2 025 2025 Active zolpidem (Ambien) 10 MG tabletIndication s:Insomnia, unspecified type Take 1 tablet (10 mg) by mouth at bedtime. 30 tablet Active DULoxetine (Cymbalta) [address] capsuleIndicatio ns:Complex regional pain syndrome type 1 of right lower extremity Take 1 capsule (30 mg) by mouth Once per day. Do not crush or chew. 30 capsule 11 025 2025 Active naloxone (Narcan) 4 mg/0.1 mL nasal sprayIndications :Complex regional pain syndrome type 1 of right lower extremity Administer 1 spray (4 mg) into affected nostril(s) if needed for opioid reversal. 2 each 1 Active cyclobenzaprine (Flexeril) 10 MG tablet TAKE 1 TABLET BY MOUTH THREE TIMES DAILY FOR 10 DAYS 30 tablet Active oxyCODONE (Roxicodone) 10 MG immediate release tabletIndication s:Complex regional pain syndrome type 1 of right lower extremity Take 1 tablet (10 mg) by mouth every 6 (six) hours if needed for severe pain for up to 28 days. 112 tablet 025 2024 Active fentaNYL (Duragesic) 50 MCG/HRIndication s:custodial (current) use of opiate analgesic,Lumbar radiculopathy Place 1 patch on the skin every 3rd (third) day. Do not start before July 15, 2025. 10 patch 025 2024 Active naloxone (Narcan) 4 mg/0.1 mL nasal spray Administer 1 spray (4 mg) into affected nostril(s) if needed for opioid reversal. 2 each 1 023 2024 Discontinued(R eorder (will not trigger notification to Pharmacy)) cyclobenzaprine (Flexeril) 10 MG tablet TAKE 1 TABLET BY MOUTH THREE TIMES DAILY FOR 10 DAYS 30 tablet 025 2024 Discontinued(R eorder (will not trigger notification to Pharmacy)) oxyCODONE (Roxicodone) 5 MG immediate release tabletIndication s:Complex regional pain syndrome type 1 of right lower extremity Take 1 tablet (5 mg) by mouth every 6 (six) hours if needed for severe pain for up to 10 days. Do not exceed 2 doses per day 20 tablet 025 2024 Discontinued(R eorder (will not trigger notification to Pharmacy)) oxyCODONE ER (OxyCONTIN) 30 MG 12 hr tabletIndication s:Complex regional pain syndrome type 1 of right lower extremity Take 1 tablet (30 mg) by mouth every 12 (twelve) hours for 10 days. Do not crush, chew, or split. 20 tablet 025 2024 Discontinued fentaNYL (DURAGESIC) 25 MCG/HRIndication s:Complex regional pain syndrome type 1 of right lower extremity Place 1 patch on the skin every 3rd (third) day. 5 patch 025 2024 Discontinued(D ose adjustment) oxyCODONE (Roxicodone) 5 MG immediate release tabletIndication s:Complex regional pain syndrome type 1 of right lower extremity Take 1 tablet (5 mg) by mouth every 6 (six) hours if needed for severe pain for up to 28 days. 112 tablet 025 2024 Discontinued(T herapy completed) oxyCODONE ER (OxyCONTIN) 30 MG 12 hr tabletIndication s:Complex regional pain syndrome type 1 of right lower extremity Take 1 tablet (30 mg) by mouth at bedtime for 1 day. Do not crush, chew, or split. 1 tablet 025 2024 fentaNYL (Duragesic) 37.5 MCG/HRIndication s:Complex regional pain syndrome type 1 of right lower extremity Place 1 patch on the skin every 3rd (third) day. Do not start before June 30, 2025. 5 patch 025 2024 Discontinued(D ose adjustment) Active Problems Problem Noted Date Diagnosed Date History of syphilis 03/08/2025 Overview (03/08/2025): 2017 pt titer was 1:128 and was treated with 1 dose of PCN 2.4 units. In 2019 pt titer was non-reactive Malignant neoplasm of left lung 03/08/2025 custodial (current) use of opiate analgesic 01/12 Severe anxiety 12/22/2023 Cigarette smoker 12/22/2023 Insomnia 03/30/2023 [...] to 12 hr instead of 24 hr. Allergic contact dermatitis 06/27/2018 Assessment & Plan [...] in his daily life. He and his TRAVOGRAPH OPERATOR reported that they have not tried that. [...] someone with have to drive him. His TRAVOGRAPH OPERATOR is also aware. Mild chronic obstructive pulmonary disease 06/27 Peripheral neuropathic pain 06/27/2018 Reflex sympathetic dystrophy of lower extremity 09/08/2015 Obstructive sleep apnea syndrome 07/28/2015 Subclinical hypothyroidism 08/01/2013 Obesity 05/30/2013 Alcohol use disorder in remission 10/19/2012 Bipolar disorder 05/18/2012 Assessment & Plan (03/30/2023 [...] month and we will titrate as needed. Resolved Problems Problem Noted Date Diagnosed Date Resolved Date Depressed mood 02/18/2023 03/08/2025 Assessment & Plan (03/30/2023 1:22 PM EDT): [...] agreed. F/up: one month for depressed mood. Moderate episode of recurren t major depressive disorder 10/19/2012 03/12/2025 Assessment & Plan (12/22/2023 2:57 PM EST): PROGRESS NOTE: ID: Ji is a 38 y.o. straight-identified cis-male with previous documented hx of Depression and Bipolar Disorder MH services including OP Psychotherapy psychopharmacology who presents for Anxiety and Depression. Reported after foot surgery on 2010 he has been experiencing a lot of chronic and nerve pain. Lives alone, has TRAVOGRAPH OPERATOR that support him and listen to him [...] intervention and Patient to reach out to [facility] team as needed Lumbar back pain 05/18/2012 03/08/2025 Encounters * This document contains information received from the source organization and may not represent a complete record from that organization. Date Type Department Care Team Description 07/10/2025 9:30 AM EDT Telemedicine [facility] [address] [place] [phone] Eloisa Santiago RN custodial (current) use of opiate analgesic 07/10/2025 Orders Only [facility] [address] [place] [phone] Khadra Fernandes MD pasteurizer (current) use of opiate analgesic (Primary Dx); Lumbar radiculopathy 07/10/2025 Refill [facility] [address] [place] [phone] Eloisa Santiago RN Complex regional pain syndrome type 1 of right lower extremity 07/10/2025 Travel 07/05/2025 Refill [facility] [address] [place] [address] Eloisa Santiago RN Complex regional pain syndrome type 1 of right lower extremity (Primary Dx) 07/04/2025 9:00 AM EDT Telemedicine [facility] [address] [place] [address] Eloisa Santiago RN custodial (current) use of opiate analgesic 07/04/[address] [address] Eloisa Santiago RN Fentanyl titration, oxycodone use 07/04/2025 Travel 06/28/2025 Refill [facility] [address] [place] [phone] Eloisa Santiago RN Complex regional pain syndrome type 1 of right lower extremity (Primary Dx) 06/27/2025 10:00 AM EDT Telemedicine [address] [place] [address] Eloisa Santiago, VANESA pasteurizer (current) use of opiate analgesic 06/27/[address] [address] Eloisa Santiago, RN Fentanyl patch count discrepancy, Oxycodone count discrepan 06/27/2025 Travel 06/21/2025 Refill [facility] [address] [place] [address] Emma Rodriguez FNP 06/20/[address] [address] Eloisa Santiago RN Complex regional pain syndrome type 1 of right lower extremity (Primary Dx) 06/20/2025 Telephone [facility] [address] [place] [address] Emma Rodriguez FNP Prior Authorization 06/19/[address] [address] Eloisa Santiago, VANESA New pain management plan 06/19/[address] [address] Emma Rodriguez FNP Prior Authorization 06/19/[address] [address] Emma Rodriguez FNP Med Refill 06/19/[address] [address] Emma Rodriguez FNP Complex regional pain syndrome type 1 of right lower extremity 06/14/[address] [address] Emma Rodriguez FNP requesting call back 06/10/2025 1:00 PM EDT Office Visit [address] [place] [address] Emma Rodriguez FNP Complex regional pain syndrome type 1 of right lower extremity; Encounter for immunization 06/10/2025 Travel 06/06/[address] [place] [address] Emma Rodriguez FNP chart prep 06/03/2025 Patient Outreach [facility] [address] [place] [address] Emam Rodriguez FNP Pre-visit Planning ([facility] unable to reach LVM) 05/31/2025 Refill [facility] [address] [place] [address] Emma Rodriguez FNP Insomnia, unspecified type 05/31/2025 Refill [facility] [address] [place] [address] Eloisa Santiago, VANESA Complex regional pain syndrome type 1 of right lower extremity 05/28/2025 Refill [facility] [address] [place] [address] Emma Rodriguez FNP 05/28/2025 Refill [facility] [address] [facility] [place] [address] Emma Rodriguez FNP Complex regional pain syndrome type 1 of right lower extremity 05/22/2025 Telephone [facility] [address] [place] [address] Emma Rodriguez FNP Medication Question 05/08/2025 10:00 AM EDT Clinical Support [facility] [address] [place] [address] Eloisa Santiago, RN pasteurizer (current) use of opiate analgesic (Primary Dx) 05/08/2025 Travel 05/01/2025 Refill [facility] [address] [facility] [place] [address] Micaela Nichols DO Insomnia, unspecified type 04/23/2025 Telephone [facility] [address] [facility] [place] [address] Emma Rodriguez FNP Med Refill 04/23/2025 Refill [facility] [address] [facility] [place] [address] Emma Rodriguez FNP Complex regional pain syndrome type 1 of right lower extremity from Last 3 Months Immunizations Immunization Administration Dates Next Due Influenza injectable quadriv alent IIV4 with preservative 07/28/2015 Influenza injectable quadrivalent preservative f ree 10/31/2018 Influenza, IIV3, injectable 09/07/2011 Influenza, Split (incl. purified surface antigen ) 08/01/2013,08/04/2012 Moderna Covid-19 Vaccine 12+ 04/04/2021,03/07/20 21 Moderna Covid-19 Vaccine 6+ Bivalent 12/22/2022 Pneumococcal Conjugate PCV 20 06/10/2025 Pneumococcal Polysaccharide PPSV23 09/07/2011 Tdap 01/25/2025,09/07/2011 Family History Medical History Relation Name Comments Lung cancer Father Uterine cancer Mother Relation Name Status Comments Father Mother Social History Tobacco Use Types Packs/Day Years [...] is your housing situation today? I have carinagladis bruce 07/30/[address] you [...] Sign Reading Time Taken Comments Blood Pressure 120/82 06/10/2025 12:37 PM EDT Pulse 84 06/10/2025 12:37 PM EDT Temperature 37.2 C (98.9 F) 06/10/2025 12:37 PM EDT Respiratory Rate 20 06/10/2025 12:37 PM EDT Oxygen Saturation 97% 01/25/2025 1:47 PM EDT Inhaled Oxygen Concentration - - Weight 111 kg (244 lb) 06/10/2025 12:37 PM EDT Height 172.7 cm (5' 8 ) 06/10/2025 12:37 PM EDT Body Mass Index 37.1 06/10/2025 12:37 PM EDT Plan of Treatment Upcoming Encounters Date Type Department Care Team (Late st Contact Info) Description 07/18/2025 10:30 AM EDT Clinical Support [facility] [address] [place] [phone] Eloisa Santiago, RN Health Maintenance Due Date Last Done Comments Family Planning (PISQ) 1998 HPV Vaccines (1 - Male 3-dose series) 1998 Hepatitis B Vaccines (1 of 3 - 19+ 3-dose series) 2002 COVID-19 Vaccine ( season) 2024 12/22/2022, 04/04/2021, 03/07/2021 Influenza Vaccine (#1) 2025 8, 07/28/2015, 08/01/2013, Additional history exists Alcohol/Substance Use Screening 07/30/2025 07/30/2024 SDOH Screening 07/30/2025 07/30/2024 Depression Screening 03/12/2026 03/12/2025, 03/12/20 Disability Screening 06/10/2026 06/10/2025 Tobacco Screening 06/19/2026 06/19/2025, 03/07/2024 Lipid Panel 01/28/2030 01/28/2025, 07/20/2022 Zoster Vaccines (1 of 2) 2033 DTaP/Tdap/Td Vaccines (3 - Td or Tdap) 01/25/2035 01/25/2025, 09/07/2011 RSV Patients and Patients Aged 60 years or older (1 - 1-dose 75+ series) 2058 HIV Screening Completed 01/28/2025, 01/10/2020 Hepatitis C Screening Completed 01/28/2025, 020 Pneumococcal Vaccine: Pediatrics (0 to 5 Years) and At-Risk Patients (6 to 49) Years Completed 06/10/2025, 09/07/2011 HIB Vaccines Aged Out No longer eligi ble based on patient's age to complete this topic Hepatitis A Vaccines Aged Out No long er eligible based on patient's age to complete this topic IPV Vaccines Aged Out No longer eligi ble based on patient's age to complete this topic Meningococcal B Vaccine Aged Out No l onger eligible based on patient's age to complete [...] Comments POCT NATALIA-14 URINE DRUG SCREEN Routine 05/08/2025 10:10 AM EDT custodial (current) use of opiate analgesic HEPATITIS PANEL, GENERAL Routine 01/28/2025 12:16 PM EDT Routine screening for STI (sexually transmitted infection) HIV 1/2 ANTIGEN/ANTIBODY, FOURTH GENERATION W/RFL Routine 01/28/2025 12:16 PM EDT Routine screening for STI (sexually transmitted infection) LIPID PANEL, STANDARD Routine 01/28/2025 12:16 PM EDT Hypothyroidism, unspecified type from Last 3 Months or Most Recently Relevant to Health Maintenance Results * POCT NATALIA-14 Urine Drug Screen (05/08/2025 10:10 AM EDT) THC Negative Negative Cocaine Screen, Urine Negative Negative Opiate Screen, Urine Negative Negative Methamphetamine Screen Urine Negative Negative Amphetamine Screen, Urine Negative Negative Benzodiazepines Screen, Urine Negative Negative Barbiturate Screen, Urine Negative Negative Methadone Screen, Urine Negative Negative Buprenophine Screen, Urine Negative Negative TCA, Urine Negative Negative MDMA Urine Negative Negative ng/mL Oxycodone Screen, Urine Positive Negative Phencyclidine (PCP), Urine Negative Negative Propoxyphene, Urine Negative Negative Fentanyl, Urine Negative Negative Urine Urine specimen obtained by clean catch procedure / Unknown 05/08/2025 10:10 AM EDT Eloisa Soria RN - 05/08/2025 10:10 AM EDT UTOX cup Lot#[id number] Exp. 09/13/26 Internal Pass Control [facility] POINT OF CARE TEST ENTER/EDIT ORDERABLES Final Result * Hepatitis A,B,C Profile (01/28/2025 12:16 PM EDT) Pathologist [facility] Hepatitis A IgM Nonreactive Nonreactive [facility] Comment:IgM antibodies to CHANG V not detected; does not exclude earlyacute or recovered HAV infection. ~Hepatitis B Surface Antibody NONREACTIVE Nonreactive [facility] Comment:Nonreactive: < 8.00 mIU/mL Hepatitis B Core Antibody Nonreactive Nonreactive [facility] Hepatitis C Antibody Nonreactive Nonreactive [facility] Comment:Antibodies to HCV no t detected; does not exclude early acuteHCV infection. Hepatitis B Surface Ag Negative Negative [facility] Blood Venous blood specimen / Unknown 01/28/2025 12:16 PM EDT 01/28/2025 1:07 PM EDT [facility] LAB BLOOD ORDERABLES Final Re sult [facility] [address] [place] [phone] [phone] * HIV-1/2 Antigen and Antibodies, Fourth Generation, with Reflexes (01/28/2025 12:16 PM EDT) HIV AB/AG Nonreactive Nonreactive [facility] Comment:HIV-1 p24 Ag and/or HIV-1/HIV-2 Ab not detected.A test result that is nonreactive does not exclude thepossibility of exposure to or infection with HIV-1 and/orHIV-2. Nonreactive results in this assay for individualswith prior exposure to HIV-1 and/or HIV-2 may be due toantigen and antibody levels that are below the limit ofdetection of this assay.The [employer] HIV Ag/Ab Combo assay result andsupplemental assay results should be interpreted inconjunction with the patient's clinical presentation,history and other laboratory results. If the results areinconsistent with clinical evidence, additional testing issuggested to confirm the result. Blood Venous blood specimen / Unknown 01/28/2025 12:16 PM EDT 01/28/2025 1:07 PM EDT [facility] LAB BLOOD ORDERABLES Final Re sult [facility] [address] [place] [phone] * (ABNORMAL) Lipid Panel, Standard (01/28/2025 12:16 PM EDT) Triglycerides 345(H) <150 mg/dL [facility] Comment:Desirable Triglyceri de: less than 150 mg/dLBorderline High Triglyceride 150-199 mg/dLHigh Triglyceride: 200-499 mg/dLVery High Triglyceride: greater than or equal to 5OO mg/dL Cholesterol 171 <200 mg/dL [facility] Comment:Desirable Cholestero l: less than 200 mg/dLBorderline High Cholesterol: 200-239 mg/dLHigh Cholesterol: greater than 239 mg/dL LDL Cholesterol Calculated 70 <100 mg/dL [facility] Comment:Desirable LDL: less than 100 mg/dLNear Optimal/Above Optimal LDL: 110- 129 mg/dLBorderline High LDL: 130-159 mg/dLHigh LDL: 160-189 mg/dLVery High LDL: greater than or equal to 190 mg/dL HDL Cholesterol 32(L) >40 mg/dL [facility] Comment:Desirable HDL: great er than 40 mg/dL Note: This HDL assay may give artificially low results in patients with liver disease. Blood Venous blood specimen / Unknown 01/28/2025 12:16 PM EDT 01/28/2025 1:07 PM EDT [facility] FACTORY HELPER LAB BLOOD ORDERABLES Final Re sult [facility] [address] [place] [phone] [phone] from Last 3 Months or Most Recently Relevant to Health Maintenance Insurance [facility] < 65 [place]AN[place] [id number] * Guarantor: Ji Her Account Type Relation to Patient Date of Phone Billing Address Dental Self Care Teams Cargo Mate Relationship Specialty Start Date End Date Emma RodriguezLUIS ALFREDO [address] [place] [id number] PCP - General Family Medicine 07/17/24
--- OUTSIDE RECORDS SUMMARY | 2025-07-11 08:49 | XMS_ITS | Encounter Summary ---
Author Organization [employer] Address [address] [facility] [address]t [place] [address] Care Team Providers Care Director Commercial Sales Name Role Phone Margie Singh [facility] Primary Care Provider [phone] [facility] Primary Care Provider Reason for Visit * Reason Onset Date Comments Appointment Request 06/21/2024 Encounter Details Date Type Department Care Team ([facility] st Contact Info) Description 06/21/2024 Telephone [facility] [address] [place], [place] [phone] Margie Singh FNP [address] [place] [address] Appointment Request Social History Tobacco Use Types [...] 06/21/2024 3:48 PM EDT Tc from patients YARN COMBER requesting appt for patient states the patient under went a surgical procedureon the chest and is still experiencing pain greeting card writer did ask if the patient had a follow up with surgeon YARN COMBER stated yes and next appt is not until July documented in this encounter Plan of Treatment Upcoming Encounters Date Type Department Care Team (Late st Contact Info) Description 07/18/2025 10:30 AM EDT Clinical Support [facility] [address] [place] [address] Eloisa Santiago, VANESA documented as of this encounter Visit Diagnoses Not on filedocumented in this encounter Additional Health Concerns Assessment Noted Time PHQ-9 Depression Total Score: 10 024 2:27 PM EST documented as of this encounter Care Teams Director Commercial Sales Relationship Specialty Start Date End Date Margie Singh FNP [address] [place] [address] PCP - General Family Medicine 07/04/23 07/16/24 [place] FNP [address] [place] [address] PCP - General Family Medicine 07/17/24 documented as of this encounter
--- OUTSIDE RECORDS SUMMARY | 2025-07-11 08:49 | XMS_ITS | Encounter Summary ---
Author Organization [employer] Address [address] [facility] [address] [place] [address] Care Team Providers Care Directional Driller Name Role Phone Emma Rodriguez RUBBER GOODS INSPECTOR TESTER Primary Care Provider [phone] Encounter Details Date Type Department Care Team (Latest Contact Info) Description 07/10/2025 Travel Social History Tobacco Use Types Packs/Day Years [...] your housing situation today? I have carina teo 07/30/[address] you li [...] Description 07/18/2025 10:30 AM EDT Clinical Support [facility] [address] [place] [address] Eloisa Santiago RN documented as of this encounter Visit Diagnoses Not on filedocumented in this encounter Additional Health Concerns Assessment Noted Time PHQ-9 Depression Total Score: 6 03/12/20 25 12:16 PM EDT documented as of this encounter Care Teams Directional Driller Relationship Specialty Start Date End Date Emma Rodriguez FNP [address] [place] [address] PCP - General Family Medicine 07/17/24 documented as of this encounter
--- OUTSIDE RECORDS SUMMARY | 2025-07-11 08:49 | XMS_ITS | Encounter Summary ---
Author Organization [employer] Address [address] [facility] [address] [place] [address] Care Team Providers Care Bender Machine Name Role Phone Estuardo Damon AGNPablo Primary Care Provider Margie Dominguez LEAD NUCLEAR MEDICINE TECHNOLOGIST Primary Care Provider [phone] BristowEmma hassan LEAD NUCLEAR MEDICINE TECHNOLOGIST Primary Care Provider [phone] Reason for Visit * Reason Onset Date Comments Medication 05/12/2023 Encounter Details Date Type Department Care Team (Late st Contact Info) Description 05/12/2023 Telephone [facility] [address] [place] [address] Estuardo Damon AGNP Medication Social History Tobacco [...] order and no other [facility] has it. Director Quality Assurance called [facility] pharmacy andthey do have medication in stock. documented in this encounter Plan of Treatment Upcoming Encounters Date Type Department Care Team (Late st Contact Info) Description 07/18/2025 10:30 AM EDT Clinical Support [facility] [address] [place] [phone] Eloisa Santiago, RN documented as of this encounter Visit Diagnoses Not on filedocumented in this encounter Additional Health Concerns Assessment Noted Time PHQ-9 Depression Total Score: 13 023 11:05 AM EDT documented as of this encounter Care Teams Bender Machine Relationship Specialty Start Date End Date Estuardo Damon AGNP PCP - General Family Medicine 10/05/22 07/03/23 Margie Singh FNP [address] [place] [address] PCP - General Family Medicine 07/04/23 07/16/24 [place]Emma FNP [address] [place] [address] PCP - General Family Medicine 07/17/24 documented as of this encounter
--- OUTSIDE RECORDS SUMMARY | 2025-07-11 08:49 | XMS_ITS | Encounter Summary ---
Author Organization [employer] Address 75 [facility] 7t [place] [address] Care Team Providers Care Design Engineer Marine Equipment Name Role Phone Margie Singh [facility] Primary Care Provider [phone] [facility] Primary Care Provider [phone] Reason for Visit * Reason Comments Med Refill Encounter Details Date Type Department Care Team ([facility] st Contact Info) Description 02/02/2024 Refill [facility] [address] [place] [address] Margie Singh FNP [address] [place] [address] Social History Tobacco Use Types Packs/Day Years [...] Description 07/18/2025 10:30 AM EDT Clinical Support [facility] [address] [place] [address] Eloisa Santiago RN documented as of this encounter Visit Diagnoses Not on filedocumented in this encounter Additional Health Concerns Assessment Noted Time PHQ-9 Depression Total Score: 10 024 2:27 PM EST documented as of this encounter Care Teams Design Engineer Marine Equipment Relationship Specialty Start Date End Date Margie Singh FNP [address] [place] [address] PCP - General Family Medicine 07/04/23 07/16/24 HudsonEmma FNP [address] [place] [address] PCP - General Family Medicine 07/17/24 documented as of this encounter
--- OUTSIDE RECORDS SUMMARY | 2025-07-11 08:49 | XMS_ITS | Encounter Summary ---
Author Organization [employer] Address 75 [facility] 7t [place] [address] Care Team Providers Care Inward Toll Operator Name Role Phone [facility] Primary Care Provider [phone] Encounter Details Date Type Department Care Team (Late st Contact Info) Description 08/09/2024 Telephone [facility] [address] [place], [place] [phone] [facility] [address] [place], [place] [phone] Social History Tobacco Use Types Packs/Day Years [...] Tucker - 08/09/2024 1:26 PM EDT [facility] for [facility] but instead should be physical therapy due to pt DX . Any question please contact phone #[phone] documented in this encounter Plan of Treatment Upcoming Encounters Date Type Department Care Team (Late st Contact Info) Description 07/18/2025 10:30 AM EDT Clinical Support [facility] [address] [place] [address] Eloisa Santiago, RN documented as of this encounter Visit Diagnoses Not on filedocumented in this encounter Additional Health Concerns Assessment Noted Time PHQ-9 Depression Total Score: 16 024 11:48 AM EDT documented as of this encounter Care Teams Inward Toll Operator Relationship Specialty Start Date End Date mEma Rodriguez FNP [address] [place] [address] PCP - General Family Medicine 07/17/24 documented as of this encounter
--- OUTSIDE RECORDS SUMMARY | 2025-07-11 08:49 | XMS_ITS | Encounter Summary ---
Author Organization [employer] Address 75 [facility] 7t [place] [address] Care Team Providers Care Baseball Glove Stuffer Name Role Phone [facility] Primary Care Provider [phone] Reason for Visit * Reason Onset Date Comments Med Refill 06/19/2025 Encounter Details Date Type Department Care Team ([facility] st Contact Info) Description 06/19/2025 Refill [facility] [address] [place], [place] [phone] [facility] [address] [place] [address] Complex regional pain syndrome type 1 of [...] encounter Miscellaneous Notes * Telephone Encounter - Wes Gibbons - 06/19/2025 8:36 AM EDT TC from pt requesting medication refill. Medications needing refill: oxyCODONE ER (OxyCONTIN) 30 MG 12 hr tablet voxyCODONE (Roxicodone) 5 MG immediate release tablet To be sent to: [facility]/pharmacy #[address] [place] [address] [phone] [facility] documented in this encounter Plan of Treatment Upcoming Encounters Date Type Department Care Team (Late st Contact Info) Description 07/18/2025 10:30 AM EDT Clinical Support [facility] MEDICINE [address] [place] [phone] Eloisa Santiago RN documented as of this encounter Visit Diagnoses Diagnosis Complex regional pain syndrome type 1 of right lower extremity documented in this encounter Additional Health Concerns Assessment Noted Time PHQ-9 Depression Total Score: 6 03/12/20 25 12:16 PM EDT documented as of this encounter Care Teams Baseball Glove Stuffer Relationship Specialty Start Date End Date Emma Rodriguez FNP [address] [place] [address] PCP - General Family Medicine 07/17/24 documented as of this encounter
--- OUTSIDE RECORDS SUMMARY | 2025-07-11 08:49 | XMS_ITS | Encounter Summary ---
Author Organization [employer] Address 75 [facility] 7t [place] [address] Care Team Providers Care Showcase Maker Name Role Phone Estuardo Damon Primary Care Provider Margie Dominguez STAIN REMOVER Primary Care Provider [phone] [place] hassan STAIN REMOVER Primary Care Provider [phone] Reason for Visit * Reason Onset Date Comments Med Refill 05/13/2023 Encounter Details Date Type Department Care Team (Late st Contact Info) Description 05/13/[address] [facility] MEDICINE [address] [place] [address] Estuardo Damon AGNP Med Refill Social History [...] (Percocet) 10-325 MG tablet that[address] sent to [facility] pharmacy. Please contact pt at [phone] documented in this encounter Plan of Treatment Upcoming Encounters Date Type Department Care Team (Late st Contact Info) Description 07/18/2025 10:30 AM EDT Clinical Support [facility] MEDICINE [address] [place] [address] Eloisa Santiago, RN documented as of this encounter Visit Diagnoses Not on filedocumented in this encounter Additional Health Concerns Assessment Noted Time PHQ-9 Depression Total Score: 13 023 11:05 AM EDT documented as of this encounter Care Teams Showcase Maker Relationship Specialty Start Date End Date Estuardo Damon AGNP PCP - General Family Medicine 10/05/22 07/03/23 Margie Singh FNP [address] [place] [address] PCP - General Family Medicine 07/04/23 07/16/24 [place] FNP [address] [place] [address] PCP - General Family Medicine 07/17/24 documented as of this encounter
--- OUTSIDE RECORDS SUMMARY | 2025-07-11 08:49 | XMS_ITS | Encounter Summary ---
Author Organization [employer] Address 75 [facility] 7t [place] [address] Care Team Providers Care Press Operator Automatic Name Role Phone Margie Singh [facility] Primary Care Provider [phone] [facility] Primary Care Provider [phone] Reason for Visit * Reason Onset Date Comments Med Refill 07/08/2023 Encounter Details Date Type Department Care Team (Late st Contact Info) Description 07/08/2023 Telephone [facility]INE [address] [place], [place] [phone] Margie Singh FNP [address] [place] [address] Med Refill Social History Tobacco Use Types [...] medication oxycodone 10 mg. Please send to [facility]/pharmacy #[id number] - [place], [place] - [address] P[address] Singh documented in this encounter Plan of Treatment Upcoming Encounters Date Type Department Care Team (Late st Contact Info) Description 07/18/2025 10:30 AM EDT Clinical Support [facility] [address] [place] [address] Eloisa Santiago, VANESA documented as of this encounter Visit Diagnoses Not on filedocumented in this encounter Additional Health Concerns Assessment Noted Time PHQ-9 Depression Total Score: 13 023 11:05 AM EDT documented as of this encounter Care Teams Press Operator Automatic Relationship Specialty Start Date End Date Margie Singh FNP [address] [place] [address] PCP - General Family Medicine 07/04/23 07/16/24 SaxtonEmma FNP [address] [place] [address] PCP - General Family Medicine 07/17/24 documented as of this encounter
--- OUTSIDE RECORDS SUMMARY | 2025-07-11 08:49 | XMS_ITS | Encounter Summary ---
Author Organization [employer] Address 75 [facility] 7t [place] [address] Care Team Providers Care Senior Sql Server Dba Name Role Phone [facility] Primary Care Provider [phone] Reason for Visit * Reason Onset Date Comments requesting call back 06/14/2025 Encounter Details Date Type Department Care Team ([facility] st Contact Info) Description 06/14/2025 Telephone [facility] [address] [place], [place] [phone] [facility] [address] [place] [address] requesting call back Social History Tobacco Use Types Packs/Day Years [...] Telephone Encounter - Wes Gibbons - 06/19/2025 8:39 AM EDT Tc from pt calling in regards to message prior stating he has not received any update and requestedto leave a message. * Telephone Encounter - Alfonzo Luong - 06/14/2025 9:17 AM EDT Tc from the patient requested a callback Regarding the pain patches that PCP was attempting to obtain for the patient, Tc from the patient requested a callback. Call the patient at [phone]. documented in this encounter Plan of Treatment Upcoming Encounters Date Type Department Care Team (Late st Contact Info) Description 07/18/2025 10:30 AM EDT Clinical Support [facility] MEDICINE [address] [place] [address] Eloisa Santiago RN documented as of this encounter Visit Diagnoses Not on filedocumented in this encounter Additional Health Concerns Assessment Noted Time PHQ-9 Depression Total Score: 6 03/12/20 25 12:16 PM EDT documented as of this encounter Care Teams Senior Sql Server Dba Relationship Specialty Start Date End Date Emma Rodriguez FNP [address] [place] [address] PCP - General Family Medicine 07/17/24 documented as of this encounter
--- OUTSIDE RECORDS SUMMARY | 2025-07-11 08:49 | XMS_ITS | Encounter Summary ---
Author Organization [employer] Address 75 [facility] 7t [place] [address] Care Team Providers Care General Road Supervisor Name Role Phone Margie Singh [facility] Primary Care Provider [phone] [facility] Primary Care Provider [phone] Reason for Visit * Reason Comments Med Refill Encounter Details Date Type Department Care Team ([facility] st Contact Info) Description 01/25/2024 Refill [facility] MEDICINE [address] [place], [place] [phone] Margie Singh FNP [address] [place] [address] Social History Tobacco Use Types Packs/Day Years [...] Description 07/18/2025 10:30 AM EDT Clinical Support [facility] MEDICINE [address] [place] [address] Eloisa Santiago RN documented as of this encounter Visit Diagnoses Not on filedocumented in this encounter Additional Health Concerns Assessment Noted Time PHQ-9 Depression Total Score: 10 024 2:27 PM EST documented as of this encounter Care Teams General Road Supervisor Relationship Specialty Start Date End Date Margie Singh FNP [address] [place] [address] PCP - General Family Medicine 07/04/23 07/16/24 MichaelEmma hassan FNP [address] [place] [address] PCP - General Family Medicine 07/17/24 documented as of this encounter
--- OUTSIDE RECORDS SUMMARY | 2025-07-11 08:49 | XMS_ITS | Encounter Summary ---
Author Organization [employer] Address 75 [facility] 7t [place] [address] Care Team Providers Care Sports Doctor Name Role Phone Margie Singh [facility] Primary Care Provider [phone] [facility] Primary Care Provider [phone] Reason for Visit * Reason Comments Med Refill Encounter Details Date Type Department Care Team ([facility] st Contact Info) Description 03/14/2024 Refill [facility] [address] [place] [address] Margie Singh FNP [address] [place] [address] Social History Tobacco Use Types Packs/Day Years [...] 10:30 AM EDT Clinical Support [facility] MEDICINE [address] [place] [address] Eloisa Santiago RN documented as of this encounter Visit Diagnoses Not on filedocumented in this encounter Additional Health Concerns Assessment Noted Time PHQ-9 Depression Total Score: 10 024 2:27 PM EST documented as of this encounter Care Teams Sports Doctor Relationship Specialty Start Date End Date Margie Singh FNP [address] [place] [address] PCP - General Family Medicine 07/04/23 07/16/24 HixsonEmma FNP [address] [place] [address] PCP - General Family Medicine 07/17/24 documented as of this encounter
--- OUTSIDE RECORDS SUMMARY | 2025-07-11 08:49 | XMS_ITS | Encounter Summary ---
Author Organization [employer] Address 75 [facility] 7t [place] [address] Care Team Providers Care General Foreman Name Role Phone Margie Singh [facility] Primary Care Provider [phone] [facility] Primary Care Provider [phone] Reason for Visit * Reason Comments Med Refill Encounter Details Date Type Department Care Team ([facility] st Contact Info) Description 07/03/2024 Refill [facility] [address] [place] [address] Margie Singh FNP [address] [place] [address] Social History Tobacco Use Types Packs/Day Years [...] Description 07/18/2025 10:30 AM EDT Clinical Support [facility] MEDICINE [address] [place] [address] Eloisa Santiago RN documented as of this encounter Visit Diagnoses Not on filedocumented in this encounter Additional Health Concerns Assessment Noted Time PHQ-9 Depression Total Score: 10 024 2:27 PM EST documented as of this encounter Care Teams General Foreman Relationship Specialty Start Date End Date Margie Singh FNP [address] [place] [address] PCP - General Family Medicine 07/04/23 07/16/24 [place]ma FNP [address] [place] [address] PCP - General Family Medicine 07/17/24 documented as of this encounter
--- OUTSIDE RECORDS SUMMARY | 2025-07-11 08:49 | XMS_ITS | Encounter Summary ---
Author Organization [employer] Address 75 [facility] 7t [place] [address] Care Team Providers Care Naval Architect Specialist Name Role Phone Margie Singh [facility] Primary Care Provider [phone] [facility] Primary Care Provider [phone] Reason for Visit * Reason Comments Med Change Request Encounter Details Date Type Department Care Team ([facility] st Contact Info) Description 12/11/2023 Refill [facility] MEDICINE [address] [place], [place] [phone] Margie Singh FNP [address] [place] [address] Social History Tobacco Use Types Packs/Day Years [...] 10:30 AM EDT Clinical Support [facility] MEDICINE [address] [place] [address] Eloisa Santiago RN documented as of this encounter Visit Diagnoses Not on filedocumented in this encounter Additional Health Concerns Assessment Noted Time PHQ-9 Depression Total Score: 17 024 3:47 PM EST documented as of this encounter Care Teams Naval Architect Specialist Relationship Specialty Start Date End Date Margie Singh FNP [address] [place] [address] PCP - General Family Medicine 07/04/23 07/16/24 MichaelEmma hassan FNP [address] [place] [address] PCP - General Family Medicine 07/17/24 documented as of this encounter
--- OUTSIDE RECORDS SUMMARY | 2025-07-11 08:49 | XMS_ITS | Encounter Summary ---
Author Organization [employer] Address 75 [facility] 7t [place] [address] Care Team Providers Care Discharge Door Operator Name Role Phone Margie Singh [facility] Primary Care Provider [phone] [facility] Primary Care Provider [phone] Reason for Referral * Consultation (Urgent) - Closed Specialty Diagnoses / Procedures Referred By Contac t Referred To Contact Pulmonary Disease Diagnoses Abnormal chest CT Alexandria Workman MD [address] [place] [address] Phone: tel: fax: [facility] Referral ID Status Reason Start Date Expiration Date V isits Requested Visits Authorized [id number] Closed Specialty Services Required 04/10/2024 04/10/2025 1 1 Encounter Details Date Type Department Care Team (Late st Contact Info) Description 04/10/2024 Orders Only [facility] MEDICINE [address] [place], [place] [phone] Alexandria Workman MD [address] [place], [place] [phone] Abnormal chest CT (Primary Dx) Social History [...] Description 07/18/2025 10:30 AM EDT Clinical Support [facility] [address] [place] [address] Eloisa Santiago RN Scheduled Referrals Name Type [...] documented as of this encounter Care Teams Discharge Door Operator Relationship Specialty Start Date End Date Margie Singh FNP [address] [place] [address] PCP - General Family Medicine 07/04/23 07/16/24 [place]Emma FNP [address] [place] [address] PCP - General Family Medicine 07/17/24 documented as of this encounter
--- OUTSIDE RECORDS SUMMARY | 2025-07-11 08:49 | XMS_ITS | Encounter Summary ---
Author Organization [employer] Address 75 [facility] 7t [place] [address] Care Team Providers Care Vice Chancellor Name Role Phone [place] [facility] Primary Care Provider [phone] Reason for Visit * Reason Onset Date Comments Med Refill 04/23/2025 Encounter Details Date Type Department Care Team ([facility] st Contact Info) Description 04/23/2025 Telephone [facility] MEDIC[facility] [address] [place], [place] [phone] [facility] [address] [place], [place] [phone] Med Refill Social History Tobacco Use Types [...] encounter Miscellaneous Notes * Telephone Encounter - Micaela Garcia LPN - 04/23/2025 11:32 AM EDT Medication to soon for refill, HEALTH AND SAFETY INSPECTOR checked on 04/23/25 last filled on 04/01/25 #30. * Telephone Encounter - Funmi Pichardo - 04/23/2025 11:19 AM EDT TC from pt requesting medication refill. Medications needing refill : - zolpidem (Ambien) 10 MG tablet To be sent to: -[facility]/pharmacy #[id number] [place], [place] - [phone] [facility] documented in this encounter Plan of Treatment Upcoming Encounters Date Type Department Care Team (Late st Contact Info) Description 07/18/2025 10:30 AM EDT Clinical Support [address] [phone] Eloisa Santiago RN documented as of this encounter Visit Diagnoses Diagnosis Insomnia, unspecified type documented in this encounter Additional Health Concerns Assessment Noted Time PHQ-9 Depression Total Score: 6 03/12/20 25 12:16 PM EDT documented as of this encounter Care Teams Vice Chancellor Relationship Specialty Start Date End Date Emma Rodriguez FNP [address] [place] [address] PCP - General Family Medicine 07/17/24 documented as of this encounter
--- OUTSIDE RECORDS SUMMARY | 2025-07-11 08:49 | XMS_ITS | Encounter Summary ---
Author Organization [employer] Address 75 [facility] 7t [place] [address] Care Team Providers Care Calculation Reviewer Name Role Phone Emma Rodriguez PRODUCTION HARDENER Primary Care Provider [phone] Reason for Referral * Consultation (Routine) - Canceled Specialty Diagnoses / Procedures Referred By Josephine t Referred To Contact Pharmacy Diagnoses Tobacco dependence Khadra Fernandes MD [address] [place] [address] Phone: tel: fax: Referral ID Status Reason Start Date Expiration Date V isits Requested Visits Authorized [id number] Canceled Consult and Treat 01/28/2025 01/28/2026 6 6 Encounter Details Date Type Department Care Team (Late st Contact Info) Description 01/28/2025 Orders Only [facility] MEDICINE [address] [place], [place] [phone] Khadra Fernandes MD [address] [place], [place] [phone] Tobacco dependence (Primary Dx) Social History Tobacco Use Types [...] Answer Date Recorded Patient Health Questionnaire-9 Score 0 01/25/2025 Patient Health Questionnaire-9 Score 0 01/25/2025 Last PHQ-9: Questionnaire Data Not on file 0 01/25/2025 Housing Stability Answer Date Recorded What is [...] Answer Date Recorded Patient Health Questionnaire-2 Score 0 01/25/2025 Internet Access Answer Date Recorded Internet Access [...] Description 07/18/2025 10:30 AM EDT Clinical Support [facility] MEDICINE [address] [place] [address] Eloisa Santiago, VANESA Scheduled Referrals Name Type Priority Associated Diagnoses Orde r Schedule Referral to Pharmacy CDTM Outpatient Referral Routine Tobacco dependence Ordered: 01/28/2025 documented as of this encounter Procedures Procedure Name Priority Date/Time Associated Diagnosis Comments CONFIRMATORY SYPHILIS PROFILE Routine 01/28/2025 12:16 PM EDT Tobacco dependence documented in this encounter Results * (ABNORMAL) Confirmatory Syphilis Profile (01/28/2025 12:16 PM EDT) Rapid Plasma Reagin, Quant Non-React sundar Nonreactive [facility] Treponema pallidum Antibody, Particle Agglutination Reactive( A) Nonreactive [facility] Comment:Testing performed at : [address] [address] 01/28/2025 12:1 6 PM EDT 01/28/2025 2:17 PM EDT [facility] LAB BLOOD ORDERABLES Final Re sult [facility] [address] [place] [phone] documented in this encounter Visit Diagnoses Diagnosis Tobacco dependence- Primary Tobacco use disorder documented in this encounter Additional Health Concerns Assessment Noted Time PHQ-9 Depression Total Score: 0 01/26/20 25 1:57 PM EDT documented as of this encounter Care Teams Calculation Reviewer Relationship Specialty Start Date End Date Emma Rodriguez FNP [address] [place] [address] PCP - General Family Medicine 07/17/24 documented as of this encounter
--- OUTSIDE RECORDS SUMMARY | 2025-07-11 08:49 | XMS_ITS | Encounter Summary ---
Author Organization [employer] Address 75 [facility] 7t [place] [address] Care Team Providers Care Power Project Manager Name Role Phone Margie Singh [facility] Primary Care Provider [phone] [facility] Primary Care Provider [phone] Reason for Visit * Reason Onset Date Comments Call Back Request 01/30/2024 Encounter Details Date Type Department Care Team ([facility] st Contact Info) Description 01/30/2024 Telephone [facility] MEDICINE [address] [place], [place] [phone] Margie Singh FNP [address] [place] [address] Call Back Request Social History Tobacco Use [...] EDT T/C to pt. To inform that [facility] still waiting for his insurance for approval. [...] Description 07/18/2025 10:30 AM EDT Clinical Support [facility] MEDICINE [address] [place] [address] Eloisa Santiago, VANESA documented as of this encounter Visit Diagnoses Not on filedocumented in this encounter Additional Health Concerns Assessment Noted Time PHQ-9 Depression Total Score: 10 024 2:27 PM EST documented as of this encounter Care Teams Power Project Manager Relationship Specialty Start Date End Date Margie Singh FNP [address] [place] [address] PCP - General Family Medicine 07/04/23 07/16/24 [place]ma, LUIS ALFREDO [address] [place] [address] PCP - General Family Medicine 07/17/24 documented as of this encounter
--- OUTSIDE RECORDS SUMMARY | 2025-07-11 08:49 | XMS_ITS | Clinical Summary ---
Author Organization [facility] Address [address] [facility] [address] [place] [address] Phone Care Team Providers Care Mill Controller Name Role Phone Emma Rodriguez LUIS ALFREDO Primary Care Provider [phone] Allergies No known active allergies Medications zolpidem [...] for pain (specific location in comments). {PARTIAL FILL:27700} Active docusate sodium (COLACE) 100 MG capsule [...] HEPATITIS C SCREENING 2001 HIV ONE-TIME SCREENING (18-65 YEARS) 2001 Adult Td,Tdap Booster 09/07/2021 09/07/2011 COVID-19 VACCINE ( season) 2024 04/04/2021, 03/07/2021 INFLUENZA VACCINE (#1) 2025 8, 07/28/2015, 08/01/2013, Additional history exists PNEUMOCOCCAL VACCINES (0-49 years) Aged Out 09/07/2011 No longer eligible based on patient's age [...] file Insurance MEDICARE PART A & B ONE CARE MEDICARE REPLACEMENT [place] [id number] MEDICARE PART A & B [facility] ONE CARE MEDICARE REPLACEMENT MEDICARE PART A & B CARE MEDICARE REPLACEMENT MEDICARE PART A & B CARE MEDICARE REPLACEMENT MEDICARE PART A & B [facility] CARE MEDICARE REPLACEMENT [place] [id number] MEDICARE PART A & B [facility] CARE MEDICARE REPLACEMENT MEDICARE PART A & B [facility] ONE [facility] MEDICARE REPLACEMENT MEDICARE PART A & B [facility] CARE MEDICARE REPLACEMENT [facility]05 MEDICARE PART A & B [facility] CARE MEDICARE REPLACEMENT Member Subscriber Plan / Payer ( fective 2018-Present) Name:Ji Her Relation to Subscriber:Self Name:Ji Her Payer ID:[id number] (NAIC) Group ID:[id number] Type:Medicare Address: [address] [facility]05 CARE MEDICARE REPLACEMENT MEDICARE PART A & B Care Teams Mill Controller Relationship Specialty Start Date End Date Emma Rodriguez FNP [address] [place] [address] PCP - General Nurse Practitioner 08/21/24 Additional Source Comments The information contained in this document represents components of the legal health record. It is not the complete legal health record.[facility]
--- OUTSIDE RECORDS SUMMARY | 2025-07-11 08:49 | XMS_ITS | Encounter Summary ---
Author Organization [employer] Address [address] [facility] 7t [place] [address] Care Team Providers Care Photography And Prints Curator Name Role Phone Emma Rodriguez [facility] Primary Care Provider [phone] Reason for Visit * Reason Comments Med Refill Encounter Details Date Type Department Care Team (Late st Contact Info) Description 07/19/2024 Refill [facility] [address] [place], [place] [phone] Margie Singh FNP [address] [place], [place] [phone] Social History Tobacco Use Types Packs/Day Years [...] Description 07/18/2025 10:30 AM EDT Clinical Support [facility] [address] [place] [address] Eloisa Santiago RN documented as of this encounter Visit Diagnoses Not on filedocumented in this encounter Additional Health Concerns Assessment Noted Time PHQ-9 Depression Total Score: 10 024 2:27 PM EST documented as of this encounter Care Teams Photography And Prints Curator Relationship Specialty Start Date End Date Emma Rodriguez FNP [address] [place] [address] PCP - General Family Medicine 07/17/24 documented as of this encounter
--- OUTSIDE RECORDS SUMMARY | 2025-07-11 08:49 | XMS_ITS | Encounter Summary ---
Author Organization [employer] Address [address] [facility] 7t [place] [address] Care Team Providers Care Voice Network Engineer Name Role Phone Estuardo Damon AGNPablo Primary Care Provider Unavail Margie Huitron SCRAPER LOADER OPERATOR Primary Care Provider [phone] MentorEmma SCRAPER LOADER OPERATOR Primary Care Provider [phone] Reason for Visit * Reason Onset Date Comments Med Refill 04/08/2023 Encounter Details Date Type Department Care Team (Late st Contact Info) Description 04/08/2023 Refill [facility] [address] [place] [address] Estuardo Damon AGNP Complex regional pain syndrome [...] Per pt request Rx be sent to [facility], will forward to PCP. * Telephone Encounter - Octavio Cota - 04/08/2023 8:37 AM EDT Tc from pt requesting for medication oxyCODONE-acetaminophen (Percocet) 10-325 MG tablet to be sentto [facility] at [address] [place] [address]. Please contact pt at [phone] documented in this encounter Plan of Treatment Upcoming Encounters Date Type Department Care Team (Late st Contact Info) Description 07/18/2025 10:30 AM EDT Clinical Support [facility] [address] [place] [address] Eloisa Santiago RN documented as of this encounter Visit Diagnoses Diagnosis Complex regional pain syndrome type 1 of right lower extremity documented in this encounter Additional Health Concerns Assessment Noted Time PHQ-9 Depression Total Score: 13 023 11:05 AM EDT documented as of this encounter Care Teams Voice Network Engineer Relationship Specialty Start Date End Date Estuardo Damon AGNP PCP - General Family Medicine 10/05/22 07/03/23 Margie Singh FNP [address] [place] [address] PCP - General Family Medicine 07/04/23 07/16/24 MentorEmma FNP 230 [place] [address] PCP - General Family Medicine 07/17/24 documented as of this encounter
--- OUTSIDE RECORDS SUMMARY | 2025-07-11 08:49 | XMS_ITS | Encounter Summary ---
Author Organization [employer] Address [address] [facility] 7t [place] [address] Care Team Providers Care Chess Instructor Name Role Phone Margie Singh [facility] Primary Care Provider [phone] [place] [facility] Primary Care Provider [phone] Reason for Referral * Consultation (STAT) - Canceled Specialty Diagnoses / Procedures Referred By Josephine garsia Referred To Contact Thoracic Surgery Diagnoses Abnormal chest CT Alexandria Workman MD [address] [place] [address] Phone: tel: fax: [facility] Pulmonary [address] Floor [place], [place] Phone: tel: fax: Referral ID Status Reason Start Date Expiration Date Visits Requested Visits Authorized [id number] Canceled Specialty Services Required 04/06/2024 04/06/2025 1 1 Encounter Details Date Type Department Care Team (Late st Contact Info) Description 04/06/2024 Orders Only [facility] MED[facility] [address] [place] [address] Alexandria Workman MD [address] [place], [place] [phone] Abnormal chest CT (Primary Dx) Social History [...] 07/18/2025 10:30 AM EDT Clinical Support [facility] [address] [place] [address] Eloisa Santiago RN Scheduled Referrals Name Type [...] documented as of this encounter Care Teams Chess Instructor Relationship Specialty Start Date End Date Margie Singh FNP [address] [place] [address] PCP - General Family Medicine 07/04/23 07/16/24 MichaelEmma hassan FNP [address] [place] [address] PCP - General Family Medicine 07/17/24 documented as of this encounter
--- OUTSIDE RECORDS SUMMARY | 2025-07-11 08:49 | XMS_ITS | Encounter Summary ---
Author Organization [employer] Address [address] [facility] 7t [place] [address] Care Team Providers Care Electronic Maintenance Supervisor Name Role Phone Margie Singh [facility] Primary Care Provider [phone] [facility] Primary Care Provider [phone] Reason for Visit * Reason Comments Med Refill Encounter Details Date Type Department Care Team (Late st Contact Info) Description 08/18/2023 Refill [facility]INE [address] [place], [place] [phone] Estuardo Damon AGNP Social History Tobacco Use [...] Description 07/18/2025 10:30 AM EDT Clinical Support [facility] MEDICINE [address] [place] [address] Eloisa Santiago RN documented as of this encounter Visit Diagnoses Not on filedocumented in this encounter Additional Health Concerns Assessment Noted Time PHQ-9 Depression Total Score: 13 023 11:05 AM EDT documented as of this encounter Care Teams Electronic Maintenance Supervisor Relationship Specialty Start Date End Date Margie Singh FNP [address] [place] [address] PCP - General Family Medicine 07/04/23 07/16/24 ProvoEmma FNP [address] [place] [address] PCP - General Family Medicine 07/17/24 documented as of this encounter
--- OUTSIDE RECORDS SUMMARY | 2025-07-11 08:49 | XMS_ITS | Encounter Summary ---
Author Organization [employer] Address [address] [facility] 7t [place] [address] Care Team Providers Care Diving Supervisor Name Role Phone Margie Singh [facility] Primary Care Provider [phone] [facility] Primary Care Provider [phone] Reason for Visit * Reason Comments Med Refill Encounter Details Date Type Department Care Team ([facility] st Contact Info) Description 01/28/2024 Refill [facility] [address] [place] [address] Margie Singh FNP [address] [place] [address] Social History Tobacco Use Types Packs/Day Years [...] 10:30 AM EDT Clinical Support [facility] [address] [place] [address] Eloisa Santiago RN documented as of this encounter Visit Diagnoses Not on filedocumented in this encounter Additional Health Concerns Assessment Noted Time PHQ-9 Depression Total Score: 10 024 2:27 PM EST documented as of this encounter Care Teams Diving Supervisor Relationship Specialty Start Date End Date Margie Singh FNP [address] [place] [address] PCP - General Family Medicine 07/04/23 07/16/24 LelandEmma FNP [address] [place] [address] PCP - General Family Medicine 07/17/24 documented as of this encounter
--- OUTSIDE RECORDS SUMMARY | 2025-07-11 08:49 | XMS_ITS | Encounter Summary ---
Author Organization [employer] Address [address] [facility] 7t [place] [address] Care Team Providers Care Director Of Slot Operations Name Role Phone Margie Singh [facility] Primary Care Provider [phone] [facility] Primary Care Provider [phone] Encounter Details Date Type Department Care Team (Late Contact Info) Description 08/15/2023 Orders Only [facility] MED[facility]INE [address] [place] [phone] Margie Singh FNP [address] [place] [address] Social History Tobacco Use Types Packs/Day Years [...] Support [facility] [address] [place] [address] Eloisa Santiago RN documented as of this encounter Visit Diagnoses Not on filedocumented in this encounter Additional Health Concerns Assessment Noted Time PHQ-9 Depression Total Score: 13 023 11:05 AM EDT documented as of this encounter Care Teams Director Of Slot Operations Relationship Specialty Start Date End Date Margie Singh FNP [address] [place] [address] PCP - General Family Medicine 07/04/23 07/16/24 LivoniaEmma FNP [address] [place] [address] PCP - General Family Medicine 07/17/24 documented as of this encounter
--- OUTSIDE RECORDS SUMMARY | 2025-07-11 08:49 | XMS_ITS | Encounter Summary ---
Author Organization [employer] Address [address] [facility] 7t [place] [address] Care Team Providers Care Document Control Specialist Name Role Phone Emma Rodriguez FRAME REPAIRER Primary Care Provider [phone] Encounter Details Date Type Department Care Team (Late st Contact Info) Description 07/10/2025 Orders Only [facility] MEDICINE [address] [place], [place] [phone] Khadra Fernandes MD [address] [place], [place] [phone] retirement (current) use of opiate analgesic (Primary Dx); Lumbar radiculopathy Social History Tobacco Use Types Packs/Day Years [...] Description 07/18/2025 10:30 AM EDT Clinical Support [facility] [address] [place] [address] Eloisa Santiago RN documented as of this encounter Visit Diagnoses Diagnosis retirement (current) use of opiate analgesic- Primary Lumbar radiculopathy Thoracic or lumbosacral neuritis or radiculitis, unspecified documented in this encounter Additional Health Concerns Assessment Noted Time PHQ-9 Depression Total Score: 6 03/12/20 25 12:16 PM EDT documented as of this encounter Care Teams Document Control Specialist Relationship Specialty Start Date End Date Emma Rodriguez FNP [address] [place] [address] PCP - General Family Medicine 07/17/24 documented as of this encounter
--- OUTSIDE RECORDS SUMMARY | 2025-07-11 08:49 | XMS_ITS | Encounter Summary ---
Author Organization [employer] Address [address] [facility] 7t [place] [address] Care Team Providers Care Orthopedic Surgeon Name Role Phone Radha Childress MD Primary Care Provider UnaEstuardo Daily Primary Care Provider Margie Dominguez Primary Care Provider [phone] [place] Emma LUIS ALFREDO Primary Care Provider [phone] Encounter Details Date Type Department Care Team [...] Care Team ( st Contact Info) Description 07/18/2025 10:30 AM EDT Clinical Support [facility] MEDICINE [address] [place] [address] Eloisa Santiago, VANESA documented as of this encounter Visit Diagnoses Not on filedocumented in this encounter Care Teams Orthopedic Surgeon Relationship Specialty Start Date End Date Radha Childress MD PCP - General Family Medicine 11/04/20 10/04/22 Estuardo Damon AGNP PCP - General Family Medicine 10/05/22 07/03/23 Margie Singh FNP [address] [place] [address] PCP - General Family Medicine 07/04/23 07/16/24 PurcellEmma FNP [address] [place] [address] PCP - General Family Medicine 07/17/24 documented as of this encounter
--- OUTSIDE RECORDS SUMMARY | 2025-07-11 08:49 | XMS_ITS | Encounter Summary ---
Author Organization [employer] Address [address] [facility] 7t [place] [address] Care Team Providers Care Facilities Administrator Name Role Phone Estuardo Damon AGNPablo Primary Care Provider Unavail Margie Huitron HONEYCOMB BLANKET MAKER Primary Care Provider [phone] FalmouthEmma hassan [employer] Primary Care Provider [phone] Reason for Visit * Reason Onset Date Comments Med Refill 02/18/2023 Encounter Details Date Type Department Care Team (Late st Contact Info) Description 02/18/2023 Refill [facility] [address] [place] [address] Estuardo Damon AGNP Complex regional pain syndrome [...] PM EDT documented as of this encounter Functional Status * Over the past 2 weeks, how often have you been bothered by any of the following problems? Question Answer Date of Assessment Author Patient Health Questionnaire-2 Score 3 04/0 05/2023 3:30 PM EDT Doreen Nolan [place] * If you checked off any problems on this questionnaire so far, Question Answer Date of Assessment Author How difficult have these problems made it for you to do your work, take care of things at home, or get along with other people? Extremely difficult 02/18/2023 3:30 PM EDT Doreen Nolan MA * Over the past 2 weeks, how often have you been bothered by any of the following problems? Question Answer Date of Assessment Author Little interest or pleasure in doing things Not at all 02/18/2023 3:30 PM EDT Doreen Nolan MA Feeling down, depressed, or hopeless Nearly every day 02/18/2023 3:30 PM EDT Doreen Nolan [place] Trouble falling or staying asleep, or sleeping too much Nearly every day 02/18/2023 3:30 PM EDT Doreen Nolan [place] Feeling tired or having little energy Nearly every day 02/18/2023 3:30 PM EDT Doreen Nolan [place] Poor appetite or overeating Not at all 02/18/2023 3: 30 PM EDT Doreen Nolan MA Feeling bad about yourself - or that you are a failure or have let yourself or your family down Several days 02/18/2023 3:30 PM EDT Doreen Nolan MA Trouble concentrating on things, such as reading the newspaper or watching television Several days 02/18/2023 3:30 PM EDT Doreen Nolan MA Moving or speaking so slowly that other people could have noticed? Or the opposite - being so fidgety or restless that you have been moving around a lot more than usual. Not at all 02/18/2023 3:30 PM EDT Doreen Nolan MA Thoughts that you would be better off or hurting yourself in some way Not at all 02/18/2023 3:30 PM EDT Doreen Nolan MA Patient Health Questionnaire-9 Score 11 02/18/2023 3:30 PM EDT Doreen Nolan MA documented as of this encounter Miscellaneous Notes * Telephone Encounter - Octavio Cota - 02/22/2023 9:37 AM EDT Tc from pt requesting a call back regarding medication oxycodone 5 mg Please contact pt at [phone] * Telephone Encounter - LUIS ALFREDO Clayton [...] in his duration from 15 to 30. INFORMATION SYSTEMS SECURITY OFFICER note to you on 02/02/23 said this: He attends the pain management clinic in [place]. He states that on 02/14/23 he's supposed [...] Description 07/18/2025 10:30 AM EDT Clinical Support [facility] MED[facility]INE [address] [place] [address] Eloisa Santiago, VNAESA documented as of this encounter Visit Diagnoses Diagnosis Complex regional pain syndrome type 1 of right lower extremity documented in this encounter Additional Health Concerns Assessment Noted Time PHQ-9 Depression Total Score: 11 023 3:30 PM EDT documented as of this encounter Care Teams Facilities Administrator Relationship Specialty Start Date End Date Estuardo Damon AGNP PCP - General Family Medicine 10/05/22 07/03/23 Margie Singh FNP [address] [place] [address] PCP - General Family Medicine 07/04/23 07/16/24 FalmouthEmma FNP [address] [place] [address] PCP - General Family Medicine 07/17/24 documented as of this encounter
--- OUTSIDE RECORDS SUMMARY | 2025-07-11 08:50 | XMS_ITS | Encounter Summary ---
Author Organization [employer] Address [address] [facility] 7t [place] [address] Care Team Providers Care Inpatient Nursing Aide Name Role Phone Emma Rodriguez PAPER CUP HANDLE MACHINE OPERATOR Primary Care Provider [phone] Reason for Visit * Reason Onset Date Comments Pain management plan 07/10/2025 Med Refill 07/10/2025 Encounter Details Date Type Department Care Team (Late st Contact Info) Description 07/10/2025 Refill [facility] [address] [place] [address] Eloisa Santiago RN Complex regional pain syndrome [...] Telephone Encounter - Eloisa Santiago RN - 07/10/2025 12:30 PM EDT TC to patient. Reviewed covering providers new pain management plan. Patient was able to repeat back to this property underwriter that he will pickup his new fentanyl 50mcg patches on Tuesday, at that time he can remove his current 37.5mcg patch and then apply his new dosing of fentanyl 50mcg patch. Pt was able to repeat that he is not to use more than 2 doses of his Oxycodone 10mg tablets in 24 hours. Or he could use Oxycodone 5mg Q6hr as needed. But not to exceed 20mg oxycodone within 24 hours. Pt stated heunderstood all instructions above and denied any questions. * Telephone Encounter - Eloisa Santiago RN - 07/10/2025 9:22 AM EDT Pt had DIESEL LOCOMOTIVE CRANE OPERATOR RV today Reports still having a lot of pain. Fentanyl count was as expected. Oxycodone 10mg count was 96, anticipated 91. He will need Fentanyl patch refill on for 9/1/25 - holiday. Please advise if there will be a dose change. documented in this encounter Plan of Treatment Upcoming Encounters Date Type Department Care Team (Late st Contact Info) Description 07/18/2025 10:30 AM EDT Clinical Support [facility] [address] [place] [address] Eloisa Santiago, VANESA documented as of this encounter Visit Diagnoses Diagnosis Complex regional pain syndrome type 1 of right lower extremity documented in this encounter Additional Health Concerns Assessment Noted Time PHQ-9 Depression Total Score: 6 03/12/20 25 12:16 PM EDT documented as of this encounter Care Teams Inpatient Nursing Aide Relationship Specialty Start Date End Date Emma Rodriguez FNP [address] [place] [address] PCP - General Family Medicine 07/17/24 documented as of this encounter
== END 2025-07-11 08:18 | disposition home or self-care (01) ==
LOC: CF 08:17
PROVIDERS: Visit Provider Internal Medicine
DX: Z13.89 Encounter for screening for other disorder (principal)

== ENCOUNTER 2025-08-15 08:25 | Outpatient (REF) | payer OTHER, SELFPAY ==
--- OUTSIDE RECORDS SUMMARY | 2025-08-15 08:42 | XMS_ITS | Encounter Summary ---
Author Organization [employer] Address [address] [facility] 7t [place] [address] Care Team Providers Care Campaign Developer Name Role Phone Estuardo Damon AGNPablo Primary Care Provider Margie Dominguez EXTRUDER Primary Care Provider [phone] [place] CityEmma hassan EXTRUDER Primary Care Provider [phone] Reason for Visit * Reason Onset Date Comments Medication 05/12/2023 Encounter Details Date Type Department Care Team (Late st Contact Info) Description 05/12/2023 Telephone [facility] MEDICINE [address] [place] [address] Estuardo Damon AGNP Medication Social History Tobacco [...] order and no other [facility] has it. Software Technician called [facility] pharmacy andthey do have medication in stock. documented in this encounter Plan of Treatment Upcoming Encounters Date Type Department Care Team (Late st Contact Info) Description 08/29/2025 9:30 AM EDT Clinical Support [facility] MEDICINE [address] [place] [phone] Eloisa Santiago, RN documented as of this encounter Visit Diagnoses Not on filedocumented in this encounter Additional Health Concerns Assessment Noted Time PHQ-9 Depression Total Score: 13 023 11:05 AM EDT documented as of this encounter Care Teams Campaign Developer Relationship Specialty Start Date End Date Estuardo Damon AGNP PCP - General Family Medicine 10/05/22 07/03/23 Margie Singh FNP [address] [place] [address] PCP - General Family Medicine 07/04/23 07/16/24 [place] CityEmma FNP [address] [place] [address] PCP - General Family Medicine 07/17/24 documented as of this encounter
--- OUTSIDE RECORDS SUMMARY | 2025-08-15 08:42 | XMS_ITS | Encounter Summary ---
Author Organization [employer] Address [address] [facility] 7t [place] [address] Care Team Providers Care Outdoor Studies Director Name Role Phone Emma Rodriguez WAD IMPREGNATOR Primary Care Provider [phone] Reason for Referral * Consultation (Routine) - Canceled Specialty Diagnoses / Procedures Referred By Josephine t Referred To Contact Pharmacy Diagnoses Tobacco dependence Khadra Fernandes MD [address] [place] [address] Phone: tel: fax: Referral ID Status Reason Start Date Expiration Date V isits Requested Visits Authorized [id number] Canceled Consult and Treat 01/28/2025 01/28/2026 6 6 Encounter Details Date Type Department Care Team (Late st Contact Info) Description 01/28/2025 Orders Only [facility] MEDICINE [address] [place], [place] [phone] Khadra Fernandes MD [address] [place], [place] [phone] Tobacco dependence (Primary Dx) Social History Tobacco [...] Description 08/29/2025 9:30 AM EDT Clinical Support [facility] MEDICINE [address] [place] [phone] Eloisa Santiago, VANESA Scheduled Referrals Name Type [...] PM EDT) Rapid Plasma Reagin, Quant Non-React sudnar Nonreactive [facility] Treponema pallidum Antibody, Particle Agglutination Reactive( A) Nonreactive [facility] Comment:Testing performed at : [address] [address] 01/28/2025 12:1 6 PM EDT 01/28/2025 2:17 PM EDT [facility] LAB BLOOD ORDERABLES Final Re sult [facility] [address] [place] [phone] documented in this encounter Visit Diagnoses Diagnosis Tobacco dependence- Primary Tobacco use disorder documented in this encounter Additional Health Concerns Assessment Noted Time PHQ-9 Depression Total Score: 0 01/26/20 25 1:57 PM EDT documented as of this encounter Care Teams Outdoor Studies Director Relationship Specialty Start Date End Date Emma Rodriguez FNP [address] [place] [address] PCP - General Family Medicine 07/17/24 documented as of this encounter
--- OUTSIDE RECORDS SUMMARY | 2025-08-15 08:42 | XMS_ITS | Encounter Summary ---
Author Organization [employer] Address [address] [facility] 7t [place] [address] Care Team Providers Care Sales Order Processor Name Role Phone Margie Singh [facility] Primary Care Provider [phone] [facility] Primary Care Provider [phone] Reason for Visit * Reason Onset Date Comments Med Refill 07/08/2023 Encounter Details Date Type Department Care Team (Late st Contact Info) Description 07/08/2023 Telephone [facility] MEDICINE [address] [place], [place] [phone] Margie Singh FNP [address] [place] [address] Med Refill Social History Tobacco Use Types [...] medication oxycodone 10 mg. Please send to [facility]/pharmacy #[id number] - [place], [place] - [address] PCP [address] Singh documented in this encounter Plan of Treatment Upcoming Encounters Date Type Department Care Team (Late st Contact Info) Description 08/29/2025 9:30 AM EDT Clinical Support [facility] MEDICINE [address] [place] [address] Eloisa Santiago, VANESA documented as of this encounter Visit Diagnoses Not on filedocumented in this encounter Additional Health Concerns Assessment Noted Time PHQ-9 Depression Total Score: 13 023 11:05 AM EDT documented as of this encounter Care Teams Sales Order Processor Relationship Specialty Start Date End Date Margie Singh FNP [address] [place] [address] PCP - General Family Medicine 07/04/23 07/16/24 HoustonEmma FNP [address] [place] [address] PCP - General Family Medicine 07/17/24 documented as of this encounter
--- OUTSIDE RECORDS SUMMARY | 2025-08-15 08:42 | XMS_ITS | Encounter Summary ---
Author Organization [employer] Address [address] [facility] 7t [place] [address] Care Team Providers Care Caterer Helper Name Role Phone Estuardo Damon Primary Care Provider Margie Dominguez [employer] Primary Care Provider [phone] RosebudEmma hassan [facility] Primary Care Provider [phone] Reason for Visit * Reason Onset Date Comments Med Refill 05/13/2023 Encounter Details Date Type Department Care Team (Late st Contact Info) Description 05/13/2023 Telephone [facility] MEDICINE [address] [place] [address] Estuardo Damon AGNP Med Refill Social History [...] (Percocet) 10-325 MG tablet thatwas sent to [facility] pharmacy. Please contact pt at [phone] documented in this encounter Plan of Treatment Upcoming Encounters Date Type Department Care Team (Late st Contact Info) Description 08/29/2025 9:30 AM EDT Clinical Support [facility] MEDICINE [address] [place] [address] Eloisa Santiago, RN documented as of this encounter Visit Diagnoses Not on filedocumented in this encounter Additional Health Concerns Assessment Noted Time PHQ-9 Depression Total Score: 13 023 11:05 AM EDT documented as of this encounter Care Teams Caterer Helper Relationship Specialty Start Date End Date Estuardo Damon AGNP PCP - General Family Medicine 10/05/22 07/03/23 Margie Singh FNP [address] [place] [address] PCP - General Family Medicine 07/04/23 07/16/24 RosebudEmma FNP [address] [place] [address] PCP - General Family Medicine 07/17/24 documented as of this encounter
--- OUTSIDE RECORDS SUMMARY | 2025-08-15 08:42 | XMS_ITS | Encounter Summary ---
Author Organization [employer] Address [address] [facility] 7t [place] [address] Care Team Providers Care Overnight Babysitter Name Role Phone Margie Singh [facility] Primary Care Provider [phone] [facility] Primary Care Provider [phone] Encounter Details Date Type Department Care Team (Late Contact Info) Description 08/15/2023 Orders Only [facility] MEDICINE [address] [place] [phone] Margie Singh FNP [address] [place] [address] Social History Tobacco Use Types Packs/Day Years [...] Description 08/29/2025 9:30 AM EDT Clinical Support [facility] MEDICINE [address] [place] [phone] Eloisa Santiago RN documented as of this encounter Visit Diagnoses Not on filedocumented in this encounter Additional Health Concerns Assessment Noted Time PHQ-9 Depression Total Score: 13 023 11:05 AM EDT documented as of this encounter Care Teams Overnight Babysitter Relationship Specialty Start Date End Date Margie Singh FNP [address] [place] [address] PCP - General Family Medicine 07/04/23 07/16/24 PremierEmma FNP [address] [place] [address] PCP - General Family Medicine 07/17/24 documented as of this encounter
--- OUTSIDE RECORDS SUMMARY | 2025-08-15 08:43 | XMS_ITS | Encounter Summary ---
Author Organization [employer] Address [address] [facility] 7t [place] [address] Care Team Providers Care Broadcast Technician Name Role Phone Wadley [facility] Primary Care Provider [phone] Reason for Visit * Reason Onset Date Comments Med Refill 06/19/2025 Encounter Details Date Type Department Care Team ([facility] st Contact Info) Description 06/19/2025 Refill [facility] MEDICINE [address] [place], [place] [phone] [facility] [address] [place] [address] Complex regional pain syndrome type 1 of [...] immediate release tablet To be sent to: [facility]/pharmacy #[address] [place] [address] [phone] [facility] documented in this encounter Plan of Treatment Upcoming Encounters Date Type Department Care Team (Late st Contact Info) Description 08/29/2025 9:30 AM EDT Clinical Support [facility] MEDICINE [address] [place] [address] [phone] Eloisa Santiago RN documented as of this encounter Visit Diagnoses Diagnosis Complex regional pain syndrome type 1 of right lower extremity documented in this encounter Additional Health Concerns Assessment Noted Time PHQ-9 Depression Total Score: 6 03/12/20 25 12:16 PM EDT documented as of this encounter Care Teams Broadcast Technician Relationship Specialty Start Date End Date Emma Rodriguez FNP [address] [place] [address] PCP - General Family Medicine 07/17/24 documented as of this encounter
--- OUTSIDE RECORDS SUMMARY | 2025-08-15 08:43 | XMS_ITS | Encounter Summary ---
Author Organization [employer] Address [address] [facility] 7t [place] [address] Care Team Providers Care Structural Manager Name Role Phone Margie Singh [facility] Primary Care Provider [phone] [facility] Primary Care Provider [phone] Reason for Visit * Reason Comments Med Refill Encounter Details Date Type Department Care Team ([facility] st Contact Info) Description 07/03/2024 Refill [facility] [address] [place] [address] Margie Singh FNP [address] [place] [address] Social History Tobacco Use Types Packs/Day Years [...] 08/29/2025 9:30 AM EDT Clinical Support [facility] MEDICINE [address] [place] [address] Eloisa Santiago RN documented as of this encounter Visit Diagnoses Not on filedocumented in this encounter Additional Health Concerns Assessment Noted Time PHQ-9 Depression Total Score: 10 024 2:27 PM EST documented as of this encounter Care Teams Structural Manager Relationship Specialty Start Date End Date Margie Singh FNP [address] [place] [address] PCP - General Family Medicine 07/04/23 07/16/24 HartlandEmma FNP [address] [place] [address] PCP - General Family Medicine 07/17/24 documented as of this encounter
--- OUTSIDE RECORDS SUMMARY | 2025-08-15 08:43 | XMS_ITS | Encounter Summary ---
Author Organization [employer] Address [address] [facility] 7t [place] [address] Care Team Providers Care Organic Preparation Technician Name Role Phone [place] [facility] Primary Care Provider [phone] Encounter Details Date Type Department Care Team (Late st Contact Info) Description 08/09/[address] [facility] MEDICINE [address] [place], [place] [phone] [facility] [address] [place], [place] [phone] Social History Tobacco Use Types Packs/Day Years [...] PM EDT [facility] for [facility] therapy but instead should be physical therapy due to pt DX . Any question please contact phone #[phone] documented in this encounter Plan of Treatment Upcoming Encounters Date Type Department Care Team (Late st Contact Info) Description 08/29/2025 9:30 AM EDT Clinical Support [facility] MEDICINE [address] [place] [address] Eloisa Santiago, RN documented as of this encounter Visit Diagnoses Not on filedocumented in this encounter Additional Health Concerns Assessment Noted Time PHQ-9 Depression Total Score: 16 024 11:48 AM EDT documented as of this encounter Care Teams Organic Preparation Technician Relationship Specialty Start Date End Date Emma Rodriguez FNP [address] [place] [address] PCP - General Family Medicine 07/17/24 documented as of this encounter
--- OUTSIDE RECORDS SUMMARY | 2025-08-15 08:43 | XMS_ITS | Clinical Summary ---
Author Organization [facility] Address [address] [facility] [address] [place] [address] Phone Care Team Providers Care Pullman Car Clerk Name Role Phone Emam Rodriguez LUIS ALFREDO Primary Care Provider [phone] Allergies No known active allergies Medications zolpidem [...] for pain (specific location in comments). {PARTIAL FILL:40188} Active docusate sodium (COLACE) 100 MG capsule [...] YEARS) 2001 Adult Td,Tdap Booster 09/07/2021 09/07/2011 INFLUENZA VACCINE (#1) 2025 8, 07/28/2015, 08/01/2013, Additional history exists COVID-19 VACCINE ( season) 2025 04/04/2021, 03/07/2021 PNEUMOCOCCAL VACCINES (0-49 years) Aged [...] & B ONE CARE MEDICARE REPLACEMENT [place] [id number] MEDICARE PART A & B [facility] ONE CARE MEDICARE REPLACEMENT MEDICARE PART A & B CARE MEDICARE REPLACEMENT MEDICARE PART A & B CARE MEDICARE REPLACEMENT MEDICARE PART A & B [facility] CARE MEDICARE REPLACEMENT [place] [id number] MEDICARE PART A & B [facility] CARE MEDICARE REPLACEMENT MEDICARE PART A & B [facility] MEDIC[facility] REPLACEMENT MEDICARE PART A & B [facility] CARE MEDICARE REPLACEMENT [facility]05 MEDICARE PART A & B [facility] CARE MEDICARE REPLACEMENT Member Subscriber Plan / Payer ( fective 2018-Present) Name:Ji Her Relation to Subscriber:Self Name:Ji Her Payer ID:[id number] (NAIC) Group ID:[id number] Type:Medicare Address: [address] [facility]05 CARE MEDICARE REPLACEMENT MEDICARE PART A & B Care Teams Pullman Car Clerk Relationship Specialty Start Date End Date Emma Rodriguez FNP [address] [place] [address] PCP - General Nurse Practitioner 08/21/24 Additional Source Comments The information contained in this document represents components of the legal health record. It is not the complete legal health record.[facility]
--- OUTSIDE RECORDS SUMMARY | 2025-08-15 08:43 | XMS_ITS | Encounter Summary ---
Author Organization [employer] Address [address] [facility] 7t [place] [address] Care Team Providers Care Pipe Cleaner Name Role Phone Michael Emma CONSTRUCTION FOREMAN Primary Care Provider [phone] Reason for Referral * Consultation (Routine) - Closed Specialty Diagnoses / Procedures Referred By Josephine garsia Referred To Contact Physical Therapy Diagnoses Complex regional pain syndrome type 1 of right lower extremity Khadra Fernandes MD [address] [place] [address] Phone: tel: fax: [facility] PT/OT/Speech [address] [place] [phone] Phone: tel: fax: Referral ID Status Reason Start Date Expiration Date V isits Requested Visits Authorized [id number] Closed Specialty Services Required 08/15/2024 08/15/2025 1 1 Encounter Details Date Type Department Care Team (Late st Contact Info) Description 08/15/2024 Orders Only [facility] MEDICINE [address] [place], [place] [phone] Khadra Fernandes MD [address] [place], [place] [phone] Complex regional pain syndrome type 1 of [...] Upcoming Encounters Date Type Department Care Team ([facility] st Contact Info) Description 08/29/2025 9:30 AM EDT Clinical Support [address] [address] Eloisa Santiago RN Scheduled Referrals Name Type [...] as of this encounter Care Teams Pipe Cleaner Relationship Specialty Start Date End Date Emma Rodriguez FNP [address] [place] [address] PCP - General Family Medicine 07/17/24 documented as of this encounter
--- OUTSIDE RECORDS SUMMARY | 2025-08-15 08:43 | XMS_ITS | Encounter Summary ---
Author Organization [employer] Address [address] [facility] 7t [place] [address] Care Team Providers Care Coffee Shop Manager Name Role Phone Margie Singh [facility] Primary Care Provider [phone] [facility] Primary Care Provider [phone] Reason for Visit * Reason Onset Date Comments Appointment Request 06/21/2024 Encounter Details Date Type Department Care Team ([facility] st Contact Info) Description 06/21/2024 Telephone [facility] MEDICINE [address] [place], [place] [phone] Margie Singh FNP [address] [place] [address] Appointment Request Social History Tobacco Use Types [...] 06/21/2024 3:48 PM EDT Tc from 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 [employer]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 CREW LEADER requesting appt for patient states the patient under went a surgical procedureon the chest and is still experiencing pain news writer did ask if the patient had a follow up with surgeon LANDSCAPING CREW LEADER stated yes and next appt is not until July documented in this encounter Plan of Treatment Upcoming Encounters Date Type Department Care Team (Late st Contact Info) Description 08/29/2025 9:30 AM EDT Clinical Support [facility] MEDICINE [address] [place] [address] Eloisa Santiago, VANESA documented as of this encounter Visit Diagnoses Not on filedocumented in this encounter Additional Health Concerns Assessment Noted Time PHQ-9 Depression Total Score: 10 024 2:27 PM EST documented as of this encounter Care Teams Coffee Shop Manager Relationship Specialty Start Date End Date Margie Singh FNP [address] [place] [address] PCP - General Family Medicine 07/04/23 07/16/24 [place] ChristiEmma FNP [address] [place] [address] PCP - General Family Medicine 07/17/24 documented as of this encounter
--- OUTSIDE RECORDS SUMMARY | 2025-08-15 08:43 | XMS_ITS | Encounter Summary ---
Author Organization [employer] Address [address] [facility] 7t [place] [address] Care Team Providers Care Channeler Insole Name Role Phone Margie Singh [facility] Primary Care Provider [phone] [facility] Primary Care Provider [phone] Reason for Visit * Reason Comments Med Refill Encounter Details Date Type Department Care Team ([facility] st Contact Info) Description 03/14/2024 Refill [facility] [address] [place] [address] Margie Singh FNP [address] [place] [address] Social History Tobacco Use Types Packs/Day Years [...] Description 08/29/2025 9:30 AM EDT Clinical Support [facility] MEDICINE [address] [place] [address] Eloisa Santiago RN documented as of this encounter Visit Diagnoses Not on filedocumented in this encounter Additional Health Concerns Assessment Noted Time PHQ-9 Depression Total Score: 10 024 2:27 PM EST documented as of this encounter Care Teams Channeler Insole Relationship Specialty Start Date End Date Margie Singh FNP [address] [place] [address] PCP - General Family Medicine 07/04/23 07/16/24 SunburstEmma FNP [address] [place] [address] PCP - General Family Medicine 07/17/24 documented as of this encounter
--- OUTSIDE RECORDS SUMMARY | 2025-08-15 08:43 | XMS_ITS | Encounter Summary ---
Author Organization [employer] Address [address] [facility] 7t [place] [address] Care Team Providers Care Metal Pourer Name Role Phone Margie Singh [facility] Primary Care Provider [phone] [facility] Primary Care Provider [phone] Reason for Visit * Reason Comments Med Refill Encounter Details Date Type Department Care Team (Late st Contact Info) Description 08/18/2023 Refill [facility] MEDICINE [address] [place], [place] [phone] Estuardo Damon AGNP Social History Tobacco Use [...] Description 08/29/2025 9:30 AM EDT Clinical Support [facility] MEDICINE [address] [place] [address] Eloisa Santiago RN documented as of this encounter Visit Diagnoses Not on filedocumented in this encounter Additional Health Concerns Assessment Noted Time PHQ-9 Depression Total Score: 13 023 11:05 AM EDT documented as of this encounter Care Teams Metal Pourer Relationship Specialty Start Date End Date Margie Singh FNP [address] [place] [address] PCP - General Family Medicine 07/04/23 07/16/24 [place]fordEmma FNP [address] [place] [address] PCP - General Family Medicine 07/17/24 documented as of this encounter
--- OUTSIDE RECORDS SUMMARY | 2025-08-15 08:43 | XMS_ITS | Clinical Summary ---
Author Organization [employer] Address [address] [facility] 7t [place] [address] Care Team Providers Care Drawing Supervisor Name Role Phone Emma Rodriguez ALCOHOL STILL OPERATOR Primary Care Provider [phone] Allergies No known active allergies Medications * [...] inhalerIndicatio ns:Mild chronic obstructive pulmonary disease (CMS/HCC) (HCC) INHALE 2 PUFFS BY MOUTH EVERY FOUR [...] TWICE A DAY 180 tablet 025 Active DULoxetine (Cymbalta) [address] capsuleIndicamarcus ns:Complex regional pain syndrome type 1 of [...] needed for opioid reversal. 2 each 1 025 Active zolpidem (Ambien) 10 MG tabletIndication s:Insomnia, unspecified type TAKE 1 TABLET BY MOUTH EVERYDAY AT BEDTIME 30 tablet 025 Active gabapentin (Neurontin) 300 MG capsuleIndicatio ns:Lumbar back pain TAKE 2 CAPSULE BY ORAL ROUTE EVERY AFTERNOON AND 1 CAPSULE IN THE EVENING BEFORE BED 90 capsule 1 025 Active cyclobenzaprine (Flexeril) 10 MG tablet TAKE 1 TABLET BY MOUTH THREE TIMES A DAY FOR 10 DAYS 30 tablet Active oxyCODONE (Roxicodone) 10 MG immediate release tabletIndication s:Complex regional pain syndrome type 1 of right lower extremity Take 1 tablet (10 mg) by mouth every 6 (six) hours if needed for severe pain for up to 28 days. 112 tablet 025 2024 Active fentaNYL (Duragesic) 50 MCG/HRIndication s:termite control service representative (current) use of opiate analgesic,Lumbar radiculopathy Place 1 patch on the skin every 3rd (third) day. Do not start before August 14, 2025. 10 patch 025 2024 Active gabapentin (Neurontin) 300 MG capsuleIndicatio ns:Lumbar back pain Take 1 capsule (300 mg) by mouth at bedtime. Take 2 capsule by oral route every afternoon and 1 capsule in the evening before bed 90 capsule 1 025 2024 Discontinued zolpidem (Ambien) 10 MG tabletIndication s:Insomnia, unspecified type Take 1 tablet (10 mg) by mouth at bedtime. 30 tablet 025 2024 Discontinued cyclobenzaprine (Flexeril) 10 MG tablet TAKE 1 TABLET BY MOUTH THREE TIMES DAILY FOR 10 DAYS 30 tablet 025 2024 Discontinued oxyCODONE (Roxicodone) 10 MG immediate release tabletIndication s:Complex regional pain syndrome type 1 of right lower extremity Take 1 tablet (10 mg) by mouth every 6 (six) hours if needed for severe pain for up to 28 days. 112 tablet 025 2024 Discontinued(R eorder (will not trigger notification to Pharmacy)) fentaNYL (Duragesic) 50 MCG/HRIndication s:[facility] (current) use of opiate analgesic,Lumbar radiculopathy Place 1 patch on the skin every 3rd (third) day. Do not start before July 15, 2025. 10 patch 025 2024 Discontinued(R eorder (will not trigger notification to Pharmacy)) Active Problems Problem Noted Date Diagnosed Date History of syphilis 03/08/2025 Overview (03/08/2025): 2017 pt titer was 1:128 and was treated with 1 dose of PCN 2.4 units. In 2019 pt titer was non-reactive Malignant neoplasm of left lung (CMS/HCC) 2024 [facility] (current) use of opiate analgesic 01/12 Severe [...] in his daily life. He and his ROOTER OPERATOR reported that they have not tried [...] someone with have to drive him. His ROOTER OPERATOR is also aware. Mild chronic obstructive pulmonary disease (CMS/ HCC) 06/27/2018 Peripheral neuropathic pain 06/27/2018 Reflex sympathetic dystrophy [...] episode of recurren t major depressive disorder (CMS/HCC) 10/19/2012 03/12/2025 Assessment & Plan (12/22/2023 2:57 PM EST): PROGRESS NOTE: ID: Ji is a 38 y.o. straight-identified cis-male with previous documented hx of Depression and Bipolar Disorder services including OP Psychotherapy psychopharmacology who presents for Anxiety and Depression. Reported after foot surgery on 2010 he has been experiencing a lot of chronic and nerve pain. Lives alone, has ROOTER OPERATOR that support him and listen to [...] intervention and Patient to reach out to [facility] team as needed Lumbar back pain 05/18/2012 03/08/2025 Encounters Date Type Department Care Team Description 08/13/2025 Refill [facility] [address] [place] [address] Emma Rodriguez FNP [facility] (current) use of opiate analgesic; Lumbar radiculopathy 08/05/2025 Refill [facility] [address] [place] [address] Emma Rodriguez FNP Complex regional pain syndrome type 1 of right lower extremity 08/04/2025 Refill [facility] [address] [place] [address] Emma Rodriguez, ALCOHOL STILL OPERATOR 08/04/2025 Refill [facility] [place] [address] Emma Rodriguez, ALCOHOL STILL OPERATOR Lumbar back pain 08/02/2025 Telephone [facility] [place] [address] Emma Rodriguez, ALCOHOL STILL OPERATOR Durable Medical Equipment (DME Request: [employer]: Shower Chair) 07/29/2025 9:00 AM EDT Telemedicine [facility] [place] [address] Eloisa Santiago, VANESA termite control service representative (current) use of opiate analgesic 07/29/2025 Telephone [facility] [place] [address] Eloisa Santiago, RN Fentanyl count; Summary last 3 RESOLUTE PROFESSIONAL visits 07/29/2025 Travel 07/27/2025 Refill [facility] [place] [address] Emma Rodriguez FNP Insomnia, unspecified type 07/26/2025 Telephone [facility] [place] [address] Eloisa Santiago, VANESA NCNS Tele RESOLUTE PROFESSIONAL RV today 07/18/2025 10:30 AM EDT Clinical Support [facility] [place] [address] Eloisa Santiago RN termite control service representative (current) use of opiate analgesic (Primary Dx) 07/18/2025 Telephone [facility] [place] [address] Eloisa Santiago RNmanager case management plan 07/18/2025 Travel 07/10/2025 9:30 AM EDT Telemedicine [facility] [place] [address] Eloisa Santiago, VANESA [facility] (current) use of opiate analgesic 07/10/2025 Orders Only [facility] [place] [address] Khadra Fernandes MD [facility] (current) use of opiate analgesic (Primary Dx); Lumbar radiculopathy 07/10/2025 Refill [facility] [place] [address] Eloisa Santiago RN Complex regional pain syndrome type 1 of right lower extremity 07/10/2025 Travel 07/05/[address] [address] Eloisa Santiago RN Complex regional pain syndrome type 1 of right lower extremity (Primary Dx) 07/04/2025 9:00 AM EDT Telemedicine [address] [address] Eloisa Santiago RN [facility] (current) use of opiate analgesic 07/04/[address] [address] Eloisa Santiago RN Fentanyl titration, oxycodone use 07/04/2025 Travel 06/28/[address] [address] Eloisa Santiago RN Complex regional pain syndrome type 1 of right lower extremity (Primary Dx) 06/27/2025 10:00 AM EDT Telemedicine [address] [address] Eloisa Santiago RN [facility] (current) use of opiate analgesic 06/27/[address] [address] Eloisa Santiago RN Fentanyl patch count discrepancy, Oxycodone count discrepan 06/27/2025 Travel 06/21/[address] [facility] [address] [place] [address] Emma Rodriguez FNP 06/20/[address] [address] Eloisa Santiago RN Complex regional pain syndrome type 1 of right lower extremity (Primary Dx) 06/20/[address] [facility] [address] [place] [address] Emma Rodriguez FNP Prior Authorization 06/19/[address] [address] Eloisa Santiago RN New pain management plan 06/19/2025 Telephone [facility] [address] [place] [address] Emma Rodriguez FNP Prior Authorization 06/19/2025 Telephone [facility] [address] [place] [address] Emma Rodriguez FNP Med Refill 06/19/2025 Refill [facility] [address] [place] [address] Emma Rodriguez FNP Complex regional pain syndrome type 1 of right lower extremity 06/14/2025 Telephone [facility] [address] [place] [address] Emma Rodriguez FNP requesting call back 06/10/2025 1:00 PM EDT Office Visit [facility] [address] [place] [address] Emma Rodriguez FNP Complex regional pain syndrome type 1 of right lower extremity; Encounter for immunization 06/10/2025 Travel 06/06/2025 Telephone [facility] [place] [address] Emma Rodriguez FNP chart prep 06/03/[address] [facility] [address] [place] [address] Emma Rodriguez FNP Pre-visit Planning ([facility] unable to reach [facility]) 05/31/2025 Refill [facility] [address] [place] [address] Emma Rodriguez FNP Insomnia, unspecified type 05/31/2025 Refill [facility] [address] [facility] [place] [address] Eloisa Santiago, RN Complex regional pain syndrome type 1 of right lower extremity 05/28/2025 Refill [facility] [address] [facility] [place] [address] Emma Rodriguez FNP 05/28/2025 Refill [facility] [address] [facility] [place] [address] Emma Rodriguez FNP Complex regional pain syndrome type 1 of right lower extremity 05/22/2025 Telephone [facility] [address] [facility] [place] [address] Michael, Emma, ALCOHOL STILL OPERATOR Medication Question from Last 3 Months Immunizations Immunization Administration [...] Description 08/29/2025 9:30 AM EDT Clinical Support [address] [address] Eloisa Santiago, RN Health Maintenance Due Date Last Done Comments Alcohol/Substance Use Screening 1995 Family Planning (PISQ) 1998 HPV Vaccines (1 - Male 3-dose series) 1998 Hepatitis B Vaccines (1 of 3 - 19+ 3-dose series) 2002 COVID-19 Vaccine (4 - season) 2025 12/22/2022, 04/04/2021, 03/07/2021 Influenza Vaccine (#1) 2025 8, 07/28/2015, 08/01/2013, Additional history exists SDOH Screening 07/30/2025 07/30/2024 Depression Screening 03/12/2026 [...] Comments POCT NATALIA-14 URINE DRUG SCREEN Routine 07/18/2025 10:51 AM EDT [facility] (current) use of opiate analgesic HEPATITIS PANEL, [...] Results * POCT NATALIA-14 Urine Drug Screen (07/18/2025 10:51 AM EDT) THC Negative Negative Cocaine Screen, [...] Negative Propoxyphene, Urine Negative Negative Fentanyl, Urine Positive Negative Urine Urine specimen obtained by clean catch procedure / Unknown 07/18/2025 10:51 AM EDT Narrative Eloisa Santiago RN - 07/18/2025 10:51 AM EDT UTOX cup Lot#[id number] Exp. 08/20/26 Internal Pass Control [facility] ALCOHOL STILL OPERATOR POINT OF CARE TEST ENTER/EDIT ORDERABLES Final Result * Hepatitis A,B,C Profile (01/28/2025 12:16 PM EDT) Hepatitis A IgM Nonreactive Nonreactive [facility] Comment:IgM antibodies to CHANG V not detected; does not exclude earlyacute or recovered HAV infection. ~Hepatitis B Surface Antibody NONREACTIVE Nonreactive [facility] Comment:Nonreactive: < 8.00 mIU/mL Hepatitis B Core Antibody Nonreactive Nonreactive [facility] Hepatitis C Antibody Nonreactive Nonreactive [facility] Comment:Antibodies to HCV no t detected; does not exclude early acuteHCV infection. Hepatitis B Surface Ag Negative Negative [facility] Blood Venous blood specimen / Unknown 01/28/2025 12:16 PM EDT 01/28/2025 1:07 PM EDT [facility] LAB BLOOD ORDERABLES Final Re sult Performing Organization Address City/[facility]/ZIP Co de Phone Number [facility] [address] [place] [phone] [phone] * HIV-1/2 Antigen and Antibodies, Fourth Generation, with Reflexes (01/28/2025 12:16 PM EDT) HIV AB/AG Nonreactive Nonreactive [facility] Comment:HIV-1 p24 Ag and/or HIV-1/HIV-2 Ab not detected.A test result that is nonreactive does not exclude thepossibility of exposure to or infection with HIV-1 and/orHIV-2. Nonreactive results in this assay for individualswith prior exposure to HIV-1 and/or HIV-2 may be due toantigen and antibody levels that are below the limit ofdetection of this assay.The [employer] HIV Ag/Ab Combo assay result andsupplemental assay results should be interpreted inconjunction with the patient's clinical presentation,history and other laboratory results. If the results areinconsistent with clinical evidence, additional testing issuggested to confirm the result. Blood Venous blood specimen / Unknown 01/28/2025 12:16 PM EDT 01/28/2025 1:07 PM EDT [facility] LAB BLOOD ORDERABLES Final Re sult Performing Organization Address [facility]/ZIP Co de Phone Number [facility] [address] [place] [phone] [phone] * (ABNORMAL) Lipid Panel, Standard (01/28/2025 12:16 PM EDT) Triglycerides 345(H) <150 mg/dL [facility] Comment:Desirable Triglyceri de: less than 150 mg/dLBorderline High Triglyceride 150-199 mg/dLHigh Triglyceride: 200-499 mg/dLVery High Triglyceride: greater than or equal to 5OO mg/dL Cholesterol 171 <200 mg/dL [facility] Comment:Desirable Cholestero l: less than 200 mg/dLBorderline High Cholesterol: 200-239 mg/dLHigh Cholesterol: greater than 239 mg/dL LDL Cholesterol Calculated 70 <100 mg/dL [facility] Comment:Desirable LDL: less than 100 mg/dLNear Optimal/Above Optimal LDL: 110- 129 mg/dLBorderline High LDL: 130-159 mg/dLHigh LDL: 160-189 mg/dLVery High LDL: greater than or equal to 190 mg/dL HDL Cholesterol 32(L) >40 mg/dL [facility] Comment:Desirable HDL: great er than 40 mg/dL Note: This HDL assay may give artificially low results in patients with liver disease. Blood Venous blood specimen / Unknown 01/28/2025 12:16 PM EDT 01/28/2025 1:07 PM EDT [facility] ALCOHOL STILL OPERATOR LAB BLOOD ORDERABLES Final Re sult [facility] [address] [place] [phone] from Last 3 Months or Most Recently Relevant to Health Maintenance Insurance [employer] [facility] < 65 [place]AN[place] [id number] * Guarantor: Ji Her Account Type Relation to Patient Date of Phone Billing Address Dental Self Care Teams Drawing Supervisor Relationship Specialty Start Date End Date Emma Rodriguez FNP [address] [place] [address] PCP - General Family Medicine 07/17/24
--- OUTSIDE RECORDS SUMMARY | 2025-08-15 08:43 | XMS_ITS | Encounter Summary ---
Author Organization [employer] Address [address] [facility] 7t [place] [address] Care Team Providers Care Rail Manager Name Role Phone Radha Childress MD Primary Care Provider Unava Estuardo Rios Primary Care Provider Margie Dominguez Primary Care Provider [phone] [place] Emma LUIS ALFREDO Primary Care Provider [phone] Encounter Details Date Type Department Care Team [...] Care Team ( st Contact Info) Description 08/29/2025 9:30 AM EDT Clinical Support [facility] [address] [place] [address] Eloisa Santiago, VANESA documented as of this encounter Visit Diagnoses Not on filedocumented in this encounter Care Teams Rail Manager Relationship Specialty Start Date End Date Radha Childress MD PCP - General Family Medicine 11/04/20 10/04/22 Estuardo Damon AGNP PCP - General Family Medicine 10/05/22 07/03/23 Margie Singh FNP [address] [place] [address] PCP - General Family Medicine 07/04/23 07/16/24 [place] FNP [address] [place] [address] PCP - General Family Medicine 07/17/24 documented as of this encounter
--- OUTSIDE RECORDS SUMMARY | 2025-08-15 08:43 | XMS_ITS | Encounter Summary ---
Author Organization [employer] Address [address] [facility] [address]t [place] [address] Care Team Providers Care Portable Machine Cutter Name Role Phone Margie Singh [facility] Primary Care Provider [phone] [facility] Primary Care Provider [phone] Reason for Visit * Reason Onset Date Comments Call Back Request 01/30/2024 Encounter Details Date Type Department Care Team ([facility] st Contact Info) Description 01/30/2024 Telephone [facility] [address] [place], [place] [phone] Margie Singh FNP [address] [place] [address] Call Back Request Social History Tobacco Use [...] EDT T/C to pt. To inform that [facility] still waiting for his insurance for [...] Description 08/29/2025 9:30 AM EDT Clinical Support [facility] [address] [place] [address] Eloisa Santiago, VANESA documented as of this encounter Visit Diagnoses Not on filedocumented in this encounter Additional Health Concerns Assessment Noted Time PHQ-9 Depression Total Score: 10 024 2:27 PM EST documented as of this encounter Care Teams Portable Machine Cutter Relationship Specialty Start Date End Date Margie Singh FNP [address] [place] [address] PCP - General Family Medicine 07/04/23 07/16/24 [place]ma, LUIS ALFREDO [address] [place] [address] PCP - General Family Medicine 07/17/24 documented as of this encounter
--- OUTSIDE RECORDS SUMMARY | 2025-08-15 08:43 | XMS_ITS | Encounter Summary ---
Author Organization [employer] Address [address] [facility] 7t [place] [address] Care Team Providers Care Door Operator Name Role Phone Margie Singh [facility] Primary Care Provider [phone] [facility] Primary Care Provider [phone] Reason for Visit * Reason Comments Med Refill Encounter Details Date Type Department Care Team ([facility] st Contact Info) Description 02/02/2024 Refill [facility] [address] [place] [address] Margie Singh FNP [address] [place] [address] Social History Tobacco Use Types Packs/Day Years [...] 08/29/2025 9:30 AM EDT Clinical Support [facility] [address] [place] [address] Eloisa Santiago RN documented as of this encounter Visit Diagnoses Not on filedocumented in this encounter Additional Health Concerns Assessment Noted Time PHQ-9 Depression Total Score: 10 024 2:27 PM EST documented as of this encounter Care Teams Door Operator Relationship Specialty Start Date End Date Margie Singh FNP [address] [place] [address] PCP - General Family Medicine 07/04/23 07/16/24 [place] FNP [address] [place] [address] PCP - General Family Medicine 07/17/24 documented as of this encounter
--- OUTSIDE RECORDS SUMMARY | 2025-08-15 08:43 | XMS_ITS | Encounter Summary ---
Author Organization [employer] Address [address] [facility] 7t [place] [address] Care Team Providers Care Infectious Diseases Physician Name Role Phone Margie Singh [facility] Primary Care Provider [phone] [facility] Primary Care Provider [phone] Reason for Visit * Reason Comments Med Change Request Encounter Details Date Type Department Care Team ([facility] st Contact Info) Description 12/11/2023 Refill [facility] [address] [place], [place] [phone] Margie Singh FNP [address] [place] [address] Social History Tobacco Use Types Packs/Day Years [...] Description 08/29/2025 9:30 AM EDT Clinical Support [facility] [address] [place] [address] Eloisa Santiago RN documented as of this encounter Visit Diagnoses Not on filedocumented in this encounter Additional Health Concerns Assessment Noted Time PHQ-9 Depression Total Score: 17 024 3:47 PM EST documented as of this encounter Care Teams Infectious Diseases Physician Relationship Specialty Start Date End Date Margie Singh FNP [address] [place] [address] PCP - General Family Medicine 07/04/23 07/16/24 [place] hassan FNP [address] [place] [address] PCP - General Family Medicine 07/17/24 documented as of this encounter
--- OUTSIDE RECORDS SUMMARY | 2025-08-15 08:43 | XMS_ITS | Encounter Summary ---
Author Organization [employer] Address [address] [facility] 7t [place] [address] Care Team Providers Care House Detective Name Role Phone Margie Singh [facility] Primary Care Provider [phone] [facility] Primary Care Provider [phone] Reason for Visit * Reason Comments Med Refill Encounter Details Date Type Department Care Team ([facility] st Contact Info) Description 01/28/2024 Refill [facility] [address] [place] [address] Margie Singh FNP [address] [place] [address] Social History Tobacco Use Types Packs/Day Years [...] Description 08/29/2025 9:30 AM EDT Clinical Support [facility] [address] [place] [address] Eloisa Santiago RN documented as of this encounter Visit Diagnoses Not on filedocumented in this encounter Additional Health Concerns Assessment Noted Time PHQ-9 Depression Total Score: 10 024 2:27 PM EST documented as of this encounter Care Teams House Detective Relationship Specialty Start Date End Date Margie Singh FNP [address] [place] [address] PCP - General Family Medicine 07/04/23 07/16/24 [place] FNP [address] [place] [address] PCP - General Family Medicine 07/17/24 documented as of this encounter
--- OUTSIDE RECORDS SUMMARY | 2025-08-15 08:43 | XMS_ITS | Encounter Summary ---
Author Organization [employer] Address [address] [facility] 7t [place] [address] Care Team Providers Care Vaccines Solutions Specialist Name Role Phone Margie Singh [facility] Primary Care Provider [phone] [facility] Primary Care Provider [phone] Reason for Visit * Reason Comments Med Refill Encounter Details Date Type Department Care Team ([facility] st Contact Info) Description 01/25/2024 Refill [facility] [address] [place], [place] [phone] Margie Singh FNP [address] [place] [address] Social History Tobacco Use Types Packs/Day Years [...] Description 08/29/2025 9:30 AM EDT Clinical Support [facility] [address] [place] [address] Eloisa Santiago RN documented as of this encounter Visit Diagnoses Not on filedocumented in this encounter Additional Health Concerns Assessment Noted Time PHQ-9 Depression Total Score: 10 024 2:27 PM EST documented as of this encounter Care Teams Vaccines Solutions Specialist Relationship Specialty Start Date End Date Margie Singh FNP [address] [place] [address] PCP - General Family Medicine 07/04/23 07/16/24 MichaelEmma hassan FNP [address] [place] [address] PCP - General Family Medicine 07/17/24 documented as of this encounter
--- OUTSIDE RECORDS SUMMARY | 2025-08-15 08:43 | XMS_ITS | Encounter Summary ---
Author Organization [employer] Address [address] [facility] [address]t [place] [address] Care Team Providers Care Narrative Writer Name Role Phone Emma Rodriguez [facility] Primary Care Provider [phone] Reason for Visit * Reason Comments Med Refill Encounter Details Date Type Department Care Team (Late st Contact Info) Description 07/19/2024 Refill [facility] [address] [place], [place] [phone] Margie Singh FNP [address] [place], [place] [phone] Social History Tobacco Use Types Packs/Day Years [...] 9:30 AM EDT Clinical Support [facility] [address] [place] [address] Eloisa Santiago RN documented as of this encounter Visit Diagnoses Not on filedocumented in this encounter Additional Health Concerns Assessment Noted Time PHQ-9 Depression Total Score: 10 024 2:27 PM EST documented as of this encounter Care Teams Narrative Writer Relationship Specialty Start Date End Date Emma Rodriguez FNP [address] [place] [address] PCP - General Family Medicine 07/17/24 documented as of this encounter
--- OUTSIDE RECORDS SUMMARY | 2025-08-15 08:44 | XMS_ITS | Encounter Summary ---
Author Organization [employer] Address [address] [facility] 7t [place] [address] Care Team Providers Care Baler Name Role Phone Margie Singh [facility] Primary Care Provider [phone] [place] [facility] Primary Care Provider [phone] Reason for Referral * Consultation (STAT) - Canceled Specialty Diagnoses / Procedures Referred By Josephine garsia Referred To Contact Thoracic Surgery Diagnoses Abnormal chest CT Alexandria Workman MD [address] [place] [address] Phone: tel: fax: [facility] Pulmonary [address] 1st Floor [place], [place] Phone: tel: fax: Referral ID Status Reason Start Date Expiration Date Visits Requested Visits Authorized [id number] Canceled Specialty Services Required 04/06/2024 04/06/2025 1 1 Encounter Details Date Type Department Care Team (Late st Contact Info) Description 04/06/2024 Orders Only [facility] MEDICINE [address] [place] [address] Alexandria Workman MD [address] [place], [place] [phone] Abnormal chest CT (Primary Dx) Social History [...] Upcoming Encounters Date Type Department Care Team ([facility] st Contact Info) Description 08/29/2025 9:30 AM EDT Clinical Support [facility] MEDICINE [address] [place] [address] Eloisa Santiago RN Scheduled Referrals Name Type [...] documented as of this encounter Care Teams Baler Relationship Specialty Start Date End Date Margie Singh FNP [address] [place] [address] PCP - General Family Medicine 07/04/23 07/16/24 GreenwoodEmma hassan FNP [address] [place] [address] PCP - General Family Medicine 07/17/24 documented as of this encounter
--- OUTSIDE RECORDS SUMMARY | 2025-08-15 08:44 | XMS_ITS | Encounter Summary ---
Author Organization [employer] Address 75 [facility] 7t [place] [address] Care Team Providers Care Six Color Press Operator Name Role Phone Estuardo Damon AGNPablo Primary Care Provider Unavail Margie Huitron DIRECTOR OF INDIVIDUAL GIVING Primary Care Provider [phone] [place]Emma DIRECTOR OF INDIVIDUAL GIVING Primary Care Provider [phone] Reason for Visit * Reason Onset Date Comments Med Refill 04/08/2023 Encounter Details Date Type Department Care Team (Late st Contact Info) Description 04/08/2023 Refill [facility] MEDICINE 230 [place] [address] Estuardo Damon AGNP Complex regional pain syndrome [...] MG tablet to be sentto Rosalino at [address] [place] [address]. Please contact pt at [phone] documented in this encounter Plan of Treatment Upcoming Encounters Date Type Department Care Team (Late st Contact Info) Description 08/29/2025 9:30 AM EDT Clinical Support [facility] MEDICINE [address] [place] [address] Eloisa Santiago RN documented as of this encounter Visit Diagnoses Diagnosis Complex regional pain syndrome type 1 of right lower extremity documented in this encounter Additional Health Concerns Assessment Noted Time PHQ-9 Depression Total Score: 13 023 11:05 AM EDT documented as of this encounter Care Teams Six Color Press Operator Relationship Specialty Start Date End Date Estuardo Damon AGNP PCP - General Family Medicine 10/05/22 07/03/23 Margie Singh FNP [address] [place] [address] PCP - General Family Medicine 07/04/23 07/16/24 RochesterEmma FNP 230 [place] [address] PCP - General Family Medicine 07/17/24 documented as of this encounter
--- OUTSIDE RECORDS SUMMARY | 2025-08-15 08:44 | XMS_ITS | Encounter Summary ---
Author Organization [employer] Address 75 [facility] 7t [place] [address] Care Team Providers Care Inventory Coordinator Name Role Phone Estuardo Damon Primary Care Provider Unavail Margie Huitron TRANSPORTATION MANAGER Primary Care Provider [phone] Emma Rodriguez TRANSPORTATION MANAGER Primary Care Provider [phone] Reason for Visit * Reason Comments Med Refill Encounter Details Date Type Department Care Team (Late Contact Info) Description 04/26/2023 Refill [facility] MEDICINE 230 [place] [address] Estuardo Damon AGNP Depressed mood [...] Description 08/29/2025 9:30 AM EDT Clinical Support [facility] MEDICINE [address] [place] [address] Eloisa Santiago RN documented as of this encounter Visit Diagnoses Diagnosis Depressed mood documented in this encounter Additional Health Concerns Assessment Noted Time PHQ-9 Depression Total Score: 13 023 11:05 AM EDT documented as of this encounter Care Teams Inventory Coordinator Relationship Specialty Start Date End Date Estuardo Damon AGNP PCP - General Family Medicine 10/05/22 07/03/23 Margie Singh FNP 230 [place] [address] PCP - General Family Medicine 07/04/23 07/16/24 WoodlandEmma hassan FNP 230 [place] [address] PCP - General Family Medicine 07/17/24 documented as of this encounter
--- OUTSIDE RECORDS SUMMARY | 2025-08-15 08:44 | XMS_ITS | Encounter Summary ---
Author Organization [employer] Address 75 [facility] 7t [place] [address] Care Team Providers Care Roll Forming Supervisor Name Role Phone Margie Singh [facility] Primary Care Provider [phone] [facility] Primary Care Provider Reason for Referral * Consultation (Urgent) - Closed Specialty Diagnoses / Procedures Referred By Contac t Referred To Contact Pulmonary Disease Diagnoses Abnormal chest CT Alexandria Workman MD 230 [place] [address] Phone: tel: fax: [facility] Referral ID Status Reason Start Date Expiration Date V isits Requested Visits Authorized [id number] Closed Specialty Services Required 04/10/2024 04/10/2025 1 1 Encounter Details Date Type Department Care Team (Late st Contact Info) Description 04/10/2024 Orders Only [facility] MEDICINE 230 [place], [place] [phone] Alexandria Workman MD [address] [place], [place] [phone] Abnormal chest CT (Primary Dx) Social History [...] Description 08/29/2025 9:30 AM EDT Clinical Support [facility] MEDICINE [address] [place] [address] Eloisa Santiago RN Scheduled Referrals Name Type [...] documented as of this encounter Care Teams Roll Forming Supervisor Relationship Specialty Start Date End Date Margie Singh FNP [address] [place] [address] PCP - General Family Medicine 07/04/23 07/16/24 MorleyEmma FNP [address] [place] [address] PCP - General Family Medicine 07/17/24 documented as of this encounter
--- OUTSIDE RECORDS SUMMARY | 2025-08-15 08:44 | XMS_ITS | Encounter Summary ---
Author Organization [employer] Address 75 [facility] 7t [place] [address] Care Team Providers Care Manager Of Sustainability Name Role Phone [place] [facility] Primary Care Provider Reason for Visit * Reason Comments Med Refill Encounter Details Date Type Department Care Team ([facility] st Contact Info) Description 08/04/2025 Refill [facility] MEDICINE [address] [place], [place] [phone] [employer] 230 [place], [place] [phone] Social History Tobacco Use Types Packs/Day Years [...] Description 08/29/2025 9:30 AM EDT Clinical Support [facility] MEDICINE [address] [place] [address] Eloisa Santiago RN documented as of this encounter Visit Diagnoses Not on filedocumented in this encounter Additional Health Concerns Assessment Noted Time PHQ-9 Depression Total Score: 6 03/12/20 25 12:16 PM EDT documented as of this encounter Care Teams Manager Of Sustainability Relationship Specialty Start Date End Date Emma Rodriguez FNP 230 [place] [address] PCP - General Family Medicine 07/17/24 documented as of this encounter
--- OUTSIDE RECORDS SUMMARY | 2025-08-15 08:44 | XMS_ITS | Encounter Summary ---
Author Organization [employer] Address 75 [facility] 7t [place] [address] Care Team Providers Care Baster Hand Name Role Phone Estuardo Damon AGNPablo Primary Care Provider Unavail Margie Huitron NURSING CONSULTANT Primary Care Provider [phone] HauppaugeEmma hassan NURSING CONSULTANT Primary Care Provider [phone] Reason for Visit * Reason Onset Date Comments Med Refill 02/18/2023 Encounter Details Date Type Department Care Team (Late st Contact Info) Description 02/18/2023 Refill [facility] MEDICINE [address] [place] [address] Estuardo Damon AGNP Complex regional pain syndrome [...] oxycodone 5 mg Please contact pt at [phone] * Telephone Encounter - LUIS ALFREDO Clayton [...] his duration from 15 to 28. ASSISTANT ART DIRECTOR note to you on 02/02/23 said this: He attends the pain management clinic in [place]. He states that on 02/14/23 he's supposed [...] Description 08/29/2025 9:30 AM EDT Clinical Support [facility] MEDICINE [address] [place] [address] Eloisa Santiago, VANESA documented as of this encounter Visit Diagnoses Diagnosis Complex regional pain syndrome type 1 of right lower extremity documented in this encounter Additional Health Concerns Assessment Noted Time PHQ-9 Depression Total Score: 11 023 3:30 PM EDT documented as of this encounter Care Teams Baster Hand Relationship Specialty Start Date End Date Estuardo Damon AGNP PCP - General Family Medicine 10/05/22 07/03/23 Margie Singh FNP [address] [place] [address] PCP - General Family Medicine 07/04/23 07/16/24 HauppaugeEmma FNP 230 [place] [address] PCP - General Family Medicine 07/17/24 documented as of this encounter
--- OUTSIDE RECORDS SUMMARY | 2025-08-15 08:44 | XMS_ITS | Encounter Summary ---
Author Organization [employer] Address 75 [facility] 7t [place] [address] Care Team Providers Care Auto Heater Mechanic Name Role Phone [facility] Primary Care Provider [phone] Reason for Visit * Reason Onset Date Comments requesting call back 06/14/2025 Encounter Details Date Type Department Care Team ([facility] st Contact Info) Description 06/14/2025 Telephone [facility] MEDICINE [address] [place], [place] [phone] [facility] 230 [place] [address] requesting call back Social History Tobacco Use [...] requested a callback. Call the patient at [phone]. documented in this encounter Plan of Treatment Upcoming Encounters Date Type Department Care Team (Late st Contact Info) Description 08/29/2025 9:30 AM EDT Clinical Support [facility] MEDICINE [address] [place] [address] Eloisa Santiago RN documented as of this encounter Visit Diagnoses Not on filedocumented in this encounter Additional Health Concerns Assessment Noted Time PHQ-9 Depression Total Score: 6 03/12/20 25 12:16 PM EDT documented as of this encounter Care Teams Auto Heater Mechanic Relationship Specialty Start Date End Date Emma Rodriguez FNP [address] [place] [address] PCP - General Family Medicine 07/17/24 documented as of this encounter
--- OUTSIDE RECORDS SUMMARY | 2025-08-15 08:44 | XMS_ITS | Encounter Summary ---
Author Organization [employer] Address 75 [facility] 7t [place] [address] Care Team Providers Care Cut Out Machine Operator Name Role Phone [place] [facility] Primary Care Provider Reason for Visit * Reason Onset Date Comments Med Refill 08/13/2025 Encounter Details Date Type Department Care Team ([facility] st Contact Info) Description 08/13/2025 Refill [facility] 230 [place], [place] [phone] [facility] 230 [place] [address] salvage determiner (current) use of opiate analgesic; Lumbar radiculopathy Social History Tobacco Use Types [...] encounter Miscellaneous Notes * Telephone Encounter - Alfonzo Luong - 08/13/2025 12:22 PM EDT TC from pt requesting medication refill. Medications needing refill : fentaNYL (Duragesic) 50 MCG/HR To be sent to: [facility]/pharmacy #[id number] [facility] [phone] [place] [address] documented in this encounter Plan of Treatment Upcoming Encounters Date Type Department Care Team (Late st Contact Info) Description 08/29/2025 9:30 AM EDT Clinical Support [facility] [address] [place] [address] [phone] Eloisa Santiago RN documented as of this encounter Visit Diagnoses Diagnosis group home (current) use of opiate analgesic Lumbar radiculopathy Thoracic or lumbosacral neuritis or radiculitis, unspecified documented in this encounter Additional Health Concerns Assessment Noted Time PHQ-9 Depression Total Score: 6 03/12/20 25 12:16 PM EDT documented as of this encounter Care Teams Cut Out Machine Operator Relationship Specialty Start Date End Date Emma Rodriguez FNP 230 [place] [address] PCP - General Family Medicine 07/17/24 documented as of this encounter
--- OUTSIDE RECORDS SUMMARY | 2025-08-15 08:44 | XMS_ITS | Encounter Summary ---
Author Organization [employer] Address [address] [facility] 7t [place] [address] Care Team Providers Care Experimental Display Builder Name Role Phone Emma Rodriguez MANAGER PEST Primary Care Provider [phone] Encounter Details Date Type Department Care Team (Late st Contact Info) Description 07/10/2025 Orders Only [facility] MEDICINE 230 [place], [place] [phone] Khadra Fernandes MD 230 [place], [place] [phone] group home (current) use of opiate analgesic (Primary Dx); [...] Description 08/29/2025 9:30 AM EDT Clinical Support [facility] MEDICINE 230 [place] [address] Eloisa Santiago RN documented as of this encounter Visit Diagnoses Diagnosis keno terminal operator (current) use of opiate analgesic- Primary Lumbar radiculopathy Thoracic or lumbosacral neuritis or radiculitis, unspecified documented in this encounter Additional Health Concerns Assessment Noted Time PHQ-9 Depression Total Score: 6 03/12/20 25 12:16 PM EDT documented as of this encounter Care Teams Experimental Display Builder Relationship Specialty Start Date End Date Emma Rodriguez FNP 230 [place] [address] PCP - General Family Medicine 07/17/24 documented as of this encounter
== END 2025-08-15 08:26 | disposition home or self-care (01) ==
LOC: CF 08:25
PROVIDERS: Visit Provider Internal Medicine
DX: Z13.89 Encounter for screening for other disorder (principal)

== ENCOUNTER 2025-10-14 13:35 | Outpatient (REF) | payer OTHER, SELFPAY ==
--- NOTE | ~2025-10-14 | CT_ITS ---
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 Axial MIP volume rendering provided. Sagittal and coronal reformatted images were obtained. This CT examination was performed using dose optimization techniques as appropriate, variously including the following: *Automated exposure control *Adjustment of mA and/or kV according to patient size (this includes techniques or standardized protocols for targeted exams where dose is matched to indication/reason for exam; i.e. extremities or head) *Use of iterative reconstruction technique FINDINGS: LUNGS: Linear and groundglass density is noted in the lingula, contacting pleura. Stable linear density is evident in the posterior left lung consistent with scarring, likely postoperative. No nodules or masses evident. MEDIASTINUM: Postsurgical changes are noted in the left hilum with alisson and resection of a posterior left lower lobe bronchus. No adenopathy is identified. CORONARY ARTERY CALCIFICATION: None visualized on this study. PLEURA: There is no pleural effusion. No pleural mass or thickening. AXILLA: There are shotty axillary nodes, right greater than left. UPPER ABDOMEN: The spleen measures 14 cm anterior posterior, increased from the prior OSSEOUS STRUCTURES: Again seen is a healed posterior left sixth rib with prominent callus. Sclerotic lesion in the posterior left seventh rib measuring 9[address] and is most consistent with benign bone island. There is stable sclerotic foci within superior left T9 vertebral body, also probably a benign bone given its stability. CT/CT chest wo IV con IMPRESSION: Stable postoperative changes in the left lower lobe and posterior left lower lobe bronchus. The spleen size has enlarged since the prior. Fleischner guidelines were followed. Electronically signed by: Raad Flores MD 10/14/2025 04:07 PM EST
--- OUTSIDE RECORDS SUMMARY | 2025-10-14 17:10 | XMS_ITS | Encounter Summary ---
Author Organization [employer] Address 75 [facility] 7t [place] [address] Care Team Providers Care Hotel Dining Room Cashier Name Role Phone Estuardo Damon AGNPablo Primary Care Provider Margie Dominguez TUBE WINDER Primary Care Provider [phone] MichaelEmma hassan TUBE WINDER Primary Care Provider [phone] Reason for Visit * Reason Onset Date Comments Med Refill 05/13/2023 Encounter Details Date Type Department Care Team ([facility] st Contact Info) Description 05/13/2023 Telephone [facility] MEDICINE 230 [place], [place] [phone] Estuardo Damon AGNP Med Refill Social History [...] (Percocet) 10-325 MG tablet thatwas sent to [facility] pharmacy. Please contact pt at [phone] documented in this encounter Plan of Treatment Upcoming Encounters Date Type Department Care Team (Late st Contact Info) Description 10/17/2025 10:30 AM EST Clinical Support [facility] MEDICINE [address] [place] [address] Eloisa Santiago, VANESA documented as of this encounter Visit Diagnoses Not on filedocumented in this encounter Additional Health Concerns Assessment Noted Time PHQ-9 Depression Total Score: 13 023 11:05 AM EDT documented as of this encounter Care Teams Hotel Dining Room Cashier Relationship Specialty Start Date End Date Estuardo Damon AGNP PCP - General Family Medicine 10/05/22 07/03/23 Margie Singh FNP 230 [place] [address] PCP - General Family Medicine 07/04/23 07/16/24 PalmerEmma FNP 230 [place] [address] PCP - General Family Medicine 07/17/24 documented as of this encounter
--- OUTSIDE RECORDS SUMMARY | 2025-10-14 17:10 | XMS_ITS | Encounter Summary ---
Author Organization [employer] Address 75 [facility] 7t [place] [address] Care Team Providers Care Plaster Mold Maker Name Role Phone [place] [facility] Primary Care Provider [phone] Reason for Visit * Reason Comments Med Refill Encounter Details Date Type Department Care Team ([facility] st Contact Info) Description 08/29/2025 Refill [facility] MEDICINE [address] [place], [place] [phone] [facility] 230 [place], [place] [phone] Insomnia, unspecified type Social History Tobacco Use [...] Description 10/17/2025 10:30 AM EST Clinical Support [facility] MEDICINE [address] [place] [address] Eloisa Santiago RN documented as of this encounter Visit Diagnoses Diagnosis Insomnia, unspecified type documented in this encounter Additional Health Concerns Assessment Noted Time PHQ-9 Depression Total Score: 6 03/12/20 25 12:16 PM EDT documented as of this encounter Care Teams Plaster Mold Maker Relationship Specialty Start Date End Date Emma Rodriguez FNP 230 [place] [address] PCP - General Family Medicine 07/17/24 documented as of this encounter
--- OUTSIDE RECORDS SUMMARY | 2025-10-14 17:10 | XMS_ITS | Encounter Summary ---
Author Organization [employer] Address 75 [facility] 7t [place] [address] Care Team Providers Care Brush Stainer Name Role Phone Emma Rodriguez WIRE BORDER ASSEMBLER Primary Care Provider [phone] Reason for Referral * Consultation (Routine) - Closed Specialty Diagnoses / Procedures Referred By Josephine garsia Referred To Contact Physical Therapy Diagnoses Complex regional pain syndrome type 1 of right lower extremity Khadra Fernandes MD [address] [place] [address] Phone: tel: fax: [facility] PT/OT/Speech [address] [place] [phone] Phone: tel: fax: Referral ID Status Reason Start Date Expiration Date V isits Requested Visits Authorized [id number] Closed Specialty Services Required 08/15/2024 08/15/2025 1 1 Encounter Details Date Type Department Care Team (Late st Contact Info) Description 08/15/2024 Orders Only [facility] MEDICINE 230 [place], [place] [phone] Khadra Fernandes MD [address] [place], [place] [phone] Complex regional pain syndrome type 1 of [...] Upcoming Encounters Date Type Department Care Team ([facility] st Contact Info) Description 10/17/2025 10:30 AM EST Clinical Support [address] [address] Eloisa Santiago RN Scheduled Referrals Name Type [...] documented as of this encounter Care Teams Brush Stainer Relationship Specialty Start Date End Date Emma Rodriguez FNP [address] [place] [address] PCP - General Family Medicine 07/17/24 documented as of this encounter
--- OUTSIDE RECORDS SUMMARY | 2025-10-14 17:10 | XMS_ITS | Encounter Summary ---
Author Organization [employer] Address [address] [facility] 7t [place] [address] Care Team Providers Care Radio Station Engineer Name Role Phone Margie Singh [facility] Primary Care Provider [phone] [facility] Primary Care Provider [phone] Encounter Details Date Type Department Care Team (Late st Contact Info) Description 08/15/2023 Orders Only [facility] MEDICINE [address] [place] [phone] Margie Singh FNP [address] [place] [address] Social History Tobacco Use Types Packs/Day Years [...] Description 10/17/2025 10:30 AM EST Clinical Support [facility] MEDICINE [address] [place] [address] Eloisa Santiago RN documented as of this encounter Visit Diagnoses Not on filedocumented in this encounter Additional Health Concerns Assessment Noted Time PHQ-9 Depression Total Score: 13 023 11:05 AM EDT documented as of this encounter Care Teams Radio Station Engineer Relationship Specialty Start Date End Date Margie Singh FNP 230 [place] [address] PCP - General Family Medicine 07/04/23 07/16/24 MarneEmma FNP [address] [place] [address] PCP - General Family Medicine 07/17/24 documented as of this encounter
--- OUTSIDE RECORDS SUMMARY | 2025-10-14 17:10 | XMS_ITS | Encounter Summary ---
Author Organization [employer] Address 75 [facility] 7t [place] [address] Care Team Providers Care Automatic Nailing Machine Operator Name Role Phone Margie Singh [facility] Primary Care Provider [phone] [facility] Primary Care Provider [phone] Reason for Visit * Reason Onset Date Comments Med Refill 07/08/2023 Encounter Details Date Type Department Care Team (Late st Contact Info) Description 07/08/2023 Telephone [facility] MEDICINE 230 [place], [place] [phone] Margie Singh FNP 230 [place] [address] Med Refill Social History Tobacco Use Types [...] * Telephone Encounter - Tram Rowlandnez - 07/08/2023 9:17 AM EDT Tc from patient requesting a med refill on medication oxycodone [address] mg. Please send to [facility]/pharmacy #[id number] - [place], [place] - [address] PCP [address] Singh documented in this encounter Plan of Treatment Upcoming Encounters Date Type Department Care Team (Late st Contact Info) Description 10/17/2025 10:30 AM EST Clinical Support [facility] MEDICINE 230 [place] [address] Eloisa Santiago, VANESA documented as of this encounter Visit Diagnoses Not on filedocumented in this encounter Additional Health Concerns Assessment Noted Time PHQ-9 Depression Total Score: 13 023 11:05 AM EDT documented as of this encounter Care Teams Automatic Nailing Machine Operator Relationship Specialty Start Date End Date Margie Singh FNP [address] [place] [address] PCP - General Family Medicine 07/04/23 07/16/24 InglewoodEmma FNP [address] [place] [address] PCP - General Family Medicine 07/17/24 documented as of this encounter
--- OUTSIDE RECORDS SUMMARY | 2025-10-14 17:10 | XMS_ITS | Encounter Summary ---
Author Organization [employer] Address 75 [facility] 7t [place] [address] Care Team Providers Care Division Supervisor Name Role Phone Emma Rodriguez RESEARCH LABORATORY TECHNICIAN Primary Care Provider [phone] Reason for Visit * Reason Comments Med Refill Encounter Details Date Type Department Care Team (Late st Contact Info) Description 07/19/2024 Refill [facility] MEDICINE 230 [place], [place] [phone] Margie Singh FNP [address] [place], [place] [phone] Social History Tobacco Use Types Packs/Day Years [...] Description 10/17/2025 10:30 AM EST Clinical Support [facility] MEDICINE [address] [place] [address] Eloisa Santiago RN documented as of this encounter Visit Diagnoses Not on filedocumented in this encounter Additional Health Concerns Assessment Noted Time PHQ-9 Depression Total Score: 10 024 2:27 PM EST documented as of this encounter Care Teams Division Supervisor Relationship Specialty Start Date End Date Emma Rodriguez FNP 230 [place] [address] PCP - General Family Medicine 07/17/24 documented as of this encounter
--- OUTSIDE RECORDS SUMMARY | 2025-10-14 17:10 | XMS_ITS | Encounter Summary ---
Author Organization [employer] Address [address] [facility] 7t [place] [address] Care Team Providers Care Installation Service Representative Name Role Phone Emma Rodriguez PREKINDERGARTEN TEACHER Primary Care Provider [phone] Reason for Referral * Consultation (Routine) - Canceled Specialty Diagnoses / Procedures Referred By Josephine garsia Referred To Contact Pharmacy Diagnoses Tobacco dependence Khadra Fernandes MD [address] [place] [address] Phone: tel: fax: Referral ID Status Reason Start Date Expiration Date V isits Requested Visits Authorized [id number] Canceled Consult and Treat 01/28/2025 01/28/2026 6 6 Encounter Details Date Type Department Care Team (Late st Contact Info) Description 01/28/2025 Orders Only [facility] [address] [place], [place] [phone] Khadra Fernandes MD [address] [place], [place] [phone] Tobacco dependence (Primary Dx) Social History Tobacco [...] 10:30 AM EST Clinical Support [facility] [address] [place] [phone] Eloisa Santiago, VANESA Scheduled Referrals Name Type [...] Rapid Plasma Reagin, Quant Non-React sundar Nonreactive [facility] Treponema pallidum Antibody, Particle Agglutination Reactive( A) Nonreactive [facility] Comment:Testing performed at : [facility] [address] [place] [address] 01/28/2025 12:1 6 PM EDT 01/28/2025 2:17 PM EDT [facility] LAB BLOOD ORDERABLES Final Re sult [facility] [address] [place] [phone] documented in this encounter Visit Diagnoses Diagnosis Tobacco dependence- Primary Tobacco use disorder documented in this encounter Additional Health Concerns Assessment Noted Time PHQ-9 Depression Total Score: 0 01/26/20 25 1:57 PM EDT documented as of this encounter Care Teams Installation Service Representative Relationship Specialty Start Date End Date StarkEmma hassan FNP [address] [place] [phone] PCP - General Family Medicine 07/17/24 documented as of this encounter
--- OUTSIDE RECORDS SUMMARY | 2025-10-14 17:10 | XMS_ITS | Encounter Summary ---
Author Organization [employer] Address [address] [facility] 7t [place] [address] Care Team Providers Care Layout Man Name Role Phone Margie Singh [facility] Primary Care Provider [phone] [facility] Primary Care Provider [phone] Reason for Visit * Reason Comments Med Change Request Encounter Details Date Type Department Care Team ([facility] st Contact Info) Description 12/11/2023 Refill [facility] [address] [place], [place] [phone] Margie Singh FNP [address] [place] [address] Social History Tobacco Use Types Packs/Day Years Used Date Smoking Tobacco: Every Day Cigarettes Passive Smoke Exposure: Current Smokeless Tobacco: Never Depression Answer Date Recorded Patient Health Questionnaire-9 Score 17 11/16/2023 Patient Health Questionnaire-9 Score 17 11/16/2023 Last PHQ-9: Questionnaire Data Not on file 0 11/16/2023 Housing Stability Answer Date Recorded What is your housing situation today? I have carian bruce 09/04/[address] you [...] Description 10/17/2025 10:30 AM EST Clinical Support [facility] [address] [place] [address] Eloisa Santiago, RN documented as of this encounter Visit Diagnoses Not on filedocumented in this encounter Additional Health Concerns Assessment Noted Time PHQ-9 Depression Total Score: 17 024 3:47 PM EST documented as of this encounter Care Teams Layout Man Relationship Specialty Start Date End Date Margie Singh FNP [address] [place] [address] PCP - General Family Medicine 07/04/23 07/16/24 BradfordEmma FNP [address] [place] [address] PCP - General Family Medicine 07/17/24 documented as of this encounter
--- OUTSIDE RECORDS SUMMARY | 2025-10-14 17:10 | XMS_ITS | Clinical Summary ---
Author Organization [employer] Address [address] [facility] 7t [place] [address] Care Team Providers Care Application Integration Engineer Name Role Phone Emma Rodriguez MEAT PICKLER Primary Care Provider Allergies No known active allergies Medications * [...] 025 Active DULoxetine (Cymbalta) [address] Liset ns:Complex regional pain syndrome type 1 of right lower extremity Take 1 capsule (30 mg) by mouth Once per day. Do not crush or chew. 30 capsule 025 2025 Active naloxone (Narcan) 4 mg/0.1 mL nasal sprayIndications :Complex regional pain syndrome type 1 of right lower extremity Administer 1 spray (4 mg) into affected nostril(s) if needed for opioid reversal. 2 each 1 Active gabapentin (Neurontin) 300 MG capsuleIndicatio ns:Lumbar back pain TAKE 2 CAPSULE BY ORAL ROUTE EVERY AFTERNOON AND 1 CAPSULE IN THE EVENING BEFORE BED 90 capsule 1 Active cyclobenzaprine (Flexeril) 10 MG tablet TAKE 1 TABLET BY MOUTH THREE TIMES A DAY FOR 10 DAYS 30 tablet Active fentaNYL (Duragesic) 50 MCG/HRIndication s:supervisor intermediates (current) use of opiate analgesic,Lumbar radiculopathy Place 1 patch on the skin every 3rd (third) day. Do not start before September 22, 2025. 10 patch 025 2024 Active zolpidem (Ambien) 10 MG tabletIndication s:Insomnia, unspecified type Take 1 tablet (10 mg) by mouth at bedtime. 30 tablet Active oxyCODONE (Roxicodone) 10 MG immediate release tabletIndication s:Complex regional pain syndrome type 1 of right lower extremity Take 1 tablet (10 mg) by mouth every 6 (six) hours if needed for severe pain for up to 14 days. Do not start before October 02, 2025. 56 tablet 025 2024 Active zolpidem (Ambien) 10 MG tabletIndication s:Insomnia, unspecified type Take 1 tablet (10 mg) by mouth at bedtime. 30 tablet 025 2024 Discontinued(R eorder (will not trigger notification to Pharmacy)) oxyCODONE (Roxicodone) 10 MG immediate release tabletIndication s:Complex regional pain syndrome type 1 of right lower extremity Take 1 tablet (10 mg) by mouth every 6 (six) hours if needed for severe pain for up to 14 days. 56 tablet 025 2024 Discontinued(R eorder (will not trigger notification to Pharmacy)) fentaNYL (Duragesic) 50 MCG/HRIndication s:senior living (current) use of opiate analgesic,Lumbar radiculopathy Place 1 patch on the skin every 3rd (third) day for 6 days. Do not start before September 15, 2025. 2 patch 025 2024 Discontinued(R eorder (will not trigger notification to Pharmacy)) oxyCODONE (Roxicodone) 10 MG immediate release tabletIndication s:Complex regional pain syndrome type 1 of right lower extremity Take 1 tablet (10 mg) by mouth every 6 (six) hours if needed for severe pain for up to 14 days. Do not start before September 17, 2025. 56 tablet 025 2024 Discontinued(R eorder (will not trigger notification to Pharmacy)) fentaNYL (Duragesic) 50 MCG/HRIndication s:supervisor intermediates (current) use of opiate analgesic,Lumbar radiculopathy Place 1 patch on the skin every 3rd (third) day. Do not start before September 19, 2025. 10 patch 025 2024 Discontinued(R eorder (will not trigger notification to Pharmacy)) Active Problems Problem Noted Date Diagnosed Date History of syphilis 03/08/2025 Overview (03/08/2025): 2018 pt titer was 1:128 and was treated with 1 dose of PCN 2.4 units. In 2019 pt titer was non-reactive Malignant neoplasm of left lung (CMS/HCC) 2024 supervisor intermediates (current) use of opiate analgesic 01/12 Severe [...] in his daily life. He and his MICROELECTRONICS TECHNICIAN reported that they have not tried that. [...] someone with have to drive him. His MICROELECTRONICS TECHNICIAN is also aware. Mild chronic obstructive pulmonary [...] chronic and nerve pain. Lives alone, has MICROELECTRONICS TECHNICIAN that support him and listen to him [...] intervention and Patient to reach out to [facility] team as needed Lumbar back pain 05/18/2012 03/08/2025 Encounters Date Type Department Care Team Description 10/14/2025 Orders Only [facility] External Provider, [facility] 09/30/2025 Refill [facility] [address] [place] [address] Emma Rodriguez, MEAT PICKLER Insomnia, unspecified type 09/30/2025 Refill [facility] [address] [facility] [address] Emma Rodriguez, MEAT PICKLER Complex regional pain syndrome type 1 of right lower extremity 09/20/2025 Refill [facility] [address] [facility] [place] [address] Emma Rodriguez, MEAT PICKLER senior living (current) use of opiate analgesic; Lumbar radiculopathy 09/16/2025 8:30 AM EST Clinical Support [facility] [address] [place] [address] Eloisa Santiago RN supervisor intermediates (current) use of opiate analgesic (Primary Dx) 09/16/2025 Refill [facility] [address] [facility] [place] [address] Eloisa Santiago RN Complex regional pain syndrome type 1 of right lower extremity; supervisor intermediates (current) use of opiate analgesic; Lumbar radiculopathy 09/16/2025 Travel 09/12/2025 Refill [facility] [address] [place] [address] Emma Rodriguez, MEAT PICKLER senior living (current) use of opiate analgesic; Lumbar radiculopathy 09/02/2025 Telephone [facility] [address] [facility] [place] [address] Emma Rodriguez, MEAT PICKLER Med Refill 08/29/2025 Refill [facility] [address] [facility] [place] [address] Emma Rodriguez, MEAT PICKLER Insomnia, unspecified type 08/29/2025 Refill [facility] [address] [facility] [place] [address] Emma Rodriguez, MEAT PICKLER Insomnia, unspecified type 08/29/2025 Refill [facility] [address] [facility] [place] [address] Emma Rodriguez, MEAT PICKLER Complex regional pain syndrome type 1 of right lower extremity 08/13/2025 Refill [facility] [address] [place] [address] Emma Rodriguez, HEALTH SYSTEM supervisor intermediates (current) use of opiate analgesic; Lumbar radiculopathy 08/05/2025 Refill [facility] [address] [place] [address] Emma Rodriguez, MEAT PICKLER Complex regional pain syndrome type 1 of right lower extremity 08/04/2025 Refill [facility] [address] [place] [address] Emma Rodriguez, HEALTH SYSTEM 08/04/2025 Refill [facility] [address] [place] [address] FrontenacEmma, HEALTH SYSTEM Lumbar back pain 08/02/2025 Telephone [facility] [place] [address] Emma Rodriguez, HEALTH SYSTEM Durable Medical Equipment (DME Request: [facility] One Care: Shower Chair) 07/29/2025 9:00 AM EDT Telemedicine [facility] [place] [address] Eloisa Santiago, VANESA senior living (current) use of opiate analgesic 07/29/2025 Telephone [facility] [place] [address] Eloisa Santiago, RN Fentanyl count; Summary last 3 BAND TOP MAKER visits 07/29/2025 Travel 07/27/2025 Refill [facility] [place] [address] Emma Rodriguez FNP Insomnia, unspecified type 07/26/2025 Telephone [facility]ia [facility] [place] [place] [address] Eloisa Santiago, RN NCNS Tele BAND TOP MAKER RV today 07/18/2025 10:30 AM EDT Clinical Support [facility] [place] [address] Eloisa Santiago, RN supervisor intermediates (current) use of opiate analgesic (Primary Dx) 07/18/2025 Telephone [facility] [place] [address] Eloisa Santiago, relationship management lead plan 07/18/2025 Travel from Last 3 Months Immunizations Immunization Administration [...] Description 10/17/2025 10:30 AM EST Clinical Support [address] [address] Eloisa Santiago, RN Health Maintenance Due Date [...] Diagnosis Comments CT CHEST WO CONTRAST Routine 10/14/2025 2:06 PM EST POCT NATALIA-14 URINE DRUG SCREEN Routine 09/16/2025 8:47 AM EST supervisor intermediates (current) use of opiate analgesic POCT NATALIA-14 URINE DRUG SCREEN Routine 07/18/2025 10:51 AM EDT supervisor intermediates (current) use of opiate analgesic HEPATITIS PANEL, [...] Maintenance Results * CT Chest w/o Contrast (10/14/2025 2:06 PM EST) Anatomical Region Laterality Modality Body, Chest Computed Tomogra phy 10/14/2025 2:06 PM EST Narrative 10/14/2025 4:10 PM EST [place] [address] CT Scan Report Signed Patient: Ji Her MR#: [id number] 005 : 1985 Acct:[id number] Age/Sex: 40 / M ADM Date: 10/14/25 Loc: HO.CT Attending Dr: Kai Gibbons MD Ordering Physician: Kai Gibbons MD Date of Service: 10/14/25 Procedure(s): CT chest wo IV con Accession Number(s): [id number] cc: Kai Gibbons MD; [facility] Report Number: [id number]: Total DLP = 266.00 mGy-cm Reason for Exam: 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 Axial MIP volume rendering provided. Sagittal and coronal reformatted images were obtained. This CT examination was performed using dose optimization techniques as appropriate, variously including the following: *Automated exposure control *Adjustment of mA and/or kV according to patient size (this includes techniques or standardized protocols for targeted exams where dose is matched to indication/reason for exam; i.e. extremities or head) *Use of iterative reconstruction technique FINDINGS: LUNGS: Linear and groundglass density is noted in the lingula, contacting pleura. Stable linear density is evident in the posterior left lung consistent with scarring, likely postoperative. No nodules or masses evident. MEDIASTINUM: Postsurgical changes are noted in the left hilum with alisson and resection of a posterior left lower lobe bronchus. No adenopathy is identified. CORONARY ARTERY CALCIFICATION: None visualized on this study. PLEURA: There is no pleural effusion. No pleural mass or thickening. AXILLA: There are shotty axillary nodes, right greater than left. UPPER ABDOMEN: The spleen measures 14 cm anterior posterior, increased from the prior OSSEOUS STRUCTURES: Again seen is a healed posterior left sixth rib with prominent callus. Sclerotic lesion in the posterior left seventh rib measuring [address] and is most consistent with benign bone island. There is stable sclerotic foci within superior left T9 vertebral body, also probably a benign bone given its stability. CT/CT chest wo IV con IMPRESSION: Stable postoperative changes in the left lower lobe and posterior left lower lobe bronchus. The spleen size has enlarged since the prior. Fleischner guidelines were followed. Electronically signed by: Raad Flores MD 10/14/2025 04:07 PM [facility] Dictated By: Raad Flores MD Signed By: <Electronically signed by Raad Flores MD in OV> 10/14/25 1607 DD/ 1406 TD/TT: 10/14/25 1546 [employer] Sales Representative: Procedure Note Donotuseinterpreter, Image - 10/14/[address] [address] [address] Scan Report Signed Patient: Jacqueline Her#: [id number] 005 : 1985Acct:[id number] Age/Sex: 40 / MADM Date: 10/14/25 Loc: HO.CT Attending Dr: Kai Gibbons MD Ordering Physician: Kai Gibbons MD Date of Service: 10/14/25 Procedure(s): CT chest wo IV con Accession Number(s): [id number] cc: Kai Gibbons MD; [facility] Report Number: [id number]: Total DLP = 266.00 mGy-cm Reason for Exam: 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 Axial MIP volume rendering provided. Sagittal and coronal reformatted images were obtained. This CT examination was performed using dose optimization techniques as appropriate, variously including the following: *Automated exposure control *Adjustment of mA and/or kV according to patient size (this includes techniques or standardized protocols for targeted exams where dose is matched to indication/reason for exam; i.e. extremities or head) *Use of iterative reconstruction technique FINDINGS: LUNGS: Linear and groundglass density is noted in the lingula, contacting pleura. Stable linear density is evident in the posterior left lung consistent with scarring, likely postoperative. No nodules or masses evident. MEDIASTINUM: Postsurgical changes are noted in the left hilum with alisson and resection of a posterior left lower lobe bronchus. No adenopathy is identified. CORONARY ARTERY CALCIFICATION: None visualized on this study. PLEURA: There is no pleural effusion. No pleural mass or thickening. AXILLA: There are shotty axillary nodes, right greater than left. UPPER ABDOMEN: The spleen measures 14 cm anterior posterior, increased from the prior OSSEOUS STRUCTURES: Again seen is a healed posterior left sixth rib with prominent callus. Sclerotic lesion in the posterior left seventh rib measuring [address] and is most consistent with benign bone island. There is stable sclerotic foci within superior left T9 vertebral body, also probably a benign bone given its stability. CT/CT chest wo IV con IMPRESSION: Stable postoperative changes in the left lower lobe and posterior left lower lobe bronchus. The spleen size has enlarged since the prior. Fleischner guidelines were followed. Electronically signed by: Raad Flores MD 10/14/2025 04:07 PM [facility] Dictated By: Raad Flores MD Signed By: <Electronically signed by Raad Flores MD in OV> 10/14/25 1607 DD/ 1406 TD/TT: 10/14/25 1546 [employer] Sales Representative: [facility] External Provider IMG CT PROCEDURES Final Result * (ABNORMAL) POCT NATALIA-14 Urine Drug Screen (09/16/2025 8:47 AM EST) Only the most recent of2 resultswithin the time period is included. THC Negative Negative Cocaine Screen, Urine Negative Negative Opiate Screen, Urine Negative Negative Methamphetamine Screen Urine Negative Negative Amphetamine Screen, Urine Negative Negative Benzodiazepines Screen, Urine Negative Negative Barbiturate Screen, Urine Negative Negative Methadone Screen, Urine Negative Negative Buprenophine Screen, Urine Negative Negative TCA, Urine Negative Negative MDMA Urine Negative Negative ng/mL Oxycodone Screen, Urine Positive(A) Negative Comment:BAND TOP MAKER Pt on Oxycodone Phencyclidine (PCP), Urine Negative Negative Propoxyphene, Urine Negative Negative Fentanyl, Urine Positive(A) Negative Comment:BAND TOP MAKER pt on Fenatnyl Urine Urine specimen obtained by clean catch procedure / Unknown 09/16/2025 8:47 AM EST Eloisa Soria RN - 09/16/2025 8:47 AM EST UTOX cup Lot#[id number] Exp. 08/20/26 Internal Pass Control [facility] MEAT PICKLER POINT OF CARE TEST ENTER/EDIT ORDERABLES Final Result * Hepatitis A,B,C Profile (01/28/2025 12:16 PM EDT) Pathologist [facility] Hepatitis A IgM Nonreactive Nonreactive [facility] Comment:IgM antibodies to CHANG V not detected; does not exclude earlyacute or recovered HAV infection. ~Hepatitis B Surface Antibody NONREACTIVE Nonreactive [facility] Comment:Nonreactive: < 8.00 mIU/mL Hepatitis B Core Antibody Nonreactive Nonreactive [facility] Hepatitis C Antibody Nonreactive Nonreactive [facility] Comment:Antibodies to HCV no t detected; does not exclude early acuteHCV infection. Hepatitis B Surface Ag Negative Negative [facility] Blood Venous blood specimen / Unknown 01/28/2025 12:16 PM EDT 01/28/2025 1:07 PM EDT [facility] LAB BLOOD ORDERABLES Final Re sult Performing Organization Address [facility] Co de Phone Number [facility] [address] [place] [address] [phone] * HIV-1/2 Antigen and Antibodies, Fourth Generation, with Reflexes (01/28/2025 12:16 PM EDT) HIV AB/AG Nonreactive Nonreactive [facility] Comment:HIV-1 p24 Ag and/or HIV-1/HIV-2 Ab not detected.A test result that is nonreactive does not exclude thepossibility of exposure to or infection with HIV-1 and/orHIV-2. Nonreactive results in this assay for individualswith prior exposure to HIV-1 and/or HIV-2 may be due toantigen and antibody levels that are below the limit ofdetection of this assay.The Bright Pattern HIV Ag/Ab Combo assay result andsupplemental assay results should be interpreted inconjunction with the patient's clinical presentation,history and other laboratory results. If the results areinconsistent with clinical evidence, additional testing issuggested to confirm the result. Blood Venous blood specimen / Unknown 01/28/2025 12:16 PM EDT 01/28/2025 1:07 PM EDT [facility] LAB BLOOD ORDERABLES Final Re sult Performing Organization Address [facility] Co de Phone Number [facility] [address] [place] [address] [phone] * (ABNORMAL) Lipid Panel, Standard (01/28/2025 12:16 PM EDT) Triglycerides 345(H) <150 mg/dL [facility] Comment:Desirable Triglyceri de: less than 150 mg/dLBorderline High Triglyceride 150-199 mg/dLHigh Triglyceride: 200-499 mg/dLVery High Triglyceride: greater than or equal to 5OO mg/dL Cholesterol 171 <200 mg/dL [facility] Comment:Desirable Cholestero l: less than 200 mg/dLBorderline High Cholesterol: 200-239 mg/dLHigh Cholesterol: greater than 239 mg/dL LDL Cholesterol Calculated 70 <100 mg/dL [facility] Comment:Desirable LDL: less than 100 mg/dLNear Optimal/Above Optimal LDL: 110- 129 mg/dLBorderline High LDL: 130-159 mg/dLHigh LDL: 160-189 mg/dLVery High LDL: greater than or equal to 190 mg/dL HDL Cholesterol 32(L) >40 mg/dL [facility] Comment:Desirable HDL: great er than 40 mg/dL Note: This HDL assay may give artificially low results in patients with liver disease. Blood Venous blood specimen / Unknown 01/28/2025 12:16 PM EDT 01/28/2025 1:07 PM EDT [facility]LER LAB BLOOD ORDERABLES Final Re sult [facility] [address] [place] [phone] from Last 3 Months or Most Recently Relevant to Health Maintenance Insurance * Guarantor: Ji Her Account Type Relation to Patient Date of Phone Billing Address Personal/Family Self 1985 [address] [place] [address] [facility] < 63 [place] [phone] * Guarantor: Ji Her Account Type Relation to Patient Date of Phone Billing Address Personal/Family Self [address] [place] [address] * Guarantor: Ji Her Account Type Relation to Patient Date of Phone Billing Address Dental Self * Guarantor: Ji Her Account Type Relation to Patient Date of Phone Billing Address Personal/Family Self [address] [place] [address] * Guarantor: Ji Her Account Type Relation to Patient Date of Phone Billing Address Personal/Family Self [address] [place] [address] * Guarantor: Ji Her Account Type Relation to Patient Date of Phone Billing Address Personal/Family Self [address] [place] [address] Care Teams Application Integration Engineer Relationship Specialty Start Date End Date Emma Rodriguez FNP [address] [place] [phone] PCP - General Family Medicine 07/17/24
--- OUTSIDE RECORDS SUMMARY | 2025-10-14 17:10 | XMS_ITS | Encounter Summary ---
Author Organization [employer] Address [address] [facility] 7t [place] [address] Care Team Providers Care Professional Organizer Name Role Phone Radha Childress MD Primary Care Provider Estuardo Greenwood Primary Care Provider Margie Dominguez Primary Care Provider [phone] [facility] LUIS ALFREDO Primary Care Provider [phone] Encounter Details Date Type Department Care Team [...] Description 10/17/2025 10:30 AM EST Clinical Support [facility] MEDICINE [address] [place], [place] [phone] Eloisa Santiago, VANESA documented as of this encounter Visit Diagnoses Not on filedocumented in this encounter Care Teams Professional Organizer Relationship Specialty Start Date End Date Radha Childress MD PCP - General Family Medicine 11/04/20 10/04/22 Estuardo Damon AGNP PCP - General Family Medicine 10/05/22 07/03/23 Margie Singh FNP [address] [place], [place] [phone] PCP - General Family Medicine 07/04/23 07/16/24 Emma Rodriguez FNP [address] [place] [address] PCP - General Family Medicine 07/17/24 documented as of this encounter
--- OUTSIDE RECORDS SUMMARY | 2025-10-14 17:10 | XMS_ITS | Encounter Summary ---
Author Organization [employer] Address [address] [facility] [address] 7t [place] [address] Care Team Providers Care Light Technician Name Role Phone Margie Singh [facility] Primary Care Provider +1 [facility] Primary Care Provider [phone] Reason for Visit * Reason Comments Med Refill Encounter Details Date Type Department Care Team (Late st Contact Info) Description 01/28/2024 Refill [facility] WALK-IN CENTER [address] [place], [place] [phone] Margie Singh [facility] [address] [place] [address] Social History Tobacco Use Types Packs/Day Years [...] 10/17/2025 10:30 AM EST Clinical Support [facility] MEDICINE [address] [place] [address] Eloisa Santiago, RN documented as of this encounter Visit Diagnoses Not on filedocumented in this encounter Additional Health Concerns Assessment Noted Time PHQ-9 Depression Total Score: 10 024 2:27 PM EST documented as of this encounter Care Teams Light Technician Relationship Specialty Start Date End Date Margie Singh FNP [address] [place] [address] PCP - General Family Medicine 07/04/23 07/16/24 NechesEmma hassan FNP 230 [place] [address] PCP - General Family Medicine 07/17/24 documented as of this encounter
--- OUTSIDE RECORDS SUMMARY | 2025-10-14 17:10 | XMS_ITS | Encounter Summary ---
Author Organization [employer] Address [address] [facility] 7t [place] [address] Care Team Providers Care Complaint Clerk Name Role Phone Estuardo Damon AGNPablo Primary Care Provider Margie Dominguez ELECTRICAL INSTRUMENT TECHNICIAN Primary Care Provider [phone] MichaelEmma hassan ELECTRICAL INSTRUMENT TECHNICIAN Primary Care Provider [phone] Reason for Visit * Reason Onset Date Comments Medication 05/12/2023 Encounter Details Date Type Department Care Team ([facility] st Contact Info) Description 05/12/2023 Telephone [facility] MEDICINE [address] [place], [place] [phone] Estuardo Damon AGNP Medication Social History Tobacco [...] order and no other [facility] has it. Etl Tester called [facility] pharmacy andthey do have medication in stock. documented in this encounter Plan of Treatment Upcoming Encounters Date Type Department Care Team (Late st Contact Info) Description 10/17/2025 10:30 AM EST Clinical Support [facility] MEDICINE [address] [place] [address] Eloisa Santiago, RN documented as of this encounter Visit Diagnoses Not on filedocumented in this encounter Additional Health Concerns Assessment Noted Time PHQ-9 Depression Total Score: 13 023 11:05 AM EDT documented as of this encounter Care Teams Complaint Clerk Relationship Specialty Start Date End Date Estuardo Damon AGNP PCP - General Family Medicine 10/05/22 07/03/23 Margie Singh FNP [address] [place] [address] PCP - General Family Medicine 07/04/23 07/16/24 [place] hassan FNP [address] [place] [address] PCP - General Family Medicine 07/17/24 documented as of this encounter
--- OUTSIDE RECORDS SUMMARY | 2025-10-14 17:10 | XMS_ITS | Encounter Summary ---
Author Organization [employer] Address [address] [facility] 7t [place] [address] Care Team Providers Care Booster Operator Name Role Phone Margie Singh [facility] Primary Care Provider +[phone] [facility] Primary Care Provider [phone] Reason for Visit * Reason Comments Med Refill Encounter Details Date Type Department Care Team (Late st Contact Info) Description 01/25/2024 Refill [facility] MEDICINE [address] [place], [place] [phone] Margie Singh FNP [address] [place] [address] Social History Tobacco Use Types Packs/Day Years [...] Description 10/17/2025 10:30 AM EST Clinical Support [facility] MEDICINE [address] [place] [address] Eloisa Santiago, RN documented as of this encounter Visit Diagnoses Not on filedocumented in this encounter Additional Health Concerns Assessment Noted Time PHQ-9 Depression Total Score: 10 024 2:27 PM EST documented as of this encounter Care Teams Booster Operator Relationship Specialty Start Date End Date Margie Singh FNP [address] [place] [address] PCP - General Family Medicine 07/04/23 07/16/24 [place] GrandEmma FNP 230 [place] [address] PCP - General Family Medicine 07/17/24 documented as of this encounter
--- OUTSIDE RECORDS SUMMARY | 2025-10-14 17:10 | XMS_ITS | Encounter Summary ---
Author Organization [employer] Address [address] [facility] 7t [place] [address] Care Team Providers Care Child Care Development Specialist Name Role Phone [place] [facility] Primary Care Provider Encounter Details Date Type Department Care Team ([facility] st Contact Info) Description 08/09/2024 Telephone [facility] MEDICINE 230 [place], [place] [phone] [place] [facility] 230 [place], [place] [phone] Social History Tobacco Use Types Packs/Day Years [...] 1:26 PM EDT [facility] to [facility] for [facility] therapy but instead should be physical therapy due to pt DX . Any question please contact phone #[phone] documented in this encounter Plan of Treatment Upcoming Encounters Date Type Department Care Team (Late st Contact Info) Description 10/17/2025 10:30 AM EST Clinical Support [facility] MEDICINE [address] [place] [address] Eloisa Santiago, RN documented as of this encounter Visit Diagnoses Not on filedocumented in this encounter Additional Health Concerns Assessment Noted Time PHQ-9 Depression Total Score: 16 024 11:48 AM EDT documented as of this encounter Care Teams Child Care Development Specialist Relationship Specialty Start Date End Date Emma Rodriguez FNP 230 [place] [address] PCP - General Family Medicine 07/17/24 documented as of this encounter
--- OUTSIDE RECORDS SUMMARY | 2025-10-14 17:10 | XMS_ITS | Encounter Summary ---
Author Organization [employer] Address [address] [facility] 7t [place] [address] Care Team Providers Care Sock Knitter Name Role Phone Margie Singh DISC PAD GRINDING MACHINE FEEDER Primary Care Provider +[phone] [facility] Primary Care Provider [phone] Reason for Visit * Reason Comments Med Refill Encounter Details Date Type Department Care Team (Late st Contact Info) Description 08/18/2023 Refill [facility] MEDICINE 230 [place], [place] [phone] Estuardo Damon AGNP Social History Tobacco Use [...] Description 10/17/2025 10:30 AM EST Clinical Support [facility] MEDICINE 230 [place] [address] Eloisa Santiago RN documented as of this encounter Visit Diagnoses Not on filedocumented in this encounter Additional Health Concerns Assessment Noted Time PHQ-9 Depression Total Score: 13 023 11:05 AM EDT documented as of this encounter Care Teams Sock Knitter Relationship Specialty Start Date End Date Margie Singh FNP 230 [place] [address] PCP - General Family Medicine 07/04/23 07/16/24 [place] FNP 230 [place] [address] PCP - General Family Medicine 07/17/24 documented as of this encounter
--- OUTSIDE RECORDS SUMMARY | 2025-10-14 17:10 | XMS_ITS | Encounter Summary ---
Author Organization [employer] Address [address] [facility] [address] 7t [place] [address] Care Team Providers Care Lead Generator Name Role Phone Margie Singh [facility] Primary Care Provider +[phone] [facility] Primary Care Provider [phone] Reason for Visit * Reason Comments Med Refill Encounter Details Date Type Department Care Team (Late st Contact Info) Description 03/14/2024 Refill [facility] WALK[facility]IN C[facility] [address] [place], [place] [phone] Margie Singh [facility] [address] [place] [address] Social History Tobacco Use Types Packs/Day Years [...] Description 10/17/2025 10:30 AM EST Clinical Support [facility] MEDICINE [address] [place] [address] Eloisa Santiago, RN documented as of this encounter Visit Diagnoses Not on filedocumented in this encounter Additional Health Concerns Assessment Noted Time PHQ-9 Depression Total Score: 10 024 2:27 PM EST documented as of this encounter Care Teams Lead Generator Relationship Specialty Start Date End Date Margie Singh FNP [address] [place] [address] PCP - General Family Medicine 07/04/23 07/16/24 [place] PondEmma hassan FNP [address] [place] [address] PCP - General Family Medicine 07/17/24 documented as of this encounter
--- OUTSIDE RECORDS SUMMARY | 2025-10-14 17:10 | XMS_ITS | Encounter Summary ---
Author Organization [employer] Address [address] [facility] [address] 7t [place] [address] Care Team Providers Care Digital Librarian Name Role Phone Margie Singh [facility] Primary Care Provider + [facility] Primary Care Provider [phone] Reason for Visit * Reason Comments Med Refill Encounter Details Date Type Department Care Team (Late st Contact Info) Description 07/03/2024 Refill [facility] WALK-IN CENTER [address] [place], [place] [phone] Margie Singh [facility] [address] [place] [address] Social History Tobacco Use Types Packs/Day Years [...] Description 10/17/2025 10:30 AM EST Clinical Support [facility] MEDICINE [address] [place] [address] Eloisa Santiago, RN documented as of this encounter Visit Diagnoses Not on filedocumented in this encounter Additional Health Concerns Assessment Noted Time PHQ-9 Depression Total Score: 10 024 2:27 PM EST documented as of this encounter Care Teams Digital Librarian Relationship Specialty Start Date End Date Margie Singh FNP [address] [place] [address] PCP - General Family Medicine 07/04/23 07/16/24 [place]erry[place] hassan FNP [address] [place] [address] PCP - General Family Medicine 07/17/24 documented as of this encounter
--- OUTSIDE RECORDS SUMMARY | 2025-10-14 17:10 | XMS_ITS | Clinical Summary ---
Author Organization [facility] Address [address] [facility] [address] [place] [phone] Phone Care Team Providers Care Senior Security Engineer Name Role Phone Emma Rodriguez LUIS ALFREDO Primary Care Provider [phone] Allergies No known active allergies Medications zolpidem [...] for pain (specific location in comments). {PARTIAL FILL:[id number]} Active docusate sodium (COLACE) 100 MG capsule [...] & B ONE CARE MEDICARE REPLACEMENT [place] [address] MEDICARE PART A & B [facility] ONE CARE MEDICARE REPLACEMENT MEDICARE PART A & B CARE MEDICARE REPLACEMENT MEDICARE PART A & B CARE MEDICARE REPLACEMENT MEDICARE PART A & B [facility] CARE MEDICARE REPLACEMENT [place] [address] MEDICARE PART A & B [facility] CARE MEDICARE REPLACEMENT MEDICARE PART A & B [facility] ONE [facility] MEDICARE REPLACEMENT MEDICARE PART A & B [facility] CARE MEDICARE REPLACEMENT [facility] MEDICARE PART A & B [facility] CARE MEDICARE REPLACEMENT Member Subscriber Plan / Payer ( fective 2018-Present) Name:Ji Her Relation to Subscriber:Self Name:Ji Her Payer ID:[id number] (NAIC) Group ID:[id number] Type:Medicare Address: [address] [facility] CARE MEDICARE REPLACEMENT MEDICARE PART A & B Care Teams Senior Security Engineer Relationship Specialty Start Date End Date Emma Rodriguez FNP [address] [place] [address] PCP - General Nurse Practitioner 08/21/24 Additional Source Comments The information contained in this document represents components of the legal health record. It is not the complete legal health record.[facility]
--- OUTSIDE RECORDS SUMMARY | 2025-10-14 17:11 | XMS_ITS | Encounter Summary ---
Author Organization [employer] Address [address] [facility] 7t [place] [address] Care Team Providers Care Stone Decorator Name Role Phone Estuardo Damon AGNPablo Primary Care Provider Margie Dominguez RAMP FLIGHT ATTENDANT Primary Care Provider [phone] MichaelEmma hassan RAMP FLIGHT ATTENDANT Primary Care Provider [phone] Reason for Visit * Reason Onset Date Comments Med Refill 02/18/2023 Encounter Details Date Type Department Care Team (Late st Contact Info) Description 02/18/2023 Refill [facility]ICINE 230 [place] [address] Estuardo Damon AGNP Complex regional pain syndrome [...] 3:30 PM EDT Doreen Nolan MA * How difficult have these problems made it for you to do your work, take care of things at home, or get along with other people? Answer Date of Assessment Author Extremely difficult 02/18/2023 3:30 PM EDT Doreen Ni MA * Over the past 2 weeks, [...] oxycodone 5 mg Please contact pt at [phone] * Telephone Encounter - LUIS ALFREDO Clayton [...] morning. Awaiting response. * Telephone Encounter - rTam Huston - 2023 9:03 AM EDT Patient [...] in his duration from 15 to 30. TRANSIT MIXER OPERATOR note to you on 02/02/23 said this: He attends the pain management clinic in [place]. He states that on 02/14/23 he's supposed [...] you 02/09/23. * Telephone Encounter - Linda Caitlin - 02/18/2023 8:35 AM EDT Tc from pt requesting med refill for medicating oxyCODONE-acetaminophen (Percocet) 10-325 MG tablet documented in this encounter Plan of Treatment Upcoming Encounters Date Type Department Care Team (Late st Contact Info) Description 10/17/2025 10:30 AM EST Clinical Support [facility] MEDICINE [address] [place] [address] Eloisa Santiago, VANESA documented as of this encounter Visit Diagnoses Diagnosis Complex regional pain syndrome type 1 of right lower extremity documented in this encounter Additional Health Concerns Assessment Noted Time PHQ-9 Depression Total Score: 11 023 3:30 PM EDT documented as of this encounter Care Teams Stone Decorator Relationship Specialty Start Date End Date Estuardo Damon AGNP PCP - General Family Medicine 10/05/22 07/03/23 Margie Singh FNP [address] [place] [address] PCP - General Family Medicine 07/04/23 07/16/24 [place] hassan FNP 230 [place] [address] PCP - General Family Medicine 07/17/24 documented as of this encounter
--- OUTSIDE RECORDS SUMMARY | 2025-10-14 17:11 | XMS_ITS | Encounter Summary ---
Author Organization [employer] Address [address] [facility] [address] 7t [place] [address] Care Team Providers Care Yarn Preparation Supervisor Name Role Phone Emma Rodriguez CHIEF MEDICAL TECHNOLOGIST Primary Care Provider [phone] Encounter Details Date Type Department Care Team (Late st Contact Info) Description 10/14/2025 Orders Only [facility] External Provider, [facility] Social History Tobacco Use Types Packs/Day Years [...] Description 10/17/2025 10:30 AM EST Clinical Support [address] [address] Eloisa Santiago RN documented as of this encounter Procedures Procedure Name Priority Date/Time Associated Diagnosis Comments CT CHEST WO CONTRAST Routine 10/14/2025 2:06 PM EST documented in this encounter Results * CT Chest w/o Contrast (10/14/2025 2:06 PM EST) Anatomical Region Laterality Modality Body, Chest Computed Tomogra phy 10/14/2025 2:06 PM EST Narrative 10/14/2025 4:10 PM EST [address] [address] [address] Scan Report Signed Patient: Ji Her MR#: [id number] : 1985 Acct:[id number] Age/Sex: 40 / M ADM Date: 10/14/25 Loc: HO.CT Attending Dr: Kai Gibbons MD Ordering Physician: Kai Gibbons MD Date of Service: 10/14/25 Procedure(s): CT chest wo IV con Accession Number(s): [id number] cc: Kai Gibbons MD; [facility] Report Number: [id number]: Total DLP = 266.00 mGy-cm Reason for [...] by: Raad Flores MD 10/14/2025 04:07 PM EST Dictated By: Raad Flores MD Signed By: <Electronically signed by Raad Flores MD in OV> 10/14/25 1607 DD/ 1406 TD/TT: 10/14/25 1546 Laser Cutter: Procedure Note Donotjoseinterpreter, Image - 10/14/[address] [address] [address] Scan Report Signed Patient: Jacqueline Her#: [id number] : 1985Acct:[id number] Age/Sex: 40 / MADM Date: 10/14/25 Loc: HO.CT Attending Dr: Kai Gibbons MD Ordering Physician: Kai Gibbons MD Date of Service: 10/14/25 Procedure(s): CT chest wo IV con Accession Number(s): [id number] cc: Kai Gibbons MD; [facility] Report Number: [id number]: Total DLP = 266.00 mGy-cm Reason for [...] by: Raad Flores MD 10/14/2025 04:07 PM EST RP Dictated By: Raad Flores MD Signed By: <Electronically signed by Raad Flores MD in OV> 10/14/25 1607 DD/ 1406 TD/TT: 10/14/25 1546 Laser Cutter: [facility] External Provider IMG CT PROCEDURES Final Result documented in this encounter Visit Diagnoses Not on filedocumented in this encounter Additional Health Concerns Assessment Noted Time PHQ-9 Depression Total Score: 6 03/12/20 25 12:16 PM EDT documented as of this encounter Care Teams Yarn Preparation Supervisor Relationship Specialty Start Date End Date Emma Rodriguez FNP [address] [place] [address] PCP - General Family Medicine 07/17/24 documented as of this encounter
--- OUTSIDE RECORDS SUMMARY | 2025-10-14 17:11 | XMS_ITS | Encounter Summary ---
Author Organization [employer] Address [address] [facility] 7t [place] [address] Care Team Providers Care Instrument Assembler Name Role Phone Estuardo Damon AGNPablo Primary Care Provider Margie Dominguez AIR TRAFFIC COORDINATOR Primary Care Provider [phone] MichaelEmma hassan AIR TRAFFIC COORDINATOR Primary Care Provider [phone] Reason for Visit * Reason Onset Date Comments Med Refill 04/08/2023 Encounter Details Date Type Department Care Team (Late st Contact Info) Description 04/08/2023 Refill [facility] MEDICINE [address] [place] [address] Estuardo Damon AGNP Complex regional pain syndrome [...] Per pt request Rx be sent to [facility], will forward to PCP. * Telephone Encounter - Octavio Cota - 04/08/2023 8:37 AM EDT Tc from pt requesting for medication oxyCODONE-acetaminophen (Percocet) 10-325 MG tablet to be sentto [facility] at [address] [place] [address]. Please contact pt at [phone] documented in this encounter Plan of Treatment Upcoming Encounters Date Type Department Care Team (Late st Contact Info) Description 10/17/2025 10:30 AM EST Clinical Support [facility] MEDICINE [address] [place] [address] Eloisa Santiago, VANESA documented as of this encounter Visit Diagnoses Diagnosis Complex regional pain syndrome type 1 of right lower extremity documented in this encounter Additional Health Concerns Assessment Noted Time PHQ-9 Depression Total Score: 13 023 11:05 AM EDT documented as of this encounter Care Teams Instrument Assembler Relationship Specialty Start Date End Date Estuardo Damon AGNP PCP - General Family Medicine 10/05/22 07/03/23 Margie Singh FNP [address] [place] [address] PCP - General Family Medicine 07/04/23 07/16/24 [place]ona[place]ma hassan FNP 230 [place] [address] PCP - General Family Medicine 07/17/24 documented as of this encounter
--- OUTSIDE RECORDS SUMMARY | 2025-10-14 17:11 | XMS_ITS | Encounter Summary ---
Author Organization [employer] Address [address] [facility] 7t [place] [address] Care Team Providers Care Clothes Shaker Name Role Phone Margie Singh [facility] Primary Care Provider [phone] [place] Fort[place]ma hassan [facility] Primary Care Provider [phone] Reason for Referral * Consultation (Urgent) - Closed Specialty Diagnoses / Procedures Referred By Josephine t Referred To Contact Pulmonary Disease Diagnoses Abnormal chest CT Alexandria Workman MD [address] [place] [address] Phone: tel: fax: [facility] Referral ID Status Reason Start Date Expiration Date V isits Requested Visits Authorized [id number] Closed Specialty Services Required 04/10/2024 04/10/2025 1 1 Encounter Details Date Type Department Care Team (Late st Contact Info) Description 04/10/2024 Orders Only [facility] MEDICINE [address] [place], [place] [phone] Aelxandria Workman MD [address] [place], [place] [phone] Abnormal chest CT (Primary Dx) Social History [...] 10/17/2025 10:30 AM EST Clinical Support [facility] MEDICINE [address] [place] [address] Eloisa Santiago RN Scheduled Referrals Name Type [...] documented as of this encounter Care Teams Clothes Shaker Relationship Specialty Start Date End Date Margie Singh FNP [address] [place] [address] PCP - General Family Medicine 07/04/23 07/16/24 [place] FNP [address] [place] [address] PCP - General Family Medicine 07/17/24 documented as of this encounter
--- OUTSIDE RECORDS SUMMARY | 2025-10-14 17:11 | XMS_ITS | Encounter Summary ---
Author Organization [employer] Address [address] [facility] 7t [place] [address] Care Team Providers Care Face Boss Name Role Phone [facility] Primary Care Provider [phone] Reason for Visit * Reason Comments Med Refill Encounter Details Date Type Department Care Team ([facility] st Contact Info) Description 08/04/2025 Refill [facility] MEDICINE 230 [place], [place] [phone] [facility] 230 [place], [place] [phone] Social History Tobacco Use Types Packs/Day Years [...] Description 10/17/2025 10:30 AM EST Clinical Support [facility] MEDICINE [address] [place] [address] Eloisa Santiago RN documented as of this encounter Visit Diagnoses Not on filedocumented in this encounter Additional Health Concerns Assessment Noted Time PHQ-9 Depression Total Score: 6 03/12/20 25 12:16 PM EDT documented as of this encounter Care Teams Face Boss Relationship Specialty Start Date End Date Emma Rodriguez FNP [address] [place] [address] PCP - General Family Medicine 07/17/24 documented as of this encounter
--- OUTSIDE RECORDS SUMMARY | 2025-10-14 17:11 | XMS_ITS | Encounter Summary ---
Author Organization [employer] Address [address] [facility] [address] 7[address] [place] [address] Care Team Providers Care Furniture Lumber Production Worker Name Role Phone Emma Rodriguez APPOINTMENT SPECIALIST Primary Care Provider [phone] Encounter Details Date Type Department Care Team (Late st Contact Info) Description 07/10/2025 Orders Only [facility] [address] [place], [place] [phone] Khadra Fernandes MD [address] [place], [place] [phone] senior care (current) use of opiate analgesic (Primary Dx); [...] Description 10/17/2025 10:30 AM EST Clinical Support [facility] [address] [place] [address] Eloisa Santiago RN documented as of this encounter Visit Diagnoses Diagnosis termination clerk (current) use of opiate analgesic- Primary Lumbar radiculopathy Thoracic or lumbosacral neuritis or radiculitis, unspecified documented in this encounter Additional Health Concerns Assessment Noted Time PHQ-9 Depression Total Score: 6 03/12/20 25 12:16 PM EDT documented as of this encounter Care Teams Furniture Lumber Production Worker Relationship Specialty Start Date End Date Emma Rodriguez FNP [address] [place] [address] PCP - General Family Medicine 07/17/24 documented as of this encounter
--- OUTSIDE RECORDS SUMMARY | 2025-10-14 17:11 | XMS_ITS | Encounter Summary ---
Author Organization [employer] Address 75 [facility] 7t [place] [address] Care Team Providers Care Director Of Analytics Name Role Phone [facility] Primary Care Provider [phone] Reason for Visit * Reason Onset Date Comments requesting call back 06/14/2025 Encounter Details Date Type Department Care Team (Late st Contact Info) Description 06/14/2025 Telephone [facility] [address] [place], [place] [phone] [facility] [address] [place], [place] [phone] requesting call back Social History Tobacco Use [...] requested a callback. Call the patient at [phone]. documented in this encounter Plan of Treatment Upcoming Encounters Date Type Department Care Team (Late st Contact Info) Description 10/17/2025 10:30 AM EST Clinical Support [facility] [address] [place] [address] Eloisa Santiago RN documented as of this encounter Visit Diagnoses Not on filedocumented in this encounter Additional Health Concerns Assessment Noted Time PHQ-9 Depression Total Score: 6 03/12/20 25 12:16 PM EDT documented as of this encounter Care Teams Director Of Analytics Relationship Specialty Start Date End Date Emma Rodriguez FNP [address] [place] [id number] PCP - General Family Medicine 07/17/24 documented as of this encounter
--- OUTSIDE RECORDS SUMMARY | 2025-10-14 17:11 | XMS_ITS | Encounter Summary ---
Author Organization [employer] Address 75 [facility] 7t [place] [address] Care Team Providers Care White Mixing Operator Name Role Phone [facility] Primary Care Provider [phone] Reason for Visit * Reason Onset Date Comments Med Refill 06/19/2025 Encounter Details Date Type Department Care Team (Late st Contact Info) Description 06/19/2025 Refill [facility] 230 [place], [place] [phone] [facility] [address] [place] [address] Complex regional pain syndrome type 1 of [...] immediate release tablet To be sent to: [facility]/pharmacy [address] [place] [address] [phone] [facility] documented in this encounter Plan of Treatment Upcoming Encounters Date Type Department Care Team (Late st Contact Info) Description 10/17/2025 10:30 AM EST Clinical Support [facility] [address] [place] [address] Eloisa Santiago RN documented as of this encounter Visit Diagnoses Diagnosis Complex regional pain syndrome type 1 of right lower extremity documented in this encounter Additional Health Concerns Assessment Noted Time PHQ-9 Depression Total Score: 6 03/12/20 25 12:16 PM EDT documented as of this encounter Care Teams White Mixing Operator Relationship Specialty Start Date End Date Emma Rodriguez FNP [address] [place] [address] PCP - General Family Medicine 07/17/24 documented as of this encounter
--- OUTSIDE RECORDS SUMMARY | 2025-10-14 17:11 | XMS_ITS | Encounter Summary ---
Author Organization [employer] Address [address] [facility] [address] 7t [place] [address] Care Team Providers Care Quality Specialist Name Role Phone Margie Singh [facility] Primary Care Provider [phone] [facility] Primary Care Provider [phone] Reason for Visit * Reason Comments Med Refill Encounter Details Date Type Department Care Team (Late st Contact Info) Description 02/02/2024 Refill [facility] [address] [place], [place] [phone] Margie Singh [facility] [address] [place] [address] Social History Tobacco Use Types Packs/Day Years [...] Description 10/17/2025 10:30 AM EST Clinical Support [facility] [address] [place] [address] Eloisa Santiago, RN documented as of this encounter Visit Diagnoses Not on filedocumented in this encounter Additional Health Concerns Assessment Noted Time PHQ-9 Depression Total Score: 10 024 2:27 PM EST documented as of this encounter Care Teams Quality Specialist Relationship Specialty Start Date End Date Margie Singh FNP [address] [place] [address] PCP - General Family Medicine 07/04/23 07/16/24 GamalielEmma hassan FNP [address] [place] [address] PCP - General Family Medicine 07/17/24 documented as of this encounter
--- OUTSIDE RECORDS SUMMARY | 2025-10-14 17:11 | XMS_ITS | Encounter Summary ---
Author Organization [employer] Address 75 [facility] 7t [place] [address] Care Team Providers Care Gaming Cashier Name Role Phone Margie Singh [facility] Primary Care Provider [phone] [facility] Primary Care Provider [phone] Reason for Visit * Reason Onset Date Comments Appointment Request 06/21/2024 Encounter Details Date Type Department Care Team (Late st Contact Info) Description 06/21/2024 Telephone [facility] [address] [place], [place] [phone] Margie Singh FNP [address] [place] [address] Appointment Request Social History Tobacco Use Types [...] 06/21/2024 3:48 PM EDT Tc from patients DUPLEX TRIMMER requesting appt for patient states the patient under went a surgical procedureon the chest and is still experiencing pain screenplay writer did ask if the patient had a follow up with surgeon DUPLEX TRIMMER stated yes and next appt is not until July documented in this encounter Plan of Treatment Upcoming Encounters Date Type Department Care Team (Late st Contact Info) Description 10/17/2025 10:30 AM EST Clinical Support [address] [address] Eloisa Santiago, RN documented as of this encounter Visit Diagnoses Not on filedocumented in this encounter Additional Health Concerns Assessment Noted Time PHQ-9 Depression Total Score: 10 024 2:27 PM EST documented as of this encounter Care Teams Gaming Cashier Relationship Specialty Start Date End Date Margie Singh FNP [address] [place] [address] PCP - General Family Medicine 07/04/23 07/16/24 OrdEmma hassan FNP [address] [place] [address] PCP - General Family Medicine 07/17/24 documented as of this encounter
--- OUTSIDE RECORDS SUMMARY | 2025-10-14 17:11 | XMS_ITS | Encounter Summary ---
Author Organization [employer] Address 75 [facility] 7t [place] [address] Care Team Providers Care Disc Pad Grinding Machine Feeder Name Role Phone Margie Singh [facility] Primary Care Provider [phone] [facility] Primary Care Provider [phone] Reason for Visit * Reason Onset Date Comments Call Back Request 01/30/2024 Encounter Details Date Type Department Care Team (Late st Contact Info) Description 01/30/2024 Telephone [facility] [address] [place], [place] [phone] Margie Singh FNP [address] [place] [address] Call Back Request Social History Tobacco Use [...] EDT T/C to pt. To inform that [facility] still waiting for his insurance for approval. [...] Description 10/17/2025 10:30 AM EST Clinical Support [facility] [address] [place] [address] Eloisa Santiago, VANESA documented as of this encounter Visit Diagnoses Not on filedocumented in this encounter Additional Health Concerns Assessment Noted Time PHQ-9 Depression Total Score: 10 024 2:27 PM EST documented as of this encounter Care Teams Disc Pad Grinding Machine Feeder Relationship Specialty Start Date End Date Margie Singh FNP [address] [place] [address] PCP - General Family Medicine 07/04/23 07/16/24 Estill SpringsEmma FNP [address] [place] [address] PCP - General Family Medicine 07/17/24 documented as of this encounter
--- OUTSIDE RECORDS SUMMARY | 2025-10-14 17:11 | XMS_ITS | Encounter Summary ---
Author Organization [employer] Address 75 [facility] 7t [place] [address] Care Team Providers Care Metal Melter Name Role Phone Estuardo Damon AGNPablo Primary Care Provider Unavail Margie Huitron WEB SERVICES PROFESSIONAL Primary Care Provider + Emma Rodriguez WEB SERVICES PROFESSIONAL Primary Care Provider [phone] Reason for Visit * Reason Comments Med Refill Encounter Details Date Type Department Care Team (Late Contact Info) Description 04/26/2023 Refill [facility] [address] [place] [address] Estuardo Damon AGNP Depressed mood [...] Description 10/17/2025 10:30 AM EST Clinical Support [facility] [address] [place] [address] Pamela, Eloisa, RN documented as of this encounter Visit Diagnoses Diagnosis Depressed mood documented in this encounter Additional Health Concerns Assessment Noted Time PHQ-9 Depression Total Score: 13 023 11:05 AM EDT documented as of this encounter Care Teams Metal Melter Relationship Specialty Start Date End Date Estuardo Damon AGNP PCP - General Family Medicine 10/05/22 07/03/23 Margie Singh FNP [address] [place] [address] PCP - General Family Medicine 07/04/23 07/16/24 Emma Rodriguez FNP [address] [place] [address] PCP - General Family Medicine 07/17/24 documented as of this encounter
--- OUTSIDE RECORDS SUMMARY | 2025-10-14 17:11 | XMS_ITS | Encounter Summary ---
Author Organization [employer] Address 75 [facility] 7t [place] [address] Care Team Providers Care Blacksmith Apprentice Name Role Phone Margie Singh [facility] Primary Care Provider [phone] KennebecEmma hassan HASHER OPERATOR Primary Care Provider [phone] Reason for Referral * Consultation (STAT) - Canceled Specialty Diagnoses / Procedures Referred By Josephine garsia Referred To Contact Thoracic Surgery Diagnoses Abnormal chest CT Alexandria Workman MD [address] [place] [address] Phone: tel: fax: [facility] [address] 1st Floor [place], [place] Phone: tel: fax: Referral ID Status Reason Start Date Expiration Date Visits Requested Visits Authorized [id number] Canceled Specialty Services Required 04/06/2024 04/06/2025 1 1 Encounter Details Date Type Department Care Team (Late st Contact Info) Description 04/06/2024 Orders Only [facility] [address] [place] [address] Alexandria Workman MD [address] [place], [place] [phone] Abnormal chest CT (Primary Dx) Social History [...] Upcoming Encounters Date Type Department Care Team ([facility] st Contact Info) Description 10/17/2025 10:30 AM EST Clinical Support [facility] [address] [place] [address] Eloisa Santiago RN Scheduled Referrals Name Type [...] documented as of this encounter Care Teams Blacksmith Apprentice Relationship Specialty Start Date End Date Margie Singh FNP [address] [place] [address] PCP - General Family Medicine 07/04/23 07/16/24 MichaelEmma hassan FNP [address] [place] [address] PCP - General Family Medicine 07/17/24 documented as of this encounter
== END 2025-10-14 13:36 | disposition home or self-care (01) ==
LOC: HO.CT 13:35
PROVIDERS: PCP Registered Nurse; Visit Provider Hospitalist
DX: C7A.090 Malignant carcinoid tumor of the bronchus and lung (principal); J98.4 Other disorders of lung
CPT/HCPCS: 71250

== ENCOUNTER → 2025-10-14 13:38 | Outpatient (BNV) | payer OTHER, SELFPAY | PROVIDERS: PCP Registered Nurse; Visit Provider Radiology Diagnostic Radiology | DX: C7A.090 Malignant carcinoid tumor of the bronchus and lung (principal) | CPT/HCPCS: 71250 ==

== ENCOUNTER 2025-10-22 09:10 | Outpatient (AMB) | payer OTHER, SELFPAY ==
--- NOTE | 2025-10-22 09:23 | MHC.OFFVIS ---
Vital Signs 10/22/25 09:24 Height 5 ft 8 in Weight 259 lb 0.69 oz BMI 39.4 BP 100/56 L Blood Pressure Location Lt brachial Position Sitting Pulse 90 Pulse Source Pulse Oximeter Pulse Oximetry (%) 96 Oxygen Delivery Method Room Air Intake Visit Reasons: Hx Lung CA/Cough Health Service Coordinator Required: No Accompanied by: Self / Same As Patient Allergies No Known Allergies Allergy (Verified 10/22/25 09:34) HPI Comments Details: The patient is a 40-year-old gentleman the cough tends to be moderate severity. Typically nonproductive although he feels like he has something to clear and just can not clear. During the workup the patient had a chest x-ray followed by CT scan of the chest. I personally reviewed the CT scan with the patient. Appears to have a masslike consolidation in the left lower lobe area in the infrahilar area as well. Seems to be some mucus plugging of some type question endobronchial lesion the patient denies choking on any particular foods. Denies any weight loss or night sweats. He denies any hemoptysis. the patient also has been trying to quit smoking. He has had a hard time. We talked about performing a bronchoscopy. The patient is agreeable this time. I did describe the procedure and the benefits of the procedure. The patient would like to pursue the procedure soon as possible. 05/03/2024 The patient is here for a follow up bronchsocopy. He did have a mass obstructing his LLL bronchus with pus suggesting a post obstructive pneumonia. Pathology consistent with carcinoid. He completed the Augmentin and starting to cough again. He will have PFTs and awaiting referral with Thoracic surgery. 08/06/2024 the patient is here for a pulmonary follow-up visit. The patient is status post a left lower lobe lobectomy for his cancer. He was able to avoid a full pneumonectomy which is reassuring. He did need an open procedure her. There is still painful and numb. He understands that will be the like this for a long time maybe years. He can try [id number] medications for it. In the meantime the patient went back to smoking. We did talk about the importance of him quitting. He had a reaction to the patch. I will send him the echo read gum at this time. We did look at the pathology after his surgery. 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 Two of the lymph nodes were negative and the borders were also negative. However, due to the concerning nature in aggressive nature of atypical carcinoid I believe that a referral to Oncology be important in order to monitor for any metastatic disease. 10/22/2024 the patient is here for a pulmonary follow-up visit. Overall he is doing okay. Although he started developing worsening cough with chest tightness and wheezing. He does have a rescue inhaler that he uses once in a while. The patient has had positive contacts were sick contacts. Therefore will go ahead and treat him for bronchitis. In the meantime concerned about his carcinoid history. His respiratory exam is reassuring. He can always undergo a chest x-ray. I did order 1 for him. In the meantime will plan to do a repeat CT scan in 5-6 months. The patient is still smoking. She needs to quit smoking. Although he does enjoy smoking. He is willing to try Chantix. Prior to starting the Chantix he will let his partner no to monitor him for any depressive symptoms. If the patient is not better after the medications provided he will call for further recommendations. 05/01/2025 the patient is here for a pulmonary follow-up visit. Overall the patient has been doing well. His last CT scan was back in January of 2025 which I personally reviewed. His has postoperative changes. No evidence of any recurrence. Indeed he had atypical carcinoid which is more concerning. He does have some atelectasis and still some discomfort the site of the surgery. He is still smoking. His CAT scan also personally by me demonstrates some areas of ground-glass opacity suggesting some pneumonitis. Will go ahead and plan to repeat the CAT scan around September 2025. If continues to be stable then will make it a year. The patient has been using his inhalers with good effect. He is still has wheezing on examination. Explained to him that he is likely has interstitial lung disease due to the smoking. He needs to quit. He had been on Chantix although he stopped it. He is considering going back on it. He is not ready to quit at this time. 10/22/2025 the patient is here for pulmonary follow-up visit. Overall the patient is doing okay. Having significant amount of pain in his right foot. He is struggling with that. If affects his mood and affect his smoking. He has actually been smoking more. We did talk about the importance of quitting smoking specially with history of lung cancer. We did review his last CT scan was done 10/14/2025 and I did compare to his previous CAT scan from January 2025. His postoperative changes are stable. The patient appears to have a slightly enlarged spleen. Unlikely to be of any significance but we need to follow-up. Will plan to repeat a CAT scan in 6 months. In the meantime the patient will try to refrain from smoking cut down. [facility] Medical History (Updated 10/22/25 @ 20:30 by Kai Gibbons MD) Pneumonitis COPD (chronic obstructive pulmonary disease) Atypical carcinoid lung tumor Thyroid disease Arthritis Back pain Foot pain, right Anxiety Depression Emphysema of lung Asthma Tobacco dependence Osteoarthritis of ankle COPD, mild Neuropathic pain of right lower extremity Lumbar radiculopathy Complex regional pain syndrome of lower extremity Obstructive sleep apnea Obesity Bipolar disorder Hypothyroidism Nondependent alcohol abuse Severe episode of recurrent major depressive disorder Low back pain Surgical History History of foot surgery History of bronchoscopy History of circumcision Carcinoid tumor (~04/2024) Family History Father Lung cancer Mother Ovarian cancer Social History Household Members: Spouse Housing: Apartment Are you a primary resident care associate to a significant other at home: No Do you presently have visiting nurse or other home services: Yes Patient Tobacco Use Status: Current everyday Tobacco user Tobacco use type: Cigarette Cigarette Packs Per Day: 1 Substance Use Type: Marijuana service: No Current occupational status: disabled Review of Systems Const Denies fever(s) and Denies weight loss Eyes Reports no additional complaints ENT Denies dysphagia Card Denies palpitations Resp Reports chest congestion, Reports cough, Denies hemoptysis and Reports wheezing GI Denies dysphagia Musc Reports abnormal gait, Reports back pain, Reports myalgias, Reports arthralgias, Reports limited range of motion and Reports numbness Skin/Breast Denies rash Neuro Reports abnormal gait, Reports numbness, Reports radicular pain and Reports paresthesias Endo Denies palpitations Zenno/Lymph Denies lymphadenopathy Aller/Immun Reports wheezing Physical Exam Vital Signs: Last Vital Signs Pulse 90 10/22/25 09:24 BP 100/56 L 10/22/25 09:24 Pulse Ox 96 10/22/25 09:24 Oxygen Delivery Method Room Air 10/22/25 09:24 BMI result Body Mass Index 39.4 Const General: comfortable HEENT Head: Yes normocephalic Neck Neck: Yes supple Chest Chest palpation & inspection: normal inspection of the chest Resp Effort & Inspection: normal respiratory effort Auscultation: no wheezes and diminished lung sounds on the left Cardio Heart sounds: S1 normal heart sound present and S2 normal heart sound present GI Palpation (GI): Soft to palpation Extrem General: Yes no clubbing, cyanosis or edema Assessment & Plan Assessment & Plan (1) Atypical carcinoid lung tumor: Code(s): 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 Category: Medical (2) Tobacco dependence: Code(s): F17.200 - Nicotine dependence, unspecified, uncomplicated Category: Medical (3) COPD (chronic obstructive pulmonary disease): Code(s): J44.9 - Chronic obstructive pulmonary disease, unspecified Category: Medical Qualifiers: COPD type: COPD with acute exacerbation Qualified Code(s): J44.1 - Chronic obstructive pulmonary disease with (acute) exacerbation (4) Pneumonitis: Code(s): J98.4 - Other disorders of lung Category: Medical Plan EUGENE as needed serial CT chest April 2026 Wixela BID needs to quit smoking F/U 6-8 months Orders: Orders CT chest wo IV con 04/14/26 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
[2025-10-22 09:24] VITALS: BP 100/56; PULSE 90; O2SAT 96; BMI 39.4
== END 2025-10-22 09:50 | disposition home or self-care (01) ==
LOC: HO.HPS 09:10
PROVIDERS: PCP Registered Nurse; Visit Provider Hospitalist
DX: C7A.090 Malignant carcinoid tumor of the bronchus and lung (principal); F17.200 Nicotine dependence, unspecified, uncomplicated; J44.1 Chronic obstructive pulmonary disease with (acute) exacerbation; J98.4 Other disorders of lung
CPT/HCPCS: 99214

== ENCOUNTER → 2025-10-22 09:10 | Outpatient (BNVA) | payer OTHER, SELFPAY | PROVIDERS: PCP Registered Nurse; Visit Provider Hospitalist | DX: J44.9 Chronic obstructive pulmonary disease, unspecified (principal); C7A.090 Malignant carcinoid tumor of the bronchus and lung; J44.1 Chronic obstructive pulmonary disease with (acute) exacerbation; J98.4 Other disorders of lung; F17.210 Nicotine dependence, cigarettes, uncomplicated | CPT/HCPCS: 99212 ==